=== PATIENT | male | born 1935 | race Caucasian/White ===

== ENCOUNTER 2016-03-14 20:05 | Emergency (ER) | payer OTHER ==
[~2016-03-14] VITALS: Ht 170.2 cm; Wt 56.6 kg
[~2016-03-14 20:05] MED LIST: ADVIN25050 INH; ALBU1AER9 INH; ASPEC325 PO; FINA5TAB PO; FLM4 PO; FRS/40 PO; LEVO75TA PO; LISI-790 PO; OXGN; PRED1SUS3 OPB; TIOTCAP INH; TRAZ50TA35 PO
[2016-03-14 20:24] VITALS: TEMP 37.1; O2SAT 93; Ht 170.2 cm; Wt 56.6 kg
--- NOTE | 2016-03-14 20:47 | EMERGENCY ROOM VISIT NOTE ---
History Report prepared by July: Chepe Bailon Under the Supervision of: Dr. Victor Hugo Womack M.D. First contact with patient: 20:18 Chief Complaint: URINARY SYMPTOMS Stated Complaint: UNABLE TO URINATE, WHEEZING History of Present Illness The patient is an 80 year old male who presents to the Emergency Room with acute urinary retention all day. The patient feels like his bladder is full but is unable to void. He denies shortness of breath and does not have any other complaints. The patient has never had problems with urinary retention before. He does not follow up with a Urologist. The patient does however follow up with Nephrology. The patient wears oxygen at home for COPD. Source of History: patient Onset: today Position: other (urinary system) Quality: other (retention) Timing: other (acute) Associated Symptoms: No SOB Review of Systems See HPI for pertinent positives & negatives. A total of 10 systems reviewed and were otherwise negative. Past Medical & Surgical Medical Problems: (1) COPD (chronic obstructive pulmonary disease) Family History Patient reports no known family medical history. Social History Smoking Status: Current Every Day Smoker Marital Status: Current/Historical Medications Scheduled Albuterol Sulfate (Proair Hfa), 2 PUFFS INH QID Aspirin (Aspirin *), 325 MG PO QAM Finasteride (Proscar), 5 MG PO QAM Fluticasone Prop/Salmeterol (Advair Diskus 250/50 Mcg *), 1 PUFF INH BID Furosemide (Lasix), 40 MG PO QAM Levothyroxine Sodium (Synthroid), 75 MCG PO QAM Lisinopril (Zestril), 1 TAB PO QAM Prednisolone Acetate 1% Oph (Pred Forte 1% Oph), 1 DROP OPR DIRECTED Sulfa/Trimethoprim (Bactrim Ds 800MG/160MG), 1 TAB PO BID Tamsulosin Hcl (Flomax *), 0.4 MG PO QAM Tiotropium [place] (Spiriva Handihaler), 1 CAP INH QAM Trazodone Hcl (Trazodone), 50 MG PO HS Scheduled PRN Oxygen (Oxygen), 2 LITERS NA DIRECTED PRN for Shortness of Breath Allergies Coded Allergies: Adhesives (Verified Allergy, Unknown, RASH, 04/22/15) Latex (Verified Allergy, Unknown, "RASH", 04/22/15) Physical Exam Vital Signs Date Time Temp Pulse Resp B/P Pulse Ox O2 Delivery O2 Flow Rate FiO2 03/14/16 22:16 20 18 131/79 97 Nasal Cannula 2.0 03/14/16 21:02 22 18 134/98 96 Nasal Cannula 2.0 03/14/16 20:24 96 Nasal Cannula 03/14/16 20:24 37.1 22 18 134/98 96 Nasal Cannula 2.0 03/14/16 20:24 93 Room Air 03/14/16 20:24 98 Physical Exam GENERAL: Patient is a healthy-appearing well-nourished HEAD: Normocephalic atraumatic EYES: Ocular movements intact pupils equal and react to light OROPHARYNX mucous membranes are moist no exudates present no erythema or edema present NECK: Supple no nuchal rigidity CHEST: Good equal expansion LUNGS: Clear and equal to auscultation CARDIAC: Normal S1 and S2 ABDOMEN: Soft, suprapubic tenderness, no guarding BACK: No CVA tenderness EXTREMITIES: No pain upon palpation normal muscle strength in all groups no clubbing cyanosis or edema NEURO: Patient is following commands is answering questions appropriately. Alert and oriented x3 Cranial Nerves 2-12 grossly intact Medical Decision & Procedures ER Provider Diagnostic Interpretation: X-ray results as stated below per interpretation by me and the radiologist: CHEST ONE VIEW PORTABLE CLINICAL HISTORY: Wheezing COMPARISON STUDY: 08/05/2015 FINDINGS: The patient is hyperinflated. The heart is normal in size. There is no failure. There is no focal pulmonary consolidation. Underlying pulmonary emphysema is suspected. There is mild peribronchial thickening.[ IMPRESSION: Suspected underlying pulmonary emphysema with mild peribronchial thickening. No evidence of focal pulmonary consolidation Electronically signed by: Alfonso Michel M.D. 03/14/2016 8:50 PM Dictated Date/Time: 03/14/2016 8:49 PM Laboratory Results 03/14/16 20:50 Red Blood Count 4.97, Mean Corpuscular Volume 95.2, Mean Corpuscular Hemoglobin 33.6, Mean Corpuscular Hemoglobin Concent 35.3, Mean Platelet Volume 9.8, Neutrophils (%) (Auto) 91.4, Lymphocytes (%) (Auto) 3.8, Monocytes (%) (Auto) 4.1, Eosinophils (%) (Auto) 0.2, Basophils (%) (Auto) 0.2, Neutrophils # (Auto) 9.60, Lymphocytes # (Auto) 0.40, Monocytes # (Auto) 0.43, Eosinophils # (Auto) 0.02, Basophils # (Auto) 0.02 03/14/16 20:50 Test 03/14/16 20:42 03/14/16 20:45 03/14/16 20:50 Urine Color YELLOW Urine Appearance CLEAR (CLEAR) Urine pH 6.0 (4.5-7.5) Urine Specific [place] 1.007 (1.000-1.030) Urine Protein 2+ (NEG) Urine Glucose (UA) NEG (NEG) Urine Ketones NEG (NEG) Urine Occult Blood 3+ (NEG) Urine Nitrite NEG (NEG) Urine Bilirubin NEG (NEG) Urine Urobilinogen NEG (NEG) Urine Leukocyte Esterase NEG (NEG) Urine WBC (Auto) 1-5 /hpf (0-5) Urine RBC (Auto) >30 /hpf (0-4) Urine Hyaline Casts (Auto) 0 /lpf (0-5) Urine Epithelial Cells (Auto) 0-5 /lpf (0-5) Urine Bacteria (Auto) NEG (NEG) Influenza Type A Antigen Neg for Influ A (NEG) Influenza Type B Antigen Neg for Influ B (NEG) White Blood Count 10.50 K/uL (4.8-10.8) Red Blood Count 4.97 M/uL (4.7-6.1) Hemoglobin 16.7 g/dL (14.0-18.0) Hematocrit 47.3 % (42-52) Mean Corpuscular Volume 95.2 fL (80-100) Mean Corpuscular Hemoglobin 33.6 pg (25-34) Mean Corpuscular Hemoglobin Concent 35.3 g/dl (32-36) Platelet Count 226 K/uL (130-400) Mean Platelet Volume 9.8 fL (7.4-10.4) Neutrophils (%) (Auto) 91.4 % Lymphocytes (%) (Auto) 3.8 % Monocytes (%) (Auto) 4.1 % Eosinophils (%) (Auto) 0.2 % Basophils (%) (Auto) 0.2 % Neutrophils # (Auto) 9.60 K/uL (1.4-6.5) Lymphocytes # (Auto) 0.40 K/uL (1.2-3.4) Monocytes # (Auto) 0.43 K/uL (0.11-0.59) Eosinophils # (Auto) 0.02 K/uL (0-0.5) Basophils # (Auto) 0.02 K/uL (0-0.2) RDW Standard Deviation 48.8 fL (36.4-46.3) RDW Coefficient of Variation 14.0 % (11.5-14.5) Immature Granulocyte % (Auto) 0.3 % Immature Granulocyte # (Auto) 0.03 K/uL (0.00-0.02) Anion Gap 11.0 mmol/L (3-11) Est Creatinine Clear Calc Drug Dose 29.5 ml/min Estimated GFR () 46.5 Estimated GFR (Non- 40.1 BUN/Creatinine Ratio 11.6 (10-20) Calcium Level 9.1 mg/dl (8.5-10.1) Total Bilirubin 0.9 mg/dl (0.2-1) Aspartate Amino Transf (AST/SGOT) 26 U/L (15-37) Alanine Aminotransferase (ALT/SGPT) 27 U/L (12-78) Alkaline Phosphatase 78 U/L (45-117) Total Protein 7.5 gm/dl (6.4-8.2) Albumin 3.6 gm/dl (3.4-5.0) Globulin 3.9 gm/dl (2.5-4.0) Albumin/Globulin Ratio 0.9 (0.9-2) Labs reviewed by ED physician. Medications Administered Medications (Trade) Dose Ordered Sig/Rosy Route Start Time Stop Time Status Last Admin Dose Admin Trimethoprim/ Sulfamethoxazole (Septra Ds 800/ 160MG Tab) 1 tab NOW STAT PO 03/14/16 21:15 03/14/16 21:17 DC 03/14/16 21:27 1 TAB ECG Indication: SOB/dyspnea Rate (beats per minute): 103 Rhythm: sinus rhythm Findings: PVC, no acute ischemic change ED Course 2039: Past medical records reviewed. The patient was evaluated in room C3. A complete history and physical examination was performed. 2044: Robledo catheter was placed. The patient is feeling a lot better. 2114: Septra Ds 800/160 mg tab PO. 2134: Reassessed the patient. Discussed the treatment plan with him. He verbalized understanding and agreement. The patient is ready for discharge. Medical Decision This is an 80-year-old male who presents emergency department complaining of acute abdominal pain. Upon arrival to emergency department is obvious of the patient's suprapubic area is distended. For this reason a Robledo catheter was immediately placed with immediate improvement the patient's symptoms. The patient was slightly wheezing therefore chest x-ray was performed along with laboratory work however the patient states he is at his baseline. He was given breathing treatments in the emergency department. I will place the patient on Bactrim for presumed prostatitis however I stressed the need for follow-up with urology. Both patient and family were in agreement with the treatment plan. Impression Primary Impression: Urinary retention Scribe Attestation The scribe's documentation has been prepared under my direction and personally reviewed by me in its entirety. I confirm that the note above accurately reflects all work, treatment, procedures, and medical decision making performed by me. Departure Information Dispostion Home / Self-Care Prescriptions Sulfa/Trimethoprim (Bactrim Ds 800MG/160MG) Tab 1 TAB PO BID for 10 Days, #20 TAB Prov: Victor Hugo Womack MD 03/14/16 Referrals Manny Miranda M.D. (PCP) Forms HOME CARE DOCUMENTATION FORM, IMPORTANT VISIT INFORMATION, School Instructions, Work Instructions Patient Instructions ED Catheter Care Robledo, ED Retention Urinary Male, My [facility] Additional Instructions Follow up with DR Ireland's office Culture results are usually available in approx 48 hours You have been examined and treated today on an emergency basis only. This is not a substitute for, or an effort to provide, complete comprehensive medical care. It is impossible to recognize and treat all injuries or illnesses in a single emergency department visit. It is therefore important that you follow up closely with Dr Chandra. Call as soon as possible for an appointment. Thank you for your time and consideration. I look forward to speaking with you again soon. Please don't hesitate to call us if you have any questions.
--- NOTE | 2016-03-14 20:51 | DIAGNOSTIC IMAGING REPORT ---
CHEST ONE VIEW PORTABLE CLINICAL HISTORY: Wheezing COMPARISON STUDY: 08/05/2015 FINDINGS: The patient is hyperinflated. The heart is normal in size. There is no failure. There is no focal pulmonary consolidation. Underlying pulmonary emphysema is suspected. There is mild peribronchial thickening.[ IMPRESSION: Suspected underlying pulmonary emphysema with mild peribronchial thickening. No evidence of focal pulmonary consolidation Electronically signed by: Alfonso Michel M.D. 03/14/2016 8:50 PM Dictated Date/Time: 03/14/2016 8:49 PM
[2016-03-14 21:10] LABS: URINE APPEARANCE CLEAR (CLEAR); URINE BILIRUBIN NEG (NEG); URINE COLOR YELLOW; URINE EPITHELIAL CELL AUTO 0-5 /lpf (0-5); URINE NITRITE NEG (NEG); URINE SPECIFIC GRAVITY 1.007 (1.000-1.030); UROBILINOGEN NEG (NEG); ZZURINE CULT IF INDIC CATH NO
[2016-03-14 21:11] LABS: MANUAL MICROSCOPIC REQUIRED? NO; REVIEW REQ? NO
[2016-03-14] MEDS ORDERED: SULFAMETHOXAZOLE/TRIMETHOPRIM DS 800/160MG TAB PO STA (21:15)
[2016-03-14 21:24] LABS: BASO % 0.2 %; BASO ABS # 0.02 K/uL (0-0.2); COMPLETE YES; EOS % 0.2 %; HEMATOCRIT 47.3 % (42-52); IG% 0.3 %; LYMPH % 3.8 %; MEAN CELL VOLUME 95.2 fL (80-100); MEAN CORPUSCULAR HEMOGLOBIN 33.6 pg (25-34); MEAN CORPUSCULAR HGB CONC 35.3 g/dl (32-36); MEAN PLATELET VOLUME 9.8 fL (7.4-10.4); MONO % 4.1 %; NEUT % 91.4 %; PLATELET COUNT 226 K/uL (130-400); RED BLOOD COUNT 4.97 M/uL (4.7-6.1)
[2016-03-14] MEDS ORDERED: SULF800T23 PO (21:32)
[2016-03-14 21:37] LABS: BUN/CREATININE RATIO 11.6 (10-20); CALCIUM 9.1 mg/dl (8.5-10.1); CREATININE 1.6 mg/dl (0.60-1.40); POTASSIUM 4.3 mmol/L (3.5-5.1)
[2016-03-14 21:40] LABS: ALB/GLOB RATIO 0.9 (0.9-2)
[2016-03-14 22:16] VITALS: BP 131/79; PULSE 20; O2SAT 97
== END 2016-03-14 22:15 | disposition home or self-care (01) ==
LOC: EDBD 20:05 → C.EDC 20:06
DX: R33.9 Retention of urine, unspecified (principal); I49.3 Ventricular premature depolarization; J44.9 Chronic obstructive pulmonary disease, unspecified; Z99.81 Dependence on supplemental oxygen; Z79.82 Long term (current) use of aspirin; Z79.899 Other long term (current) drug therapy; F17.200 Nicotine dependence, unspecified, uncomplicated; Z88.8 Allergy status to other drugs, medicaments and biological substances; Z91.040 Latex allergy status

== ENCOUNTER 2016-09-25 14:35 | Emergency (ER) | payer OTHER ==
[~2016-09-25] VITALS: Ht 167.6 cm; Wt 58.0 kg
[2016-09-25 14:57] VITALS: TEMP 36.5; Ht 167.6 cm; Wt 58.0 kg
[2016-09-25] MEDS ORDERED: LEVO100T7 PO (16:18)
[2016-09-25] MEDS ORDERED: IPRASOL4 INH (16:18)
[2016-09-25] MEDS ORDERED: FLM4 PO (16:18)
[2016-09-25] MEDS ORDERED: VNTHFA/IN INH (16:18)
[2016-09-25] MEDS ORDERED: ASPI325T39 PO (16:19)
[2016-09-25] MEDS ORDERED: PRED1SUS17 OP (16:21)
--- NOTE | 2016-09-25 16:25 | EMERGENCY ROOM VISIT NOTE ---
History Report prepared by July: Rukhsana Allen Under the Supervision of: Dr. Nahun Houston D.O. First contact with patient: 16:00 Chief Complaint: CATHETER REPLACEMENT Stated Complaint: CATHETER CAME OUT History of Present Illness The patient is a 81 year old male who presents to the Emergency Room for a catheter replacement after it came out last night. The patient states that his Robledo catheter came out yesterday and he is having a lot of pressure. He denies any pain and abdominal pressure. He reports that the catheter was replaced 1 week ago. The patient notes that he has had some leaking. Source of History: patient Onset: last night Position: other (penis) Quality: pressure Timing: constant Note: He denies any pain and abdominal pressure. Review of Systems See HPI for pertinent positives & negatives. A total of 10 systems reviewed and were otherwise negative. Past Medical & Surgical Medical Problems: (1) COPD (chronic obstructive pulmonary disease) Family History Patient reports no known family medical history. Social History Smoking Status: Current Every Day Smoker Marital Status: Current/Historical Medications Scheduled Albuterol Hfa (Ventolin Hfa), 2 PUFF INH QID Aspirin (Aspirin Ec), 325 MG PO DAILY Finasteride (Proscar), 5 MG PO QAM Furosemide (Lasix), 40 MG PO QAM Ipratropium-Albuterol (Duoneb), 1 TREATMENT INH 5XD Levothyroxine Sodium (Synthroid), 75 MCG PO QAM Levothyroxine Sodium (Levothyroxine Sodium), 100 MCG PO DAILY Tamsulosin HCl (Tamsulosin HCl), 0.4 MG PO DAILY Scheduled PRN Home O2 Therapy (Oxygen), 2 LITERS NA DIRECTED PRN for Shortness of Breath Prednisolone Acetate (Ophth) (Prednisolone Acetate), 1 DROP OP UD PRN for EYE IRRITATION Allergies Coded Allergies: Adhesives (Verified Allergy, Unknown, RASH, 09/25/16) Latex (Verified Allergy, Unknown, "RASH", 09/25/16) Physical Exam Vital Signs Date Time Temp Pulse Resp B/P (MAP) Pulse Ox O2 Delivery O2 Flow Rate FiO2 09/25/16 17:24 76 20 130/80 100 09/25/16 14:57 36.5 20 93 176/94 92 Nasal Cannula 2.0 Physical Exam GENERAL: Patient is awake, alert, very anxious appearing and uncomfortable EYES: The conjunctivae are clear. The pupils are round and reactive. EARS, NOSE, MOUTH AND THROAT: The nose is without any evidence of any deformity. Mucous membranes are moist tongue is midline NECK: The neck is nontender and supple. RESPIRATORY: Lung sounds diminished in all lung do, rales noted throughout. CARDIOVASCULAR: Regular rate and rhythm noted there no murmurs rubs or gallops normal S1 normal S2 GASTROINTESTINAL: The abdomen is moderately distended. Suprapubic tenderness to palpation, no guarding or rigidity. MUSCULOSKELETAL/EXTREMITIES: There is no evidence of gross deformity full range of motion is noted in the hips and shoulders SKIN: There is no obvious evidence of any rash. There are no petechiae, pallor or cyanosis noted. Pedal edema bilaterally NEUROLOGIC: Patient is awake alert and oriented x3 Medical Decision & Procedures ED Course 1600: The patient was evaluated in room B10. A complete history and physical examination were performed. 1701: I reevaluated the patient and updated him and his . 1726: Upon reevaluation, the patient is doing well. I discussed the results and treatment plan with the patient. She verbalized agreement of the treatment plan. The patient was discharged home. Medical Decision Nursing notes reviewed. Additional history is obtained from the patient's significant other. The patient is an 81-year-old male who presented to the emergency department because of abdominal pain. The patient was found have a Robledo catheter that was not draining. I replaced the Robledo catheter in the emergency department and he was found have significant urinary retention. He was feeling much better on subsequent reevaluation. He has had a Robledo catheter for quite some time and is very familiar with the management of the Robledo catheter. He was encouraged to follow-up with his primary urologist as well as primary care physician as soon as possible. He was also encouraged return to the emergency department immediately if symptoms change worsen or the need arises. Medication Reconcilliation Current Medication List: was personally reviewed by me Blood Pressure Screening Patient's blood pressure: Elevated blood pressure Blood pressure disposition: Elevated BP felt to be situational Impression Primary Impression: Urinary retention Additional Impressions: Encounter for Robledo catheter replacement Malfunction of Robledo catheter Scribe Attestation The scribe's documentation has been prepared under my direction and personally reviewed by me in its entirety. I confirm that the note above accurately reflects all work, treatment, procedures, and medical decision making performed by me. Departure Information Dispostion Home / Self-Care Referrals Manny Miranda M.D. (PCP) Forms HOME CARE DOCUMENTATION FORM, IMPORTANT VISIT INFORMATION Patient Instructions My [facility] Health Problem Qualifiers
[2016-09-25 17:24] VITALS: BP 130/80; PULSE 76; O2SAT 100
== END 2016-09-25 17:26 | disposition home or self-care (01) ==
LOC: C.EDB 14:36
DX: R33.9 Retention of urine, unspecified (principal); Z46.6 Encounter for fitting and adjustment of urinary device; J44.9 Chronic obstructive pulmonary disease, unspecified; F17.200 Nicotine dependence, unspecified, uncomplicated; Z79.82 Long term (current) use of aspirin

== ENCOUNTER 2017-02-02 14:48 | Inpatient (IN) | payer OTHER ==
[~2017-02-02] VITALS: Ht 165.1 cm; Wt 60.4 kg
[~2017-02-02 14:48] MED LIST changes: -ADVIN25050 INH; -ALBU1AER9 INH; -ASPEC325 PO; +ASPI325T39 PO; +IPRASOL4 INH; +LEVO100T7 PO; -LISI-790 PO; +PRED1SUS17 OP; -PRED1SUS3 OPB; -TIOTCAP INH; -TRAZ50TA35 PO; +VNTHFA/IN INH
[2017-02-02] MEDS ORDERED: PRED10TA PO (15:13)
[2017-02-02] MEDS ORDERED: CHOL1000 PO (15:17)
[2017-02-02] MEDS ORDERED: SODIUM CHLORIDE 0.9% 500ML 500 ML IV STA (15:24)
--- NOTE | 2017-02-02 15:41 | DIAGNOSTIC IMAGING REPORT ---
CHEST ONE VIEW PORTABLE CLINICAL HISTORY: EVALUATE RESPIRATORY DISTRESS.DYSPNEA dyspnea COMPARISON STUDY: 03/14/2016 FINDINGS: Moderate chronic fibrotic change throughout both hemithoraces. No evidence for cardiac enlargement. Emphysematous change stable from the prior study. IMPRESSION: Chronic change as noted. Mild emphysematous change. No acute process. The above report was generated using voice recognition software. It may contain grammatical, syntax or spelling errors. Electronically signed by: Melo Kyle M.D. 02/02/2017 3:40 PM Dictated Date/Time: 02/02/2017 3:39 PM
[2017-02-02 15:57] LABS: BASO % 0.5 %; BASO ABS # 0.04 K/uL (0-0.2); EOS % 0.9 %; EOS ABS # 0.08 K/uL (0-0.5); HEMATOCRIT 44.6 % (42-52); HEMOGLOBIN 15.3 g/dL (14.0-18.0); IG# 0.02 K/uL (0.00-0.02); LYMPH % 12.5 %; LYMPH ABS # 1.07 K/uL (1.2-3.4); MEAN CELL VOLUME 97.8 fL (80-100); MEAN CORPUSCULAR HEMOGLOBIN 33.6 pg (25-34); MEAN CORPUSCULAR HGB CONC 34.3 g/dl (32-36); MEAN PLATELET VOLUME 9.8 fL (7.4-10.4); MONO % 7.3 %; MONO ABS # 0.62 K/uL (0.11-0.59); NEUT % 78.6 %; NEUT ABS # 6.71 K/uL (1.4-6.5); PLATELET COUNT 232 K/uL (130-400); RED CELL DISTRIBUTION WIDTH CV 14.4 % (11.5-14.5); RED CELL DISTRIBUTION WIDTH SD 51.6 fL (36.4-46.3); WHITE BLOOD COUNT 8.54 K/uL (4.8-10.8)
[2017-02-02 16:18] LABS: ALBUMIN 3.6 gm/dl (3.4-5.0); CREATININE 1.72 mg/dl (0.60-1.40); POTASSIUM 3.8 mmol/L (3.5-5.1)
[2017-02-02 16:23] LABS: TOTAL PROTEIN 7.8 gm/dl (6.4-8.2)
[2017-02-02] MEDS ORDERED: FUROSEMIDE 40 MG/4 ML VIAL IV STA (17:27)
[2017-02-02] MEDS ORDERED: ONDANSETRON INJ 2 MG/ML 2 ML VIAL IV PRN (18:15)
[2017-02-02] MEDS ORDERED: ACETAMINOPHEN 325 MG TAB PO PRN (18:15)
[2017-02-02] MEDS ORDERED: CEFU500T16 PO (18:27)
[2017-02-02] MEDS ORDERED: TAMS0.4C38 PO (18:27)
[2017-02-02] MEDS ORDERED: ADVIN25/60 INH (18:27)
[2017-02-02 18:51] VITALS: BP 161/78; PULSE 100; TEMP 37.2; O2SAT 93
[2017-02-02 19:00] VITALS: Ht 165.1 cm; Wt 60.4 kg
--- NOTE | 2017-02-02 19:03 | History and Physical ---
History & Physical Date & Time of Service: Feb 02, 2017 ~ 17:45 Chief Complaint: Swollen Legs Primary Care Physician: Manny Miranda M.D. History of Present Illness 81 year old male who presents to the ED with BLLE edema. Patient reports a long standing history of BLLE edema however it has been worsening over the past couple of weeks. Patient follows with nephrology who has been managing his diuretics. Patient was to be taking Lasix 40mg twice a day however has only been taking it once daily and thought he was only to take the second dose if needed. He just started taking it twice daily today. Patient reports chronic exertional shortness of breath which is unchanged from baseline. He chronically sleeps in a recliner. He denies chest pain and palpitations. No lightheadedness , dizziness, diaphoresis, or syncopal events. He denies abdominal pain, nausea, vomiting, or diarrhea. He has a chronic evans which has been working well. In the ED, patient is hemodynamically stable and CXR does not show any signs of congestion. He was given Lasix 40mg IV. Past Medical/Surgical History Medical Problems: (1) BPH (benign prostatic hyperplasia) Status: Chronic (2) CKD (chronic kidney disease), stage III Status: Chronic (3) COPD, severe Status: Chronic (4) HTN (hypertension) Status: Chronic (5) Hypothyroidism Status: Chronic (6) Osteoarthritis Status: Chronic (7) Urinary retention Status: Chronic Surgical Problems: (1) History of tonsillectomy and adenoidectomy Status: Chronic (2) S/P ear surgery Status: Chronic Family History non contributory due to patient's advanced age Social History Smoking Status: Current Every Day Smoker Alcohol Use: 1 beer/night Immunizations History of Influenza Vaccine: Yes Influenza Vaccine Date: Nov 02, 2016 History of Tetanus Vaccine?: Yes Tetanus Immunization Date: Apr 30, 2008 History of Pneumococcal: Yes Pneumococcal Date: Apr 16, 2014 Multi-Drug Resistant Organisms History of MDRO: No Allergies Coded Allergies: Adhesives (Verified Allergy, Unknown, RASH, 02/02/17) Latex (Verified Allergy, Unknown, "RASH", 02/02/17) Home Medications Scheduled Aspirin (Aspirin Ec), 325 MG PO DAILY Cholecalciferol (Vitamin D3), 1,000 UNITS PO DAILY Finasteride (Proscar), 5 MG PO QAM Fluticasone Prop/Salmeterol (Advair Diskus 250/50 60 Dose), 1 PUFF INH BID Furosemide (Lasix), 40 MG PO BID Levothyroxine Sodium (Levothyroxine Sodium), 100 MCG PO DAILY Prednisone Tab (Prednisone), 10 MG PO DAILY Tamsulosin Hcl (Flomax), 0.4 MG PO DAILY Scheduled PRN Albuterol Hfa (Ventolin Hfa), 2 PUFF INH QID PRN for SOB/Wheezing Cefuroxime Axetil (Ceftin), 500 MG PO BID PRN for copd rescue kit Home O2 Therapy (Oxygen), 2 LITERS NA DIRECTED PRN for Shortness of Breath Ipratropium-Albuterol (Duoneb), 1 TREATMENT INH QID PRN for SOB/Wheezing Review of Systems ROS per HPI, all other systems reviewed and negative Physical Exam Vital Signs Date Time Temp Pulse Resp B/P (MAP) Pulse Ox O2 Delivery O2 Flow Rate FiO2 02/02/17 18:32 87 18 142/81 94 02/02/17 17:42 89 20 124/72 93 Room Air 02/02/17 16:02 96 02/02/17 15:43 93 16 161/82 94 Room Air 02/02/17 15:43 94 Room Air 02/02/17 14:57 36.4 97 18 137/72 92 Room Air General Appearance: WD/WN, no apparent distress Head: normocephalic, atraumatic Eyes: normal inspection, EOMI, sclerae normal ENT: hearing grossly normal, + pertinent finding (mucous membranes moist) Neck: supple, no JVD, trachea midline Respiratory/Chest: no respiratory distress, + decreased breath sounds Cardiovascular: regular rate, rhythm, normal peripheral pulses, + pertinent finding (+4 pitting edema BLLE) Abdomen/GI: normal bowel sounds, non tender, soft, no organomegaly Extremities/Musculoskelatal: normal inspection, no calf tenderness, normal capillary refill Neurologic/Psych: no motor/sensory deficits, alert, normal mood/affect, oriented x 3 Skin: warm/dry, + pertinent finding (BLLE with dry and cracked skin, erythema noted however no open areas or drainage ) Diagnostics Laboratory Results Results Past 24 Hours Test 02/02/17 15:45 02/02/17 16:35 Range/Units White Blood Count 8.54 4.8-10.8 K/uL Red Blood Count 4.56 4.7-6.1 M/uL Hemoglobin 15.3 14.0-18.0 g/dL Hematocrit 44.6 42-52 % Mean Corpuscular Volume 97.8 80-100 fL Mean Corpuscular Hemoglobin 33.6 25-34 pg Mean Corpuscular Hemoglobin Concent 34.3 32-36 g/dl Platelet Count 232 130-400 K/uL Mean Platelet Volume 9.8 7.4-10.4 fL Neutrophils (%) (Auto) 78.6 % Lymphocytes (%) (Auto) 12.5 % Monocytes (%) (Auto) 7.3 % Eosinophils (%) (Auto) 0.9 % Basophils (%) (Auto) 0.5 % Neutrophils # (Auto) 6.71 1.4-6.5 K/uL Lymphocytes # (Auto) 1.07 1.2-3.4 K/uL Monocytes # (Auto) 0.62 0.11-0.59 K/uL Eosinophils # (Auto) 0.08 0-0.5 K/uL Basophils # (Auto) 0.04 0-0.2 K/uL RDW Standard Deviation 51.6 36.4-46.3 fL RDW Coefficient of Variation 14.4 11.5-14.5 % Immature Granulocyte % (Auto) 0.2 % Immature Granulocyte # (Auto) 0.02 0.00-0.02 K/uL Sodium Level 138 136-145 mmol/L Potassium Level 3.8 3.5-5.1 mmol/L Chloride Level 100 98-107 mmol/L Carbon Dioxide Level 32 21-32 mmol/L Anion Gap 6.0 3-11 mmol/L Blood Urea Nitrogen 33 7-18 mg/dl Creatinine 1.72 0.60-1.40 mg/dl Est Creatinine Clear Calc Drug Dose 28.2 ml/min Estimated GFR () 42.3 Estimated GFR (Non- 36.5 BUN/Creatinine Ratio 19.3 10-20 Random Glucose 97 70-99 mg/dl Calcium Level 9.0 8.5-10.1 mg/dl Total Bilirubin 0.6 0.2-1 mg/dl Aspartate Amino Transf (AST/SGOT) 24 15-37 U/L Alanine Aminotransferase (ALT/SGPT) 29 12-78 U/L Alkaline Phosphatase 77 45-117 U/L Troponin I 0.020 0-0.045 ng/ml Pro-B-Type Natriuretic Peptide 486 0-1800 pg/ml Total Protein 7.8 6.4-8.2 gm/dl Albumin 3.6 3.4-5.0 gm/dl Globulin 4.2 2.5-4.0 gm/dl Albumin/Globulin Ratio 0.9 0.9-2 Urine Color YELLOW Urine Appearance CLOUDY CLEAR Urine pH 7.5 4.5-7.5 Urine Specific [place] 1.011 1.000-1.030 Urine Protein NEG NEG Urine Glucose (UA) NEG NEG Urine Ketones NEG NEG Urine Occult Blood 1+ NEG Urine Nitrite NEG NEG Urine Bilirubin NEG NEG Urine Urobilinogen NEG NEG Urine Leukocyte Esterase SMALL NEG Urine WBC (Auto) 10-30 0-5 /hpf Urine RBC (Auto) 5-10 0-4 /hpf Urine Hyaline Casts (Auto) 1-5 0-5 /lpf Urine Epithelial Cells (Auto) >30 0-5 /lpf Urine Bacteria (Auto) 3+ NEG Urine Crystals AMORPHOUS SEDIMENT NONE PRSENT Urine Yeast (Auto) NONE PRSENT Microbiology Results 02/02/17 Urine Culture, Received Pending Diagnostic Radiology CXR IMPRESSION: Chronic change as noted. Mild emphysematous change. No acute process. Impression Assessment and Plan VOLUME OVERLOAD IN THE SETTING OF CKD STAGE III - admit to tele - patient presenting with increasing BLLE edema x 2 weeks; was to be taking Lasix 40mg BID however has only been taking daily - echo 2014 - EF 60-65%, grade I diastolic dysfunction - follows with nephrology who has been managing his diuretics; will consult - no congestion on CXR, denies chest pain - will update echo and if with significant changes, will consult cardiology - s/p Lasix 40mg IV in the ED, will continue with 40mg IV BID - has a chronic evans in place - daily weights, I/Os, low Na+ diet - baseline creat runs in the mid 1's noted to be 1.7 today - BLLE reddened with dry, cracked skin; no drainage - likely from significant edema, do not suspect cellulitis COPD - no signs of acute exacerbation - continue home inhalers and chronic prednisone HX CVA - continue ASA HYPOTHYROIDISM - continue levothyroxine BPH, CHRONIC EVANS - continue finasteride and tamsulosin DVT PROPHYLAXIS - SQ heparin CODE STATUS - Patient is a full code as per my discussion with him. DISPO - In my clinical judgment this beneficiary meets acute admission criteria, established by [facility], that includes being hospitalized through two midnights. - PT/OT, case management consults Attending Addendum: The patient was seen and examined in ER in presence of the son Complains of legs swelling for a while Noncompliant with the Lasix Difficult to ambulate but denies any symptoms O/E No apparent distress Hemodynamically stable Chest-decreased breath sound bilaterally No crackles Heart-regular Abdomen-benign Extremities-Bilateral Legs swelling with 2+ Edema Minimal redness -right leg-doubt any infection [employer]-[id number] Generally weak Labs and imaging studies were reviewed Has Volume Overload. May have component of Lymphedema Agree wit the assessment and plan. Dr Justen Dickey VTE Prophylaxis VTE Risk Assessment Done? Y/N: Yes Risk Level: Moderate
[2017-02-02 19:23] LABS: PTT PATIENT 27.5 SECONDS (21.0-31.0)
[2017-02-02] MEDS: HEPARIN SOD 5000 UNIT/0.5 ML CARP SQ SCH (21:15)
[2017-02-02] MEDS: FLUTICASONE/SALMETEROL 250/50 (ADVAIR) 14 PUFF/1 INHALER INH SCH (21:40)
--- NOTE | 2017-02-02 22:22 | EMERGENCY ROOM VISIT NOTE ---
History Report prepared by July: Betty Moon Under the Supervision of: Eliel LangfordO. First contact with patient: 15:16 Chief Complaint: SWELLING TO EXTREMITY Stated Complaint: FLUID RETENTION,FAST PULSE,FEET SWOLLEN History of Present Illness The patient is a 81 year old male who presents to the Emergency Room with complaints of worsening swelling of his extremities that began a few days ago. The patient states that he saw his PCP yesterday, who informed him he had a heart rate of 107 with some fluid retention. He notes that he takes 40mg of Lasix's daily. The patient admits to gaining 15 lbs in past week. Pt denies headache, change in vision, fevers, chest pain, shortness of breath, nausea, vomiting, diarrhea, pain with urination, and melena. Source of History: patient Onset: few days ago Position: other (extremities) Quality: other (swelling) Timing: other (persistent) Review of Systems See HPI for pertinent positives & negatives. A total of 10 systems reviewed and were otherwise negative. Past Medical & Surgical Medical Problems: (1) BPH (benign prostatic hyperplasia) (2) CKD (chronic kidney disease), stage III (3) COPD, severe (4) HTN (hypertension) (5) Hypothyroidism (6) Osteoarthritis (7) Urinary retention Surgical Problems: (1) History of tonsillectomy and adenoidectomy (2) S/P ear surgery Family History Patient reports no known family medical history. Social History Smoking Status: Current Every Day Smoker Marital Status: Current/Historical Medications Scheduled Aspirin (Aspirin Ec), 325 MG PO DAILY Cholecalciferol (Vitamin D3), 1,000 UNITS PO DAILY Finasteride (Proscar), 5 MG PO QAM Fluticasone Prop/Salmeterol (Advair Diskus 250/50 60 Dose), 1 PUFF INH BID Furosemide (Lasix), 40 MG PO BID Levothyroxine Sodium (Levothyroxine Sodium), 100 MCG PO DAILY Prednisone Tab (Prednisone), 10 MG PO DAILY Tamsulosin Hcl (Flomax), 0.4 MG PO DAILY Scheduled PRN Albuterol Hfa (Ventolin Hfa), 2 PUFF INH QID PRN for SOB/Wheezing Cefuroxime Axetil (Ceftin), 500 MG PO BID PRN for copd rescue kit Home O2 Therapy (Oxygen), 2 LITERS NA DIRECTED PRN for Shortness of Breath Ipratropium-Albuterol (Duoneb), 1 TREATMENT INH QID PRN for SOB/Wheezing Allergies Coded Allergies: Adhesives (Verified Allergy, Unknown, RASH, 02/02/17) Latex (Verified Allergy, Unknown, "RASH", 02/02/17) Physical Exam Vital Signs Date Time Temp Pulse Resp B/P (MAP) Pulse Ox O2 Delivery O2 Flow Rate FiO2 02/02/17 17:42 89 20 124/72 93 Room Air 02/02/17 16:02 96 02/02/17 15:43 93 16 161/82 94 Room Air 02/02/17 15:43 94 Room Air 02/02/17 14:57 36.4 97 18 137/72 92 Room Air Physical Exam GENERAL: Sitting up in bed, talking in full sentences, alert, well appearing, well nourished, no distress, non-toxic EYE EXAM: normal conjunctiva. PERRL and EOM's grossly intact. OROPHARYNX: no exudate, no erythema, lips, buccal mucosa, and tongue normal and mucous membranes are moist NECK: No approached JVD. LUNGS: Diminished at bases. Clear to auscultation. Normal chest wall mechanics HEART: no murmurs, S1 normal and S2 normal ABDOMEN: abdomen soft, non-tender, normo-active bowel sounds, no masses, no rebound or guarding. BACK: Back is symmetrical on inspection and there is no deformity, no midline tenderness, no CVA tenderness. SKIN: no rashes and no bruising UPPER EXTREMITIES: upper extremities are grossly normal. LOWER EXTREMITIES: Pitting edema lateral to bilateral thighs with erythema to right rodriguez. NEURO EXAM: Normal sensorium, cranial nerves II-XII grossly intact, normal speech, no gross weakness of arms, no gross weakness of legs. Medical Decision & Procedures ER Provider Diagnostic Interpretation: Radiology results as stated below per my review and the radiologist's interpretation: CHEST ONE VIEW PORTABLE CLINICAL HISTORY: EVALUATE RESPIRATORY DISTRESS.DYSPNEA dyspnea COMPARISON STUDY: 03/14/2016 FINDINGS: Moderate chronic fibrotic change throughout both hemithoraces. No evidence for cardiac enlargement. Emphysematous change stable from the prior study. IMPRESSION: Chronic change as noted. Mild emphysematous change. No acute process. The above report was generated using voice recognition software. It may contain grammatical, syntax or spelling errors. Electronically signed by: Melo Kyle M.D. 02/02/2017 3:40 PM Dictated Date/Time: 02/02/2017 3:39 PM Laboratory Results 02/02/17 15:45 Red Blood Count 4.56, Mean Corpuscular Volume 97.8, Mean Corpuscular Hemoglobin 33.6, Mean Corpuscular Hemoglobin Concent 34.3, Mean Platelet Volume 9.8, Neutrophils (%) (Auto) 78.6, Lymphocytes (%) (Auto) 12.5, Monocytes (%) (Auto) 7.3, Eosinophils (%) (Auto) 0.9, Basophils (%) (Auto) 0.5, Neutrophils # (Auto) 6.71, Lymphocytes # (Auto) 1.07, Monocytes # (Auto) 0.62, Eosinophils # (Auto) 0.08, Basophils # (Auto) 0.04 02/02/17 15:45 Test 02/02/17 15:45 02/02/17 16:35 White Blood Count 8.54 K/uL (4.8-10.8) Red Blood Count 4.56 M/uL (4.7-6.1) Hemoglobin 15.3 g/dL (14.0-18.0) Hematocrit 44.6 % (42-52) Mean Corpuscular Volume 97.8 fL (80-100) Mean Corpuscular Hemoglobin 33.6 pg (25-34) Mean Corpuscular Hemoglobin Concent 34.3 g/dl (32-36) Platelet Count 232 K/uL (130-400) Mean Platelet Volume 9.8 fL (7.4-10.4) Neutrophils (%) (Auto) 78.6 % Lymphocytes (%) (Auto) 12.5 % Monocytes (%) (Auto) 7.3 % Eosinophils (%) (Auto) 0.9 % Basophils (%) (Auto) 0.5 % Neutrophils # (Auto) 6.71 K/uL (1.4-6.5) Lymphocytes # (Auto) 1.07 K/uL (1.2-3.4) Monocytes # (Auto) 0.62 K/uL (0.11-0.59) Eosinophils # (Auto) 0.08 K/uL (0-0.5) Basophils # (Auto) 0.04 K/uL (0-0.2) RDW Standard Deviation 51.6 fL (36.4-46.3) RDW Coefficient of Variation 14.4 % (11.5-14.5) Immature Granulocyte % (Auto) 0.2 % Immature Granulocyte # (Auto) 0.02 K/uL (0.00-0.02) Anion Gap 6.0 mmol/L (3-11) Est Creatinine Clear Calc Drug Dose 28.2 ml/min Estimated GFR () 42.3 Estimated GFR (Non- 36.5 BUN/Creatinine Ratio 19.3 (10-20) Calcium Level 9.0 mg/dl (8.5-10.1) Total Bilirubin 0.6 mg/dl (0.2-1) Aspartate Amino Transf (AST/SGOT) 24 U/L (15-37) Alanine Aminotransferase (ALT/SGPT) 29 U/L (12-78) Alkaline Phosphatase 77 U/L (45-117) Troponin I 0.020 ng/ml (0-0.045) Pro-B-Type Natriuretic Peptide 486 pg/ml (0-1800) Total Protein 7.8 gm/dl (6.4-8.2) Albumin 3.6 gm/dl (3.4-5.0) Globulin 4.2 gm/dl (2.5-4.0) Albumin/Globulin Ratio 0.9 (0.9-2) Urine Color YELLOW Urine Appearance CLOUDY (CLEAR) Urine pH 7.5 (4.5-7.5) Urine Specific [place] 1.011 (1.000-1.030) Urine Protein NEG (NEG) Urine Glucose (UA) NEG (NEG) Urine Ketones NEG (NEG) Urine Occult Blood 1+ (NEG) Urine Nitrite NEG (NEG) Urine Bilirubin NEG (NEG) Urine Urobilinogen NEG (NEG) Urine Leukocyte Esterase SMALL (NEG) Urine WBC (Auto) 10-30 /hpf (0-5) Urine RBC (Auto) 5-10 /hpf (0-4) Urine Hyaline Casts (Auto) 1-5 /lpf (0-5) Urine Epithelial Cells (Auto) >30 /lpf (0-5) Urine Bacteria (Auto) 3+ (NEG) Urine Crystals AMORPHOUS SEDIMENT (NONE Urine Yeast (Auto) (NONE PRSENT) Laboratory results per my review. Medications Administered Medications (Trade) Dose Ordered Sig/Rosy Route Start Time Stop Time Status Last Admin Dose Admin Sodium Chloride 500 ml @ 999 mls/hr Q31M STAT IV 02/02/17 15:24 02/02/17 15:54 DC 02/02/17 15:24 999 MLS/HR Furosemide (Lasix Inj) 40 mg NOW STAT IV 02/02/17 17:27 02/02/17 17:28 DC 02/02/17 17:48 40 MG ECG Indication: other (swelling of extremities) Rate (beats per minute): 93 Rhythm: sinus rhythm Findings: Q waves (Septal), other (poor baseline, normal axis) ED Course ED COURSE: Vital signs were reviewed and showed normal vital signs. The patients medical record was reviewed The above diagnostic studies were performed and reviewed. ED treatments and interventions as stated above. 1519: The patient was evaluated in room C8. A complete history and physical examination was performed. 1524: Ordered Sodium Chloride 500ml @ 999mls/hr IV. 1723: I reevaluated the patient, who states he has no new complaints. 1727: Ordered Lasix Inj 40mg IV. 1733: I reviewed the patient's case with MILKA Fallon. She will evaluate the patient for further management. Medical Decision Differential diagnosis: Etiologies such as infections, reactive airway disease, pneumonia, pneumothorax , COPD, CHF, cardiac ischemia, pulmonary embolism, musculoskeletal, gastrointestinal, as well as others were entertained. The patient is a 81 year old male who presents to the ED with complaints of swelling of extremities. Prior records/ancillary studies reviewed. Labs were obtained and show no significant anemia or leukocytosis. BMP shows creatinine 1.7. LFTs all bilirubin, troponin and BNP is unremarkable. UA was contaminated with multiple to go cells. Chest x-ray was unremarkable. Patient had diffuse pitting edema tracking up to the thighs. Patient has been partially managed as an outpatient but unsuccessfully. Discussed with internal medicine following 40 IV Lasix. Patient was needed for further workup of his CHF without significant EKG changes. Medication Reconcilliation Current Medication List: was personally reviewed by me Consults Time Called: 1732 Consulting Physician: MILKA Fallon Returned Call: 1732 I reviewed the patient's case with Dr. Denice Frausto. She will evaluate the patient for further management. Impression Primary Impression: CHF (congestive heart failure) Scribe Attestation The scribe's documentation has been prepared under my direction and personally reviewed by me in its entirety. I confirm that the note above accurately reflects all work, treatment, procedures, and medical decision making performed by me. Departure Information Dispostion Being Evaluated By Hospitalist Referrals Manny Miranda M.D. (PCP) Forms HOME CARE DOCUMENTATION FORM, IMPORTANT VISIT INFORMATION, WORK / SCHOOL INSTRUCTIONS Patient Instructions My [facility] Problem Qualifiers Primary Impression: CHF (congestive heart failure) Congestive heart failure type: unspecified congestive heart failure type Congestive heart failure chronicity: unspecified congestive heart failure chronicity Qualified Codes: I50.9 - Heart failure, unspecified
[2017-02-02 23:57] VITALS: BP 143/66; PULSE 91; TEMP 37; O2SAT 96
[2017-02-03] VITALS (12 sets, daily range): BP systolic 109–142; BP diastolic 54–76; PULSE 79–103; TEMP 36.6–36.8; O2SAT 90–98
[2017-02-03] MEDS: ALBUT/IPRATROP 3MG/0.5MG NEB 3 ML VIAL INH PRN ×4 (01:57→22:00)
[2017-02-03] MEDS: LEVOTHYROXINE 100 MCG TAB PO SCH (05:25)
[2017-02-03] MEDS: FUROSEMIDE INJ 40 MG in SYRINGE 0 ML IV SCH ×2 (05:25→16:43)
[2017-02-03] MEDS: HEPARIN SOD 5000 UNIT/0.5 ML CARP SQ SCH ×3 (05:28→21:47)
[2017-02-03 07:50] LABS: HEMATOCRIT 40.7 % (42-52); HEMOGLOBIN 13.8 g/dL (14.0-18.0); MEAN CELL VOLUME 97.6 fL (80-100); MEAN CORPUSCULAR HEMOGLOBIN 33.1 pg (25-34); MEAN CORPUSCULAR HGB CONC 33.9 g/dl (32-36); MEAN PLATELET VOLUME 10.1 fL (7.4-10.4); PLATELET COUNT 213 K/uL (130-400); RED CELL DISTRIBUTION WIDTH CV 14.5 % (11.5-14.5); RED CELL DISTRIBUTION WIDTH SD 51.8 fL (36.4-46.3); WHITE BLOOD COUNT 8.77 K/uL (4.8-10.8)
--- NOTE | 2017-02-03 08:11 | NEPHROLOGY CONSULTATION ---
DATE OF CONSULTATION: 02/03/2017 ATTENDING OF RECORD: Dr. Delgado. REASON FOR CONSULTATION: Volume overload. HISTORY OF PRESENT ILLNESS: This is an 81-year-old male followed by my partner, Dr. Analia Coats for CKD stage III, who has underlying severe COPD with active tobacco use, history of BPH, chronic [place]o as of early 2016, full dose aspirin after a TIA, chronic leg edema. The patient has noticed over the past couple weeks, worsening leg swelling. My partner recommended taking a second dose of Lasix which he started doing this week. The patient came in for a nurse visit. Blood pressure was stable, but the patient was noted to be tachycardic. The patient states that it is more work to walk with the heavier legs, contributing to the tachycardia. Recommended to come to the ER for further evaluation and was subsequently admitted for lower extremity edema and volume overload. PAST MEDICAL HISTORY: CKD stage III, COPD with emphysema, hypertension, hypothyroidism, history of a TIA, skin cancer, and chronic Rob[place]o secondary to BPH with obstruction. PAST SURGICAL HISTORY: Tonsillectomy and ear surgery. SOCIAL HISTORY: Active smoker, social alcohol, no drugs. FAMILY HISTORY: No one in family on dialysis. CURRENT MEDICATIONS: Aspirin 325 mg daily, vitamin D 1000 units daily, Proscar 5 mg daily, prednisone 10 mg daily, Flomax 0.4 mg daily, Synthroid 100 mcg daily, Lasix 40 mg IV q. 12, heparin 5000 units subQ q. 8, and Advair inhaler twice a day. REVIEW OF SYSTEMS: Positive generalized weakness. Positive lower extremity swelling. Positive shortness of breath with exertion. No chest pain. No nausea, vomiting. No decreased appetite. No fevers or chills. All other review of systems otherwise negative. PHYSICAL EXAMINATION: VITAL SIGNS: Temperature 36.7, pulse 79, respiratory rate 16, blood pressure 123/62. Satting 94% on 2 liters. GENERAL: Awake, alert, oriented x3. EYES: No scleral icterus. ENT: Moist mucous membranes. NECK: Supple. PULMONARY: Decreased breath sounds at the bases. CARDIAC: Regular rate, rhythm and was tachycardic as an outpatient. ABDOMEN: Bowel sounds positive, soft, nontender. EXTREMITIES: +2 to 3 bilateral lower extremity edema with erythema on the right leg and chronic derm changes on the left foot. DERMATOLOGICAL: No rash or ulcers noted. LABORATORIES: Pending for today. Yesterday sodium 138, potassium 3.8, chloride is 100, bicarbonate is 32, BUN is 33, creatinine 1.72, glucose 97, calcium is 9. Albumin is 3.6. White count is 8, H&H 15 and 44, platelet count is 232. INR is 1. UA - just shows small leukocyte esterase, 10-30 wbc's, 5-10 rbc's. Urine culture is pending. IMAGING DATA: Chest x-ray shows chronic changes, mild emphysematous changes. No acute process. ASSESSMENT AND PLAN: Chronic kidney disease stage 3 with creatinine relatively close to baseline in a patient with progressively worsening lower extremity edema. I agree with the IV Lasix and okay with the creatinine trending up as we try to diurese the patient successfully. Once leg swelling has improved, okay from the renal perspective to go home. Appreciate consultation. OLIVIA
[2017-02-03 08:23] LABS: CALCIUM 8.4 mg/dl (8.5-10.1); CREATININE 1.58 mg/dl (0.60-1.40); POTASSIUM 3.3 mmol/L (3.5-5.1)
--- NOTE | 2017-02-03 09:10 | ECHOCARDIOGRAM REPORT ---
*NOTICE TO RECEIVING [employer] This information is strictly Confidential and protected under [place] law. [place] law prohibits you from making any further disclosure of this information unless further disclosure is expressly permitted by the written consent of the person to whom it pertains or is authorized by law. A general authorization for the release of medical or other information is not sufficient for this purpose. Hospital accepts no responsibility if the information is made available to any other person, INCLUDING THE PATIENT. Interpretation Summary * Name: MIREYA BUNDY Study Date: 02/03/2017 07:17 AM BP: 123/62 mmHg * Patient Location: S241 HR: 90 * : 1935 (M/d/yyyy) Gender: Male Height: 64 in * Age: 81 yrs Ethnicity: [place] Weight: 141 lb * Ordering Physician: Denice Frausto * Referring Physician: Self, Referred * Performed By: Mariana Skinner RCS * * Reason For Study: VOLUME OVERLOAD * BSA: 1.7 m2 * -- Conclusions -- * The left ventricle is normal in size. * The right ventricular systolic function is normal. * The left atrial size is normal. * Right atrial size is normal. * Grade I diastolic dysfunction, (abnormal relaxation pattern). * No significant valvular pathology. Procedure Details * A complete two-dimensional transthoracic echocardiogram was performed (2D, M-mode, Doppler and color flow Doppler). Left Ventricle * The left ventricle is normal in size. * There is mild concentric left ventricular hypertrophy. * Left ventricular systolic function is normal. * Ejection Fraction = 60-65%. Right Ventricle * The right ventricle is normal size. * The right ventricular systolic function is normal. Atria * The left atrial size is normal. * Right atrial size is normal. * There is no evidence of atrial septal defect, but resolution does not allow assessment for a patent foramen ovale. Mitral Valve * The mitral valve leaflets appear thickened, but open well. * Significant mitral regurgitation is absent. Tricuspid Valve * The tricuspid valve is not well visualized, but is grossly normal. * Significant tricuspid regurgitation is absent. Aortic Valve * The aortic valve is tricuspid. The leaflet thickness if normal. There is no aortic stenosis, and no significant insufficiency. * No hemodynamically significant valvular aortic stenosis. * There is no significant aortic regurgitation. Pulmonic Valve * The pulmonic valve is not well visualized. * There is no significant pulmonary regurgitation. Great Vessels * The aortic root and proximal ascending aorta are normal sized. Pericardium/Pleural * There is no pericardial effusion. Left Ventricular Diastolic Function * Grade I diastolic dysfunction, (abnormal relaxation pattern). MMode 2D Measurements and Calculations IVSd 1.0 cm IVSs 1.5 cm LVIDd 3.7 cm LVIDs 2.5 cm LVPWd 1.1 cm LVPWs 1.2 cm IVS/LVPW 0.91 FS 32.8 % EDV(Teich) 59.5 ml ESV(Teich) 22.6 ml EF(Teich) 62.1 % EDV(cubed) 52.1 ml ESV(cubed) 15.8 ml EF(cubed) 69.6 % % IVS thick 49.6 % % LVPW thick 10.5 % LV mass(C)d 126.9 grams LV mass(C)dI 75.3 grams/m\S\2 LV mass(C)s 110.5 grams LV mass(C)sI 65.5 grams/m\S\2 SV(Teich) 36.9 ml SI(Teich) 21.9 ml/m\S\2 SV(cubed) 36.3 ml SI(cubed) 21.5 ml/m\S\2 Ao root diam 3.1 cm Ao root area 7.3 cm\S\2 LA dimension 2.7 cm LA/Ao 0.90 LVOT diam 2.1 cm LVOT area 3.6 cm\S\2 LVAd ap4 26.4 cm\S\2 LVLd ap4 7.2 cm EDV(MOD-sp4) 76.9 ml EDV(sp4-el) 81.3 ml LVAs ap4 15.7 cm\S\2 LVLs ap4 5.9 cm ESV(MOD-sp4) 34.6 ml ESV(sp4-el) 35.2 ml EF(MOD-sp4) 54.9 % EF(sp4-el) 56.7 % LVAd ap2 26.5 cm\S\2 LVLd ap2 7.9 cm EDV(MOD-sp2) 74.7 ml EDV(sp2-el) 75.6 ml LVAs ap2 15.9 cm\S\2 LVLs ap2 6.5 cm ESV(MOD-sp2) 32.7 ml ESV(sp2-el) 33.2 ml EF(MOD-sp2) 56.2 % EF(sp2-el) 56.1 % LVLd %diff 8.1 % EDV(MOD-bp) 77.1 ml LVLs %diff 8.7 % ESV(MOD-bp) 35.1 ml EF(MOD-bp) 54.5 % SV(MOD-sp4) 42.2 ml SI(MOD-sp4) 25.0 ml/m\S\2 SV(MOD-sp2) 42.0 ml SI(MOD-sp2) 24.9 ml/m\S\2 SV(MOD-bp) 42.0 ml SI(MOD-bp) 24.9 ml/m\S\2 SV(sp4-el) 46.1 ml SI(sp4-el) 27.4 ml/m\S\2 SV(sp2-el) 42.4 ml SI(sp2-el) 25.2 ml/m\S\2 Doppler Measurements and Calculations MV E max fefie 110.9 cm/sec MV A max effie 136.0 cm/sec MV E/A 0.81 MV P1/2t max effie 85.4 cm/sec MV P1/2t 130.0 msec MVA(P1/2t) 1.7 cm\S\2 MV dec slope 192.4 cm/sec\S\2 MV dec time 0.28 sec Ao V2 max 70.7 cm/sec Ao max PG 2.0 mmHg Ao max PG (full) 0.41 mmHg MAN(V,A) 3.2 cm\S\2 MAN(V,D) 3.2 cm\S\2 LV V1 max PG 1.6 mmHg LV V1 max 63.1 cm/sec PA V2 max 103.5 cm/sec PA max PG 4.3 mmHg TR max effie 261.9 cm/sec
[2017-02-03] MEDS: CHOLECALCIFEROL 1000 INTER.UNIT TAB PO SCH (09:34)
[2017-02-03] MEDS: FLUTICASONE/SALMETEROL 250/50 (ADVAIR) 14 PUFF/1 INHALER INH SCH ×2 (09:34→21:46)
[2017-02-03] MEDS: TAMSULOSIN HCL 0.4 MG CAP PO SCH (09:34)
[2017-02-03] MEDS: FINASTERIDE 5 MG TAB PO SCH (09:34)
[2017-02-03] MEDS: ASPIRIN 325 MG ECTAB PO SCH (09:34)
[2017-02-03] MEDS ORDERED: NURSING DECISION MEDICATION ORDER SCH (13:00)
--- NOTE | 2017-02-03 18:51 | Progress Note ---
Internal Med Progress Note Date of Service: Feb 03, 2017. Provider Documentation: SUBJECTIVE: feels well ,no complain of SOB happy that his leg swelling has improved wondering if he could be discharged home tomorrow OBJECTIVE: Vital Signs-as noted below Exam: General-no apparent distress Eyes-sclera non icteric ,PERRLA/EOMI ENT-moist oral mucosa ,normal oropharynx Neck-supple, no JVD, trachea midline Lungs- no rales or wheeze , + decreased breath sounds Heart- regular rate, rhythm,+4 pitting edema BLLE Abdomen- normal bowel sounds, non tender, soft, no organomegaly Extremities-Bilat LE with dry and cracked skin, erythema noted however no open areas or drainage Neuro-AAO x3 ,no focal neurological deficit Lab data as noted below. ASSESSMENT & PLAN: VOLUME OVERLOAD IN THE SETTING OF CKD STAGE III - patient presented with increasing BLLE edema x 2 weeks; supposed to take Lasix 40mg BID however pt has been taking daily only - no congestion on CXR, - continue with 40mg IV BID -Nephrology consulted -appreciate input -recommend to continue with above dose of Lasix repeat BMP ordered in am LOW K: due to diuresis replaced , repeat BMP in AM added daily supplement PO 20 meq BILATERAL LOWER EXT CHRONIC VENOUS STASIS - BLLE dry skin; no open wound no drainage - likely from significant edema, no evidence of cellulitis appreciate input form wound care ordered for Eucerin cream, if not response , will need script for LAC-HYDRIN Cream ACUTE ON CHRONIC CHF WITH DIASTOLIC DYSFUNCTION: ECHO : 02/03/17 * The left ventricle is normal in size. * The right ventricular systolic function is normal. * The left atrial size is normal. * Right atrial size is normal. * Grade I diastolic dysfunction, (abnormal relaxation pattern). * No significant valvular pathology. presents with vol overload continue with IV Diuresis -monitor daily weights, I/Os, low Na+ diet CKD STAGE 3 : follows with Nephrology Dr Coats Cr approx baseline follow daily BMP while receiving diuresis avoid NSAID , contrast study when able COPD - no signs of acute exacerbation - continue home inhalers and chronic prednisone HX CVA - on ASA 325 mg daily HYPOTHYROIDISM - continue levothyroxine BPH, CHRONIC SULLIVAN - continue finasteride and tamsulosin UA + ve urine culture > 3 organism no Abx indicated DVT PROPHYLAXIS moderate to high risk bilateral lower ext edema/chronic venous stasis - SQ heparin CODE STATUS DISPOSITION PT/OT eval prior to discharge social service consulted for discharge planning possible discharge home in next 1-2 days Vital Signs: Date Time Temp Pulse Resp B/P (MAP) Pulse Ox O2 Delivery O2 Flow Rate FiO2 02/03/17 22:00 87 16 97 Nasal Cannula 2.0 02/03/17 20:05 Nasal Cannula 2.0 02/03/17 19:52 36.7 103 18 109/61 (77) 98 Nasal Cannula 2.0 02/03/17 16:00 Nasal Cannula 2.0 02/03/17 15:28 36.6 100 20 123/67 (85) 95 Nasal Cannula 2.5 02/03/17 15:18 102 16 94 Nasal Cannula 2.0 02/03/17 14:50 36.8 92 18 95 2.0 02/03/17 12:00 Room Air 02/03/17 11:06 36.8 92 18 118/70 (86) 95 2.0 02/03/17 08:00 Room Air 02/03/17 07:44 36.7 95 19 142/54 (83) 90 2.0 02/03/17 06:19 79 16 94 Nasal Cannula 2.0 02/03/17 04:26 36.7 90 20 123/62 (82) 94 Nasal Cannula 2.0 02/03/17 04:00 Nasal Cannula 2.0 02/03/17 01:58 89 16 95 Nasal Cannula 2.0 02/02/17 23:59 Nasal Cannula 2.0 02/02/17 23:57 37.0 91 18 143/66 (91) 96 Lab Results: Results Past 24 Hours Test 02/03/17 07:09 Range/Units White Blood Count 8.77 4.8-10.8 K/uL Red Blood Count 4.17 4.7-6.1 M/uL Hemoglobin 13.8 14.0-18.0 g/dL Hematocrit 40.7 42-52 % Mean Corpuscular Volume 97.6 80-100 fL Mean Corpuscular Hemoglobin 33.1 25-34 pg Mean Corpuscular Hemoglobin Concent 33.9 32-36 g/dl RDW Standard Deviation 51.8 36.4-46.3 fL RDW Coefficient of Variation 14.5 11.5-14.5 % Platelet Count 213 130-400 K/uL Mean Platelet Volume 10.1 7.4-10.4 fL Sodium Level 138 136-145 mmol/L Potassium Level 3.3 3.5-5.1 mmol/L Chloride Level 99 98-107 mmol/L Carbon Dioxide Level 32 21-32 mmol/L Anion Gap 7.0 3-11 mmol/L Blood Urea Nitrogen 31 7-18 mg/dl Creatinine 1.58 0.60-1.40 mg/dl Est Creatinine Clear Calc Drug Dose 31.9 ml/min Estimated GFR () 46.8 Estimated GFR (Non- 40.4 BUN/Creatinine Ratio 19.4 10-20 Random Glucose 99 70-99 mg/dl Calcium Level 8.4 8.5-10.1 mg/dl Magnesium Level 2.2 1.8-2.4 mg/dl
[2017-02-03] MEDS ORDERED: POTASSIUM CHLORIDE 10 MEQ TABCR PO STA (20:27)
[2017-02-03] MEDS: EUCERIN CR 120 GM JAR EXT SCH (21:46)
[2017-02-03] MEDS: POTASSIUM CHLORIDE 20 MEQ TABCR PO SCH (21:50)
[2017-02-04] VITALS (9 sets, daily range): BP systolic 121–137; BP diastolic 54–76; PULSE 67–93; TEMP 36.1–36.6; O2SAT 93–98
[2017-02-04] MEDS: FUROSEMIDE INJ 40 MG in SYRINGE 0 ML IV SCH ×2 (04:53→16:13)
[2017-02-04] MEDS: HEPARIN SOD 5000 UNIT/0.5 ML CARP SQ SCH ×3 (06:13→21:55)
[2017-02-04] MEDS: LEVOTHYROXINE 100 MCG TAB PO SCH (06:13)
[2017-02-04 06:37] LABS: CALCIUM 8.1 mg/dl (8.5-10.1); CREATININE 1.68 mg/dl (0.60-1.40); POTASSIUM 3.2 mmol/L (3.5-5.1)
[2017-02-04] MEDS: ALBUT/IPRATROP 3MG/0.5MG NEB 3 ML VIAL INH PRN ×3 (06:49→21:01)
[2017-02-04] MEDS: TAMSULOSIN HCL 0.4 MG CAP PO SCH (08:02)
[2017-02-04] MEDS: FINASTERIDE 5 MG TAB PO SCH (08:02)
[2017-02-04] MEDS: ASPIRIN 325 MG ECTAB PO SCH (08:02)
[2017-02-04] MEDS: CHOLECALCIFEROL 1000 INTER.UNIT TAB PO SCH (08:02)
[2017-02-04] MEDS: FLUTICASONE/SALMETEROL 250/50 (ADVAIR) 14 PUFF/1 INHALER INH SCH ×2 (08:03→21:52)
[2017-02-04] MEDS: POTASSIUM CHLORIDE 20 MEQ TABCR PO SCH (08:03)
[2017-02-04] MEDS: EUCERIN CR 120 GM JAR EXT SCH ×2 (08:03→21:52)
[2017-02-04] MEDS ORDERED: POTASSIUM CHLORIDE 20 MEQ TABCR PO STA (09:42)
--- NOTE | 2017-02-04 12:48 | Nephrology Progress Note ---
Nephrology Progress Note Date of Service: Feb 04, 2017. Subjective 81 yo male with ckd stage 3 and volume overload. has diuresed nicely. leg swelling much improved. tachycardia also has improved. pt wants to go home today. has a chronic evans. Objective Date Time Temp Pulse Resp B/P (MAP) Pulse Ox O2 Delivery O2 Flow Rate FiO2 02/04/17 12:05 Nasal Cannula 2.0 02/04/17 11:31 36.6 86 18 137/72 (93) 94 3.0 02/04/17 08:00 Nasal Cannula 2.0 02/04/17 07:01 36.3 67 16 133/68 (89) 93 Nasal Cannula 2.0 02/04/17 06:50 86 16 94 Nasal Cannula 2.0 02/04/17 04:20 36.4 84 20 121/54 (76) 98 Nasal Cannula 3.0 02/04/17 04:01 Nasal Cannula 2.0 02/04/17 00:05 Nasal Cannula 2.0 02/03/17 23:02 36.6 97 18 125/60 (81) 96 Nasal Cannula 2.0 02/03/17 22:00 87 16 97 Nasal Cannula 2.0 02/03/17 20:05 Nasal Cannula 2.0 02/03/17 19:52 36.7 103 18 109/61 (77) 98 Nasal Cannula 2.0 02/03/17 16:00 Nasal Cannula 2.0 02/03/17 15:28 36.6 100 20 123/67 (85) 95 Nasal Cannula 2.5 02/03/17 15:18 102 16 94 Nasal Cannula 2.0 02/03/17 14:50 36.8 92 18 95 2.0 Physical Exam: General-aaox3 Eyes-no scleral icterus ENT-mmm Neck-supple Lungs-cta Heart-rrr Abdomen-bs+ s/nt/nd Extremities-+1 edema with wrinkles in skin, much improved Neuro-nonfocal Current Inpatient Medications Medications (Trade) Dose Ordered Sig/Rosy Route Start Time Stop Time Status Last Admin Dose Admin Heparin Sodium (Porcine) (Heparin Sq 5000 Unit/0.5ml) 5,000 unit Q8 SQ 02/02/17 22:00 03/04/17 21:59 02/04/17 06:13 5,000 UNIT Acetaminophen (Tylenol Tab) 650 mg Q4H PRN PO 12/28/17 18:15 03/04/17 18:14 02/04/17 04:53 650 MG Ondansetron HCl (Zofran Inj) 4 mg Q6H PRN IV 02/02/17 18:15 03/04/17 18:14 Furosemide 40 mg/ Syringe 4 ml @ 4 mls/min Q12H IV 02/03/17 05:00 03/05/17 04:59 02/04/17 04:53 4 MLS/MIN Aspirin (Ecotrin Tab) 325 mg DAILY PO 02/03/17 09:00 03/05/17 08:59 02/04/17 08:02 325 MG Cholecalciferol (Vitamin D Tab) 1,000 inter.unit DAILY PO 02/03/17 09:00 03/05/17 08:59 02/04/17 08:02 1,000 INTER.UNIT Finasteride (Proscar Tab) 5 mg QAM PO 02/03/17 09:00 03/05/17 08:59 02/04/17 08:02 5 MG Salmeterol Xinafoate/ Fluticasone (Advair Diskus 250/50 Inh) 1 puff BID INH 02/02/17 21:00 03/04/17 20:59 02/04/17 08:03 1 PUFF Albuterol/ Ipratropium (Duoneb) 3 ml QIDR PRN INH 02/02/17 18:30 03/04/17 18:29 02/04/17 06:49 3 ML Levothyroxine Sodium (Synthroid Tab) 100 mcg DAILYBB PO 02/03/17 06:00 03/05/17 06:59 02/04/17 06:13 100 MCG Prednisone (PredniSONE TAB) 10 mg DAILY PO 02/03/17 09:00 03/05/17 08:59 02/04/17 08:02 10 MG Tamsulosin HCl (Flomax Cap) 0.4 mg DAILY PO 02/03/17 09:00 03/05/17 08:59 02/04/17 08:02 0.4 MG Multi-Ingredient Ointment (Eucerin Unscented Cr) 1 appln BID EXT 02/03/17 21:00 03/05/17 20:59 02/04/17 08:03 1 APPLN Potassium Chloride (Klor-Con Tab) 20 meq QAM PO 02/04/17 09:00 03/06/17 08:59 02/04/17 08:03 20 MEQ Last 24 Hours Test 02/04/17 05:33 Sodium Level 135 mmol/L Potassium Level 3.2 mmol/L Chloride Level 98 mmol/L Carbon Dioxide Level 34 mmol/L Anion Gap 3.0 mmol/L Blood Urea Nitrogen 33 mg/dl Creatinine 1.68 mg/dl Est Creatinine Clear Calc Drug Dose 29.5 ml/min Estimated GFR () 43.5 Estimated GFR (Non- 37.5 BUN/Creatinine Ratio 19.6 Random Glucose 90 mg/dl Calcium Level 8.1 mg/dl Magnesium Level 2.1 mg/dl Assessment & Plan volume overload-diuresing nicely on the iv diuretics. ok from renal perspective to go back to home dose of lasix twice a day. recheck bmp in a week as an outpt. CKD stage 3-creatinine 1.5 to 1.7-stable. diuresing nicely. ok from renal perspective to go home. hypokalemia-k 3.2 this morning. given potassium supplement this morning. on k supplement daily as well.
[2017-02-04] MEDS ORDERED: MCRK20 PO (16:36)
[2017-02-04] MEDS ORDERED: FRS/40 PO (16:36)
[2017-02-04] MEDS ORDERED: LACT12CR TOP (16:36)
--- NOTE | 2017-02-04 16:39 | Discharge Instructions ---
Discharge Instructions Date of Service Feb 04, 2017. Admission Reason for Admission: Volume Overload Discharge Discharge Diagnosis / Problem: VOLUME OVERLOAD IN SETTING OF CKD STAGE 3 Discharge Goals Goal(s): Decrease discomfort, Improve function Activity Recommendations Activity Limitations: resume your previous activity . Instructions / Follow-Up Instructions / Follow-Up FOLLOWUP WITH FAMILY DOCTOR Keith Del Angel 5TH AT 9:45AM FOLLOWUP WITH NEPHROLOGY IN 2-3 WEEKS. LAB: BMP IN ONE WEEK AND FOLLOW RESULTS WITH FAMILY DOCTOR. [facility]( to change every month) Current Hospital Diet Patient's current hospital diet: AHA Diet (Heart Healthy), Low Sodium Diet (2gm Na), Renal Diet Discharge Diet Recommended Diet: AHA Diet (Heart Healthy) Pending Studies Studies pending at discharge: no Medical Emergencies . Who to Call and When: Medical Emergencies: If at any time you feel your situation is an emergency, please call 911 immediately. . Non-Emergent Contact Non-Emergency issues call your: Primary Care Provider . . "Provider Documentation" section prepared by Chetan Ferrer. . VTE Core Measure Inpt VTE Proph given/why not?: Unfractionated heparin SQ (DECLINED)
--- NOTE | 2017-02-04 18:25 | Progress Note ---
Internal Med Progress Note Date of Service: Feb 04, 2017. Provider Documentation: SUBJECTIVE: resting comfortably swelling in legs much improved no chest pain or sob wants to go home OBJECTIVE: Vital Signs-as noted below Exam: General-alert and oriented. Not in distress ENT-Normal hearing Neck-no neck masses supple Lungs-cta b/l no wheezing no crackles Heart-S1 and S2 heard regular rate and rthym, no murmurs Abdomen-Soft bowel sounds present non tender no distension Extremities-chronic b/l lower extremity edema with skin changes no erythema Neuro-alert and awake moves extremities Lab data as noted below. ASSESSMENT & PLAN: ASSESSMENT & PLAN: VOLUME OVERLOAD IN THE SETTING OF CKD STAGE III patient presented with increasing BLLE edema x 2 weeks; Taking lasix 40mg once daily insteda of twice started on iv lasix bid nephrology following Improved d/c on lasix 40mg po bid potassium supplement f/u labs in one week d/c home with home health LOW K: replaced f/u labs with pcp BILATERAL LOWER EXT CHRONIC VENOUS STASIS BLLE dry skin; no open wound no drainage - likely from significant edema, no evidence of cellulitis appreciate input form wound care Discharged on LAC-HYDRIN Cream f/u with pcp ACUTE ON CHRONIC CHF WITH DIASTOLIC DYSFUNCTION: ECHO : 02/03/17 * The left ventricle is normal in size. * The right ventricular systolic function is normal. * The left atrial size is normal. * Right atrial size is normal. * Grade I diastolic dysfunction, (abnormal relaxation pattern). * No significant valvular pathology. presents with vol overload management as above CKD STAGE 3 : follows with Nephrology Dr Coats Cr approx baseline f/u labs COPD Stable on home inhalers and chronic prednisone HX CVA - on ASA 325 mg daily HYPOTHYROIDISM on levothyroxine BPH, CHRONIC SULLIVAN On finasteride and tamsulosin f/u needed discharged home with home health Vital Signs: Date Time Temp Pulse Resp B/P (MAP) Pulse Ox O2 Delivery O2 Flow Rate FiO2 02/04/17 16:53 36.1 93 18 95 Nasal Cannula 02/04/17 16:28 Nasal Cannula 2.0 02/04/17 15:00 36.1 93 18 128/76 (93) 95 Nasal Cannula 3.0 02/04/17 13:48 81 16 97 Nasal Cannula 2.0 02/04/17 12:05 Nasal Cannula 2.0 02/04/17 11:31 36.6 86 18 137/72 (93) 94 3.0 02/04/17 08:00 Nasal Cannula 2.0 02/04/17 07:01 36.3 67 16 133/68 (89) 93 Nasal Cannula 2.0 02/04/17 06:50 86 16 94 Nasal Cannula 2.0 02/04/17 04:20 36.4 84 20 121/54 (76) 98 Nasal Cannula 3.0 02/04/17 04:01 Nasal Cannula 2.0 02/04/17 00:05 Nasal Cannula 2.0 02/03/17 23:02 36.6 97 18 125/60 (81) 96 Nasal Cannula 2.0 02/03/17 22:00 87 16 97 Nasal Cannula 2.0 02/03/17 20:05 Nasal Cannula 2.0 02/03/17 19:52 36.7 103 18 109/61 (77) 98 Nasal Cannula 2.0 Lab Results: Results Past 24 Hours Test 02/04/17 05:33 02/04/17 13:34 Range/Units Sodium Level 135 136-145 mmol/L Potassium Level 3.2 3.9 3.5-5.1 mmol/L Chloride Level 98 98-107 mmol/L Carbon Dioxide Level 34 21-32 mmol/L Anion Gap 3.0 3-11 mmol/L Blood Urea Nitrogen 33 7-18 mg/dl Creatinine 1.68 0.60-1.40 mg/dl Est Creatinine Clear Calc Drug Dose 29.5 ml/min Estimated GFR () 43.5 Estimated GFR (Non- 37.5 BUN/Creatinine Ratio 19.6 10-20 Random Glucose 90 70-99 mg/dl Calcium Level 8.1 8.5-10.1 mg/dl Magnesium Level 2.1 1.8-2.4 mg/dl
[2017-02-05 02:20] VITALS: PULSE 91; O2SAT 94
[2017-02-05] MEDS: ALBUT/IPRATROP 3MG/0.5MG NEB 3 ML VIAL INH PRN ×2 (02:20→07:03)
[2017-02-05] MEDS: FUROSEMIDE INJ 40 MG in SYRINGE 0 ML IV SCH (05:00)
[2017-02-05] MEDS: LEVOTHYROXINE 100 MCG TAB PO SCH (05:49)
[2017-02-05] MEDS: HEPARIN SOD 5000 UNIT/0.5 ML CARP SQ SCH (05:51)
[2017-02-05 07:03] VITALS: PULSE 86; O2SAT 92
[2017-02-05] MEDS: FLUTICASONE/SALMETEROL 250/50 (ADVAIR) 14 PUFF/1 INHALER INH SCH (08:09)
[2017-02-05] MEDS: TAMSULOSIN HCL 0.4 MG CAP PO SCH (08:09)
[2017-02-05] MEDS: POTASSIUM CHLORIDE 20 MEQ TABCR PO SCH (08:09)
[2017-02-05] MEDS: EUCERIN CR 120 GM JAR EXT SCH (08:09)
[2017-02-05] MEDS: FINASTERIDE 5 MG TAB PO SCH (08:09)
[2017-02-05] MEDS: CHOLECALCIFEROL 1000 INTER.UNIT TAB PO SCH (08:09)
[2017-02-05] MEDS: ASPIRIN 325 MG ECTAB PO SCH (08:09)
[2017-02-05 08:10] LABS: CALCIUM 8.4 mg/dl (8.5-10.1); CREATININE 1.67 mg/dl (0.60-1.40); POTASSIUM 3.5 mmol/L (3.5-5.1)
[2017-02-05] MEDS ORDERED: POTASSIUM CHLORIDE 20 MEQ TABCR PO STA (09:13)
[2017-02-05] MEDS ORDERED: FUROSEMIDE 40 MG TAB PO SCH (09:15)
--- NOTE | 2017-02-21 11:20 | Discharge Summary ---
Discharge Summary Date of Service Feb 21, 2017. Discharge Summary Admission Date: Feb 02, 2017 at 18:07 Discharge Date: Feb 05, 2017 Discharge Disposition: Home with services Principal Diagnosis: VOLUME OVERLOAD IN THE SETTING OF CKD STAGE III acute on chronic systolic chf hypokalemia Secondary Diagnoses/Problems: (1) BPH (benign prostatic hyperplasia) Status: Chronic (2) CKD (chronic kidney disease), stage III Status: Chronic (3) COPD, severe Status: Chronic (4) HTN (hypertension) Status: Chronic (5) Hypothyroidism Status: Chronic (6) Osteoarthritis Status: Chronic (7) Urinary retention Status: Chronic Procedures: cxr: : Chronic change as noted. Mild emphysematous change. No acute process. echo: he left ventricle is normal in size. * The right ventricular systolic function is normal. * The left atrial size is normal. * Right atrial size is normal. * Grade I diastolic dysfunction, (abnormal relaxation pattern). * No significant valvular pathology. Consultations: NEPHROLOGY Medication Reconciliation New Medications: Lactic Acid (Ammonium Lactate) (Lac-Hydrin) 12 % Cre 1 APPLN TOP BID for 30 Days, #385 GM 1 Refill TO BOTH LEGS Potassium Chloride (Klor-Con M20) 20 Meq Tabcr 20 MEQ PO QAM, #30 2 Refills Continued Medications: Albuterol Hfa (Ventolin Hfa) 200 Puffs/57285 Mcg Aers 2 PUFF INH QID PRN for SOB/Wheezing, #18 Aspirin (Aspirin Ec) 325 Mg Tab 325 MG PO DAILY Cefuroxime Axetil (Ceftin) 500 Mg Tab 500 MG PO BID PRN for copd rescue kit, TAB Cholecalciferol (Vitamin D3) 1,000 Unit Tab 1000 UNITS PO DAILY for 90 Days, TAB 3 Refills Finasteride (Proscar) 5 Mg Tab 5 MG PO QAM, 0 Refills Fluticasone Prop/Salmeterol (Advair Diskus 250/50 60 Dose) 1 Ea Aerp 1 PUFF INH BID, INHALER Furosemide (Lasix) 40 Mg Tab 40 MG PO BID, #60 TAB 2 Refills (This prescription has been renewed) Home O2 Therapy (Oxygen) Gas 2 LITERS NA DIRECTED PRN for Shortness of Breath Ipratropium-Albuterol (Duoneb) 3 Ml Nebu 1 TREATMENT INH QID PRN for SOB/Wheezing, INHA Levothyroxine Sodium (Levothyroxine Sodium) 100 Mcg Tab 100 MCG PO DAILY, #90 Prednisone Tab (Prednisone) 10 Mg Tab 10 MG PO DAILY, TAB Tamsulosin Hcl (Flomax) 0.4 Mg Cap 0.4 MG PO DAILY, CAP Admission Information HPI (per Admitting provider): 81 year old male who presents to the ED with BLLE edema. Patient reports a long standing history of BLLE edema however it has been worsening over the past couple of weeks. Patient follows with nephrology who has been managing his diuretics. Patient was to be taking Lasix 40mg twice a day however has only been taking it once daily and thought he was only to take the second dose if needed. He just started taking it twice daily today. Patient reports chronic exertional shortness of breath which is unchanged from baseline. He chronically sleeps in a recliner. He denies chest pain and palpitations. No lightheadedness , dizziness, diaphoresis, or syncopal events. He denies abdominal pain, nausea, vomiting, or diarrhea. He has a chronic sullivan which has been working well. In the ED, patient is hemodynamically stable and CXR does not show any signs of congestion. He was given Lasix 40mg IV. Physical Exam (per Admitting): General Appearance: WD/WN, no apparent distress Head: normocephalic, atraumatic Eyes: normal inspection, EOMI, sclerae normal ENT: hearing grossly normal, + pertinent finding (mucous membranes moist) Neck: supple, no JVD, trachea midline Respiratory/Chest: no respiratory distress, + decreased breath sounds Cardiovascular: regular rate, rhythm, normal peripheral pulses, + pertinent finding (+4 pitting edema BLLE) Abdomen/GI: normal bowel sounds, non tender, soft, no organomegaly Extremities/Musculoskelatal: normal inspection, no calf tenderness, normal capillary refill Neurologic/Psych: no motor/sensory deficits, alert, normal mood/affect, oriented x 3 Skin: warm/dry, + pertinent finding (BLLE with dry and cracked skin, erythema noted however no open areas or drainage ) Hospital Course ASSESSMENT & PLAN: VOLUME OVERLOAD IN THE SETTING OF CKD STAGE III patient presented with increasing BLLE edema x 2 weeks; Taking lasix 40mg once daily insteda of twice started on iv lasix bid nephrology following Improved d/c on lasix 40mg po bid potassium supplement f/u labs in one week d/c home with home health LOW K: replaced f/u labs with pcp BILATERAL LOWER EXT CHRONIC VENOUS STASIS BLLE dry skin; no open wound no drainage - likely from significant edema, no evidence of cellulitis appreciate input form wound care Discharged on LAC-HYDRIN Cream f/u with pcp ACUTE ON CHRONIC CHF WITH DIASTOLIC DYSFUNCTION: ECHO : 02/03/17 * The left ventricle is normal in size. * The right ventricular systolic function is normal. * The left atrial size is normal. * Right atrial size is normal. * Grade I diastolic dysfunction, (abnormal relaxation pattern). * No significant valvular pathology. presents with vol overload management as above CKD STAGE 3 : follows with Nephrology Dr Coats Cr approx baseline f/u labs COPD Stable on home inhalers and chronic prednisone HX CVA - on ASA 325 mg daily HYPOTHYROIDISM on levothyroxine BPH, CHRONIC SULLIVAN On finasteride and tamsulosin f/u needed discharged home with home health Total time spent on discharge = 35MINUTES This includes examination of the patient, discharge planning, medication reconciliation, and communication with other providers. Discharge Instructions Discharge Instructions Date of Service Feb 04, 2017. Admission Reason for Admission: Volume Overload Discharge Discharge Diagnosis / Problem: VOLUME OVERLOAD IN SETTING OF CKD STAGE 3 Discharge Goals Goal(s): Decrease discomfort, Improve function Activity Recommendations Activity Limitations: resume your previous activity . Instructions / Follow-Up Instructions / Follow-Up FOLLOWUP WITH FAMILY DOCTOR Keith Del Angel 5TH AT 9:45AM FOLLOWUP WITH NEPHROLOGY IN 2-3 WEEKS. LAB: BMP IN ONE WEEK AND FOLLOW RESULTS WITH FAMILY DOCTOR. [facility]( to change every month) Current Hospital Diet Patient's current hospital diet: AHA Diet (Heart Healthy), Low Sodium Diet (2gm Na), Renal Diet Discharge Diet Recommended Diet: AHA Diet (Heart Healthy) Pending Studies Studies pending at discharge: no Medical Emergencies . Who to Call and When: Medical Emergencies: If at any time you feel your situation is an emergency, please call 911 immediately. . Non-Emergent Contact Non-Emergency issues call your: Primary Care Provider . . "Provider Documentation" section prepared by Chetan Ferrer. . VTE Core Measure Inpt VTE Proph given/why not?: Unfractionated heparin SQ (DECLINED)
== END 2017-02-05 10:18 | disposition home health service (06) | DRG 640 ==
LOC: C.EDB 14:49 → C.2T 18:07 → ENRESERV 18:21 → EDBEDREQSVC 02-03 13:55 → ENRESERV 02-03 14:21 → C.MED 02-03 15:11
PROVIDERS: ADMIT Internal Medicine; ATTEND Internal Medicine
DX: E87.70 Fluid overload, unspecified (principal); I50.33 Acute on chronic diastolic (congestive) heart failure; F17.200 Nicotine dependence, unspecified, uncomplicated; N18.3 Chronic kidney disease, stage 3 (moderate); J44.9 Chronic obstructive pulmonary disease, unspecified; Z86.73 Personal history of transient ischemic attack (TIA), and cerebral infarction without residual deficits; E03.9 Hypothyroidism, unspecified; I12.9 Hypertensive chronic kidney disease with stage 1 through stage 4 chronic kidney disease, or unspecified chronic kidney disease; N40.0 Benign prostatic hyperplasia without lower urinary tract symptoms; Z72.89 Other problems related to lifestyle; Z85.828 Personal history of other malignant neoplasm of skin; Z79.82 Long term (current) use of aspirin

== ENCOUNTER 2018-12-28 14:25 | Inpatient (IN) ==
[2018-12-28] MEDS ORDERED: SODIUM CHLORIDE 0.9% 500 ML IV SCH (14:45)
--- NOTE | 2018-12-28 15:12 | XRay Report ---
XR chest 1V portable CLINICAL HISTORY: 83 years-old Male presenting with weakness. TECHNIQUE: PA and lateral views of the chest were obtained. COMPARISON: Chest CT from 08/06/2018 and chest x-ray from 02/14/2018. FINDINGS: Atherosclerosis of the aortic arch. Cardiac silhouette mildly enlarged. Interval development of exten sive opacity in the left mid to lower lung with a moderate left pleural effusion. Right lung and pleu ral space clear. Heterogeneous appearance of the lung parenchyma. Mild hyperinflation of the right idalia ng. Osteopenia. Advanced degenerative changes of the right glenohumeral joint. Upper abdomen normal. IMPRESSION: 1. Extensive left mid to basilar consolidation or atelectasis in the setting of a moderate left pleu ral effusion. Underlying infection is not excluded. 2. Emphysema. 3. Mild cardiomegaly. No convincing evidence of volume overload or advanced congestive change. Electronically signed by: Tay Horowitz M.D. 12/28/2018 3:11 PM
[2018-12-28 15:23] LABS: Hematocrit (blood only) 37.9 % (42-52); Hemoglobin 12.9 g/dL (14.0-18.0); Mean Corpuscular Hemoglobin 31.9 pg (25-34); Mean Corpuscular Volume 93.6 fL (80-100); Mean Platelet Volume 9.9 fL (7.4-10.4); Platelet Count 271 K/uL (130-400); RDW Coefficient of Variation 14.5 % (11.5-14.5); RDW Standard Deviation 49.7 fL (36.4-46.3); Red Blood Count 4.05 M/uL (4.7-6.1); White Blood Count 19.55 K/uL (4.8-10.8)
[2018-12-28] MEDS ORDERED: cefTRIAXone SODIUM 1,000 MG/50 ML BAG IV STA (15:30)
[2018-12-28 15:40] LABS: Alanine Aminotransferase 15 U/L (12-78); Aspartate Aminotransferase 13 U/L (15-37); BUN Creatinine Ratio 39.1 (10-20); Blood Urea Nitrogen 82 mg/dl (7-18); Calcium 9.3 mg/dl (8.5-10.1); Carbon Dioxide 28 mmol/L (21-32); Chloride 100 mmol/L (98-107); Creatinine Clr Calc Pharmacy 19.8 ml/min; Est GFR (African American) 32.6; Est GFR (Non-African American) 28.1; Glucose 154 mg/dl (70-99); Magnesium 2.3 mg/dl (1.8-2.4); Potassium 4.6 mmol/L (3.5-5.1); Sodium 134 mmol/L (136-145)
[2018-12-28 15:44] LABS: Basophils # (auto) 0.01 K/uL (0-0.2); Basophils % (auto) 0.1 %; Eosinophils # (auto) 0.02 K/uL (0-0.5); Eosinophils % (auto) 0.1 %; Immature Granulocytes # (auto) 0.12 K/uL (0.00-0.02); Immature Granulocytes % (auto) 0.6 %; Lymphocytes # (auto) 0.39 K/uL (1.2-3.4); Monocytes # (auto) 0.59 K/uL (0.11-0.59); Neutrophils # (auto) 18.42 K/uL (1.4-6.5); Neutrophils % (auto) 94.2 %; Toxic Granulation 1+
[2018-12-28 15:45] LABS: Albumin Globulin Ratio 0.4 (0.9-2); Alkaline Phosphatase 96 U/L (45-117); Bilirubin,Total 0.4 mg/dl (0.2-1); Globulin 4.7 gm/dl (2.5-4.0); Total Protein 6.7 gm/dl (6.4-8.2); Troponin I < 0.015 ng/ml (0-0.045)
--- NOTE | 2018-12-28 15:59 | Emergency Department Note ---
Entered by Leonides Chau acting as a scribe for History of Present Illness General Chief complaint: Illness Time Seen by Provider: 12/28/18 14:35 Source: patient, family (family member) and EMS History of Present Illness Onset (ago): day(s) 5 Location: left and right Pain Consistency: + constant Maximum Pain Intensity: 2 Quality: + other (weakness) Associated symptoms: + other (+high potassium; +left sided abdominal pain ); no fever/chills and no nausea/vomiting The patient is a 83 year old male, with past medical history of COPD and CKD, who presents to the Emergency Room with complaints of constant weakness over the past 5 days, according to the patients family member. The family member of the patient notes the patient had a doctors appointment 4 days ago where the patient had blood work done, but the family member reports the patients blood work was abnormal. She states the patients potassium was high, and the family member states it was slightly above 5. The family member states the patient had medication changes following this finding, including stopping a potassium pill, stopping Ramipril, and decreasing a diuretic. The family member also notes the patient has not eaten or drank much recently. She states the patient has also been complaining of left-sided abdominal pain over the last 3-4 days. She states they were referred to the ED by Dr. Leyva-Nephrology after discussing symptoms with Dr. Leyva. The patient denies a fever or vomiting. The patient states the urine in his bag has been clear recently. The family member notes the patient has had a Sullivan catheter in place for years, and she states the patient gets it changed once a month. She notes the next time hell get his Sullivan catheter changed is January 09. The patient notes he wears 2 L of oxygen at all times due to COPD. The family member notes the patient has never had dialysis, and she states the patient is not on antibiotics currently. EMS was concerned the patient might be experiencing dehydration. Home Medications Home Medications Medication Instructions Recorded Confirmed Type cholecalciferol (vitamin D3) 1,000 unit PO QAM 11/04/17 12/28/18 History [Vitamin D3] docusate sodium 100 mg PO BID PRN 11/04/17 12/28/18 History finasteride 5 mg PO QAM 11/04/17 12/28/18 History fluticasone propion-salmeterol 1 inh INHALATION BID PRN 11/04/17 12/28/18 History [Advair Diskus] levothyroxine 100 mcg PO QAM 11/04/17 12/28/18 History tamsulosin [Flomax] 0.4 mg PO QAM 11/04/17 12/28/18 History torsemide 20 mg PO QAM 11/04/17 12/28/18 History aspirin 325 mg PO QAM 12/05/17 12/28/18 History ipratropium-albuterol 3 ml INHALATION .Q4-5 TIMES DAY 12/28/18 12/28/18 History prednisone 10 mg PO QAM 12/28/18 12/28/18 History Allergies Allergy/AdvReac Type Severity Reaction Status Date / Time adhesive Allergy Mild RASH Verified 12/28/18 15:26 latex Allergy Mild "RASH" Verified 12/28/18 15:26 Past Med/Surg History Medical History Bronchitis H/O FREQUENT BRONCHITIS Cerebrovascular disease (Chronic) "s/p stroke" -- ~1999. 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 Most recent hospital admission for exacerbation was 07/17-07/19 @ [facility]. Cor pulmonale Hearing deficit HTN (hypertension) (Chronic) Hypothyroidism (Chronic) Indwelling Sullivan catheter present Lymphedema (Chronic) On home oxygen therapy Osteoarthritis (Chronic) Urinary retention (Chronic) SULLIVAN CATHETER Surgical History History of cataract surgery BILATERAL History of tonsillectomy and adenoidectomy (Chronic) S/P ear surgery (Chronic) Family History Other Hypertension Social History (Updated 12/28/18 @ 17:31 by Maria Isabel Messina PA-C) Preferred Language: Yemeni Communication Ability: Effective Visual Impairment: No Limitations Stockroom Inventory Clerk Required: No Beliefs That Will Affect Care: None marital status: Current Living Situation: Spouse Other Information That Helps Us Care for You: No Feels Safe at Home: Yes Safety Concerns: Feels Safe At This Time Smoking Status: Current some day smoker Tobacco Type: cigarettes ; Years Smoked: 70 ; Cigarettes Per Day: 6 ; Second Hand Exposure: Yes ; Hx Alcohol Use: Yes Alcohol type: beer Alcohol Intake Frequency: Rarely Hx Substance Use: No Review of Systems See HPI for pertinent positives & negatives. and A total of 10 systems reviewed and were otherwise negative Physical Exam Vital Signs Vital Signs - 24 hr 12/28/18 14:32 12/28/18 16:16 12/28/18 16:44 Temperature 36.8 C Temperature Source Oral Pulse Rate 91 H Pulse Rate [Left Finger] 82 96 H Respiratory Rate 18 18 18 Respiratory Effort / Characteristics Non-Labored Spontaneous Blood Pressure 114/65 Blood Pressure [Right Arm] 129/59 L Blood Pressure Mean 81 Blood Pressure Mean [Right Arm] 82 Blood Pressure Position [Right Arm] Pulse Oximetry 93 98 94 Oxygen Delivery Method Room Air Room Air Nasal Cannula Oxygen Flow Rate Sepsis Recent Fever Within 48 Hours No Sepsis New/Unexplained Change in Mental Status No Sepsis Action Taken by Nursing No Action Required 12/28/18 16:51 12/28/18 17:50 12/28/18 17:54 Temperature Temperature Source Pulse Rate 85 Pulse Rate [Left Finger] 83 Respiratory Rate 22 Respiratory Effort / Characteristics Blood Pressure Blood Pressure [Right Arm] 141/83 H Blood Pressure Mean Blood Pressure Mean [Right Arm] 102 Blood Pressure Position [Right Arm] Lying Pulse Oximetry 96 95 Oxygen Delivery Method Nasal Cannula Nasal Cannula Nasal Cannula Oxygen Flow Rate 2 2 2 Sepsis Recent Fever Within 48 Hours Sepsis New/Unexplained Change in Mental Status Sepsis Action Taken by Nursing GENERAL: Patient is in no acute distress. HEENT: No acute trauma, normocephalic atraumatic, mucous membranes dry, no nasal congestion, no scleral icterus. NECK: No stridor, no adenopathy, no meningismus, trachea is midline. LUNGS: Diminished breath sounds bilaterally. No wheezing or rhonchi. No respiratory distress. HEART: Without murmurs gallops or rubs, regular rate and rhythm. ABDOMEN: Soft, nontender, bowel sounds positive, no hernias, no peritonitis. Sullivan catheter noted. EXTREMITIES: Bilateral pedal edema with bilateral wraps on legs. No gross deformities to the lower extremities. NEUROLOGIC: Oriented x 3, no acute motor or sensory deficits, no focal weakness. SKIN: No rash, no jaundice, no diaphoresis. Course Course 1436: Past medical records reviewed. The patient was evaluated in room C12B. A complete history and physical exam was performed. 1623: I updated the patient on his case. 1628: I reviewed the patient's case with Maria Isabel Lainez. Dr. Janae Lainez will evaluate the patient for further management. Consultations Consultation #1: I reviewed the patient's case with Maria Isabel Lainez. Dr. Janae Lainez will evaluate the patient for further management. Time: 16:28 Administered Medications Discontinued Medications Albuterol (Duoneb) 3 ml NEB NOW STA Stop: 12/28/18 16:26 Last Admin: 12/28/18 16:41 Dose: 3 ml Documented by: [id number] Sodium Chloride (Nss) 500 mls @ 999 mls/hr IV .Q31M GRAYSON Stop: 12/28/18 15:15 Last Infusion: 12/28/18 16:14 Dose: 0 mls/hr Documented by: [id number] Admin: 12/28/18 15:15 Dose: 999 mls/hr Documented by: [id number] Ceftriaxone Sodium (Rocephin) 1,000 mg in 50 mls @ 100 mls/hr IV NOW STA Stop: 12/28/18 15:59 Last Infusion: 12/28/18 16:31 Dose: 0 mls/hr Documented by: [id number] Admin: 12/28/18 16:14 Dose: 100 mls/hr Documented by: [id number] Sodium Chloride (Nss 1000ml) 500 mls @ 999 mls/hr IV .Q31M ONE Stop: 12/28/18 16:55 Last Infusion: 12/28/18 17:42 Dose: 0 mls/hr Documented by: [id number] Admin: 12/28/18 16:50 Dose: 999 mls/hr Documented by: [id number] Medical Decision Making Differential Diagnosis Differential diagnoses include dehydration, renal failure, electrolyte imbalance, anemia, pneumonia, UTI, liver failure, medication reaction, amongst others that were considered. Medical Records Attestation: I reviewed the patient's medical records. Home Medications Current Medication List: was personally reviewed by me Laboratory Data Attestation: I reviewed the patient's lab results. Result diagrams: 12/28/18 15:08 12/28/18 15:08 Lab Results 12/28/18 12/28/18 12/28/18 Range/Units 15:08 15:08 15:08 WBC 19.55 H (4.8-10.8) K/uL RBC 4.05 L (4.7-6.1) M/uL Hgb 12.9 L (14.0-18.0) g/dL Hct 37.9 L (42-52) % MCV 93.6 (80-100) fL MCH 31.9 (25-34) pg MCHC 34.0 (32-36) g/dL RDW Std Deviation 49.7 H (36.4-46.3) fL RDW Coeff of Connie 14.5 (11.5-14.5) % Plt Count 271 (130-400) K/uL MPV 9.9 (7.4-10.4) fL Immature Gran % (Auto) 0.6 % Neut % (Auto) 94.2 % Lymph % (Auto) 2.0 % [place] % (Auto) 3.0 % Eos % (Auto) 0.1 % Baso % (Auto) 0.1 % Immature Gran # (Auto) 0.12 H (0.00-0.02) K/uL Neut # (Auto) 18.42 H (1.4-6.5) K/uL Lymph # (Auto) 0.39 L (1.2-3.4) K/uL [place] # (Auto) 0.59 (0.11-0.59) K/uL Eos # (Auto) 0.02 (0-0.5) K/uL Baso # (Auto) 0.01 (0-0.2) K/uL Toxic Granulation 1+ Sodium 134 L (136-145) mmol/L Potassium 4.6 (3.5-5.1) mmol/L Chloride 100 (98-107) mmol/L Carbon Dioxide 28 (21-32) mmol/L Anion Gap 7.0 (3-11) BUN 82 H (7-18) mg/dl Creatinine 2.11 H (0.6-1.4) mg/dl Est Cr Clr Drug Dosing 19.8 ml/min Est GFR ( Amer) 32.6 Est GFR (Non-Af Amer) 28.1 BUN/Creatinine Ratio 39.1 H (10-20) Glucose 154 H (70-99) mg/dl Lactate (0.4-2.0) mmol/L Calcium 9.3 (8.5-10.1) mg/dl Magnesium 2.3 (1.8-2.4) mg/dl Total Bilirubin 0.4 (0.2-1) mg/dl AST 13 L (15-37) U/L ALT 15 (12-78) U/L Alkaline Phosphatase 96 (45-117) U/L Ammonia 14.5 (11-32) umol/L Troponin I < 0.015 (0-0.045) ng/ml Total Protein 6.7 (6.4-8.2) gm/dl Albumin 2.0 L (3.4-5.0) gm/dl Globulin 4.7 H (2.5-4.0) gm/dl Albumin/Globulin Ratio 0.4 L (0.9-2) TSH 1.190 (0.300-4.500) uIu/ml Urine Color Urine Appearance (Clear) Urine pH (4.5-7.5) Ur Specific [place] (1.000-1.030) Urine Protein (Negative) Urine Glucose (UA) (Negative) Urine Ketones (Negative) Urine Blood (Negative) Urine Nitrite (Negative) Urine Bilirubin (Negative) Urine Urobilinogen (Negative) Ur Leukocyte Esterase (Negative) Urine WBC (Auto) (0-5) /hpf Urine RBC (Auto) (0-4) /hpf U Hyaline Cast (Auto) (0-5) /lpf U Epithel Cells (Auto) (0-5) /lpf Urine Bacteria (Auto) (Negative) 12/28/18 12/28/18 Range/Units 15:08 16:52 WBC (4.8-10.8) K/uL RBC (4.7-6.1) M/uL Hgb (14.0-18.0) g/dL Hct (42-52) % MCV (80-100) fL MCH (25-34) pg MCHC (32-36) g/dL RDW Std Deviation (36.4-46.3) fL RDW Coeff of Connie (11.5-14.5) % Plt Count (130-400) K/uL MPV (7.4-10.4) fL Immature Gran % (Auto) % Neut % (Auto) % Lymph % (Auto) % [place] % (Auto) % Eos % (Auto) % Baso % (Auto) % Immature Gran # (Auto) (0.00-0.02) K/uL Neut # (Auto) (1.4-6.5) K/uL Lymph # (Auto) (1.2-3.4) K/uL [place] # (Auto) (0.11-0.59) K/uL Eos # (Auto) (0-0.5) K/uL Baso # (Auto) (0-0.2) K/uL Toxic Granulation Sodium (136-145) mmol/L Potassium (3.5-5.1) mmol/L Chloride (98-107) mmol/L Carbon Dioxide (21-32) mmol/L Anion Gap (3-11) BUN (7-18) mg/dl Creatinine (0.6-1.4) mg/dl Est Cr Clr Drug Dosing ml/min Est GFR ( Amer) Est GFR (Non-Af Amer) BUN/Creatinine Ratio (10-20) Glucose (70-99) mg/dl Lactate 1.2 (0.4-2.0) mmol/L Calcium (8.5-10.1) mg/dl Magnesium (1.8-2.4) mg/dl Total Bilirubin (0.2-1) mg/dl AST (15-37) U/L ALT (12-78) U/L Alkaline Phosphatase (45-117) U/L Ammonia (11-32) umol/L Troponin I (0-0.045) ng/ml Total Protein (6.4-8.2) gm/dl Albumin (3.4-5.0) gm/dl Globulin (2.5-4.0) gm/dl Albumin/Globulin Ratio (0.9-2) TSH (0.300-4.500) uIu/ml Urine Color Yellow Urine Appearance Cloudy A (Clear) Urine pH 5.5 (4.5-7.5) Ur Specific [place] 1.012 (1.000-1.030) Urine Protein Negative (Negative) Urine Glucose (UA) Negative (Negative) Urine Ketones Negative (Negative) Urine Blood Negative (Negative) Urine Nitrite Negative (Negative) Urine Bilirubin Negative (Negative) Urine Urobilinogen Negative (Negative) Ur Leukocyte Esterase 1+ H (Negative) Urine WBC (Auto) >30 H (0-5) /hpf Urine RBC (Auto) 0-4 (0-4) /hpf U Hyaline Cast (Auto) 1-5 (0-5) /lpf U Epithel Cells (Auto) 5-10 H (0-5) /lpf Urine Bacteria (Auto) 4+ H (Negative) Imaging Data Radiologist's Impression: Radiology results as stated below per my review and the radiologist's interpretation: XR chest 1V portable CLINICAL HISTORY: 83 years-old Male presenting with weakness. TECHNIQUE: PA and lateral views of the chest were obtained. COMPARISON: Chest CT from 08/06/2018 and chest x-ray from 02/14/2018. FINDINGS: Atherosclerosis of the aortic arch. Cardiac silhouette mildly enlarged. Interval development of extensive opacity in the left mid to lower lung with a moderate left pleural effusion. Right lung and pleural space clear. Heterogeneous appearance of the lung parenchyma. Mild hyperinflation of the right lung. Ost eopenia. Advanced degenerative changes of the right glenohumeral joint. Upper abdomen normal. IMPRESSION: 1. Extensive left mid to basilar consolidation or atelectasis in the setting of a moderate left pleural effusion. Underlying infection is not excluded. 2. Emphysema. 3. Mild cardiomegaly. No convincing evidence of volume overload or advanced congestive change. Electronically signed by: Tay Horowitz M.D. 12/28/2018 3:11 PM ABDOMEN AND PELVIS CT WITHOUT CONTRAST CT DOSE: 312.86 mGy.cm HISTORY: Acute left lower quadrant abdominal pain poss hydro or divertic TECHNIQUE: Multiaxial CT images of the abdomen and pelvis were performed without contrast. A dose lowering technique was utilized adhering to the principles of ALARA. COMPARISON STUDY: Chest CT 08/06/2018 FINDINGS: Partially imaged and moderate left pleural effusion with left lung base conso lidation. Increased lucency of the right lung base suggests emphysema. Motion degraded exam. No pneumatosis or pneumoperitoneum. Imaged inferior cardiac chambers are unremarkable. Trace pericardial effusion. Mildly distended gallbladder. No cholelithiasis or biliary ductal dilation. The unenhanced s pleen, liver, pancreas and right adrenal gland are unremarkable. 2.0 cm left adrenal gland adenoma. Unremarkable right kidney. There are 2 nonobstructing calculi of the inferior pole left kidney measuring up to 3 mm. No ureteral calculi or obstructive uropathy identified. Wall thickening of the urinary bladder with Sullivan catheter in place. Mild prostamegaly. Extensive calcified plaque of the abdominal aorta and branch vessels without aneurysm. Unremarkable IVC. No adenopathy by CT size criteria. Mild gaseous distention of the distal esophagus. No small bowel obstruction. Moderate fecal retention with stool ball within the rectum. Colonic diverticulosis without acute diverticulitis. The appendix is not definitively seen. No secondary signs of acute appendicitis. Mild generalized body wall and mesenteric edema. Soft tissues are within normal limits. Demineralized appearance the bones. Multiple healed remote bilateral rib fractures. Degenerative changes of the spine, pelvis and hips. Right-sided iliopsoas bursitis contains multiple ossified bodies. 60% anterior endplate compression deformity of the T12 vertebral body demonstrates 4 mm retropulsion with associated mild central canal stenosis. There is mild superior endplate compression deformity of approximately 20% involving the L1 vertebral body without retropulsion. Both of these findings appear unchanged from comparison study. No acute fracture identified. IMPRESSION: 1. Nonobstructing left nephrolithiasis. No ureteral calculi or obstructive uropathy. 2. No bowel obstruction or bowel wall thickening. 3. Colonic diverticulosis without acute diverticulitis. 4. Moderate fecal retention. 5. Prostamegaly with urinary bladder wall thickening. Correlate with urinalysis to exclude cystitis. 6. Partially imaged moderate left pleural effusion. 7. Additional findings as above. Electronically signed by: Abdon Baron M.D. 12/28/2018 4:10 PM ECG Data Attestation: I personally reviewed and interpreted this ECG as follows: Indication: + weakness Rate (beats per minute): 87 Rhythm: + normal sinus ECG ST segments: no ST elevation ECG Findings: + Other (old anterior infract; QTC 423); no PVCs Blood Pressure Blood Pressure Findings: Elevated blood pressure Blood Pressure Disposition: further management by hospitalist [facility] Narrative There is a significant leukocytosis at 19,000, this certainly could be cons istent with infection. A mild anemia was present with a hemoglobin of 12.9. Renal panel testing does show some acute kidney injury with a creatinine of 2.11. BUN was also elevated. No liver enzyme elevation. EKG shows a sinus rhythm, no acute ischemia. Cardiac enzyme testing x1 is not consistent with acute cardiac injury. Ammonia level is normal. Chest film shows a left lung infiltrate and effusion. Abdominal and pelvis CT does not show any evidence for diverticulitis or hydronephrosis. Urinalysis result is currently pending. The patient was given a DuoNeb, IV ceftriaxone, IV saline. He received 2/500 cc saline boluses. Patient presents with ongoing weakness. He is dehydrated with some acute kidney injury. He has a left lung pneumonia with effusion. He does have underlying COPD. Given all his findings, given his history, I do think a hospital stay is warranted. I spoke to the patient, I talked with case management. The on-call hospitalist was consulted. Impression & Plan Weakness, Pneumonia, Acute kidney injury, Acute dehydration Discharge Plan Visit Data Chief Complaint: Illness ED Provider: Sohan Marino Discharge Problem: Weakness, Pneumonia, Acute kidney injury, Acute dehydration Patient Disposition: Being Evaluated by Hospitalist Discharge Instructions Interventions: ED Discharge Assessment Last Done: 12/28/18 17:54 Forms Stand Alone Forms: My [facility] Prescriptions Prescriptions: No Action ipratropium-albuterol 0.5 mg-3 mg(2.5 mg base)/3 mL solution for nebulization 3 ml INHALATION .Q4-5 TIMES DAY RF: 0 prednisone 5 mg Tablet 10 mg PO QAM RF: 0 torsemide 10 mg Tablet 20 mg PO QAM RF: 0 levothyroxine 100 mcg Tablet 100 mcg PO QAM RF: 0 tamsulosin [Flomax] 0.4 mg Capsule 0.4 mg PO QAM RF: 0 fluticasone propion-salmeterol [Advair Diskus] 500-50 mcg/dose Blister With Device 1 inh INHALATION BID PRN (Reason: Shortness Of Breath Or Wheezing) RF: 0 docusate sodium 100 mg Capsule 100 mg PO BID PRN (Reason: Constipation) RF: 0 finasteride 5 mg Tablet 5 mg PO QAM RF: 0 cholecalciferol (vitamin D3) [Vitamin D3] 1,000 unit Tablet 1,000 unit PO QAM RF: 0 aspirin 325 mg Tablet 325 mg PO QAM RF: 0 Referrals Referrals: Pilgram,Manny A., MD [Primary Care Provider] - Discharge Problem: Pneumonia Qualifiers: Pneumonia type: due to unspecified organism Laterality: unspecified laterality Lung location: unspecified part of lung Qualified Code(s): J18.9 - Pneumonia, unspecified organism The scribe's documentation has been prepared under my direction and personally reviewed by me in its entirety. I confirm that the note above accurately reflects all work, treatment, procedures, and medical decision making performed by me.
--- NOTE | 2018-12-28 16:11 | CT Scan Report ---
ABDOMEN AND PELVIS CT WITHOUT CONTRAST CT DOSE: 312.86 mGy.cm HISTORY: Acute left lower quadrant abdominal pain poss hydro or divertic TECHNIQUE: Multiaxial CT images of the abdomen and pelvis were performed without contrast. A dose lo wering technique was utilized adhering to the principles of ALARA. COMPARISON STUDY: Chest CT 08/06/2018 FINDINGS: Partially imaged and moderate left pleural effusion with left lung base consolidation. Increased luce ncy of the right lung base suggests emphysema. Motion degraded exam. No pneumatosis or pneumoperitone um. Imaged inferior cardiac chambers are unremarkable. Trace pericardial effusion. Mildly distended g allbladder. No cholelithiasis or biliary ductal dilation. The unenhanced spleen, liver, pancreas and right adrenal gland are unremarkable. 2.0 cm left adrenal gland adenoma. Unremarkable right kidney. T here are 2 nonobstructing calculi of the inferior pole left kidney measuring up to 3 mm. No ureteral calculi or obstructive uropathy identified. Wall thickening of the urinary bladder with Robledo cathete r in place. Mild prostamegaly. Extensive calcified plaque of the abdominal aorta and branch vessels w ithout aneurysm. Unremarkable IVC. No adenopathy by CT size criteria. Mild gaseous distention of the distal esophagus. No small bowel obstruction. Moderate fecal retention with stool ball within the rectum. Colonic diverticulosis without acute diverticulitis. The appendix is not definitively seen. No secondary signs of acute appendicitis. Mild generalized body wall and m esenteric edema. Soft tissues are within normal limits. Demineralized appearance the bones. Multiple healed remote bilateral rib fractures. Degenerative changes of the spine, pelvis and hips. Right-side d iliopsoas bursitis contains multiple ossified bodies. 60% anterior endplate compression deformity o f the T12 vertebral body demonstrates 4 mm retropulsion with associated mild central canal stenosis. There is mild superior endplate compression deformity of approximately 20% involving the L1 vertebral body without retropulsion. Both of these findings appear unchanged from comparison study. No acute f racture identified. IMPRESSION: 1. Nonobstructing left nephrolithiasis. No ureteral calculi or obstructive uropathy. 2. No bowel obstruction or bowel wall thickening. 3. Colonic diverticulosis without acute diverticulitis. 4. Moderate fecal retention. 5. Prostamegaly with urinary bladder wall thickening. Correlate with urinalysis to exclude cystitis. 6. Partially imaged moderate left pleural effusion. 7. Additional findings as above. Electronically signed by: Abdon Baron M.D. 12/28/2018 4:10 PM
[2018-12-28] MEDS ORDERED: SODIUM CHLORIDE 0.9% 1000ML 500 ML IV ONE (16:25)
[2018-12-28] MEDS ORDERED: ALBUT/IPRATROP 3MG/0.5MG NEB 3 ML VIAL NEB STA (16:25)
--- NOTE | 2018-12-28 17:26 | History & Physical Report ---
Date of Service December 28, 2018 Assessment & Plan (1) Weakness: (2) Pneumonia: Mr. Jesus is a 83-year-old male who has significant past medical history of chronic respiratory failure oxygen dependent, severe COPD, chronic diastolic CHF, cor pulmonale, HTN, chronic urinary retention secondary to obstructive uropathy with chronic Sullivan, tobacco abuse, lymphedema, history of CVA with residual left-sided weakness, CKD stage III who presents to [facility] ED secondary to weakness x5 days. In ED patient remained hemodynamically stable and saturating okay on his chronic 2 L O2 via NC. He was afebrile. Lab work revealed leukocytosis 19 point 5K, H&H 12.9 and 37.9, platelet 271, elevated BUN 82, creatinine 2.11, ratio 39.1, glucose 154. Patient's lactate, magnesium, LFTs, troponin WNL. Blood cultures and urinalysis pending. Chest x-ray revealed extensive left mid to basilar consolidation or atelectasis in setting of moderate left pleural effusion. Also noted mild cardiomegaly with no convincing evidence of volume overload and CHF. CT scan of abdomen pelvis ordered secondary to complaints of lower abdominal pain which revealed questionable cystitis, moderate stool burden specifically with stool ball in rectum. In ED patient received 1 L of IVF, 1 g IV Rocephin along with nebulizer treatment. Currently patient feels improved from arrival. Pt with Generalized weakness and deconditioning likely in setting of NESTOR, Dehydration, infectious etiology including PNA +/- UTI (UA pending), vs bacteremia admit to PCU IV antibiotics with IV rocephin and Doxycycline for CAP and UTI coverage IVF NS 60cc/hr hold diuretic for now repeat CXR in a.m. urine culture, blood culture pending MRSA swab ordered check influenza pulmonary toilet with duoneb QID, incentive spirometry (3) Chronic respiratory failure with hypoxia, on home O2 therapy: continue O2 via NC not requiring more then baseline currently (4) COPD, severe: no acute exacerbation currently continue tx as above continue daily prednisone (5) Acute worsening of stage 3 chronic kidney disease: bun/cr 82/2.11 today with ratio of 39 likely worsening in setting of pre renal/dehydration baseline Cr last done on 12/24 per EPIC 68 and 2.6 ( however 06/27/18 cr 1.7) hold torsemide for now gentle IV hydration with NS 60cc/hr follow labs low threshold for nephro consult (6) Leucocytosis: WBC 19k likely in setting of PNA and possible UTI pt also on chronic prednisone therapy (7) Chronic indwelling Sullivan catheter: 2/2 obstructive uropathy and bladder outlet obstruction sullivan last changed 11/14/18 per EPIC change sullivan cath (8) Chronic diastolic CHF (congestive heart failure): last echo 07/2017 LV EF 60-65%, RV mildly enlarged and mild reduced systolic function, mod TR +Cor pulmonale Chest x-ray and CT scan revealed moderate left pleural effusion, likely infectious etiology Patient does not appear overtly volume overloaded despite chronic bilateral lymphedema Daily weights Strict I's and O's Low-sodium diet Hold torsemide for now in setting of NESTOR gentle IV hydration (9) HTN (hypertension): Blood pressure stable in ED Hold torsemide secondary to NESTOR (10) Constipation: CT scan revealed moderate fecal retention, stool ball in rectum fleet enema x 1 now add colace daily (11) Cerebrovascular disease: History of CVA with mild left-sided weakness, specifically upper extremity Continue full-strength ASA (12) Hypothyroidism: continue levothyroxine TSH 1.1 (13) Lymphedema: continue b/l compression dressing/triston hose Hold torsemide for now secondary to NESTOR monitor daily weight (14) DVT prophylaxis: SQ Heparin, SCD/TEDS Disposition: admit to TELE, case management consulted, PT/OT consulted Follow up: PCP Dr. Chandra upon discharge Pt was seen and examined in collaboration with Dr. Dickey, please see addendum History of Present Illness Chief Complaint: Weakness and decreased PO intake x 5 days. Primary Care Provider: Manny Miranda MD Mr. Jesus is a 83-year-old male who has significant past medical history of chronic respiratory failure oxygen dependent, severe COPD, chronic diastolic CHF, cor pulmonale, HTN, chronic urinary retention secondary to obstructive uropathy with chronic Sullivan, tobacco abuse, lymphedema, history of CVA with residual left-sided weakness, CKD stage III who presents to [facility] ED secondary to weakness x5 days. is at bedside. For the past 5 days she has noted him to become more weak and over the past 2 days has not even got out of his chair. He has been having increased shortness of breath at rest and poor po intake. noted a cough starting today, wet but not productive. Complains of increased fatigue and LLQ abdominal pain. He denies any f/c/s, dizziness, lightheaded, syncope, chest pain, palpitations, n/v/d. Has chronic sullivan cath. Has been using nebulizer tx 4-5x daily with improvement of sx. Does not use advair regularly. He does not weigh himself daily. Has chronic bilateral lower ext lymphedema, L > R. Was doing lymphedema treatment, but recently stopped due to cost. Currently using elie bandages. feels edema actually improved from prior. PMH and records reviewed in [facility]. Discussed case with ED provider Dr. Marino. In ED patient remained hemodynamically stable and saturating okay on his chronic 2 L O2 via NC. He was afebrile. Lab work revealed leukocytosis 19 point 5K, H&H 12.9 and 37.9, platelet 271, elevated BUN 82, creatinine 2.11, ratio 39.1, glucose 154. Patient's lactate, magnesium, LFTs, troponin WNL. Blood cultures and urinalysis pending. Chest x-ray revealed extensive left mid to basilar consolidation or atelectasis in setting of moderate left pleural effusion. Also noted mild cardiomegaly with no convincing evidence of volume overload and CHF. CT scan of abdomen pelvis ordered secondary to complaints of lower abdominal pain which revealed questionable cystitis, moderate stool burden specifically with stool ball in rectum. In ED patient received 1 L of IVF, 1 g IV Rocephin along with nebulizer treatment. Currently patient feels improved from arrival. Allergies Allergy/AdvReac Type Severity Reaction Status Date / Time adhesive Allergy Mild RASH Verified 12/28/18 15:26 latex Allergy Mild "RASH" Verified 12/28/18 15:26 Home Medications Home Medications Medication Instructions Recorded Confirmed Type cholecalciferol (vitamin D3) 1,000 unit PO QAM 11/04/17 12/28/18 History [Vitamin D3] docusate sodium 100 mg PO BID PRN 11/04/17 12/28/18 History finasteride 5 mg PO QAM 11/04/17 12/28/18 History fluticasone propion-salmeterol 1 inh INHALATION BID PRN 11/04/17 12/28/18 History [Advair Diskus] levothyroxine 100 mcg PO QAM 11/04/17 12/28/18 History tamsulosin [Flomax] 0.4 mg PO QAM 11/04/17 12/28/18 History torsemide 20 mg PO QAM 11/04/17 12/28/18 History aspirin 325 mg PO QAM 12/05/17 12/28/18 History ipratropium-albuterol 3 ml INHALATION .Q4-5 TIMES DAY 12/28/18 12/28/18 History prednisone 10 mg PO QAM 12/28/18 12/28/18 History Past Med/Surg History Medical History Bronchitis H/O FREQUENT BRONCHITIS Cerebrovascular disease (Chronic) "s/p stroke" -- ~1999. 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 Most recent hospital admission for exacerbation was 07/17-07/19 @ [facility]. Cor pulmonale Hearing deficit HTN (hypertension) (Chronic) Hypothyroidism (Chronic) Indwelling Sullivan catheter present Lymphedema (Chronic) On home oxygen therapy Osteoarthritis (Chronic) Urinary retention (Chronic) SULLIVAN CATHETER Surgical History History of cataract surgery BILATERAL History of tonsillectomy and adenoidectomy (Chronic) S/P ear surgery (Chronic) Family History Other Hypertension Social History (Updated 12/28/18 @ 17:31 by Maria Isabel Messina PA-C) Preferred Language: Telugu Communication Ability: Effective Visual Impairment: No Limitations Injection Molding Process Technician Required: No Beliefs That Will Affect Care: None marital status: Current Living Situation: Spouse Other Information That Helps Us Care for You: No Feels Safe at Home: Yes Safety Concerns: Feels Safe At This Time Smoking Status: Current some day smoker Tobacco Type: cigarettes ; Years Smoked: 70 ; Cigarettes Per Day: 6 ; Second Hand Exposure: Yes ; Hx Alcohol Use: Yes Alcohol type: beer Alcohol Intake Frequency: Rarely Hx Substance Use: No Review of Systems Review of Systems: All systems reviewed & are unremarkable except as noted in HPI & below Physical Exam Physical Exam: Constitutional: Thin, cachectic, elderly male, vitals as above, NAD, sitting up in bed, pleasant, conversing easily Head: Normocephalic, Atraumatic Eyes: PERRL, conjunctivae normal, anicteric sclerae ENMT: external ear and nose normal, oropharynx with dry mucous membranes Neck: trachea midline, no thyromegaly normal visual inspection Respiratory: normal respiratory effort, lungs clear to auscultation with diminished breath sounds at left mid and lower lobe, no wheeze, rales, rhonchi. Normal insp/exp effort, no accessory muscle use. On O2 via NC 2 L Cardiovascular: RRR with occasional ectopy (PVC on TELE), no murmur, bilateral lower extremity lymphedema with Elie bandages. Vessels: no JVD or carotid bruit Chest: normal inspection of chest Abdomen: normal bowel sounds, soft, + suprapubic tenderness, no guarding, rebound, rigidity, no hepatosplenomegaly Musculoskeletal: no cyanosis or clubbing, extremities motor strength 5/5, except LUE 4/5, and capacity planner strength R > L. L foot inverted. Skin: no rashes, warm and dry normal turgor Neurologic: PERRL, EOMI, accommodation nl, no face palsy, no dysarthria CN's II-XI intact bilaterally and moves all extremities Psychiatric: A+Ox3, euthymic affect Lymphatic: no cervical or axillary lymphadenopathy : +sullivan cath in place with yellow urine noted Results & Data Vital Signs (Past 12 Hours) Vital Signs Temp Pulse Pulse Resp BP BP Pulse Ox 12/28/18 16:51 85 96 12/28/18 16:44 96 H 18 94 12/28/18 16:16 82 18 129/59 L 98 12/28/18 14:32 36.8 C 91 H 18 114/65 93 Laboratory Results Short CBC 12/28/18 12/28/18 Range/Units 15:08 15:08 WBC 19.55 H (4.8-10.8) K/uL Hgb 12.9 L (14.0-18.0) g/dL Hct 37.9 L (42-52) % Plt Count 271 (130-400) K/uL BUN 82 H (7-18) mg/dl Creatinine 2.11 H (0.6-1.4) mg/dl BMP 12/28/18 15:08 Sodium 134 L Potassium 4.6 Chloride 100 Carbon Dioxide 28 BUN 82 H Creatinine 2.11 H Glucose 154 H Calcium 9.3 Cardiac Enzymes 12/28/18 Range/Units 15:08 Troponin I < 0.015 (0-0.045) ng/ml Liver Function 12/28/18 Range/Units 15:08 Total Bilirubin 0.4 (0.2-1) mg/dl AST 13 L (15-37) U/L ALT 15 (12-78) U/L Alkaline Phosphatase 96 (45-117) U/L Albumin 2.0 L (3.4-5.0) gm/dl Diagnostic Findings CXR: IMPRESSION: 1. Extensive left mid to basilar consolidation or atelectasis in the setting of a moderate left pleural effusion. Underlying infection is not excluded. 2. Emphysema. 3. Mild cardiomegaly. No convincing evidence of volume overload or advanced congestive change. CT Abd/Pelvis: IMPRESSION: 1. Nonobstructing left nephrolithiasis. No ureteral calculi or obstructive uropathy. 2. No bowel obstruction or bowel wall thickening. 3. Colonic diverticulosis without acute diverticulitis. 4. Moderate fecal retention. 5. Prostamegaly with urinary bladder wall thickening. Correlate with urinalysis to exclude cystitis. 6. Partially imaged moderate left pleural effusion. 7. Additional findings as above. Medications Administered Discontinued Medications Albuterol (Duoneb) 3 ml NEB NOW STA Stop: 12/28/18 16:26 Last Admin: 12/28/18 16:41 Dose: 3 ml Documented by: [id number] Sodium Chloride (Nss) 500 mls @ 999 mls/hr IV .Q31M GRAYSON Stop: 12/28/18 15:15 Last Infusion: 12/28/18 16:14 Dose: 0 mls/hr Documented by: [id number] Admin: 12/28/18 15:15 Dose: 999 mls/hr Documented by: [id number] Ceftriaxone Sodium (Rocephin) 1,000 mg in 50 mls @ 100 mls/hr IV NOW STA Stop: 12/28/18 15:59 Last Infusion: 12/28/18 16:31 Dose: 0 mls/hr Documented by: [id number] Admin: 12/28/18 16:14 Dose: 100 mls/hr Documented by: [id number] Sodium Chloride (Nss 1000ml) 500 mls @ 999 mls/hr IV .Q31M ONE Stop: 12/28/18 16:55 Last Admin: 12/28/18 16:50 Dose: 999 mls/hr Documented by: [id number] ECG Rate (beats per minute): 87 Rhythm: normal sinus Code Status & VTE Plan Code Status DNR Discussed with pt and at bedside VTE Prophylaxis Plan VTE Prophylaxis will be ordered: Yes Supervising Physician Co-Signing Physician Notes Attending addendum The patient was seen and examined in emergency room on 12/28 He has been complaining of extreme weakness and tiredness with occasional pain in the left lower quadrant and cough Denies any fever and/or chills, no nausea and/or vomiting He has bilateral leg swelling that has been a little increased On examination No apparent distress at rest Hemodynamically stable Chest-decreased breath sounds both sides especially at the bases more on the left than the right Heart-S1-S2, with 2/6 systolic murmur over precordium [id number] in the lower quadrants, no hernia noted. Bowel sounds present [id number]+ edema bilaterally, no wheezing and/or skin break, the legs are in crpe bandage BUSINESS ETHICS PROFESSOR-alert, awake and oriented x3 Examination labs, imaging studies and EKG reviewed Has pneumonia and to rule out UTI Abdominal pain seems to be very nonspecific and the CAT scan remained unremarkable Agree with assessment and plan as outlined above by ANKIT Hassan Dr (1) Pneumonia Laterality: unspecified laterality Lung location: unspecified part of lung Pneumonia type: due to unspecified organism Qualified Code(s): J18.9 - Pneumonia, unspecified organism
[2018-12-28 17:50] LABS: Appearance Urine Cloudy (Clear); Bacteria Urine Automated 4+ (Negative); Bilirubin Urine Negative (Negative); Blood Urine Negative (Negative); Color Urine Yellow; Glucose Urine UA Negative (Negative); Ketones Urine Negative (Negative); Leukocyte Esterase Urine 1+ (Negative); Nitrite Urine Negative (Negative); Protein Urine Negative (Negative); RBC Urine Automated 0-4 /hpf (0-4); Specific Gravity Urine 1.012 (1.000-1.030); Urobilinogen Urine Negative (Negative); WBC Urine Automated >30 /hpf (0-5); pH Urine 5.5 (4.5-7.5)
[2018-12-28] MEDS ORDERED: POLYETHYLENE (MIRALAX) 17 GM PACK PO PRN (18:40)
[2018-12-28] MEDS ORDERED: CONSULT PHARMACY STA (18:40)
[2018-12-28] MEDS ORDERED: SOD PHOSPHATE/SOD BIPHOSPHATE ENEMA 132 ML BTL PR STA (18:40)
[2018-12-28 19:33] LABS: Influenza A virus by PCR Neg for Influ A (Neg); Influenza B virus by PCR Neg for Influ B (Neg)
[2018-12-28] MEDS: SODIUM CHLORIDE 0.9% 1000ML 1,000 ML IV SCH (19:52)
[2018-12-28] MEDS ORDERED: POLYETHYLENE (MIRALAX) 17 GM PACK PO STA (20:01)
[2018-12-28] MEDS: ALBUT/IPRATROP 3MG/0.5MG NEB 3 ML VIAL NEB SCH (20:02)
[2018-12-28] MEDS ORDERED: DOCUSATE SODIUM/SENNA 50/8.6MG TAB PO SCH (20:15)
[2018-12-28] MEDS: FLUTICASONE/SALMETEROL (ADVAIR) 500/50 INH 14 PUFF INH SCH (21:18)
[2018-12-28] MEDS: HEPARIN SOD 5,000 UNIT/0.5 ML VIAL SQ SCH (21:19)
[2018-12-28] MEDS: DOXYCYCLINE HYCLATE 100 MG in DEXTROSE 5% 100 ML IV SCH (21:46)
[2018-12-29] MEDS ORDERED: XOPENEX/ATROVENT 1.25mg/0.5MG NEB COMBO NEB PRN (00:02)
[2018-12-29] MEDS ORDERED: IPRATROPIUM BROMIDE NEB SOLN 0.02% 2.5 ML VIAL INH PRN (00:15)
[2018-12-29] MEDS ORDERED: LEVALBUTEROL 1.25MG/0.5ML NEB INH PRN (00:15)
[2018-12-29] MEDS: ONDANSETRON INJ 2 MG/ML 2 ML VIAL IV PRN (05:47)
[2018-12-29] MEDS: LEVOTHYROXINE SODIUM 100 MCG TABLET PO SCH (05:48)
--- NOTE | 2018-12-29 06:33 | Hospitalist Progress Note ---
Date of Service December 29, 2018 Subjective Made aware by RN around 6:30 AM of recurrent emesis episodes. Blood tinged vomitus as per RN. Abdominal discomfort better after vomiting as per patient. Fecal retention on admission CT. Still no BM after laxative Rx from last night. AP UGIB secondary to emesis episodes Fecal retention on CT N.p.o. sips for now CBC now IV PPI BID Hold aspirin, heparin subcu RE U GIB May need GI consult Facilitate bowel regimen Will relay to AM provider. Results & Data Vital Signs (Past 12 Hours) Vital Signs Temp Pulse Pulse Resp BP BP Pulse Ox 12/29/18 06:30 36.6 C 92 H 20 157/71 H 94 12/29/18 03:55 36.8 C 94 H 20 144/78 H 95 12/29/18 00:48 88 19 95 12/29/18 00:08 36.6 C 98 H 19 131/73 94 12/29/18 00:00 83 12/28/18 20:02 88 17 96 12/28/18 19:16 36.7 C 89 18 134/69 96 12/28/18 18:51 36.9 C 91 H 22 126/82 99
[2018-12-29] MEDS ORDERED: CONSULT PHARMACY STA (06:34)
[2018-12-29] MEDS ORDERED: bisacodyL 10 MG SUPP PR STA (06:37)
[2018-12-29] MEDS ORDERED: PROMETHAZINE HCL 12.5 MG in SODIUM CHLORIDE 0.9% 50 ML IV PRN (06:38)
[2018-12-29] MEDS ORDERED: LACTULOSE SYRUP 30 GM/45 ML UDP PO STA (06:42)
[2018-12-29 06:48] LABS: Hematocrit (blood only) 37.6 % (42-52); Hemoglobin 12.8 g/dL (14.0-18.0); Mean Corpuscular Hemoglobin 31.7 pg (25-34); Mean Corpuscular Volume 93.1 fL (80-100); Mean Platelet Volume 9.7 fL (7.4-10.4); Platelet Count 300 K/uL (130-400); RDW Coefficient of Variation 14.7 % (11.5-14.5); RDW Standard Deviation 49.8 fL (36.4-46.3); Red Blood Count 4.04 M/uL (4.7-6.1); White Blood Count 22.37 K/uL (4.8-10.8)
[2018-12-29] MEDS: ALBUT/IPRATROP 3MG/0.5MG NEB 3 ML VIAL NEB SCH ×4 (07:12→20:37)
[2018-12-29 07:23] LABS: BUN Creatinine Ratio 36.1 (10-20); Calcium 8.8 mg/dl (8.5-10.1); Creatinine Clr Calc Pharmacy 22.4 ml/min; Est GFR (African American) 39.2; Est GFR (Non-African American) 33.8; Potassium 4.6 mmol/L (3.5-5.1)
[2018-12-29 07:28] LABS: Basophils # (auto) 0.01 K/uL (0-0.2); Eosinophils # (auto) 0.02 K/uL (0-0.5); Eosinophils % (auto) 0.1 %; Immature Granulocytes % (auto) 0.4 %; Lymphocytes # (auto) 0.77 K/uL (1.2-3.4); Lymphocytes % (auto) 3.4 %; Monocytes % (auto) 4.9 %; Neutrophils # (auto) 20.37 K/uL (1.4-6.5); Neutrophils % (auto) 91.2 %
[2018-12-29] MEDS ORDERED: DOCUSATE SODIUM 100 MG CAP PO SCH (08:00)
[2018-12-29] MEDS: PANTOprazole 40 MG in SYRINGE 0 ML IV SCH ×2 (08:04→20:06)
[2018-12-29] MEDS: FLUTICASONE/SALMETEROL (ADVAIR) 500/50 INH 14 PUFF INH SCH ×2 (08:05→20:06)
[2018-12-29] MEDS: DOCUSATE SODIUM/SENNA 50/8.6MG TAB PO SCH ×2 (08:08→20:06)
[2018-12-29] MEDS: DOXYCYCLINE HYCLATE 100 MG in DEXTROSE 5% 100 ML IV SCH ×2 (08:08→20:01)
[2018-12-29] MEDS: CHOLECALCIFEROL 1,000 UNITS TAB PO SCH (08:09)
[2018-12-29] MEDS: FINASTERIDE 5 MG TAB PO SCH (08:09)
[2018-12-29] MEDS: TAMSULOSIN HCL 0.4 MG CAP PO SCH (08:09)
[2018-12-29] MEDS: predniSONE 10 MG TABLET PO SCH (08:09)
[2018-12-29] MEDS ORDERED: ASPIRIN 325 MG ECTAB PO SCH (09:00)
[2018-12-29 10:12] LABS: Estimated Average Glucose 146 mg/dl; Hemoglobin A1C 6.7 % (4.5-5.6)
--- NOTE | 2018-12-29 11:31 | XRay Report ---
SINGLE VIEW CHEST CLINICAL HISTORY: Dyspnea. FINDINGS: An AP, portable, upright chest radiograph is compared to study dated 12/28/2018 and correla triston with chest CT dated 08/06/2018. The examination is degraded by portable technique, apical lordotic positioning, and patient rotation. The heart is enlarged noting atherosclerotic calcification of the thoracic aorta. The pulmonary vasculature is noncongested. Emphysema and chronic interstitial thicken ing are similar to previous. There is a layering left pleural effusion with associated consolidation. No pneumothorax is seen. The skeletal structures are osteopenic. The bony thorax is grossly intact. Arthritic change is noted in the shoulders. IMPRESSION: 1. Cardiomegaly and emphysema with no radiographic evidence of congestive failure. 2. A layering left pleural effusion with associated left basilar consolidation is similar in appearan ce to yesterday. Electronically signed by: Sohan Morgan M.D. 12/29/2018 11:30 AM
--- NOTE | 2018-12-29 11:31 | XRay Report ---
SINGLE VIEW CHEST CLINICAL HISTORY: Dyspnea. FINDINGS: An AP, portable, upright chest radiograph is compared to study performed earlier the same d ay 12/29/2018 and correlated with chest CT dated 08/06/2018. The examination is degraded by portable te chnique, apical lordotic positioning, and patient rotation. The heart is enlarged noting atherosclero tic calcification of the thoracic aorta. The pulmonary vasculature is noncongested. Emphysema and chr onic interstitial thickening are similar to previous. There is a layering left pleural effusion with associated consolidation. No pneumothorax is seen. The skeletal structures are osteopenic. The bony t horax is grossly intact. Arthritic change is noted in the shoulders. IMPRESSION: 1. Cardiomegaly and emphysema with no radiographic evidence of congestive failure. 2. A layering left pleural effusion with associated left basilar consolidation is unchanged in appear ance from today's earlier examination. Electronically signed by: Sohan Morgan M.D. 12/29/2018 11:30 AM
[2018-12-29] MEDS: SODIUM CHLORIDE 0.9% 1000ML 1,000 ML IV SCH (12:38)
[2018-12-29 13:15] LABS: Hematocrit (blood only) 36.4 % (42-52); Hemoglobin 12.3 g/dL (14.0-18.0)
[2018-12-29] MEDS ORDERED: cefTRIAXone SODIUM 1,000 MG in DEXTROSE 5% 50 ML IV SCH (16:00)
[2018-12-29 19:51] LABS: Hemoglobin 11.7 g/dL (14.0-18.0)
--- NOTE | 2018-12-29 20:10 | Hospitalist Progress Note ---
Date of Service December 29, 2018 Assessment & Plan (1) Pneumonia: Chest x-ray showed left lower lobe infiltrate and left pleural effusion. Blood cultures obtained. Nasal MRSA swab negative, so MRSA pneumonia unlikely. Nasal swab for influenza A/B negative. Receiving empiric therapy with intravenous doxycycline and ceftriaxone. (2) Pleural effusion: Left pleural effusion. Consider parapneumonic effusion or other etiologies. Consult Pulmonary Medicine. (3) Chronic respiratory failure with hypoxia, on home O2 therapy: Continue supplemental oxygen. (4) COPD, severe: Continue bronchodilators. (5) Chronic diastolic CHF (congestive heart failure): Appears to be compensated. Diuretic on hold because of GI symptoms. Follow. (6) Cerebrovascular disease: History of ischemic stroke, residual left hemiparesis. Neuro status stable. Aspirin on hold because of possible upper GI bleed. (7) Nausea & vomiting: Nausea and vomiting with possible hematemesis. H&H stable. Relatively high risk for consideration of endoscopic evaluation. Continue PPI. Follow. (8) Constipation: Bowel regimen as ordered. (9) CKD (chronic kidney disease), stage III: CKD 3 with baseline creatinine around 1.5-1.8. Creatinine at time of admission 2.11. Creatinine today = 1.81. Follow. (10) Do not resuscitate status: As noted. (11) DVT prophylaxis: Initially received subcutaneous heparin. Heparin discontinued because of possible upper GI bleed. SCDs ordered. (12) Discharge planning issues: Anticipated discharge to home. Family Medicine follow-up with Dr. Chandra. Subjective Recheck for multiple problems. Patient seen in their room around 1540. visiting. Episode of emesis this morning with possible small amount of blood. No further N/V. No bowel movement yet. No fever. Occasional cough. No SOB. No chest pain. Review of Systems: Constitutional- no fever. Cardiac- no anginal symptoms. Pulmonary- as noted above. GI- as noted above. - chronic Robledo cath for urinary retention. Otherwise, as noted above. Physical Exam Constitutional: no acute distress Eyes: + eyelid abnormality Respiratory: no respiratory distress Auscultation: + diminished lung sounds (decreased breath sounds left base) Cardiovascular: Rate/Rhythm: regular rate and regular rhythm Heart Sounds: no gallop, no murmur and no cardiac rub Vessels: no JVD Extremities: no calf tenderness and no edema Gastrointestinal (Abdomen): normal bowel sounds, soft, nontender, no hepatosplenomegaly Skin: no rashes, warm and dry Neurologic: L hemiparesis Psychiatric: Orientation: alert Genitourinary: + bladder abnormal to inspection (Robledo cath) Results & Data Vital Signs (Past 12 Hours) Vital Signs Temp Pulse Pulse Resp BP BP Pulse Ox 12/29/18 19:04 36.7 C 85 18 139/51 L 97 12/29/18 15:18 36.8 C 90 18 127/61 95 12/29/18 15:03 86 18 95 12/29/18 11:18 80 16 96 12/29/18 11:00 36.6 C 73 20 121/71 97 12/29/18 10:43 94 H Laboratory Results Laboratory Results - last 24 hr 12/28/18 12/28/18 12/29/18 18:40 18:58 06:29 WBC 22.37 H RBC 4.04 L Hgb 12.8 L Hct 37.6 L MCV 93.1 MCH 31.7 MCHC 34.0 RDW Std Deviation 49.8 H RDW Coeff of Connie 14.7 H Plt Count 300 MPV 9.7 Immature Gran % (Auto) 0.4 Neut % (Auto) 91.2 Lymph % (Auto) 3.4 [place] % (Auto) 4.9 Eos % (Auto) 0.1 Baso % (Auto) 0.0 Immature Gran # (Auto) 0.10 H Neut # (Auto) 20.37 H Lymph # (Auto) 0.77 L [place] # (Auto) 1.10 H Eos # (Auto) 0.02 Baso # (Auto) 0.01 Sodium Potassium Chloride Carbon Dioxide Anion Gap BUN Creatinine Est Cr Clr Drug Dosing Est GFR ( Amer) Est GFR (Non-Af Amer) BUN/Creatinine Ratio Glucose Estimat Average Glucose Hemoglobin A1c Calcium Procalcitonin 0.49 Nasal Screen MRSA (PCR) Negative Blood Type Antibody Screen 12/29/18 12/29/18 12/29/18 06:29 06:29 06:44 WBC RBC Hgb Hct MCV MCH MCHC RDW Std Deviation RDW Coeff of Connie Plt Count MPV Immature Gran % (Auto) Neut % (Auto) Lymph % (Auto) [place] % (Auto) Eos % (Auto) Baso % (Auto) Immature Gran # (Auto) Neut # (Auto) Lymph # (Auto) [place] # (Auto) Eos # (Auto) Baso # (Auto) Sodium 138 Potassium 4.6 Chloride 105 Carbon Dioxide 26 Anion Gap 7.0 BUN 65 H Creatinine 1.81 H D Est Cr Clr Drug Dosing 22.4 Est GFR ( Amer) 39.2 Est GFR (Non-Af Amer) 33.8 BUN/Creatinine Ratio 36.1 H Glucose 113 H Estimat Average Glucose 146 Hemoglobin A1c 6.7 H Calcium 8.8 Procalcitonin Nasal Screen MRSA (PCR) Blood Type O Positive Antibody Screen NEGATIVE 12/29/18 12/29/18 12:59 19:18 WBC RBC Hgb 12.3 L 11.7 L Hct 36.4 L 35.0 L MCV MCH MCHC RDW Std Deviation RDW Coeff of Connie Plt Count MPV Immature Gran % (Auto) Neut % (Auto) Lymph % (Auto) [place] % (Auto) Eos % (Auto) Baso % (Auto) Immature Gran # (Auto) Neut # (Auto) Lymph # (Auto) [place] # (Auto) Eos # (Auto) Baso # (Auto) Sodium Potassium Chloride Carbon Dioxide Anion Gap BUN Creatinine Est Cr Clr Drug Dosing Est GFR ( Amer) Est GFR (Non-Af Amer) BUN/Creatinine Ratio Glucose Estimat Average Glucose Hemoglobin A1c Calcium Procalcitonin Nasal Screen MRSA (PCR) Blood Type Antibody Screen Microbiology 12/28/18 15:23 Blood Aerobic Blood Culture - Preliminary No growth in Aerobic bottle after 24 hours. 12/28/18 15:23 Blood Anaerobic Blood Culture - Preliminary No growth in Anaerobic bottle after 24 hours. 12/28/18 15:08 Blood Aerobic Blood Culture - Preliminary No growth in Aerobic bottle after 24 hours. 12/28/18 15:08 Blood Anaerobic Blood Culture - Preliminary No growth in Anaerobic bottle after 24 hours. 12/28/18 16:52 Urine,Straight Cath Urine Culture - Final Three types of organisms present, all high counts. Repeat collection recommended. No further identifications or sensitivities to follow. (1) Pneumonia Laterality: unspecified laterality Lung location: unspecified part of lung Pneumonia type: due to unspecified organism Qualified Code(s): J18.9 - Pneumonia, unspecified organism
[2018-12-29] MEDS ORDERED: METOPROLOL TARTRATE 1 MG/ML VIAL IV STA (23:32)
--- NOTE | 2018-12-29 23:33 | Hospitalist Progress Note ---
Date of Service December 29, 2018 Subjective Made aware by RN 11:30 PM of rapid atrial flutter on the monitor, SBP 120s. Patient comfortable as per RN. AP New onset atrial flutter Initiate beta-carey Rx for rate control given history CHF TTE, Cardiology consult RE new onset AFl Change Albuterol nebs to Xopenex Will relay to AM provider. Results & Data Vital Signs (Past 12 Hours) Vital Signs Temp Pulse Resp BP BP Pulse Ox 12/29/18 23:21 37.1 C 135 H 19 128/72 95 12/29/18 20:37 90 16 97 12/29/18 19:04 36.7 C 85 18 139/51 L 97 12/29/18 15:18 36.8 C 90 18 127/61 95 12/29/18 15:03 86 18 95
[2018-12-30 00:29] LABS: Basophils # (auto) 0.01 K/uL (0-0.2); Eosinophils # (auto) 0.01 K/uL (0-0.5); Hematocrit (blood only) 36.2 % (42-52); Hemoglobin 12.2 g/dL (14.0-18.0); Immature Granulocytes # (auto) 0.11 K/uL (0.00-0.02); Immature Granulocytes % (auto) 0.5 %; Lymphocytes # (auto) 0.58 K/uL (1.2-3.4); Lymphocytes % (auto) 2.9 %; Mean Corpuscular Hemoglobin 31.8 pg (25-34); Mean Corpuscular Hgb Conc 33.7 g/dL (32-36); Mean Corpuscular Volume 94.3 fL (80-100); Mean Platelet Volume 9.8 fL (7.4-10.4); Monocytes % (auto) 3.9 %; Neutrophils # (auto) 18.82 K/uL (1.4-6.5); Neutrophils % (auto) 92.7 %; Platelet Count 269 K/uL (130-400); RDW Coefficient of Variation 14.7 % (11.5-14.5); RDW Standard Deviation 50.6 fL (36.4-46.3); Red Blood Count 3.84 M/uL (4.7-6.1); White Blood Count 20.33 K/uL (4.8-10.8)
[2018-12-30 00:40] LABS: Partial Thromboplastin Ratio 1.1; Partial Thromboplastin Time 30.5 Seconds (21.0-31.0)
[2018-12-30] MEDS ORDERED: METOPROLOL TARTRATE 25 MG TAB PO STA (00:43)
[2018-12-30 00:55] LABS: BUN Creatinine Ratio 31.3 (10-20); Calcium 8.5 mg/dl (8.5-10.1); Creatinine Clr Calc Pharmacy 24.4 ml/min; Est GFR (African American) 43.5; Est GFR (Non-African American) 37.5; Magnesium 2.2 mg/dl (1.8-2.4); Potassium 4.8 mmol/L (3.5-5.1)
[2018-12-30] MEDS ORDERED: dilTIAZem HCl 5 MG/ML 5 ML VIAL IV STA (01:40)
[2018-12-30] MEDS ORDERED: METOPROLOL TARTRATE 25 MG TAB PO ONE (04:15)
[2018-12-30] MEDS: LEVOTHYROXINE SODIUM 100 MCG TABLET PO SCH (04:16)
[2018-12-30] MEDS ORDERED: METOPROLOL TARTRATE 1 MG/ML VIAL IV STA (05:17)
[2018-12-30] MEDS ORDERED: DIGOXIN 250 MCG in SYRINGE 9 ML IV ONE (05:30)
[2018-12-30] MEDS: SODIUM CHLORIDE 0.9% 1000ML 1,000 ML IV SCH (05:31)
[2018-12-30] MEDS ORDERED: XOPENEX/ATROVENT 1.25mg/0.5MG NEB COMBO NEB SCH (06:00)
--- NOTE | 2018-12-30 07:11 | XRay Report ---
XR chest 1V portable CLINICAL HISTORY: pneumonia COMPARISON STUDY: 12/29/2018 FINDINGS: Progressive left basilar infiltrate. Increased prominence of the pulmonary vasculature sugg esting superimposed congestive failure. The upper right lung is clear. IMPRESSION: Mildly progressive left basilar infiltrate. Probable developing congestive heart failure . The above report was generated using voice recognition software. It may contain grammatical, syntax or spelling errors. Electronically signed by: Melo Kyle M.D. 12/30/2018 7:09 AM
--- NOTE | 2018-12-30 07:11 | XRay Report ---
XR KUB/Abdomen 1 view CLINICAL HISTORY: constipation pain COMPARISON STUDY: No previous studies for comparison. FINDINGS: Mild air filled gastric distention. Moderate increase in colonic fecal load consistent with fecal stasis. No evidence for a true rectal fecal impaction. IMPRESSION: 1. Moderate increase in colonic fecal load consistent with fecal stasis.. 2. Mild air filled gastric distention The above report was generated using voice recognition software. It may contain grammatical, syntax or spelling errors. Electronically signed by: Melo Kyle M.D. 12/30/2018 7:10 AM
[2018-12-30] MEDS: IPRATROPIUM BROMIDE NEB SOLN 0.02% 2.5 ML VIAL INH SCH ×3 (07:22→20:49)
[2018-12-30] MEDS: LEVALBUTEROL 1.25MG/0.5ML NEB INH SCH ×2 (07:23→13:15)
[2018-12-30] MEDS: DOXYCYCLINE HYCLATE 100 MG in DEXTROSE 5% 100 ML IV SCH ×2 (07:34→19:51)
[2018-12-30] MEDS: PANTOprazole 40 MG in SYRINGE 0 ML IV SCH ×2 (07:36→20:09)
[2018-12-30] MEDS: FLUTICASONE/SALMETEROL (ADVAIR) 500/50 INH 14 PUFF INH SCH ×2 (07:36→20:09)
[2018-12-30] MEDS: TAMSULOSIN HCL 0.4 MG CAP PO SCH (07:37)
[2018-12-30] MEDS: CHOLECALCIFEROL 1,000 UNITS TAB PO SCH (07:37)
[2018-12-30] MEDS: predniSONE 10 MG TABLET PO SCH (07:37)
[2018-12-30] MEDS: DOCUSATE SODIUM/SENNA 50/8.6MG TAB PO SCH ×2 (07:37→20:10)
[2018-12-30] MEDS: FINASTERIDE 5 MG TAB PO SCH (07:37)
--- NOTE | 2018-12-30 09:37 | Hospitalist Progress Note ---
Date of Service December 30, 2018 Assessment & Plan (1) Pneumonia: Chest x-ray showed left lower lobe infiltrate and left pleural effusion. Blood cultures obtained- negative so far. Nasal MRSA swab negative, so MRSA pneumonia unlikely. Nasal swab for influenza A/B negative. Receiving empiric therapy with intravenous doxycycline and ceftriaxone. Continue doxycycline for atypical coverage. Change from ceftriaxone to piperacillin / tazobactam for broader coverage. Consider aspiration pneumonia. Consult [facility] for swallowing eval. (2) Pleural effusion: Left pleural effusion. Consider parapneumonic effusion or other etiologies. Consult Pulmonary Medicine. (3) Chronic respiratory failure with hypoxia, on home O2 therapy: Continue supplemental oxygen. (4) COPD, severe: Continue bronchodilators. Changed from albuterol to levalbuterol because of atrial flutter. (5) Chronic diastolic CHF (congestive heart failure): Today's chest x-ray showed mild pulmonary vascular congestion. Acute on chronic left ventricular diastolic heart failure. IV furosemide today x 1. Follow. (6) Atrial flutter: Developed atrial flutter 2:1 @ 140 / min. Received metoprolol, diltiazem, digoxin without improvement. Nebs changed from albuterol to levalbuterol. K & Mg normal. Consult Cardiology. Not anticoagulated because of possible UGI bleed- reconsider if no ongoing concerns. (7) Cerebrovascular disease: History of ischemic stroke, residual left hemiparesis. Neuro status stable. Aspirin on hold because of possible upper GI bleed. (8) Nausea & vomiting: Nausea and vomiting with possible hematemesis. H&H stable. Relatively high risk for consideration of endoscopic evaluation. Continue PPI. KUB shows dilated stomach. Will keep NPO today and reevaluate tomorrow. (9) Constipation: Bowel regimen as ordered. (10) CKD (chronic kidney disease), stage III: CKD 3 with baseline creatinine around 1.5-1.8. Creatinine at time of admission 2.11. Creatinine today = 1.66. Follow. (11) Do not resuscitate status: As noted. (12) DVT prophylaxis: Initially received subcutaneous heparin. Heparin discontinued because of possible upper GI bleed. SCDs ordered. (13) Discharge planning issues: Anticipated discharge to home. Family Medicine follow-up with Dr. Chandra. Subjective Recheck for multiple problems. Patient seen in their room around 0820. Developed atrial flutter last night, 2:1 with ventricular rate of 140. Received IV and PO metoprolol, IV diltiazem, IV digoxin with only transient slowing of rate. No chest pain or palpitations. Pulmonary symptoms stable. Occasional cough productive of yellow sputum. No further nausea / vomiting. Review of Systems: Constitutional- no fever. Cardiac- no anginal symptoms. Pulmonary- as noted above. GI- as noted above. - chronic Robledo cath for urinary retention. Otherwise, as noted above. Physical Exam Constitutional: no acute distress Eyes: + anicteric sclerae Respiratory: no respiratory distress Auscultation: + diminished lung sounds (decreased breath sounds left base) Cardiovascular: Rate/Rhythm: regular rate, regular rhythm and + tachycardic Heart Sounds: no gallop, no murmur and no cardiac rub Vessels: no JVD Extremities: no calf tenderness and no edema Gastrointestinal (Abdomen): normal bowel sounds, soft, nontender, no hepatosplenomegaly Skin: no rashes, warm and dry Neurologic: + focal motor deficit (left hemiparesis) Psychiatric: Orientation: alert Genitourinary: + bladder abnormal to inspection (Robledo cath) Results & Data Vital Signs (Past 12 Hours) Vital Signs Temp Pulse Pulse Resp BP BP Pulse Ox 12/30/18 07:18 36.8 C 139 H 20 99/61 L 91 12/30/18 06:26 134 H 20 113/74 94 12/30/18 05:40 135 H 12/30/18 04:02 36.6 C 141 H 20 110/62 93 12/30/18 02:00 138 H 20 118/64 94 12/30/18 00:30 136 H 20 126/70 95 12/29/18 23:37 135 H 130/78 12/29/18 23:21 37.1 C 135 H 19 128/72 95 12/29/18 22:52 36.9 C 83 20 146/69 H 96 12/29/18 22:20 87 Laboratory Results 12/30/18 00:10 12/30/18 00:10 Diagnostic Findings PORTABLE CHEST X-RAY (reviewed by the undersigned and formally interpreted by Radiology) FINDINGS: Progressive left basilar infiltrate. Increased prominence of the pulmonary vasc ulature suggesting superimposed congestive failure. The upper right lung is clear. IMPRESSION: Mildly progressive left basilar infiltrate. Probable developing congestive heart failure. The above report was generated using voice recognition software. It may contain grammatical, syntax or spelling errors. Electronically signed by: Melo Kyle M.D. 12/30/2018 7:09 AM KUB (reviewed by the undersigned and formally interpreted by Radiology) FINDINGS: Mild air filled gastric distention. Moderate increase in colonic fecal load consistent with fecal stasis. No evidence for a true rectal fecal impaction. IMPRESSION: 1. Moderate increase in colonic fecal load consistent with fecal stasis.. 2. Mild air filled gastric distention The above report was generated using voice recognition software. It may contain grammatical, syntax or spelling errors. Electronically signed by: Melo Kyle M.D. 12/30/2018 7:10 AM ECG Additional Comments: EKG performed last evening at 23:23 reviewed and showed atrial flutter 2:1 @ 140/min. (1) Pneumonia Laterality: unspecified laterality Lung location: unspecified part of lung Pneumonia type: due to unspecified organism Qualified Code(s): J18.9 - Pneumonia, unspecified organism
[2018-12-30] MEDS ORDERED: PIPERACILL/TAZOBAC CONSULT ACTIVE PRN (09:39)
[2018-12-30] MEDS ORDERED: FUROSEMIDE 20 MG in SYRINGE 0 ML IV ONE (10:15)
[2018-12-30] MEDS: D5W AND LACTATED RINGERS 1,000 ML IV SCH ×2 (10:28→22:21)
[2018-12-30] MEDS ORDERED: PIPERACILLIN/TAZOBACTAM 3.375 GM in DEXTROSE 5% 100 ML IV ONE (10:30)
[2018-12-30] MEDS: METOPROLOL TARTRATE 25 MG TAB PO SCH ×2 (10:32→20:10)
[2018-12-30 10:50] LABS: Creatinine Clr Calc Pharmacy 27.4 ml/min; Est GFR (African American) 49.6; Est GFR (Non-African American) 42.8
--- NOTE | 2018-12-30 13:05 | Pulmonary Consultation ---
Date of Consultation December 30, 2018 Assessment & Plan (1) Atrial flutter: (2) Pleural effusion: (3) Chronic respiratory failure with hypoxia, on home O2 therapy: (4) Acute worsening of stage 3 chronic kidney disease: (5) Pneumonia: I agree with Dr. Villagomez's/cardiology evaluation that atrial tachyarrhythmia often very difficult to control in patients with severe COPD and an acute infectious process. I believe patient would benefit from a therapeutic and diagnostic thoracentesis. There also appears to be an element of CHF brought on by the very fast ventricular response with his atrial flutter. Patient is prone to mucoid impaction from previous CT scans. We will perform ultrasound by bedside the purpose of marking and quantitating the effusion. CT scanning even without contrast could be helpful as well. Agree with current choice of antibiotics and treatment course. 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 In ED patient remained hemodynamically stable and saturating okay on his chronic 2 L O2 via [place]. He was afebrile. Lab work revealed leukocytosis 19 point 5K, H&H 12.9 and 37.9, platelet 271, elevated BUN 82, creatinine 2.11, ratio 39.1, glucose 154. Patient's lactate, magnesium, LFTs, troponin WNL. Blood cultures and urinalysis pending. Chest x-ray revealed extensive left mid to basilar consolidation or atelectasis in setting of moderate left pleural effusion. Also noted mild cardiomegaly with no convincing evidence of volume overload and CHF. CT scan of abdomen pelvis ordered secondary to complaints of lower abdominal pain which revealed questionable cystitis, moderate stool burden specifically with stool ball in rectum. In ED patient received 1 L of IVF, 1 g IV Rocephin along with nebulizer treatment. Currently patient feels improved from arrival. Pt with Generalized weakness and deconditioning likely in setting of NESTOR, Dehydration, infectious etiology. Patient developed atrial flutter with a 2-1 AV block and a ventricular rate of 140 last evening. He received IV and p.o. metoprolol, IV diltiazem, IV digoxin with only transient slowing of the heart rate. He is producing purulent phlegm without hemoptysis or pleuritic pain. He has an intractable cough. Is extremely weak but does feel better than he did last night . Chest x-ray shows a progressive left basilar infiltrate with increased prominence of the pulmonary vasculature suggesting an element of CHF. Patient's last admission was in February 2018 with chronic respiratory failure. He has been on oxygen at 2 L at home. His helps care for him. CT scan of the chest in February 2018 showed severe emphysema with a 2.6 x 1.7 cm right middle lobe nodule opacity associated with multifocal mucous plugging and atelectasis. Trace bilateral pleural effu sions were noted at that time. Follow-up CT scan in August was basically unchanged . Patient was switched from IV ceftriaxone to IV Zosyn along with doxycycline. Allergies Allergy/AdvReac Type Severity Reaction Status Date / Time adhesive Allergy Mild RASH Verified 12/28/18 15:26 latex Allergy Mild "RASH" Verified 12/28/18 15:26 Home Medications Home Medications Medication Instructions Recorded Confirmed Type cholecalciferol (vitamin D3) 1,000 unit PO QAM 11/04/17 12/28/18 History [Vitamin D3] docusate sodium 100 mg PO BID PRN 11/04/17 12/28/18 History finasteride 5 mg PO QAM 11/04/17 12/28/18 History fluticasone propion-salmeterol 1 inh INHALATION BID PRN 11/04/17 12/28/18 History [Advair Diskus] levothyroxine 100 mcg PO QAM 11/04/17 12/28/18 History tamsulosin [Flomax] 0.4 mg PO QAM 11/04/17 12/28/18 History torsemide 20 mg PO QAM 11/04/17 12/28/18 History aspirin 325 mg PO QAM 12/05/17 12/28/18 History ipratropium-albuterol 3 ml INHALATION .Q4-5 TIMES DAY 12/28/18 12/28/18 History prednisone 10 mg PO QAM 12/28/18 12/28/18 History Patient History Medical History Bronchitis H/O FREQUENT BRONCHITIS Cerebrovascular disease (Chronic) Chronic diastolic CHF (congestive heart failure) (Chronic) Chronic respiratory failure Following with pulm [facility], most recent documented COPD exacerbation 10/25/17, treated OP with steroids/ABX CKD (chronic kidney disease), stage III (Chronic) FOLLOWS WITH PCP 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 Most recent hospital admission for exacerbation was 07/17-07/19 @ [facility]. Cor pulmonale Do not resuscitate status Hearing deficit HTN (hypertension) (Chronic) Hypothyroidism (Chronic) Indwelling Sullivan catheter present Lymphedema (Chronic) On home oxygen therapy Osteoarthritis (Chronic) Urinary retention (Chronic) [facility] Surgical History History of cataract surgery BILATERAL History of tonsillectomy and adenoidectomy (Chronic) S/P ear surgery (Chronic) Family History Other Hypertension Social History Preferred Language: [place]ian Communication Ability: Effective Visual Impairment: No Limitations Cotton Wringer Required: No Beliefs That Will Affect Care: None marital status: Current Living Situation: Spouse Other Information That Helps Us Care for You: No Feels Safe at Home: Yes Safety Concerns: Feels Safe At This Time Smoking Status: Current some day smoker Tobacco Type: cigarettes ; Years Smoked: 70 ; Cigarettes Per Day: 6 ; Second Hand Exposure: Yes ; Hx Alcohol Use: Yes Alcohol type: beer Alcohol Intake Frequency: Rarely Hx Substance Use: No Review of Systems Constitutional: no problem reported Eyes: no problem reported Ear, Nose, Mouth, Throat: no problem reported Respiratory: no problem reported Cardiovascular: no problem reported Gastrointestinal: no problem reported Genitourinary: no problem reported Musculoskeletal: no problem reported Integumentary: no problem reported Neurologic: no problem reported Psychiatric: no problem reported Endocrine: no problem reported Hematologic / Lymphatic: no problem reported Allergy / Immunological: no problem reported Physical Exam Constitutional: well developed and well nourished; no acute distress Eyes: PERRL, conjunctivae normal, anicteric sclerae ENMT: external ear and nose normal, oropharynx normal Neck: trachea midline, no thyromegaly Respiratory: normal respiratory effort Auscultation: + diminished lung sounds (Diminished breath sounds left base with dullness) and + rales (Rales audible left greater than right) Cardiovascular: RRR, no murmur, no edema Rate/Rhythm: + irregularly irregular (Irregular regular rhythm with a rate in the 120s to 130s no discernible gallop) Palpation: normal PMI; no thrill Gastrointestinal (Abdomen): normal bowel sounds, soft, nontender, no hepatos plenomegaly Musculoskeletal: no cyanosis or clubbing, extremities motor strength 5/5 Gait: normal gait Skin: no rashes, warm and dry Neurologic: PERRL, EOMI, accommodation nl, no face palsy, no dysarthria Psychiatric: A+Ox3, euthymic affect Lymphatic: no cervical or axillary lymphadenopathy Results & Data Vital Signs (Past 12 Hours) Vital Signs Temp Pulse Pulse Resp BP BP Pulse Ox 12/30/18 11:44 112/71 12/30/18 11:37 36.4 C L 139 H 20 96 12/30/18 10:32 147 H 124/73 12/30/18 07:18 36.8 C 139 H 20 99/61 L 91 12/30/18 06:26 134 H 20 113/74 94 12/30/18 05:40 135 H 12/30/18 04:02 36.6 C 141 H 20 110/62 93 12/30/18 02:00 138 H 20 118/64 94 PG Care Time/CCT Total # of Minutes Spent Total Time Spent with Patient: Total time spent is greater than 50% in c oordination of care (as documented) at patient's floor/unit and/or counseling patient:
--- NOTE | 2018-12-30 13:08 | Cardiology Consultation ---
Date of Consultation December 30, 2018 Assessment & Plan (1) Atrial flutter: (2) Chronic respiratory failure with hypoxia, on home O2 therapy: (3) COPD exacerbation: (4) Pneumonia: (5) CKD (chronic kidney disease): The treatment of this patient's atrial arrhythmias will depend on treatme nt of his COPD exacerbation and pneumonia. These types of arrhythmias are difficult to treat during an acute exacerbation of COPD. I would not push metoprolol greatly due to the negative effects on his underlying lung disease. I would continue it at the present dose. I will start him on verapamil 80 mg 3 times daily. The verapamil has a greater AV node blocking ability then diltiazem. Would give no additional digoxin. Please do not bolus him with IV diltiazem. If his heart rates remain high you can give him an as needed dose of 5 mg verapamil IV. I will not order an echocardiogram on this patient presently as I think the acoustic windows are going to be poor, however we may order one at a later date. History of Present Illness Attending Physician: Farhan Matt MD History of Present Illness This is an 83-year-old male patient with a history of asbestosis, exposure occurring when he was in the [place], with a history of severe COPD. He has been admitted with an acute exasperation and pneumonia. Late last evening he went into a rapid heart rate due to atrial flutter. He has been given IV metoprolol, IV diltiazem and IV digoxin and his rate still remain high at 140 bpm. He has no significant cardiac history by review of epic. He is short of breath but denies chest pain or lightheadedness. Allergies Allergy/AdvReac Type Severity Reaction Status Date / Time adhesive Allergy Mild RASH Verified 12/28/18 15:26 latex Allergy Mild "RASH" Verified 12/28/18 15:26 Home Medications Home Medications Medication Instructions Recorded Confirmed Type cholecalciferol (vitamin D3) 1,000 unit PO QAM 11/04/17 12/28/18 History [Vitamin D3] docusate sodium 100 mg PO BID PRN 11/04/17 12/28/18 History finasteride 5 mg PO QAM 11/04/17 12/28/18 History fluticasone propion-salmeterol 1 inh INHALATION BID PRN 11/04/17 12/28/18 History [Advair Diskus] levothyroxine 100 mcg PO QAM 11/04/17 12/28/18 History tamsulosin [Flomax] 0.4 mg PO QAM 11/04/17 12/28/18 History torsemide 20 mg PO QAM 11/04/17 12/28/18 History aspirin 325 mg PO QAM 12/05/17 12/28/18 History ipratropium-albuterol 3 ml INHALATION .Q4-5 TIMES DAY 12/28/18 12/28/18 History prednisone 10 mg PO QAM 12/28/18 12/28/18 History Patient History Medical History Bronchitis H/O FREQUENT BRONCHITIS Cerebrovascular disease (Chronic) Chronic diastolic CHF (congestive heart failure) (Chronic) Chronic respiratory failure Following with pulm [facility], most recent documented COPD exacerbation 10/25/17, treated OP with steroids/ABX CKD (chronic kidney disease), stage III (Chronic) FOLLOWS WITH PCP 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 Most recent hospital admission for exacerbation was 07/17-07/19 @ [facility]. Cor pulmonale Do not resuscitate status Hearing deficit HTN (hypertension) (Chronic) Hypothyroidism (Chronic) Indwelling Sullivan catheter present Lymphedema (Chronic) On home oxygen therapy Osteoarthritis (Chronic) Urinary retention (Chronic) [employer] Surgical History History of cataract surgery BILATERAL History of tonsillectomy and adenoidectomy (Chronic) S/P ear surgery (Chronic) Family History Other Hypertension Social History Preferred Language: Nepali Communication Ability: Effective Visual Impairment: No Limitations Applied Researcher Required: No Beliefs That Will Affect Care: None marital status: Current Living Situation: Spouse Other Information That Helps Us Care for You: No Feels Safe at Home: Yes Safety Concerns: Feels Safe At This Time Smoking Status: Current some day smoker Tobacco Type: cigarettes ; Years Smoked: 70 ; Cigarettes Per Day: 6 ; Second Hand Exposure: Yes ; Hx Alcohol Use: Yes Alcohol type: beer Alcohol Intake Frequency: Rarely Hx Substance Use: No Review of Systems Review of Systems: All systems reviewed & are unremarkable except as noted in HPI & below Nothing additional. Physical Exam Physical Exam: General: no acute distress and stated age Head: normocephalic, no masses, lesions, tenderness or abnormalities Eyes: conjunctiva are pink and non-injected, sclera clear Neck: supple, no adenopathy, no bruits, normal jugular venous pulse, no hepatojugular reflux Chest: normal shape and normal respiratory effort Lungs: Wheezing and rhonchi Cardiac Exam: - irregular rate & rhythm, no murmurs gallops or rubs - normal S1, normal S2 Pulses: 2(+) throughout Abdomen: abdomen soft, non-tender, no abnormal masses and no hepatosplenomegaly Musculoskeletal: no gait disturbance, no joint inflammation, no deforming arthritis Extremities: no edema and no cyanosis Neuro: grossly normal exam Results & Data Vital Signs (Past 12 Hours) Vital Signs Temp Pulse Pulse Resp BP BP Pulse Ox 12/30/18 11:44 112/71 12/30/18 11:37 36.4 C L 139 H 20 96 12/30/18 10:32 147 H 124/73 12/30/18 07:18 36.8 C 139 H 20 99/61 L 91 12/30/18 06:26 134 H 20 113/74 94 12/30/18 05:40 135 H 12/30/18 04:02 36.6 C 141 H 20 110/62 93 12/30/18 02:00 138 H 20 118/64 94 Laboratory Results Laboratory Results - last 24 hr 12/29/18 12/29/18 12/30/18 12:59 19:18 00:10 WBC 20.33 H RBC 3.84 L Hgb 12.3 L 11.7 L 12.2 L Hct 36.4 L 35.0 L 36.2 L MCV 94.3 MCH 31.8 MCHC 33.7 RDW Std Deviation 50.6 H RDW Coeff of Connie 14.7 H Plt Count 269 MPV 9.8 Immature Gran % (Auto) 0.5 Neut % (Auto) 92.7 Lymph % (Auto) 2.9 [place] % (Auto) 3.9 Eos % (Auto) 0.0 Baso % (Auto) 0.0 Immature Gran # (Auto) 0.11 H Neut # (Auto) 18.82 H Lymph # (Auto) 0.58 L [place] # (Auto) 0.80 H Eos # (Auto) 0.01 Baso # (Auto) 0.01 APTT PTT Ratio Sodium Potassium Chloride Carbon Dioxide Anion Gap BUN Creatinine Est Cr Clr Drug Dosing Est GFR ( Amer) Est GFR (Non-Af Amer) BUN/Creatinine Ratio Glucose Calcium Magnesium 12/30/18 12/30/18 12/30/18 00:10 00:10 10:19 WBC RBC Hgb Hct MCV MCH MCHC RDW Std Deviation RDW Coeff of Connie Plt Count MPV Immature Gran % (Auto) Neut % (Auto) Lymph % (Auto) [place] % (Auto) Eos % (Auto) Baso % (Auto) Immature Gran # (Auto) Neut # (Auto) Lymph # (Auto) [place] # (Auto) Eos # (Auto) Baso # (Auto) APTT 30.5 PTT Ratio 1.1 Sodium 139 Potassium 4.8 Chloride 107 Carbon Dioxide 28 Anion Gap 4.0 BUN 52 H Creatinine 1.66 H 1.49 H Est Cr Clr Drug Dosing 24.4 27.4 Est GFR ( Amer) 43.5 49.6 Est GFR (Non-Af Amer) 37.5 42.8 BUN/Creatinine Ratio 31.3 H Glucose 104 H Calcium 8.5 Magnesium 2.2 Medications Administered Current Inpatient Medications Acetaminophen (Tylenol) 650 mg PO Q4H PRN PRN Reason: Pain or Fever Stop: 01/27/19 18:39 Finasteride (Proscar) 5 mg PO QAM [facility] Stop: 01/28/19 08:59 Last Admin: 12/30/18 07:37 Dose: 5 mg Documented by: Heparin Sodium (Porcine) (Heparin Sodium (Porcine)) 5,000 units SQ Q12 [facility] Stop: 01/27/19 20:59 Last Admin: 12/28/18 21:19 Dose: 5,000 units Documented by: Doxycycline Hyclate 100 mg/ (Dextrose) 110 mls @ 50 mls/hr IV Q12H [facility]; Protocol Stop: 01/04/19 19:59 Last Infusion: 12/30/18 09:45 Dose: Infused Documented by: Promethazine HCl 12.5 mg/ (Sodium Chloride) 50.5 mls @ 202 mls/hr IV Q6H PRN PRN Reason: Nausea And Vomiting Stop: 01/28/19 06:37 Pantoprazole Sodium 40 mg/ (Syringe) 10 mls @ 5 mls/min IV BID@0900,2100 [facility] Stop: 01/28/19 06:44 Last Admin: 12/30/18 07:36 Dose: 5 mls/min Documented by: Methylprednisolone 20 mg/ (Syringe) 0.32 mls @ 1.5 mls/min IV Q8 [facility] Stop: 01/29/19 13:59 Piperacillin Sod/Tazobactam (Sod 3.375 gm/ Dextrose) 115 mls @ 28.75 mls/hr IV Q8H [facility]; Protocol Stop: 01/06/19 15:59 Dextrose/Lactated Ringer's (D5w And Lactated Ringers) 1,000 mls @ 80 mls/hr IV .[id number] [facility] Stop: 01/29/19 09:44 Last Admin: 12/30/18 10:28 Dose: 80 mls/hr Documented by: Ipratropium [place] (Atrovent 0.02% 0.5mg/2.5ml) 0.5 mg INH Q4H PRN PRN Reason: SOB/WHEEZING Stop: 01/28/19 00:14 Last Admin: 12/29/18 00:48 Dose: 0.5 mg Documented by: Ipratropium [place] (Atrovent 0.02% 0.5mg/2.5ml) 0.5 mg INH Q6R [facility] Stop: 01/29/19 06:59 Last Admin: 12/30/18 07:22 Dose: Not Given Documented by: Levalbuterol HCl (Xopenex 1.25mg/0.5ml Neb) 1.25 mg INH Q4H PRN PRN Reason: SOB/WHEEZING Stop: 01/28/19 00:14 Last Admin: 12/29/18 00:48 Dose: 1.25 mg Documented by: Levalbuterol HCl (Xopenex 1.25mg/0.5ml Neb) 1.25 mg INH Q6R [facility] Stop: 01/29/19 06:59 Last Admin: 12/30/18 07:23 Dose: Not Given Documented by: Levothyroxine Sodium (Synthroid) 100 mcg PO DAILYBB [facility] Stop: 01/28/19 06:29 Last Admin: 12/30/18 04:16 Dose: 100 mcg Documented by: Metoprolol Tartrate (Lopressor) 25 mg PO BID [facility] Stop: 01/29/19 08:59 Last Admin: 12/30/18 10:32 Dose: 25 mg Documented by: Miscellaneous Information (Consult) 1 ea N/A UD PRN PRN Reason: Consult Stop: 01/29/19 09:38 Ondansetron HCl (Zofran) 4 mg IV Q6H PRN PRN Reason: Nausea Stop: 01/27/19 18:39 Last Admin: 12/29/18 05:47 Dose: 4 mg Documented by: Polyethylene Glycol (Miralax Powder Packet) 17 gm PO DAILY PRN PRN Reason: Constipation Stop: 01/27/19 18:39 Fluticasone/Salmeterol (Advair Diskus 500/50) 1 puffs INH BID [facility] Stop: 01/27/19 20:59 Last Admin: 12/30/18 07:36 Dose: 1 puffs Documented by: Senna/Docusate Sodium (Senokot S) 1 tab PO BID [facility] Stop: 01/28/19 06:44 Last Admin: 12/30/18 07:37 Dose: 1 tab Documented by: Tamsulosin HCl (Flomax) 0.4 mg PO QAM [facility] Stop: 01/28/19 08:59 Last Admin: 12/30/18 07:37 Dose: 0.4 mg Documented by: Verapamil HCl (Calan) 80 mg PO TID [facility] Stop: 01/29/19 13:59 Vitamin D (Vitamin D3) 1,000 units PO QAM [facility] Stop: 01/28/19 08:59 Last Admin: 12/30/18 07:37 Dose: 1,000 units Documented by: (1) Pneumonia Laterality: right Lung location: lower lobe of lung Pneumonia type: due to unspecified organism Qualified Code(s): J18.1 - Lobar pneumonia, unspecified organism (2) CKD (chronic kidney disease) Chronic kidney disease stage: unspecified stage Qualified Code(s): N18.9 - Chronic kidney disease, unspecified
[2018-12-30] MEDS: methylPREDNISolone 20 MG in SYRINGE 0 ML IV SCH ×2 (13:43→20:09)
[2018-12-30] MEDS: VERAPAMIL HCL 40 MG TAB PO SCH ×2 (13:43→20:10)
--- NOTE | 2018-12-30 16:07 | Ultrasound Report ---
Study: Chest ultrasound HISTORY: Pneumonia. Effusion. FINDINGS: Some loculated effusion left lung base with multiple internal septations. Components of con solidative change of the left lung base are also noted. Estimated volume is 380 cc. IMPRESSION: 1. Loculated left basilar pleural effusions with multiple internal septations. 2. Maximum volume is estimated 320 cc. 3. A super or interposed component of consolidative change left lung base is present. Electronically signed by: Melo Kyle M.D. 12/30/2018 4:06 PM
[2018-12-30] MEDS: PIPERACILLIN/TAZOBACTAM 3.375 GM in DEXTROSE 5% 100 ML IV SCH ×2 (17:59→23:46)
[2018-12-30] MEDS: LEVALBUTEROL HCL 0.63 MG/3 ML NEB NEB SCH (19:49)
[2018-12-31] MEDS: IPRATROPIUM BROMIDE NEB SOLN 0.02% 2.5 ML VIAL INH SCH ×2 (00:54→07:18)
[2018-12-31] MEDS: LEVALBUTEROL HCL 0.63 MG/3 ML NEB NEB PRN (03:59)
[2018-12-31] MEDS: methylPREDNISolone 20 MG in SYRINGE 0 ML IV SCH ×3 (05:27→21:53)
[2018-12-31] MEDS: LEVOTHYROXINE SODIUM 100 MCG TABLET PO SCH (05:27)
[2018-12-31 07:01] LABS: Hematocrit (blood only) 36.8 % (42-52); Hemoglobin 12.2 g/dL (14.0-18.0); Mean Corpuscular Hemoglobin 31.3 pg (25-34); Mean Corpuscular Hgb Conc 33.2 g/dL (32-36); Mean Corpuscular Volume 94.4 fL (80-100); Mean Platelet Volume 9.7 fL (7.4-10.4); Platelet Count 288 K/uL (130-400); RDW Coefficient of Variation 14.9 % (11.5-14.5); RDW Standard Deviation 51.1 fL (36.4-46.3)
[2018-12-31] MEDS: LEVALBUTEROL HCL 0.63 MG/3 ML NEB NEB SCH ×4 (07:18→18:53)
[2018-12-31 07:30] LABS: BUN Creatinine Ratio 25.7 (10-20); Calcium 8.6 mg/dl (8.5-10.1); Creatinine Clr Calc Pharmacy 22.1 ml/min; Est GFR (African American) 37.7; Est GFR (Non-African American) 32.5; Magnesium 2.2 mg/dl (1.8-2.4); Potassium 4.7 mmol/L (3.5-5.1)
--- NOTE | 2018-12-31 07:45 | XRay Report ---
XR KUB/Abdomen 1 view CLINICAL HISTORY: gastric distention, constipation COMPARISON STUDY: 12/30/2018 FINDINGS: There are suspected bilateral pleural effusions with left lower lobe atelectasis/consolidat ion. There is decreased gastric distention. There is scattered stool within the colon. There is no co nventional radiographic evidence of bowel obstruction. IMPRESSION: Nonobstructive bowel gas pattern. Decreasing gastric distention Electronically signed by: Alfonso Michel M.D. 12/31/2018 7:43 AM
--- NOTE | 2018-12-31 07:50 | XRay Report ---
XR chest 1V portable CLINICAL HISTORY: 83 years-old Male presenting with CHF, pneumonia. TECHNIQUE: Portable upright AP view of the chest was obtained. COMPARISON: None .. FINDINGS: Atherosclerosis of the aortic arch. Cardiac silhouette top normal in size. Pulmonary vascular promine nce. Coarsened lung markings. Mid to basilar extensive opacity on the left with a lesser right basila r opacity present. Small right and moderate left pleural effusions similar to prior. No pneumothorax. Osteopenia. Compression deformity of one of the mid to lower thoracic vertebral body levels is again noted. Advanced degenerative changes of the glenohumeral joints. Gaseous distention of the loop of b owel beneath the diaphragm. IMPRESSION: 1. Left greater than right pleural effusions and extensive left greater than right basilar atelectas is. 2. Volume overload. Some element of pulmonary edema is difficult to exclude. Electronically signed by: Tay Horowitz M.D. 12/31/2018 7:49 AM
[2018-12-31] MEDS: DOXYCYCLINE HYCLATE 100 MG in DEXTROSE 5% 100 ML IV SCH ×2 (08:01→20:02)
[2018-12-31] MEDS: FINASTERIDE 5 MG TAB PO SCH (08:02)
[2018-12-31] MEDS: PIPERACILLIN/TAZOBACTAM 3.375 GM in DEXTROSE 5% 100 ML IV SCH ×2 (08:02→16:56)
[2018-12-31] MEDS: VERAPAMIL HCL 40 MG TAB PO SCH ×3 (08:02→21:08)
[2018-12-31] MEDS: TAMSULOSIN HCL 0.4 MG CAP PO SCH (08:02)
[2018-12-31] MEDS: PANTOprazole 40 MG in SYRINGE 0 ML IV SCH ×2 (08:02→22:07)
[2018-12-31] MEDS: DOCUSATE SODIUM/SENNA 50/8.6MG TAB PO SCH ×2 (08:02→21:08)
[2018-12-31] MEDS: CHOLECALCIFEROL 1,000 UNITS TAB PO SCH (08:02)
[2018-12-31] MEDS: FLUTICASONE/SALMETEROL (ADVAIR) 500/50 INH 14 PUFF INH SCH ×2 (08:02→21:06)
[2018-12-31] MEDS: METOPROLOL TARTRATE 25 MG TAB PO SCH ×2 (08:03→21:07)
--- NOTE | 2018-12-31 08:59 | Pulmonology Progress Note ---
Date of Service December 31, 2018 Subjective US L chest suggest multi-septated effusion w consolidative changes Today's CXR suggest an elent of CHF Would obtain CT scan of Chest Results & Data Vital Signs (Past 12 Hours) Vital Signs Temp Pulse Pulse Resp BP BP Pulse Ox 12/31/18 07:20 67 18 97 12/31/18 06:46 36.5 C 71 20 101/58 L 97 12/31/18 04:09 36.4 C L 74 20 104/65 97 12/31/18 04:01 77 14 92 12/31/18 00:01 143 H 12/30/18 23:49 36.2 C L 145 H 19 96/68 L 98 PG Care Time/CCT Total # of Minutes Spent Total Time Spent with Patient: Total time spent is greater than 50% in coordination of care (as documented) at patient's floor/unit and/or counseling patient:
--- NOTE | 2018-12-31 09:50 | Pulmonology Progress Note ---
Date of Service December 31, 2018 Assessment & Plan (1) Pleural effusion: Patient with bilateral pleural effusions with left being worse than right Bedside ultrasound this morning shows large loculated effusion on the left * Would benefit from thoracentesis versus pigtail catheter to evaluate fluid * Will discuss with Dr. Penaloza * Patient is not on any anticoagulation or antiplatelet agents * Discussed possible thoracentesis with patient versus chest tube and he is amenable to appropriate treatment Concern for loculation and elevated white count that this could be an empyema Patient receiving doxycycline and Zosyn Patient received ceftriaxone in the emergency department but this was disco ntinued (2) Pneumonia: Patient receiving doxycycline and Zosyn Patient received ceftriaxone in emergency department and antibiotics were escalated Patient appeared to have aspiration but speech-language pathology indicated no aspiration We will continue to follow left lower lobe infiltrate Rule out empyema with thoracentesis versus pigtail catheter Continue support with supplemental O2 Laterality: unspecified laterality Lung location: unspecified part of lung Pneumonia type: due to unspecified organism Qualified Code(s): J18.9 - Pneumonia, unspecified organism (3) COPD exacerbation: Patient on chronic supplemental O2 at home at 2 L/min via nasal cannula Continue O2 to maintain SaO2 between 88 and 92% Treat underlying pneumonia with Zosyn and doxycycline Rule out empyema with pleural effusion that has developed and loculated Patient with no bronchospasm on exam Appears to be at baseline per the patient's report Continue to follow Please refer to Dr. Penaloza's addendum for further recommendations. Supervising Physician Co-Signing Physician Notes Seen and examined. Ultrasound and imaging studies consistent with loculated parapneumonic effusion. Pigtail catheter placed with purulent material obtained. We will pursue mist protocol and follow imaging output and culture data. Continue broad-spectrum antibiotics. If the patient fails to resolve his complicated pleural space, surgical decortication/washout may be appropriate. Subjective Attending: Dr. Penaloza Patient seen and examined at bedside. He continues to complain about left-sided flank pain. His breathing is at baseline with 2 L/min via nasal cannula. He has intermittent cough with minimal sputum production. Sputum that is produced is clear. He denies any fever, chills, sweats, rigors. He has no other chest pain is reported. He has diuresed quite a bit and edema in lower extremities is significantly improved. He has no other acute complaints at this time Review of Systems Review of Systems: All systems reviewed & are unremarkable except as noted in HPI & below Physical Exam Physical Exam: GENERAL : No acute distress. Pleasant and talkative EYES: No icterus, gaze conjugate NOSE: No evidence of epistaxis. Nasal cannula in place MOUTH: No lesions or candidiasis. Mucosa moist NECK: Supple. No stridor appreciated LUNGS: Decreased breath sounds at bilateral bases. Bedside ultrasound performed and shows loculated effusion on the left HEART: Regular, rate controlled. ABDOMEN: Soft, NT, ND, BS Present. EXTREMITIES: Bilateral LE edema, pedal pulses intact and equal bilaterally. Chronic venous stasis. NEURO: A&OX3. Results & Data Vital Signs (Past 12 Hours) Vital Signs Temp Pulse Pulse Resp BP BP Pulse Ox 12/31/18 07:20 67 18 97 12/31/18 06:46 36.5 C 71 20 101/58 L 97 12/31/18 04:09 36.4 C L 74 20 104/65 97 12/31/18 04:01 77 14 92 12/31/18 00:01 143 H 12/30/18 23:49 36.2 C L 145 H 19 96/68 L 98 Laboratory Results 12/31/18 06:36 12/31/18 06:36 Laboratory Tests 02/15/18 12/30/18 06:07 00:10 INR 1.1 APTT 30.5 Diagnostic Findings Bedside ultrasound completed 12/31/2018 AM and reveals loculated pleural effusion on the left with appropriate window for thoracentesis/pigtail catheter XR chest 1V portable CLINICAL HISTORY: 83 years-old Male presenting with CHF, pneumonia. TECHNIQUE: Portable upright AP view of the chest was obtained. COMPARISON: None on.. FINDINGS: Atherosclerosis of the aortic arch. Cardiac silhouette top normal in size. Pulmonary vascular prominence. Coarsened lung markings. Mid to basilar extensive opacity on the left with a lesser right basilar opacity present. Small right and moderate left pleural effusions similar to prior. No pneumothorax. Osteopenia. Compression deformity of one of the mid to lower thoracic vertebral body levels is again noted. Advanced degenerative changes of the glenohumeral joints. Gaseous distention of the loop of bowel beneath the diaphragm. IMPRESSION: 1. Left greater than right pleural effusions and extensive left greater than right basilar atelectasis. 2. Volume overload. Some element of pulmonary edema is difficult to exclude. Electronically signed by: Tay Horowitz M.D. 12/31/2018 7:49 AM PG Care Time/CCT Total # of Minutes Spent Total Time Spent with Patient: Total time spent is greater than 50% in coordination of care (as documented) at patient's floor/unit and/or counseling patient: 40 minutes
[2018-12-31] MEDS ORDERED: FUROSEMIDE 40 MG/4 ML VIAL IV ONE (10:28)
[2018-12-31] MEDS ORDERED: FUROSEMIDE 40 MG in SYRINGE 0 ML IV ONE (10:45)
[2018-12-31] MEDS: D5W AND LACTATED RINGERS 1,000 ML IV SCH (11:06)
--- NOTE | 2018-12-31 11:35 | Cardiology Progress Note ---
Date of Service December 31, 2018 Assessment & Plan (1) Atrial flutter: (2) Chronic respiratory failure with hypoxia, on home O2 therapy: (3) COPD exacerbation: (4) Pneumonia: (5) CKD (chronic kidney disease): The patient converted to normal sinus rhythm. For now I would continue the verapamil and metoprolol at the current dosage. I would continue with subcu heparin at present. We will have to consider long-term anticoagulation prior to discharge. Subjective The patient converted to normal sinus rhythm early this morning. He is resting comfortably. Review of Systems Review of Systems: All systems reviewed & are unremarkable except as noted in HPI & below Nothing additional to add. Physical Exam Physical Exam: General: no acute distress and stated age Head: normocephalic, no masses, lesions, tenderness or abnormalities Eyes: conjunctiva are pink and non-injected, sclera clear Neck: supple, no adenopathy, no bruits, normal jugular venous pulse, no hepatojugular reflux Chest: normal shape and normal respiratory effort Lungs: clear to auscultation and percussion Cardiac Exam: - regular rate & rhythm, no murmurs gallops or rubs - normal S1, normal S2 Pulses: 2(+) throughout Abdomen: abdomen soft, non-tender, no abnormal masses and no hepatosplenomegaly Musculoskeletal: no gait disturbance, no joint inflammation, no deforming arthritis Extremities: no edema and no cyanosis Neuro: grossly normal exam Results & Data Vital Signs (Past 12 Hours) Vital Signs Temp Pulse Pulse Resp BP BP Pulse Ox 12/31/18 07:20 67 18 97 12/31/18 06:46 36.5 C 71 20 101/58 L 97 12/31/18 04:09 36.4 C L 74 20 104/65 97 12/31/18 04:01 77 14 92 12/31/18 00:01 143 H 12/30/18 23:49 36.2 C L 145 H 19 96/68 L 98 Laboratory Results Laboratory Results - last 24 hr 12/31/18 12/31/18 06:36 06:36 WBC 24.00 H RBC 3.90 L Hgb 12.2 L Hct 36.8 L MCV 94.4 MCH 31.3 MCHC 33.2 RDW Std Deviation 51.1 H RDW Coeff of Connie 14.9 H Plt Count 288 MPV 9.7 Sodium 138 Potassium 4.7 Chloride 107 Carbon Dioxide 25 Anion Gap 6.0 BUN 48 H Creatinine 1.87 H D Est Cr Clr Drug Dosing 22.1 Est GFR ( Amer) 37.7 Est GFR (Non-Af Amer) 32.5 BUN/Creatinine Ratio 25.7 H Glucose 193 H Calcium 8.6 Magnesium 2.2 Medications Administered Current Inpatient Medications Acetaminophen (Tylenol) 650 mg PO Q4H PRN PRN Reason: Pain or Fever Stop: 01/27/19 18:39 Finasteride (Proscar) 5 mg PO QAM [facility] Stop: 01/28/19 08:59 Last Admin: 12/31/18 08:02 Dose: 5 mg Documented by: Heparin Sodium (Porcine) (Heparin Sodium (Porcine)) 5,000 units SQ Q12 [facility] Stop: 01/27/19 20:59 Last Admin: 12/28/18 21:19 Dose: 5,000 units Documented by: Doxycycline Hyclate 100 mg/ (Dextrose) 110 mls @ 50 mls/hr IV Q12H [facility]; Protocol Stop: 01/04/19 19:59 Last Infusion: 12/31/18 10:31 Dose: Infused Documented by: Promethazine HCl 12.5 mg/ (Sodium Chloride) 50.5 mls @ 202 mls/hr IV Q6H PRN PRN Reason: Nausea And Vomiting Stop: 01/28/19 06:37 Pantoprazole Sodium 40 mg/ (Syringe) 10 mls @ 5 mls/min IV BID@0900,2100 [facility] Stop: 01/28/19 06:44 Last Admin: 12/31/18 08:02 Dose: 5 mls/min Documented by: Methylprednisolone 20 mg/ (Syringe) 0.32 mls @ 1.5 mls/min IV Q8 [facility] Stop: 01/29/19 13:59 Last Admin: 12/31/18 05:27 Dose: 1.5 mls/min Documented by: Piperacillin Sod/Tazobactam (Sod 3.375 gm/ Dextrose) 115 mls @ 28.75 mls/hr IV Q8H [facility]; Protocol Stop: 01/06/19 15:59 Last Admin: 12/31/18 08:02 Dose: 28.8 mls/hr Documented by: Levalbuterol HCl (Xopenex 0.63 Mg/3 Ml Neb) 0.63 mg NEB Q3H PRN PRN Reason: Wheezing Stop: 01/29/19 18:29 Last Admin: 12/31/18 03:59 Dose: 0.63 mg Documented by: Levalbuterol HCl (Xopenex 0.63 Mg/3 Ml Neb) 0.63 mg NEB QIDR [facility] Stop: 01/29/19 18:59 Last Admin: 12/31/18 07:18 Dose: 0.63 mg Documented by: Levothyroxine Sodium (Synthroid) 100 mcg PO DAILYBB [facility] Stop: 01/28/19 06:29 Last Admin: 12/31/18 05:27 Dose: 100 mcg Documented by: Metoprolol Tartrate (Lopressor) 25 mg PO BID [facility] Stop: 01/29/19 08:59 Last Admin: 12/31/18 08:03 Dose: 25 mg Documented by: Miscellaneous Information (Consult) 1 ea N/A UD PRN PRN Reason: Consult Stop: 01/29/19 09:38 Ondansetron HCl (Zofran) 4 mg IV Q6H PRN PRN Reason: Nausea Stop: 01/27/19 18:39 Last Admin: 12/29/18 05:47 Dose: 4 mg Documented by: Polyethylene Glycol (Miralax Powder Packet) 17 gm PO DAILY PRN PRN Reason: Constipation Stop: 01/27/19 18:39 Fluticasone/Salmeterol (Advair Diskus 500/50) 1 puffs INH BID [facility] Stop: 01/27/19 20:59 Last Admin: 12/31/18 08:02 Dose: 1 puffs Documented by: Senna/Docusate Sodium (Senokot S) 1 tab PO BID [facility] Stop: 01/28/19 06:44 Last Admin: 12/31/18 08:02 Dose: 1 tab Documented by: Tamsulosin HCl (Flomax) 0.4 mg PO QAM [facility] Stop: 01/28/19 08:59 Last Admin: 12/31/18 08:02 Dose: 0.4 mg Documented by: Verapamil HCl (Calan) 80 mg PO TID [facility] Stop: 01/29/19 13:59 Last Admin: 12/31/18 08:02 Dose: 80 mg Documented by: Vitamin D (Vitamin D3) 1,000 units PO QAM [facility] Stop: 01/28/19 08:59 Last Admin: 12/31/18 08:02 Dose: 1,000 units Documented by: (1) CKD (chronic kidney disease) Chronic kidney disease stage: unspecified stage Qualified Code(s): N18.9 - Chronic kidney disease, unspecified (2) Pneumonia Laterality: right Lung location: lower lobe of lung Pneumonia type: due to unspecified organism Qualified Code(s): J18.1 - Lobar pneumonia, unspecified organism
--- NOTE | 2018-12-31 12:40 | XRay Report ---
XR chest 1V portable CLINICAL HISTORY: Postthoracentesis examination COMPARISON STUDY: 12/31/2018 FINDINGS: There is radiographic evidence of emphysema. The cardiac and mediastinal contours remain st able. There are bilateral pleural effusions. There has been interval insertion of a left-sided pleura l pigtail catheter. No pneumothorax is visualized. There are basilar airspace opacities left greater than right. Mild pulmonary vascular congestion is suspected. Arthritic changes are present within the shoulders with radiographic evidence of chronic left rotator cuff tear/degeneration[ IMPRESSION: 1. Radiographic evidence of mild pulmonary vascular congestion 2. Bilateral pleural effusions with associated basilar airspace opacities 3. Interval placement of a left sided pleural pigtail catheter. No pneumothorax Electronically signed by: Alfonso Michel M.D. 12/31/2018 12:39 PM
--- NOTE | 2018-12-31 13:55 | Procedure Note ---
Procedure Note Date of Service December 31, 2018 Procedure: Placement of 14 Frisian pigtail catheter in the left pleural space. Indication: Complex pleural effusion/empyema Loom Changer: Dr. Penaloza Anesthesia: 10 mL's lidocaine 1% locally Consent: Risks and benefits were discussed with the patient. Questions were answered. Consent was verified and timeout was performed before commencement of the procedure. Procedure: Consent was verified. Appropriate imaging studies were reviewed prior to the procedure. The patient was placed in a seated position the bedside and limited thoracic ultrasound was performed. This revealed a complex left- sided effusion with multiple septations. Trivial right pleural fluid was noted. The site appropriate for catheter placement was identified marked. Skin was prepped and draped in normal sterile fashion. The skin and subcutaneous tissues were anesthetized with lidocaine. Fluid was able to be aspirated with a finder needle. The 18-gauge needle was then inserted over the rib into the pleural space with aspiration of fluid. Syringe was disconnected and a wire was threaded through the needle into the pleural space. The needle was removed with the wire being left in place. A small skin checo was made with the scalpel at the insertion site of the wire. The dilator was then used to pass over the wire into the pleural space without difficulty. A 14 Frisian pigtail catheter was loaded on the stiffening catheter and passed over the wire into the pleural space. The wire and stiffening catheter were removed leaving the pigtail in place. Turbid greenish purulent appearing fluid was aspirated and sent for microbiologic analysis. 0 silk sutures were used to secure the tube in place and a dressing was applied. The tube was attached to the Annita system with suction. The mist protocol will be initiated. Follow-up chest x-ray is pending. Impression: 1. Complicated parapneumonic effusion/empyema status post pigtail drainage. Await cultures and follow-up imaging Coding CPT Codes Pulmonary/Thoracic - Pulmonary and Thoracic: 74469 Tube thoracostomy ([id number]) Pulmonary/Thoracic - Pulmonary and Thoracic: 64726 Lyse chest fibrin initial day ([id number])
[2018-12-31] MEDS: ACETAMINOPHEN 325 MG TAB PO PRN ×2 (14:25→19:25)
[2018-12-31 15:48] LABS: Total Protein Pleural Fluid 4.1 g/dl
[2018-12-31 16:19] LABS: Appearance Pleural Fluid HAZY; Basophils, Fluid 0 %; Color Pleural Fluid YELLOW; Eosinophils, Fluid 0 %; Lymphocytes, Fluid 9 %; Mono,Macrophage,Mesothelial 4 %; Neutrophils, Fluid 87 %; RBC Pleural Fluid (A) < 3000 /uL; Source Pleural Fluid LEFT LUNG; WBC Pleural Fluid (A) 2369 /uL
[2018-12-31] MEDS: ALTEPLASE, RECOMBINANT 10 MG in SYRINGE 50 ML IPL SCH (20:04)
[2018-12-31] MEDS: DORNASE ALFA 5 ML in SYRINGE 25 ML IPL SCH (21:51)
--- NOTE | 2018-12-31 22:42 | Hospitalist Progress Note ---
Date of Service December 31, 2018 Assessment & Plan (1) Pneumonia: Chest x-ray showed left lower lobe infiltrate and left pleural effusion. Blood cultures obtained- negative so far. Nasal MRSA swab negative, so MRSA pneumonia unlikely. Nasal swab for influenza A/B negative. Receiving empiric therapy with intravenous doxycycline and ceftriaxone. Continue doxycycline for atypical coverage. Change from ceftriaxone to piperacillin / tazobactam for broader coverage. Considered aspiration pneumonia. LUMBER DRIVER consulted for swallowing eval- no apparent aspiration per bedside swallowing evaluation. (2) Pleural effusion: Left pleural effusion. Consider parapneumonic effusion or other etiologies. Pulmonary Medicine consulted. (3) Chronic respiratory failure with hypoxia, on home O2 therapy: Continue supplemental oxygen. (4) COPD, severe: Continue bronchodilators. Changed from albuterol to levalbuterol because of atrial flutter. (5) Chronic diastolic CHF (congestive heart failure): Chest x-rays showed pulmonary vascular congestion. Acute on chronic left ventricular diastolic heart failure. IV furosemide as needed. Follow. (6) Atrial flutter: Developed atrial flutter 2:1 @ 140 / min. Received metoprolol, diltiazem, digoxin without improvement. Nebs changed from albuterol to levalbuterol. K & Mg normal. Cardiology consulted. Metoprolol, verapamil, and management of underlying pulmonary issues recommended. Converted to NSR. Not anticoagulated because of possible UGI bleed- reconsider if no ongoing concerns. (7) Cerebrovascular disease: History of ischemic stroke, residual left hemiparesis. Neuro status stable. Aspirin on hold because of possible upper GI bleed. (8) Nausea & vomiting: Nausea and vomiting with possible hematemesis. H&H stable. Relatively high risk for consideration of endoscopic evaluation. Continue PPI. KUB today shows less gastric distention. Try clear liquids. (9) Constipation: Bowel regimen as tolerated. (10) CKD (chronic kidney disease), stage III: CKD 3 with baseline creatinine around 1.5-1.8. Creatinine at time of admission 2.11. Creatinine today = 1.87. Follow. (11) Protein calorie malnutrition: Evaluated by Granulating Machine Operator. 8 kg / 13% weight loss over last year. Severe clavicular and temporal muscle wasting. Severe buccal fat wasting. Findings consistent with severe protein calorie malnutrition. Diet / supplements as tolerated. (12) Do not resuscitate status: As noted. (13) DVT prophylaxis: Initially received subcutaneous heparin. Heparin discontinued because of possible upper GI bleed. SCDs ordered. (14) Discharge planning issues: Anticipated discharge to home. Family Medicine follow-up with Dr. Chandra. Subjective Recheck for multiple problems. Patient seen in their room around 0930. Converted to NSR during the night. No chest pain. Persistent productive cough; denies SOB. No further nausea or vomiting. No bowel movement yet today. Review of Systems: Constitutional- no fever. Cardiac- no anginal symptoms. Pulmonary- as noted above. GI- as noted above. - chronic Robledo cath for urinary retention. Otherwise, as noted above. Physical Exam Constitutional: no acute distress Eyes: + anicteric sclerae Respiratory: no respiratory distress Auscultation: + diminished lung sounds (decreased breath sounds left base), + rhonchi and + wheezes Cardiovascular: Rate/Rhythm: regular rate and regular rhythm Heart Sounds: no gallop, no murmur and no cardiac rub Vessels: no JVD Extremities: + edema (1+ pretibial / 2+ ankle bilat); no calf tenderness Gastrointestinal (Abdomen): normal bowel sounds, soft, nontender, no hepatosplenomegaly Skin: no rashes, warm and dry Neurologic: + focal motor deficit (left hemiparesis) Psychiatric: Orientation: alert Genitourinary: + bladder abnormal to inspection (Robledo cath) Results & Data Vital Signs (Past 12 Hours) Vital Signs Temp Pulse Resp BP Pulse Ox Pulse Ox 12/31/18 19:37 36.7 C 60 23 108/60 95 12/31/18 18:53 68 18 96 12/31/18 15:07 56 L 20 97 12/31/18 15:01 36.4 C L 57 L 19 100/56 L 97 12/31/18 13:50 93 12/31/18 11:53 57 L 18 97 12/31/18 11:42 36.4 C L 59 L 17 92/53 L 97 Laboratory Results 12/31/18 06:36 12/31/18 06:36 Diagnostic Findings PORTABLE CHEST X-RAY (reviewed by the undersigned and formally interpreted by Radiology) FINDINGS: Atherosclerosis of the aortic arch. Cardiac silhouette top normal in size. Pulm onary vascular prominence. Coarsened lung markings. Mid to basilar extensive opacity on the left with a lesser right basilar opacity present. Small right and moderate left pleural effusions similar to prior. No pneumothorax. Osteopenia. Compression deformity of one of the mid to lower thoracic vertebral body levels is again noted. Advanced degenerative changes of the glenohumeral joints. Gaseous distention of the loop of bowel beneath the diaphragm. IMPRESSION: 1. Left greater than right pleural effusions and extensive left greater than right basilar atelectasis. 2. Volume overload. Some element of pulmonary edema is difficult to exclude. Electronically signed by: Tay Horowitz M.D. 12/31/2018 7:49 AM PORTABLE KUB (reviewed by the undersigned and formally interpreted by Radiology) FINDINGS: There are suspected bilateral pleural effusions with left lower lobe atelectasis/consolidation. There is decreased gastric distention. There is scattered stool within the colon. There is no conventional radiographic evidence of bowel obstruction. IMPRESSION: Nonobstructive bowel gas pattern. Decreasing gastric distention Electronically signed by: Alfonso Michel M.D. 12/31/2018 7:43 AM (1) Pneumonia Laterality: unspecified laterality Lung location: unspecified part of lung Pneumonia type: due to unspecified organism Qualified Code(s): J18.9 - Pneumonia, unspecified organism
[2019-01-01] MEDS: PIPERACILLIN/TAZOBACTAM 3.375 GM in DEXTROSE 5% 100 ML IV SCH ×2 (00:04→12:27)
[2019-01-01] MEDS: TRAMADOL HCL 50 MG TABLET PO PRN (03:50)
[2019-01-01] MEDS: methylPREDNISolone 20 MG in SYRINGE 0 ML IV SCH ×3 (06:02→22:01)
[2019-01-01] MEDS: LEVOTHYROXINE SODIUM 100 MCG TABLET PO SCH (06:02)
[2019-01-01] MEDS: LEVALBUTEROL HCL 0.63 MG/3 ML NEB NEB SCH ×4 (07:18→19:16)
[2019-01-01 07:39] LABS: Hemoglobin 11.2 g/dL (14.0-18.0); Mean Corpuscular Hemoglobin 30.9 pg (25-34); Mean Corpuscular Volume 96.4 fL (80-100); Mean Platelet Volume 9.8 fL (7.4-10.4); Platelet Count 314 K/uL (130-400); RDW Coefficient of Variation 14.6 % (11.5-14.5); RDW Standard Deviation 52.3 fL (36.4-46.3); Red Blood Count 3.63 M/uL (4.7-6.1); White Blood Count 11.97 K/uL (4.8-10.8)
[2019-01-01 08:04] LABS: BUN Creatinine Ratio 25.6 (10-20); Calcium 8.3 mg/dl (8.5-10.1); Est GFR (African American) 28.3; Est GFR (Non-African American) 24.4; Magnesium 2.1 mg/dl (1.8-2.4); Potassium 4.4 mmol/L (3.5-5.1)
[2019-01-01] MEDS: ALTEPLASE, RECOMBINANT 10 MG in SYRINGE 50 ML IPL SCH ×2 (08:14→20:57)
--- NOTE | 2019-01-01 08:17 | XRay Report ---
XR chest 1V not portable CLINICAL HISTORY: Left pigtail catheter - MIST 2 protocol PLEURAL EFFUSIONS COMPARISON STUDY: 12/31/2018 FINDINGS: There is radiographic evidence of emphysema. There has been no change in position of a left -sided pleural pigtail catheter. There is no pneumothorax.[There is mild pulmonary vascular congestio n. There are bilateral pleural effusions with associated basilar airspace opacities. There is interva l decrease in the size of the left pleural effusion. IMPRESSION: 1. Persistent mild pulmonary vascular congestion with small bilateral pleural effusions and basilar o pacities 2. Stable positioning of the left pleural pigtail catheter. Decreasing left pleural effusion. No pneu mothorax. Electronically signed by: Alfonso Michel M.D. 01/01/2019 8:15 AM
--- NOTE | 2019-01-01 08:26 | Pulmonology Progress Note ---
Date of Service January 01, 2019 Assessment & Plan (1) Pleural effusion: Patient with bilateral pleural effusions with left being worse than right * Left pigtail catheter placed 12/31/2018 * MIST 2 protocol initiated last evening. * TPA initiated 8:10 this morning. So far patient has evacuated 900 mL via the chest tube Empyema with pH of 6.6 and a glucose of 2 Continue IV antibiotics * Patient receiving doxycycline and Zosyn Chest x-ray this morning with improvement Will do bedside ultrasound later this morning with Dr. Penaloza to evaluate loculations and fluid Continue current treatment regimen (2) Pneumonia: Day #5 doxycycline and Day #3 Zosyn Patient received ceftriaxone in emergency department and antibiotics were escalated Patient appeared to have aspiration but speech-language pathology indicated no aspiration Left lower lobe infiltrate Continue support with supplemental O2 Laterality: unspecified laterality Lung location: unspecified part of lung Pneumonia type: due to unspecified organism Qualified Code(s): J18.9 - Pneumonia, unspecified organism (3) COPD exacerbation: Patient on chronic supplemental O2 at home at 2 L/min via nasal cannula Continue O2 to maintain SaO2 between 88 and 92% Treat underlying pneumonia with Zosyn and doxycycline Patient with very slight expiratory wheezes in the posterior upper do Appears to be at baseline per the patient's report Continue to follow Thank you for including us in the care of this patient. We will follow along with you Supervising Physician Co-Signing Physician Notes Seen and examined. Discussed with patient spouse at bedside. Chest x-ray markedly better. The patient feels better. Cultures remain negative. Would continue Zosyn pending cultures. Continue chest tube management until drainage decreases and x-ray improves. To follow. Management of other medical issues per primary service Subjective Attending: Dr. Penaloza Patient seen and examined at bedside. Left pigtail catheter placed yesterday with MIST 2 protocol implemented last night. Chest x-ray with improved pleural effusion. Patient states that he feels slightly better than yesterday. He denies respiratory distress. No fever or chills overnight. No pain at insertion site of pigtail catheter. No new acute complaints. Review of Systems Review of Systems: All systems reviewed & are unremarkable except as noted in HPI & below Physical Exam Physical Exam: GENERAL : No acute distress EYES: No icterus, gaze conjugate pupils equal round reactive to light NOSE: No evidence of epistaxis. Nasal cannula in place MOUTH: No lesions or candidiasis. Mucosa moist NECK: Supple. No stridor LUNGS: Faint expiratory wheezes in posterior upper do. Breath sounds improved at left base. HEART: Regular, rate controlled ABDOMEN: Soft, NT, ND, BS Present EXTREMITIES: LE edema present but significantly improved since admission, pedal pulses intact and equal bilaterally NEURO: A&OX3. Limited range of motion of left shoulder secondary to rotator cuff tear. Otherwise no focal deficits Results & Data Vital Signs (Past 12 Hours) Vital Signs Temp Pulse Pulse Resp BP BP Pulse Ox 01/01/19 07:20 62 18 97 01/01/19 03:41 36.7 C 67 18 108/43 L 95 01/01/19 00:00 65 12/31/18 23:00 36.7 C 65 19 99/55 L 95 Laboratory Results 01/01/19 07:08 01/01/19 07:08 Laboratory Tests 12/31/18 12/31/18 12/31/18 Unknown Unknown Unknown Fluid Neutrophils % 87 Fluid Lymphocytes % 9 Fluid Eosinophils % 0 Fluid Basophils % 0 Fluid [place] % 4 Pleural Fluid Source LEFT LUNG Pleural Color YELLOW Pleural Appearance HAZY Pleural pH 6.60 L Pleural WBC 2369 Pleural RBC < 3000 Pleural Total Protein 4.1 Pleural LDH 5685 Pleural Glucose 2 Pleural Amylase 27 Diagnostic Findings XR chest 1V not portable 01/01/2019 CLINICAL HISTORY: Left pigtail catheter - MIST 2 protocol PLEURAL EFFUSIONS COMPARISON STUDY: 12/31/2018 FINDINGS: There is radiographic evidence of emphysema. There has been no change in position of a left-sided pleural pigtail catheter. There is no pneumothorax. There is mild pulmonary vascular congestion. There are bilateral pleural effusions with associated basilar airspace opacities. There is interval decrease in the size of the left pleural effusion. IMPRESSION: 1. Persistent mild pulmonary vascular congestion with small bilateral pleural effusions and basilar opacities 2. Stable positioning of the left pleural pigtail catheter. Decreasing left pleural effusion. No pneumothorax. Electronically signed by: Alfonso Michel M.D. 01/01/2019 8:15 AM PG Care Time/CCT Total # of Minutes Spent Total Time Spent with Patient: Total time spent is greater than 50% in coordination of care (as documented) at patient's floor/unit and/or counseling patient: 25
[2019-01-01] MEDS: DOXYCYCLINE HYCLATE 100 MG in DEXTROSE 5% 100 ML IV SCH ×2 (09:09→19:47)
[2019-01-01] MEDS: METOPROLOL TARTRATE 25 MG TAB PO SCH ×2 (09:16→20:46)
[2019-01-01] MEDS: FLUTICASONE/SALMETEROL (ADVAIR) 500/50 INH 14 PUFF INH SCH ×2 (09:18→20:44)
[2019-01-01] MEDS: VERAPAMIL HCL 40 MG TAB PO SCH ×3 (09:18→20:46)
[2019-01-01] MEDS: PANTOprazole 40 MG in SYRINGE 0 ML IV SCH ×2 (09:20→20:45)
[2019-01-01] MEDS: TAMSULOSIN HCL 0.4 MG CAP PO SCH (09:20)
[2019-01-01] MEDS: FINASTERIDE 5 MG TAB PO SCH (09:20)
[2019-01-01] MEDS: DORNASE ALFA 5 ML in SYRINGE 25 ML IPL SCH ×2 (09:20→22:01)
[2019-01-01] MEDS: CHOLECALCIFEROL 1,000 UNITS TAB PO SCH (09:20)
[2019-01-01] MEDS: DOCUSATE SODIUM/SENNA 50/8.6MG TAB PO SCH ×2 (09:27→20:46)
[2019-01-01] MEDS ORDERED: SOD PHOSPHATE/SOD BIPHOSPHATE ENEMA 132 ML BTL PR PRN (13:51)
[2019-01-01] MEDS ORDERED: GLYCERIN ADULT 12 SUPP/BOX SUPP PR PRN (13:51)
[2019-01-01] MEDS ORDERED: GLYCERIN ADULT 12 SUPP/BOX SUPP PR ONE (13:51)
--- NOTE | 2019-01-01 15:30 | Cardiology Progress Note ---
Date of Service January 01, 2019 Assessment & Plan (1) Atrial flutter: (2) Chronic respiratory failure with hypoxia, on home O2 therapy: (3) COPD exacerbation: (4) Pneumonia: (5) CKD (chronic kidney disease): The patient is maintaining sinus rhythm. I would continue the verapamil and metoprolol. From a cardiac standpoint he is stable. Subjective The patient feels improved. He is maintaining sinus rhythm. Review of Systems Review of Systems: All systems reviewed & are unremarkable except as noted in HPI & below Nothing additional to add. Physical Exam Physical Exam: General: no acute distress and stated age Head: normocephalic, no masses, lesions, tenderness or abnormalities Eyes: conjunctiva are pink and non-injected, sclera clear Neck: supple, no adenopathy, no bruits, normal jugular venous pulse, no hepatojugular reflux Chest: normal shape and normal respiratory effort Lungs: clear to auscultation and percussion Cardiac Exam: - regular rate & rhythm, no murmurs gallops or rubs - normal S1, normal S2 Pulses: 2(+) throughout Abdomen: abdomen soft, non-tender, no abnormal masses and no hepatosplenomegaly Musculoskeletal: no gait disturbance, no joint inflammation, no deforming arthritis Extremities: no edema and no cyanosis Neuro: grossly normal exam Results & Data Vital Signs (Past 12 Hours) Vital Signs Temp Pulse Pulse Resp BP BP Pulse Ox 01/01/19 11:41 36.9 C 64 19 108/44 L 97 01/01/19 11:22 66 20 98 01/01/19 08:50 36.4 C L 66 21 94/52 L 95 01/01/19 08:00 65 01/01/19 07:20 62 18 97 01/01/19 03:41 36.7 C 67 18 108/43 L 95 Laboratory Results Laboratory Results - last 24 hr 12/31/18 12/31/18 01/01/19 Unknown Unknown 07:08 WBC 11.97 H RBC 3.63 L Hgb 11.2 L Hct 35.0 L MCV 96.4 MCH 30.9 MCHC 32.0 RDW Std Deviation 52.3 H RDW Coeff of Connie 14.6 H Plt Count 314 MPV 9.8 Sodium Potassium Chloride Carbon Dioxide Anion Gap BUN Creatinine Est Cr Clr Drug Dosing Est GFR ( Amer) Est GFR (Non-Af Amer) BUN/Creatinine Ratio Glucose Calcium Magnesium Fluid Neutrophils % 87 Fluid Lymphocytes % 9 Fluid Eosinophils % 0 Fluid Basophils % 0 Fluid [place] % 4 Pleural Fluid Source LEFT LUNG Pleural Color YELLOW Pleural Appearance HAZY Pleural WBC 2369 Pleural RBC < 3000 Pleural Total Protein 4.1 Pleural LDH 5685 Pleural Glucose 2 Pleural Amylase 27 01/01/19 07:08 WBC RBC Hgb Hct MCV MCH MCHC RDW Std Deviation RDW Coeff of Connie Plt Count MPV Sodium 135 L Potassium 4.4 Chloride 103 Carbon Dioxide 25 Anion Gap 7.0 BUN 61 H Creatinine 2.37 H D Est Cr Clr Drug Dosing 18.0 Est GFR ( Amer) 28.3 Est GFR (Non-Af Amer) 24.4 BUN/Creatinine Ratio 25.6 H Glucose 131 H Calcium 8.3 L Magnesium 2.1 Fluid Neutrophils % Fluid Lymphocytes % Fluid Eosinophils % Fluid Basophils % Fluid [place] % Pleural Fluid Source Pleural Color Pleural Appearance Pleural WBC Pleural RBC Pleural Total Protein Pleural LDH Pleural Glucose Pleural Amylase Medications Administered Current Inpatient Medications Acetaminophen (Tylenol) 650 mg PO Q4H PRN PRN Reason: Pain or Fever Stop: 01/27/19 18:39 Last Admin: 12/31/18 19:25 Dose: 650 mg Documented by: Finasteride (Proscar) 5 mg PO QAM GRAYSON Stop: 01/28/19 08:59 Last Admin: 01/01/19 09:20 Dose: 5 mg Documented by: Glycerin (Glycerin Adult) 1 supp TX DAILY PRN PRN Reason: Constipation Stop: 01/31/19 13:50 Heparin Sodium (Porcine) (Heparin Sodium (Porcine)) 5,000 units SQ Q12 GRAYSON Stop: 01/27/19 20:59 Last Admin: 12/28/18 21:19 Dose: 5,000 units Documented by: Doxycycline Hyclate 100 mg/ (Dextrose) 110 mls @ 50 mls/hr IV Q12H GRAYSON; Protocol Stop: 01/04/19 19:59 Last Infusion: 01/01/19 11:29 Dose: Infused Documented by: Promethazine HCl 12.5 mg/ (Sodium Chloride) 50.5 mls @ 202 mls/hr IV Q6H PRN PRN Reason: Nausea And Vomiting Stop: 01/28/19 06:37 Pantoprazole Sodium 40 mg/ (Syringe) 10 mls @ 5 mls/min IV BID@0900,2100 GRAYSON Stop: 01/28/19 06:44 Last Admin: 01/01/19 09:20 Dose: 5 mls/min Documented by: Methylprednisolone 20 mg/ (Syringe) 0.32 mls @ 1.5 mls/min IV Q8 GRAYSON Stop: 01/29/19 13:59 Last Admin: 01/01/19 14:26 Dose: 1.5 mls/min Documented by: Alteplase, Recombinant 10 mg/ (Syringe) 60 mls @ 0.0006 mls/min IPL Q12H GRAYSON; Protocol Stop: 01/03/19 19:59 Last Admin: 01/01/19 08:14 Dose: 0.0006 mls/min Documented by: Dornase Tanmay 5 ml/ Syringe 30 mls @ 0.0006 mls/min IPL Q12H GRAYSON; Protocol Stop: 01/03/19 20:59 Last Admin: 01/01/19 09:20 Dose: 0.0006 mls/min Documented by: Piperacillin Sod/Tazobactam (Sod 3.375 gm/ Dextrose) 115 mls @ 28.75 mls/hr IV Q12H GRAYSON; Protocol Stop: 01/06/19 15:59 Last Admin: 01/01/19 12:27 Dose: 28.8 mls/hr Documented by: Levalbuterol HCl (Xopenex 0.63 Mg/3 Ml Neb) 0.63 mg NEB Q3H PRN PRN Reason: Wheezing Stop: 01/29/19 18:29 Last Admin: 12/31/18 03:59 Dose: 0.63 mg Documented by: Levalbuterol HCl (Xopenex 0.63 Mg/3 Ml Neb) 0.63 mg NEB QIDR GRAYSON Stop: 01/29/19 18:59 Last Admin: 01/01/19 11:20 Dose: 0.63 mg Documented by: Levothyroxine Sodium (Synthroid) 100 mcg PO DAILYBB [facility] Stop: 01/28/19 06:29 Last Admin: 01/01/19 06:02 Dose: 100 mcg Documented by: Metoprolol Tartrate (Lopressor) 25 mg PO BID [facility] Stop: 01/29/19 08:59 Last Admin: 01/01/19 09:16 Dose: Not Given Documented by: Miscellaneous Information (Consult) 1 ea N/A UD PRN PRN Reason: Consult Stop: 01/29/19 09:38 Ondansetron HCl (Zofran) 4 mg IV Q6H PRN PRN Reason: Nausea Stop: 01/27/19 18:39 Last Admin: 12/29/18 05:47 Dose: 4 mg Documented by: Polyethylene Glycol (Miralax Powder Packet) 17 gm PO DAILY PRN PRN Reason: Constipation Stop: 01/27/19 18:39 Last Admin: 01/01/19 09:28 Dose: 17 gm Documented by: Fluticasone/Salmeterol (Advair Diskus 500/50) 1 puffs INH BID [facility] Stop: 01/27/19 20:59 Last Admin: 01/01/19 09:18 Dose: 1 puffs Documented by: Senna/Docusate Sodium (Senokot S) 1 tab PO BID [facility] Stop: 01/28/19 06:44 Last Admin: 01/01/19 09:27 Dose: 1 tab Documented by: Sodium Biphosphate/Sodium Phosphate (Fleet Enema) 132 ml TX DAILY PRN PRN Reason: Constipation Stop: 01/31/19 13:50 Tamsulosin HCl (Flomax) 0.4 mg PO QAM [facility] Stop: 01/28/19 08:59 Last Admin: 01/01/19 09:20 Dose: 0.4 mg Documented by: Tramadol HCl (Ultram) 25 - 50 mg PO Q4H PRN PRN Reason: Pain Stop: 01/30/19 23:58 Last Admin: 01/01/19 03:50 Dose: 50 mg Documented by: Verapamil HCl (Calan) 80 mg PO TID [facility] Stop: 01/29/19 13:59 Last Admin: 01/01/19 14:31 Dose: 80 mg Documented by: Vitamin D (Vitamin D3) 1,000 units PO QAM [facility] Stop: 01/28/19 08:59 Last Admin: 01/01/19 09:20 Dose: 1,000 units Documented by: (1) CKD (chronic kidney disease) Chronic kidney disease stage: unspecified stage Qualified Code(s): N18.9 - Chronic kidney disease, unspecified (2) Pneumonia Laterality: right Lung location: lower lobe of lung Pneumonia type: due to unspecified organism Qualified Code(s): J18.1 - Lobar pneumonia, unspecified organism
--- NOTE | 2019-01-01 21:33 | Hospitalist Progress Note ---
Date of Service January 01, 2019 Assessment & Plan (1) Pneumonia: Chest x-ray showed left lower lobe infiltrate and left pleural effusion. Blood cultures obtained- negative so far. Nasal MRSA swab negative, so MRSA pneumonia unlikely. Nasal swab for influenza A/B negative. Sputum culture growing gram neg bacilli- ID pending. Received empiric therapy with intravenous doxycycline and ceftriaxone. Continued doxycycline for atypical coverage. Changed from ceftriaxone to piperacillin / tazobactam for broader coverage. Considered aspiration pneumonia. [employer]INE[employer] consulted for swallowing eval- no apparent aspiration per bedside swallowing evaluation. (2) Pleural effusion: Left pleural effusion. Pulmonary Medicine consulted. Chest tube placed. Gram stain pleural fluid- many WBC's, gram + cocci. 2369 WBC's (87% polys). < 3000 RBC's. Total protein 4.1. LDH 5685. Glucose 2. pH 6.60. = empyema Interesting that sputum growing gram neg rods and pleural fluid gram stain shows gram + cocci. Clinically improved. WBC down. Continue antibiotics as noted above; may need more aggressive coverage for gram + cocci if condition worsens or per sensitivities when available. (3) Chronic respiratory failure with hypoxia, on home O2 therapy: Continue supplemental oxygen. (4) COPD, severe: Continue bronchodilators. Changed from albuterol to levalbuterol because of atrial flutter. (5) Chronic diastolic CHF (congestive heart failure): Chest x-rays showed pulmonary vascular congestion. Acute on chronic left ventricular diastolic heart failure. IV furosemide as needed. Follow. (6) Atrial flutter: Developed atrial flutter 2:1 @ 140 / min. Received metoprolol, diltiazem, digoxin without improvement. Nebs changed from albuterol to levalbuterol. K & Mg normal. Cardiology consulted. Metoprolol, verapamil, and management of underlying pulmonary issues recommended. Converted to NSR. Not anticoagulated because of possible UGI bleed- reconsider if no ongoing concerns. (7) Cerebrovascular disease: History of ischemic stroke, residual left hemiparesis. Neuro status stable. Aspirin on hold because of possible upper GI bleed. (8) Nausea & vomiting: Nausea and vomiting with possible hematemesis. H&H stable. Relatively high risk for consideration of endoscopic evaluation. Continue PPI. Clear liquids. Advance diet as tolerated. (9) Constipation: Bowel regimen as tolerated. (10) CKD (chronic kidney disease), stage III: CKD 3 with baseline creatinine around 1.5-1.8. Creatinine at time of admission 2.11. Creatinine today = 2.37. Hold diuretics. Follow. (11) Protein calorie malnutrition: Evaluated by Manager Support. 8 kg / 13% weight loss over last year. Severe clavicular and temporal muscle wasting. Severe buccal fat wasting. Findings consistent with severe protein calorie malnutrition. Diet / supplements as tolerated. (12) Do not resuscitate status: As noted. (13) DVT prophylaxis: Initially received subcutaneous heparin. Heparin held because of possible upper GI bleed. No further evidence of GI bleeding. Resume SQ heparin. SCDs. (14) Discharge planning issues: May need skilled care. PT / OT as tolerated. Family Medicine follow-up with Dr. Chandra. Subjective Recheck for multiple problems. Patient seen in their room around 1330. visiting. Patient states that he feels great, although he is not a complainer. Left chest tube placed yesterday by Pulmonary Medicine. Cough improved. Denies SOB. Passing flatus, but no stool. Review of Systems: Constitutional- no fever. Cardiac- no anginal symptoms. Pulmonary- as noted above. GI- as noted above. - chronic Robledo cath for urinary retention. Otherwise, as noted above. Physical Exam Constitutional: no acute distress Eyes: + anicteric sclerae Respiratory: no respiratory distress Auscultation: + diminished lung sounds (decreased breath sounds left base), + rhonchi and + wheezes Cardiovascular: Rate/Rhythm: regular rate and regular rhythm Heart Sounds: no gallop, no murmur and no cardiac rub Vessels: no JVD Extremities: + edema (1+ pretibial / 2+ ankle bilat); no calf tenderness Chest (Breasts): Chest: + abnormal inspection of chest (left chest tube) Gastrointestinal (Abdomen): normal bowel sounds, soft, nontender, no hepatosplenomegaly Skin: no rashes, warm and dry Psychiatric: Orientation: alert Genitourinary: + bladder abnormal to inspection (Robledo cath) Results & Data Vital Signs (Past 12 Hours) Vital Signs Temp Pulse Pulse Resp BP BP Pulse Ox 01/01/19 19:56 36.8 C 23 103/45 L 97 01/01/19 19:16 68 18 93 01/01/19 16:00 65 01/01/19 15:36 36.7 C 66 18 101/53 L 94 01/01/19 15:32 66 18 94 01/01/19 11:41 36.9 C 64 19 108/44 L 97 01/01/19 11:22 66 20 98 Laboratory Results 01/01/19 07:08 01/01/19 07:08 Microbiology 12/31/18 Unknown Pleural Fluid Gram Stain - Final 12/31/18 Unknown Pleural Fluid Aerobic and Anaerobic Culture - Preliminary No growth to date. 12/30/18 09:35 Sputum, Expectorated Gram Stain - Final 12/30/18 09:35 Sputum, Expectorated Sputum Culture - Preliminary Gram negative bacilli 12/28/18 15:23 Blood Aerobic Blood Culture - Preliminary No growth in Aerobic bottle after 48 hours. 12/28/18 15:23 Blood Anaerobic Blood Culture - Preliminary No growth in Anaerobic bottle after 48 hours. 12/28/18 15:08 Blood Aerobic Blood Culture - Preliminary No growth in Aerobic bottle after 48 hours. 12/28/18 15:08 Blood Anaerobic Blood Culture - Preliminary No growth in Anaerobic bottle after 48 hours. 12/28/18 16:52 Urine,Straight Cath Urine Culture - Final Three types of organisms present, all high counts. Repeat collection recommended. No further identifications or sensitivities to follow. Diagnostic Findings CHEST X-RAY (reviewed by undersigned and formally interpreted by Radiology) FINDINGS: There is radiographic evidence of emphysema. There has been no change in position of a left-sided pleural pigtail catheter. There is no pneumothorax.[There is mild pulmonary vascular congestion. There are bilateral pleural effusions with associated basilar airspace opacities. There is interval decrease in the size of the left pleural effusion. IMPRESSION: 1. Persistent mild pulmonary vascular congestion with small bilateral pleural effusions and basilar opacities 2. Stable positioning of the left pleural pigtail catheter. Decreasing left pleural effusion. No pneumothorax. Electronically signed by: Alfonso Michel M.D. 01/01/2019 8:15 AM (1) Pneumonia Laterality: unspecified laterality Lung location: unspecified part of lung Pneumonia type: due to unspecified organism Qualified Code(s): J18.9 - Pneumonia, unspecified organism
[2019-01-02] MEDS: TRAMADOL HCL 50 MG TABLET PO PRN ×3 (00:05→14:26)
[2019-01-02] MEDS: PIPERACILLIN/TAZOBACTAM 3.375 GM in DEXTROSE 5% 100 ML IV SCH ×3 (00:07→13:02)
[2019-01-02] MEDS: LEVALBUTEROL HCL 0.63 MG/3 ML NEB NEB PRN (03:06)
[2019-01-02] MEDS: LEVOTHYROXINE SODIUM 100 MCG TABLET PO SCH (06:04)
[2019-01-02] MEDS: methylPREDNISolone 20 MG in SYRINGE 0 ML IV SCH ×3 (06:04→20:38)
[2019-01-02 07:05] LABS: Hematocrit (blood only) 35.2 % (42-52); Hemoglobin 11.7 g/dL (14.0-18.0); Mean Corpuscular Hemoglobin 31.2 pg (25-34); Mean Corpuscular Hgb Conc 33.2 g/dL (32-36); Mean Corpuscular Volume 93.9 fL (80-100); Mean Platelet Volume 9.9 fL (7.4-10.4); Platelet Count 303 K/uL (130-400); RDW Coefficient of Variation 14.4 % (11.5-14.5); RDW Standard Deviation 49.6 fL (36.4-46.3); Red Blood Count 3.75 M/uL (4.7-6.1); White Blood Count 8.28 K/uL (4.8-10.8)
--- NOTE | 2019-01-02 07:08 | XRay Report ---
XR chest 1V portable CLINICAL HISTORY: 83 years-old Male presenting with Left pigtail catheter - MIST 2 protocol. TECHNIQUE: Portable upright AP view of the chest was obtained. COMPARISON: 01/01/2019. FINDINGS: A left pigtail pleural catheter terminates at the paramediastinal left lung base unchanged from prior . Atherosclerosis of the aortic arch. Cardiac silhouette mildly enlarged. Slight decrease in pulmonar y vascular prominence. Several external leads overlie the thorax to grating evaluation. Stable to inc reased right mid to basilar opacity with underlying pleural effusion suspected. Similar findings to a lesser degree on the left. Heterogeneous radiolucency of the aerated upper lung. No pneumothorax. Os teopenia. Advanced degenerative changes of the glenohumeral joints. Gaseous distention of bowel benea th the diaphragm. IMPRESSION: 1. Slight decrease in volume overload. 2. Unchanged position of the left pleural drain. 3. Bibasilar infiltrates and effusions, stable to slightly increased on the right. Electronically signed by: Tay Horowitz M.D. 01/02/2019 7:07 AM
[2019-01-02] MEDS: LEVALBUTEROL HCL 0.63 MG/3 ML NEB NEB SCH ×4 (07:28→19:16)
[2019-01-02 07:40] LABS: Calcium 8.3 mg/dl (8.5-10.1); Creatinine Clr Calc Pharmacy 16.6 ml/min; Est GFR (African American) 25.5; Potassium 4.2 mmol/L (3.5-5.1)
[2019-01-02] MEDS: FLUTICASONE/SALMETEROL (ADVAIR) 500/50 INH 14 PUFF INH SCH ×2 (08:33→20:35)
[2019-01-02] MEDS: PANTOprazole 40 MG in SYRINGE 0 ML IV SCH (08:33)
[2019-01-02] MEDS: ALTEPLASE, RECOMBINANT 10 MG in SYRINGE 50 ML IPL SCH ×2 (08:33→20:27)
[2019-01-02] MEDS: TAMSULOSIN HCL 0.4 MG CAP PO SCH (08:34)
[2019-01-02] MEDS: CHOLECALCIFEROL 1,000 UNITS TAB PO SCH (08:34)
[2019-01-02] MEDS: VERAPAMIL HCL 40 MG TAB PO SCH ×3 (08:34→20:36)
[2019-01-02] MEDS: FINASTERIDE 5 MG TAB PO SCH (08:34)
[2019-01-02] MEDS: DOXYCYCLINE HYCLATE 100 MG in DEXTROSE 5% 100 ML IV SCH (08:34)
[2019-01-02] MEDS: METOPROLOL TARTRATE 25 MG TAB PO SCH ×2 (08:34→20:38)
[2019-01-02] MEDS: DOCUSATE SODIUM/SENNA 50/8.6MG TAB PO SCH ×2 (08:35→20:37)
[2019-01-02] MEDS: DORNASE ALFA 5 ML in SYRINGE 25 ML IPL SCH ×2 (09:54→21:42)
[2019-01-02] MEDS: ONDANSETRON INJ 2 MG/ML 2 ML VIAL IV PRN (11:49)
--- NOTE | 2019-01-02 12:29 | Pulmonology Progress Note ---
Date of Service January 02, 2019 Assessment & Plan (1) Pneumonia: Impression: 83-year-old with empyema and pneumonia. Sputum cultures growing stenotrophomonas. Pleural cultures negative. Chest x-ray significantly improved. Recommendation: 1. Empyema: Will complete drainage today and repeat chest x-ray in the morning. If it looks better and the output from the tube continues to decrease, will likely be discontinued tomorrow. Would continue anaerobic coverage for the pleural space infection. Do not think the gram-negative caridad/stenotrophomonas identified from his sputum is causing his pleural space infection. Can likely discharge on Augmentin for an additional 14 days. 2. Pneumonia: Stenotrophomonas growing from sputum sample. Will place on oral Bactrim. Should have a follow-up chest x-ray in 2 to 4 weeks. 3. Chronic kidney disease: Management per primary service. 4. COPD: Patient is not overtly bronchospastic. Continue as needed bronchodilators. We will continue to follow Laterality: right Lung location: lower lobe of lung Pneumonia type: due to unspecified organism Qualified Code(s): J18.1 - Lobar pneumonia, unspecified organism (2) Chronic respiratory failure with hypoxia, on home O2 therapy: (3) Pleural effusion: Subjective Patient continues to improve. His pain is well controlled. He is not having any respiratory issues currently. He is completing the mist protocol for pleural effusion with significant improvement in the x-ray. Output through the chest tube is significantly decreasing. Review of Systems Review of Systems: Unchanged from prior Physical Exam Physical Exam: GENERAL : No acute distress EYES: No icterus, gaze conjugate pupils equal round reactive to light NOSE: No evidence of epistaxis. Nasal cannula in place MOUTH: No lesions or candidiasis. Mucosa moist NECK: Supple. No stridor LUNGS: Faint expiratory wheezes in posterior upper do. Breath sounds improved at left base. HEART: Regular, rate controlled ABDOMEN: Soft, NT, ND, BS Present EXTREMITIES: LE edema present but significantly improved since admission, pedal pulses intact and equal bilaterally NEURO: A&OX3. Limited range of motion of left shoulder secondary to rotator cuff tear. Otherwise no focal deficits Results & Data Vital Signs (Past 12 Hours) Vital Signs Temp Pulse Pulse Resp BP Pulse Ox 01/02/19 11:19 36.7 C 74 20 121/63 97 01/02/19 11:07 54 L 18 96 01/02/19 10:19 75 11/27/19 07:46 36.8 C 64 18 115/69 96 01/02/19 07:29 73 20 94 01/02/19 04:00 36.4 C L 60 22 106/54 L 97 01/02/19 03:08 66 18 98 PG Care Time/CCT Total # of Minutes Spent Total Time Spent with Patient: Total time spent is greater than 50% in coordination of care (as documented) at patient's floor/unit and/or counseling patient:
--- NOTE | 2019-01-02 14:03 | Cardiology Progress Note ---
Date of Service January 02, 2019 Assessment & Plan (1) Atrial flutter: (2) Chronic respiratory failure with hypoxia, on home O2 therapy: (3) COPD exacerbation: (4) Pneumonia: (5) CKD (chronic kidney disease): The patient is maintaining sinus rhythm. He has a little bit more atrial and ventricular ectopy but no return of atrial flutter or fibrillation. I would continue on the metoprolol and verapamil. The verapamil can be switched over to long-acting. Subjective The patient is resting comfortably. His chest tube is still draining and the pulmonary service note is appreciated. Review of Systems Review of Systems: All systems reviewed & are unremarkable except as noted in HPI & below Nothing additional to add Physical Exam Physical Exam: General: no acute distress and stated age Head: normocephalic, no masses, lesions, tenderness or abnormalities Eyes: conjunctiva are pink and non-injected, sclera clear Neck: supple, no adenopathy, no bruits, normal jugular venous pulse, no hepatojugular reflux Chest: normal shape and normal respiratory effort Lungs: clear to auscultation and percussion Cardiac Exam: - regular rate & rhythm, no murmurs gallops or rubs - normal S1, normal S2 Pulses: 2(+) throughout Abdomen: abdomen soft, non-tender, no abnormal masses and no hepatosplenomegaly Musculoskeletal: no gait disturbance, no joint inflammation, no deforming arthritis Extremities: no edema and no cyanosis Neuro: grossly normal exam Results & Data Vital Signs (Past 12 Hours) Vital Signs Temp Pulse Pulse Resp BP Pulse Ox 01/02/19 11:19 36.7 C 74 20 121/63 97 01/02/19 11:07 54 L 18 96 01/02/19 10:19 75 01/02/19 07:46 36.8 C 64 18 115/69 96 01/02/19 07:29 73 20 94 01/02/19 04:00 36.4 C L 60 22 106/54 L 97 01/02/19 03:08 66 18 98 Laboratory Results Laboratory Results - last 24 hr 01/02/19 01/02/19 06:46 06:46 WBC 8.28 RBC 3.75 L Hgb 11.7 L Hct 35.2 L MCV 93.9 MCH 31.2 MCHC 33.2 RDW Std Deviation 49.6 H RDW Coeff of Connie 14.4 Plt Count 303 MPV 9.9 Sodium 134 L Potassium 4.2 Chloride 102 Carbon Dioxide 23 Anion Gap 9.0 BUN 65 H Creatinine 2.58 H Est Cr Clr Drug Dosing 16.6 Est GFR ( Amer) 25.5 Est GFR (Non-Af Amer) 22.0 BUN/Creatinine Ratio 25.0 H Glucose 152 H Calcium 8.3 L Medications Administered Current Inpatient Medications Acetaminophen (Tylenol) 650 mg PO Q4H PRN PRN Reason: Pain or Fever Stop: 01/27/19 18:39 Last Admin: 12/31/18 19:25 Dose: 650 mg Documented by: Finasteride (Proscar) 5 mg PO QAM [facility] Stop: 01/28/19 08:59 Last Admin: 01/02/19 08:34 Dose: 5 mg Documented by: Glycerin (Glycerin Adult) 1 supp [place] DAILY PRN PRN Reason: Constipation Stop: 01/31/19 13:50 Heparin Sodium (Porcine) (Heparin Sodium (Porcine)) 5,000 units SQ Q12 [facility] Stop: 01/27/19 20:59 Last Admin: 12/28/18 21:19 Dose: 5,000 units Documented by: Doxycycline Hyclate 100 mg/ (Dextrose) 110 mls @ 50 mls/hr IV Q12H [facility]; Protocol Stop: 01/04/19 19:59 Last Infusion: 01/02/19 10:55 Dose: Infused Documented by: Promethazine HCl 12.5 mg/ (Sodium Chloride) 50.5 mls @ 202 mls/hr IV Q6H PRN PRN Reason: Nausea And Vomiting Stop: 01/28/19 06:37 Pantoprazole Sodium 40 mg/ (Syringe) 10 mls @ 5 mls/min IV BID@0900,2100 [facility] Stop: 01/28/19 06:44 Last Admin: 01/02/19 08:33 Dose: 5 mls/min Documented by: Methylprednisolone 20 mg/ (Syringe) 0.32 mls @ 1.5 mls/min IV Q8 [facility] Stop: 01/29/19 13:59 Last Admin: 01/02/19 06:04 Dose: 1.5 mls/min Documented by: Alteplase, Recombinant 10 mg/ (Syringe) 60 mls @ 0.0006 mls/min IPL Q12H [facility]; Protocol Stop: 01/03/19 19:59 Last Admin: 01/02/19 08:33 Dose: 0.0006 mls/min Documented by: Dornase Tanmay 5 ml/ Syringe 30 mls @ 0.0006 mls/min IPL Q12H [facility]; Protocol Stop: 01/03/19 20:59 Last Admin: 01/02/19 09:54 Dose: 0.0006 mls/min Documented by: Piperacillin Sod/Tazobactam (Sod 3.375 gm/ Dextrose) 115 mls @ 28.75 mls/hr IV Q12H [facility]; Protocol Stop: 01/06/19 15:59 Last Admin: 01/02/19 13:02 Dose: 28.8 mls/hr Documented by: Levalbuterol HCl (Xopenex 0.63 Mg/3 Ml Neb) 0.63 mg NEB Q3H PRN PRN Reason: Wheezing Stop: 01/29/19 18:29 Last Admin: 01/02/19 03:06 Dose: 0.63 mg Documented by: Levalbuterol HCl (Xopenex 0.63 Mg/3 Ml Neb) 0.63 mg NEB QIDR [facility] Stop: 01/29/19 18:59 Last Admin: 01/02/19 11:07 Dose: 0.63 mg Documented by: Levothyroxine Sodium (Synthroid) 100 mcg PO DAILYBB [facility] Stop: 01/28/19 06:29 Last Admin: 01/02/19 06:04 Dose: 100 mcg Documented by: Metoprolol Tartrate (Lopressor) 25 mg PO BID [facility] Stop: 01/29/19 08:59 Last Admin: 01/02/19 08:34 Dose: 25 mg Documented by: Miscellaneous Information (Consult) 1 ea N/A UD PRN PRN Reason: Consult Stop: 01/29/19 09:38 Ondansetron HCl (Zofran) 4 mg IV Q6H PRN PRN Reason: Nausea Stop: 01/27/19 18:39 Last Admin: 01/02/19 11:49 Dose: 4 mg Documented by: Polyethylene Glycol (Miralax Powder Packet) 17 gm PO DAILY PRN PRN Reason: Constipation Stop: 01/27/19 18:39 Last Admin: 01/01/19 09:28 Dose: 17 gm Documented by: Fluticasone/Salmeterol (Advair Diskus 500/50) 1 puffs INH BID [facility] Stop: 01/27/19 20:59 Last Admin: 01/02/19 08:33 Dose: 1 puffs Documented by: Senna/Docusate Sodium (Senokot S) 1 tab PO BID [facility] Stop: 01/28/19 06:44 Last Admin: 01/02/19 08:35 Dose: 1 tab Documented by: Sodium Biphosphate/Sodium Phosphate (Fleet Enema) 132 ml [place] DAILY PRN PRN Reason: Constipation Stop: 01/31/19 13:50 Tamsulosin HCl (Flomax) 0.4 mg PO QAM [facility] Stop: 01/28/19 08:59 Last Admin: 01/02/19 08:34 Dose: 0.4 mg Documented by: Tramadol HCl (Ultram) 25 - 50 mg PO Q4H PRN PRN Reason: Pain Stop: 01/30/19 23:58 Last Admin: 01/02/19 06:23 Dose: 50 mg Documented by: Trimethoprim/Sulfamethoxazole (Septra 400/80mg Tab) 1 tab PO Q12H [facility]; Protocol Stop: 01/09/19 12:29 Verapamil HCl (Calan) 80 mg PO TID [facility] Stop: 01/29/19 13:59 Last Admin: 01/02/19 08:34 Dose: 80 mg Documented by: Vitamin D (Vitamin D3) 1,000 units PO QAM [facility] Stop: 01/28/19 08:59 Last Admin: 01/02/19 08:34 Dose: 1,000 units Documented by: (1) Pneumonia Laterality: right Lung location: lower lobe of lung Pneumonia type: due to unspecified organism Qualified Code(s): J18.1 - Lobar pneumonia, unspecified organism (2) CKD (chronic kidney disease) Chronic kidney disease stage: unspecified stage Qualified Code(s): N18.9 - Chronic kidney disease, unspecified
[2019-01-02] MEDS: SULFA/TRIMETH 400/80MG TAB PO SCH (14:22)
--- NOTE | 2019-01-02 16:11 | Hospitalist Progress Note ---
Date of Service January 02, 2019 Assessment & Plan (1) Pneumonia: admitted with complicated pneumonia /Empyema on left Chest x-ray showed left lower lobe infiltrate and left pleural effusion. Blood cultures obtained- negative so far. Nasal MRSA swab negative, so MRSA pneumonia unlikely. Nasal swab for influenza A/B negative. 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 diet advanced to moist and minced aspiration precaution (2) Pleural effusion: Left pleural effusion/empyema Pulmonary Medicine consulted. s/p Chest tube placement Gram stain pleural fluid- many WBC's, gram + cocci. 2369 WBC's (87% polys). < 3000 RBC's. Total protein 4.1. LDH 5685. Glucose 2. pH 6.60. = empyema pleural fluid gram stain shows gram + cocci. Clinically improved. WBC down. on Zosyn and Doxycyline will consult ID for choice of abx and duration of tx (3) Chronic respiratory failure with hypoxia, on home O2 therapy: on 2 L o2 chronic no hypoxia /at baseline Continue supplemental oxygen. (4) COPD, severe: Continue bronchodilators. Changed from albuterol to levalbuterol because of atrial flutter. will start to wean down iV solumedrol as no audible wheeze noted (5) Chronic diastolic CHF (congestive heart failure): Chest x-rays showed pulmonary vascular congestion. Acute on chronic left ventricular diastolic heart failure. IV furosemide on hold for [facility] Follow. (6) Atrial flutter: at present converted to sinus with rate control ( episodes of bradycardia noted HR in low 50's ) Developed atrial flutter 2:1 @ 140 / min. Received metoprolol, diltiazem, digoxin without improvement. Cardiology consulted. Metoprolol, verapamil, and management of underlying pulmonary issues recommended. Converted to NSR. Not anticoagulated because of possible UGI bleed- reconsider if no ongoing concerns. (7) Cerebrovascular disease: History of ischemic stroke, residual left hemiparesis. Neuro status stable. Aspirin on hold because of possible upper GI bleed. (8) Nausea & vomiting: no further episode H&H stable. Relatively high risk for consideration of endoscopic evaluation. Continue PPI. diet advanced (9) Constipation: still now BM in creased Bowel regimen (10) CKD (chronic kidney disease), stage III: CKD 3 with baseline creatinine around 1.5-1.8. Creatinine at time of admission 2.11. Creatinine today = 2.37. Hold diuretics. Follow. (11) Protein calorie malnutrition: Evaluated by [facility]. 8 kg / 13% weight loss over last year. Severe clavicular and temporal muscle wasting. Severe buccal fat wasting. Findings consistent with severe protein calorie malnutrition. Diet / supplements as tolerated. (12) Do not resuscitate status: As noted. (13) DVT prophylaxis: Initially received subcutaneous heparin. Heparin held because of possible upper GI bleed. No further evidence of GI bleeding. Resume SQ heparin. SCDs. (14) Discharge planning issues: May need skilled care. PT / OT as tolerated. Family Medicine follow-up with Dr. Chandra. updated at bedside Subjective pt feels tired wakes up easily complains of soreness on left chest wall due to chest tube minimum cough no fever or chills present at bedside Physical Exam Constitutional: WD/WN, vitals as above + ill appearing; no acute distress Eyes: + anicteric sclerae ENMT: external ear and nose normal, oropharynx normal Neck: trachea midline, no thyromegaly Respiratory: Auscultation: + diminished lung sounds and + rales (at base ); no wheezes Cardiovascular: Rate/Rhythm: regular rate and regular rhythm Extremities: + edema (+ 3 bilateral edema; L > r ) Gastrointestinal (Abdomen): Inspection/Auscultation: abdomen normal to inspection and normal bowel sounds; abdomen not distended Percussion/Palpation: abdomen soft; abdomen nontender Neurologic: PERRL, EOMI, accommodation nl, no face palsy, no dysarthria Psychiatric: Orientation: alert Affect: + flat affect Results & Data Vital Signs (Past 12 Hours) Vital Signs Temp Pulse Pulse Resp BP BP Pulse Ox 01/02/19 15:47 56 L 16 97 01/02/19 15:09 36.3 C L 65 16 91/51 L 96 01/02/19 11:19 36.7 C 74 20 121/63 97 01/02/19 11:07 54 L 18 96 01/02/19 10:19 75 01/02/19 07:46 36.8 C 64 18 115/69 96 01/02/19 07:29 73 20 94 (1) Pneumonia Laterality: unspecified laterality Lung location: unspecified part of lung Pneumonia type: due to unspecified organism Qualified Code(s): J18.9 - Pneumonia, unspecified organism
[2019-01-02] MEDS ORDERED: bisacodyL 10 MG SUPP PR STA (16:27)
[2019-01-02] MEDS: POLYETHYLENE (MIRALAX) 17 GM PACK PO SCH (16:58)
[2019-01-02] MEDS: PANTOprazole 40 MG TAB PO SCH (20:36)
[2019-01-02] MEDS: DOXYCYCLINE HYCLATE 100 MG CAP PO SCH (20:37)
[2019-01-03] MEDS: PIPERACILLIN/TAZOBACTAM 3.375 GM in DEXTROSE 5% 100 ML IV SCH ×2 (00:35→12:31)
[2019-01-03] MEDS: SULFA/TRIMETH 400/80MG TAB PO SCH ×2 (02:15→14:26)
[2019-01-03] MEDS: LEVOTHYROXINE SODIUM 100 MCG TABLET PO SCH (06:24)
[2019-01-03] MEDS: LEVALBUTEROL HCL 0.63 MG/3 ML NEB NEB SCH ×4 (07:25→19:10)
[2019-01-03 07:35] LABS: Hematocrit (blood only) 36.1 % (42-52); Hemoglobin 11.9 g/dL (14.0-18.0); Mean Corpuscular Hemoglobin 30.8 pg (25-34); Mean Corpuscular Volume 93.5 fL (80-100); Mean Platelet Volume 10.1 fL (7.4-10.4); Platelet Count 325 K/uL (130-400); RDW Coefficient of Variation 14.4 % (11.5-14.5); Red Blood Count 3.86 M/uL (4.7-6.1); White Blood Count 11.86 K/uL (4.8-10.8)
--- NOTE | 2019-01-03 08:00 | XRay Report ---
XR chest 1V not portable CLINICAL HISTORY: 83 years-old Male presenting with Left pigtail catheter - MIST 2 protocol. TECHNIQUE: Portable upright AP view of the chest was obtained. COMPARISON: 01/02/2019. FINDINGS: Atherosclerosis of the aortic arch. Cardiac silhouette enlarged. Minimal pulmonary vascular prominenc e. The pigtail pleural drain remains in place at the paramediastinal left lung base. Minimal left bas ilar opacity similar to prior. Trace left pleural effusion. Extensive right basilar opacity likely re lates to the presence of a layering right pleural effusion and underlying parenchymal opacity. No pne umothorax. Osteopenia. Advanced degenerative changes of the glenohumeral joints. Upper abdomen normal . IMPRESSION: 1. Similar appearance of the layering right pleural effusion and extensive underlying consolidation/ atelectasis. 2. Left pleural drain with trace left basilar infiltrate and effusion. 3. No significant change from prior. Electronically signed by: Tay Horowitz M.D. 01/03/2019 7:58 AM
[2019-01-03] MEDS: POLYETHYLENE (MIRALAX) 17 GM PACK PO SCH (08:16)
[2019-01-03] MEDS: DOCUSATE SODIUM/SENNA 50/8.6MG TAB PO SCH ×2 (08:16→21:17)
[2019-01-03] MEDS: FLUTICASONE/SALMETEROL (ADVAIR) 500/50 INH 14 PUFF INH SCH ×2 (08:16→21:17)
[2019-01-03] MEDS: ALTEPLASE, RECOMBINANT 10 MG in SYRINGE 50 ML IPL SCH (08:17)
[2019-01-03] MEDS: PANTOprazole 40 MG TAB PO SCH ×2 (08:20→21:18)
[2019-01-03] MEDS: VERAPAMIL HCL 40 MG TAB PO SCH ×2 (08:21→21:18)
[2019-01-03] MEDS: FINASTERIDE 5 MG TAB PO SCH (08:21)
[2019-01-03] MEDS: DOXYCYCLINE HYCLATE 100 MG CAP PO SCH ×2 (08:22→21:18)
[2019-01-03] MEDS: methylPREDNISolone 20 MG in SYRINGE 0 ML IV SCH ×2 (08:22→21:17)
[2019-01-03] MEDS: METOPROLOL TARTRATE 25 MG TAB PO SCH ×2 (08:22→21:19)
[2019-01-03] MEDS: CHOLECALCIFEROL 1,000 UNITS TAB PO SCH (08:22)
--- NOTE | 2019-01-03 09:11 | Cardiology Progress Note ---
Date of Service January 03, 2019 Assessment & Plan (1) Atrial flutter: (2) Chronic respiratory failure with hypoxia, on home O2 therapy: (3) COPD exacerbation: (4) Pneumonia: (5) CKD (chronic kidney disease): The patient is maintaining sinus rhythm however, his blood pressure is a bit on the low side. The verapamil was decreased yesterday to 80 mg twice daily. I am going to attempt to wean this medication and have lowered the dose again to 40 mg twice daily. I would continue the metoprolol at its current dosage. Hopefully since he is through the acute episode of his pneumonia, plus he will have his chest tube DC'd today, he will maintain sinus rhythm. Subjective No additional complaints today. The patient is maintaining sinus rhythm with occasional PACs and PVCs. Review of Systems Review of Systems: All systems reviewed & are unremarkable except as noted in HPI & below Nothing additional to add. Physical Exam Physical Exam: General: no acute distress and stated age Head: normocephalic, no masses, lesions, tenderness or abnormalities Eyes: conjunctiva are pink and non-injected, sclera clear Neck: supple, no adenopathy, no bruits, normal jugular venous pulse, no hepatojugular reflux Chest: normal shape and normal respiratory effort Lungs: clear to auscultation and percussion Cardiac Exam: - regular rate & rhythm, no murmurs gallops or rubs - normal S1, normal S2 Pulses: 2(+) throughout Abdomen: abdomen soft, non-tender, no abnormal masses and no hepatosplenomegaly Musculoskeletal: no gait disturbance, no joint inflammation, no deforming arthritis Extremities: no edema and no cyanosis Neuro: grossly normal exam Results & Data Vital Signs (Past 12 Hours) Vital Signs Temp Pulse Pulse Resp BP Pulse Ox 01/03/19 08:00 51 L 01/03/19 07:28 65 18 97 01/03/19 07:05 36.4 C L 63 19 99/61 L 96 01/03/19 04:36 36.4 C L 58 L 20 81/54 L 96 01/03/19 00:00 51 L 01/02/19 23:23 36.5 C 51 L 20 89/54 L 96 Laboratory Results Laboratory Results - last 24 hr 01/03/19 07:17 WBC 11.86 H RBC 3.86 L Hgb 11.9 L Hct 36.1 L MCV 93.5 MCH 30.8 MCHC 33.0 RDW Std Deviation 49.0 H RDW Coeff of Connie 14.4 Plt Count 325 MPV 10.1 Medications Administered Current Inpatient Medications Acetaminophen (Tylenol) 650 mg PO Q4H PRN PRN Reason: Pain or Fever Stop: 01/27/19 18:39 Last Admin: 12/31/18 19:25 Dose: 650 mg Documented by: Doxycycline Hyclate (Vibramycin) 100 mg PO BID [facility] Stop: 01/04/19 19:59 Last Admin: 01/03/19 08:22 Dose: 100 mg Documented by: Finasteride (Proscar) 5 mg PO QAM [facility] Stop: 01/28/19 08:59 Last Admin: 01/03/19 08:21 Dose: 5 mg Documented by: Glycerin (Glycerin Adult) 1 supp [place] DAILY PRN PRN Reason: Constipation Stop: 01/31/19 13:50 Heparin Sodium (Porcine) (Heparin Sodium (Porcine)) 5,000 units SQ Q12 [facility] Stop: 01/27/19 20:59 Last Admin: 12/28/18 21:19 Dose: 5,000 units Documented by: Promethazine HCl 12.5 mg/ (Sodium Chloride) 50.5 mls @ 202 mls/hr IV Q6H PRN PRN Reason: Nausea And Vomiting Stop: 01/28/19 06:37 Alteplase, Recombinant 10 mg/ (Syringe) 60 mls @ 0.0006 mls/min IPL Q12H [facility]; Protocol Stop: 01/03/19 19:59 Last Admin: 01/03/19 08:17 Dose: 0.0006 mls/min Documented by: Dornase Tanmay 5 ml/ Syringe 30 mls @ 0.0006 mls/min IPL Q12H [facility]; Protocol Stop: 01/03/19 20:59 Last Admin: 01/02/19 21:42 Dose: 0.0006 mls/min Documented by: Piperacillin Sod/Tazobactam (Sod 3.375 gm/ Dextrose) 115 mls @ 28.75 mls/hr IV Q12H [facility]; Protocol Stop: 01/06/19 15:59 Last Infusion: 01/03/19 04:35 Dose: Infused Documented by: Methylprednisolone 20 mg/ (Syringe) 0.32 mls @ 1.5 mls/min IV Q12 [facility] Stop: 02/01/19 20:59 Last Admin: 01/03/19 08:22 Dose: 1.5 mls/min Documented by: Levalbuterol HCl (Xopenex 0.63 Mg/3 Ml Neb) 0.63 mg NEB Q3H PRN PRN Reason: Wheezing Stop: 01/29/19 18:29 Last Admin: 01/02/19 03:06 Dose: 0.63 mg Documented by: Levalbuterol HCl (Xopenex 0.63 Mg/3 Ml Neb) 0.63 mg NEB QIDR [facility] Stop: 01/29/19 18:59 Last Admin: 01/03/19 07:25 Dose: 0.63 mg Documented by: Levothyroxine Sodium (Synthroid) 100 mcg PO DAILYBB [facility] Stop: 01/28/19 06:29 Last Admin: 01/03/19 06:24 Dose: 100 mcg Documented by: Metoprolol Tartrate (Lopressor) 25 mg PO BID [facility] Stop: 01/29/19 08:59 Last Admin: 01/03/19 08:22 Dose: 25 mg Documented by: Miscellaneous Information (Consult) 1 ea N/A UD PRN PRN Reason: Consult Stop: 01/29/19 09:38 Ondansetron HCl (Zofran) 4 mg IV Q6H PRN PRN Reason: Nausea Stop: 01/27/19 18:39 Last Admin: 01/02/19 11:49 Dose: 4 mg Documented by: Pantoprazole Sodium (Protonix) 40 mg PO BID [facility] Stop: 02/01/19 20:59 Last Admin: 01/03/19 08:20 Dose: 40 mg Documented by: Polyethylene Glycol (Miralax Powder Packet) 17 gm PO DAILY [facility] Stop: 02/01/19 16:29 Last Admin: 01/03/19 08:16 Dose: Not Given Documented by: Fluticasone/Salmeterol (Advair Diskus 500/50) 1 puffs INH BID [facility] Stop: 01/27/19 20:59 Last Admin: 01/03/19 08:16 Dose: 1 puffs Documented by: Senna/Docusate Sodium (Senokot S) 1 tab PO BID [facility] Stop: 01/28/19 06:44 Last Admin: 01/03/19 08:16 Dose: Not Given Documented by: Sodium Biphosphate/Sodium Phosphate (Fleet Enema) 132 ml [place] DAILY PRN PRN Reason: Constipation Stop: 01/31/19 13:50 Tamsulosin HCl (Flomax) 0.4 mg PO QAM [facility] Stop: 01/28/19 08:59 Last Admin: 01/02/19 08:34 Dose: 0.4 mg Documented by: Tramadol HCl (Ultram) 25 - 50 mg PO Q4H PRN PRN Reason: Pain Stop: 01/30/19 23:58 Last Admin: 01/02/19 14:26 Dose: 50 mg Documented by: Trimethoprim/Sulfamethoxazole (Septra 400/80mg Tab) 1 tab PO Q12H [facility]; Protocol Stop: 01/09/19 12:29 Last Admin: 01/03/19 02:15 Dose: 1 tab Documented by: Verapamil HCl (Calan) 40 mg PO BID [facility] Stop: 02/02/19 20:59 Vitamin D (Vitamin D3) 1,[facility] [place]: 01/28/19 08:59 Last Admin: 01/03/19 08:22 Dose: 1,000 units Documented by: (1) CKD (chronic kidney disease) Chronic kidney disease stage: unspecified stage Qualified Code(s): N18.9 - Chronic kidney disease, unspecified (2) Pneumonia Laterality: right Lung location: lower lobe of lung Pneumonia type: due to unspecified organism Qualified Code(s): J18.1 - Lobar pneumonia, unspecified organism
[2019-01-03] MEDS: DORNASE ALFA 5 ML in SYRINGE 25 ML IPL SCH (09:21)
--- NOTE | 2019-01-03 11:29 | Pulmonology Progress Note ---
Date of Service January 03, 2019 Assessment & Plan (1) Empyema of left pleural space: Patient will complete treatment with MIST 2 protocol this morning Chest x-ray shows near resolution of pleural effusion on the left Pigtail catheter is draining only what is instilled as part of the protocol Will plan on removing the pigtail catheter this morning Continue Augmentin on discharge (2) Pleural effusion: Empyema on the left being treated with pigtail catheter and MIST 2 protocol Persistent right-sided pleural effusion that appears to be layered. At this time no plans on intervention for the pleural effusion Continue to monitor radiologically (3) Pneumonia: Sputum culture grew out stenotrophomonas Continue oral Bactrim as prescribed Follow-up chest x-ray in 3 weeks Laterality: unspecified laterality Lung location: unspecified part of lung Pneumonia type: due to unspecified organism Qualified Code(s): J18.9 - Pneumonia, unspecified organism (4) COPD, severe: Continue bronchodilators. Maintain SaO2 between 88 and 92% Currently receiving antibiotics for above Continue de-escalate prednisone as tolerated We will follow-up in the outpatient clinic Thank you for including us in the care of this patient. We will continue to follow along with you. Subjective Attending: Dr. Penaloza Patient seen and examined at bedside. Patient seems to be improved. He has a persistent dry cough but no significant sputum production. He denies any hemoptysis. The patient states that he has not had any fever or chills. He has no sweats. He does have some irritation at the pigtail catheter insertion site. He is finishing his last dose of alteplase/Pulmozyme this morning. He is in agreement to have the pigtail catheter removed after that treatment. The patient denies any other acute complaints. Review of Systems Review of Systems: All systems reviewed & are unremarkable except as noted in HPI & below Physical Exam Physical Exam: GENERAL : No acute distress. Pleasant EYES: No icterus, gaze conjugate NOSE: No evidence of epistaxis. Nasal cannula is in place and secure MOUTH: No lesions or candidiasis. Mucosa is moist NECK: Supple LUNGS: Decreased breath sounds at the right base. Patient does have some scattered rales. No overt rhonchi or bronchospasm. HEART: Regular, rate controlled ABDOMEN: Soft, NT, ND, BS Present EXTREMITIES: Bilateral LE edema which is stable, pedal pulses intact and equal bilaterally NEURO: A&OX3. Results & Data Vital Signs (Past 12 Hours) Vital Signs Temp Pulse Pulse Resp BP Pulse Ox 01/03/19 10:46 36.3 C L 50 L 19 95/59 L 95 01/03/19 08:00 51 L 01/03/19 07:28 65 18 97 01/03/19 07:05 36.4 C L 63 19 99/61 L 96 01/03/19 04:36 36.4 C L 58 L 20 81/54 L 96 01/03/19 00:00 51 L 01/02/19 23:23 36.5 C 51 L 20 89/54 L 96 Laboratory Results 01/03/19 07:17 01/02/19 06:46 Diagnostic Findings XR chest 1V not portable CLINICAL HISTORY: 83 years-old Male presenting with Left pigtail catheter - MIST 2 protocol. TECHNIQUE: Portable upright AP view of the chest was obtained. COMPARISON: 01/02/2019. FINDINGS: Atherosclerosis of the aortic arch. Cardiac silhouette enlarged. Minimal pulmonary vascular prominence. The pigtail pleural drain remains in place at the paramediastinal left lung base. Minimal left basilar opacity similar to prior. Trace left pleural effusion. Extensive right basilar opacity likely relates to the presence of a layering right pleural effusion and underlying parenchymal opacity. No pneumothorax. Osteopenia. Advanced degenerative changes of the glenohumeral joints. Upper abdomen normal. IMPRESSION: 1. Similar appearance of the layering right pleural effusion and extensive underlying consolidation/atelectasis. 2. Left pleural drain with trace left basilar infiltrate and effusion. 3. No significant change from prior. Electronically signed by: Tay Horowitz M.D. 01/03/2019 7:58 AM Medications Administered MIST 2 protocol completing today PG Care Time/CCT Total # of Minutes Spent Total Time Spent with Patient: Total time spent is greater than 50% in coordination of care (as documented) at patient's floor/unit and/or counseling patient:
--- NOTE | 2019-01-03 11:55 | Hospitalist Progress Note ---
Date of Service January 03, 2019 Assessment & Plan (1) Pneumonia: admitted with complicated pneumonia /Empyema on left Chest x-ray showed left lower lobe infiltrate and left pleural effusion. Blood cultures obtained- negative so far. Nasal MRSA swab negative, so MRSA pneumonia unlikely. Nasal swab for influenza A/B negative. 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 diet advanced to moist and minced Tolerating well aspiration precaution (2) Pleural effusion: Left pleural effusion/empyema Pulmonary Medicine consulted. s/p Chest tube placement Gram stain pleural fluid- many WBC's, gram + cocci. 2369 WBC's (87% polys). < 3000 RBC's. Total protein 4.1. LDH 5685. Glucose 2. pH 6.60. = empyema pleural fluid gram stain shows gram + cocci/streptococci Clinically improved. WBC down. cont on Zoysn Appreciate input from pulmonology, chest tube removed today (3) Chronic respiratory failure with hypoxia, on home O2 therapy: on 2 L o2 chronic no hypoxia /at baseline Continue supplemental oxygen. (4) COPD, severe: Continue bronchodilators. Changed from albuterol to levalbuterol because of atrial flutter. will start to wean down iV solumedrol as no audible wheeze noted (5) Chronic diastolic CHF (congestive heart failure): Chest x-rays showed pulmonary vascular congestion. Acute on chronic left ventricular diastolic heart failure. furosemide on hold for NESTOR Follow. (6) Atrial flutter: at present converted to sinus with rate control ( episodes of bradycardia noted HR in low 50's ) Developed atrial flutter 2:1 @ 140 / min. Received metoprolol, diltiazem, digoxin without improvement. Cardiology consulted. Metoprolol, verapamil, and management of underlying pulmonary issues recommended. Converted to NSR. Not anticoagulated because of possible UGI bleed- reconsider if no ongoing concerns. (7) Cerebrovascular disease: History of ischemic stroke, residual left hemiparesis. Neuro status stable. Aspirin on hold because of possible upper GI bleed. (8) Nausea & vomiting: no further episode H&H stable. Relatively high risk for consideration of endoscopic evaluation. Continue PPI. diet advanced (9) Constipation: Continue bowel regimen (10) CKD (chronic kidney disease), stage III: CKD 3 with baseline creatinine around 1.5-1.8. Creatinine at time of admission 2.11. Follow BMP avoid NSAIDs contrast (11) Protein calorie malnutrition: Evaluated by [employer] Director. 8 kg / 13% weight loss over last year. Severe clavicular and temporal muscle wasting. Severe buccal fat wasting. Findings consistent with severe protein calorie malnutrition. Diet / supplements as tolerated. (12) Do not resuscitate status: As noted. (13) DVT prophylaxis: Initially received subcutaneous heparin. Heparin held because of possible upper GI bleed. No further evidence of GI bleeding. Resume SQ heparin. SCDs. (14) Discharge planning issues: May need skilled care. PT / OT as tolerated. Family Medicine follow-up with Dr. Chandra. updated at bedside Subjective Chest tube/pigtail catheter removed today, patient reports of feeling much better, continues to have productive cough Physical Exam Constitutional: WD/WN, vitals as above + ill appearing; no acute distress Eyes: + anicteric sclerae ENMT: external ear and nose normal, oropharynx normal Neck: trachea midline, no thyromegaly Respiratory: Auscultation: + diminished lung sounds and + rales (at base ); no wheezes Cardiovascular: Rate/Rhythm: regular rate and regular rhythm Extremities: + edema (+ 3 bilateral edema; L > r ) Gastrointestinal (Abdomen): Inspection/Auscultation: abdomen normal to inspection and normal bowel sounds; abdomen not distended Percussion/Palpation: abdomen soft; abdomen nontender Neurologic: PERRL, EOMI, accommodation nl, no face palsy, no dysarthria Psychiatric: Orientation: alert Affect: + flat affect Results & Data Vital Signs (Past 12 Hours) Vital Signs Temp Pulse Pulse Resp BP Pulse Ox 01/03/19 11:18 74 18 91 01/03/19 10:46 36.3 C L 50 L 19 95/59 L 95 01/03/19 08:00 51 L 01/03/19 07:28 65 18 97 01/03/19 07:05 36.4 C L 63 19 99/61 L 96 01/03/19 04:36 36.4 C L 58 L 20 81/54 L 96 01/03/19 00:00 51 L (1) Pneumonia Laterality: unspecified laterality Lung location: unspecified part of lung Pneumonia type: due to unspecified organism Qualified Code(s): J18.9 - Pneumonia, unspecified organism
--- NOTE | 2019-01-03 12:15 | Procedure Note ---
Procedure Note Date of Service January 03, 2019 Note Procedure: Pigtail catheter removal Time: 12 noon Narrative: Patient with an empyema and physical placement on Monday. Patient completed MIST 2 to call this morning. Minimal drainage into the Annita Pleur-evac. Patient with increased tenderness at the site. Serial x-rays with near resolution of left-sided pleural effusion Using clean technique, the dressing was removed from the pigtail catheter and the surrounding skin was cleaned. A single suture was identified retaining the pigtail catheter. This was removed with sterile scissors and using sterile gloves. 4 x 4's were placed over the catheter insertion site and while patient was having, pigtail catheter was removed without any resistance. A dressing was applied over the catheter site and secured with Medipore tape. Patient had no discomfort during the procedure and no changes to vital signs. Patient tolerated the procedure well. Dr. Penaloza was notified that the chest tube was removed. We will continue to follow the patient on the pulmonary service. Coding
[2019-01-03 13:02] LABS: Est GFR (African American) 23.5; Est GFR (Non-African American) 20.3
[2019-01-03] MEDS: TRAMADOL HCL 50 MG TABLET PO PRN (21:16)
[2019-01-03] MEDS: LEVALBUTEROL HCL 0.63 MG/3 ML NEB NEB PRN (21:53)
[2019-01-04] MEDS: PIPERACILLIN/TAZOBACTAM 3.375 GM in DEXTROSE 5% 100 ML IV SCH (00:54)
[2019-01-04] MEDS: SULFA/TRIMETH 400/80MG TAB PO SCH ×2 (00:55→16:52)
[2019-01-04] MEDS: LEVOTHYROXINE SODIUM 100 MCG TABLET PO SCH (05:40)
[2019-01-04] MEDS: LEVALBUTEROL HCL 0.63 MG/3 ML NEB NEB SCH ×4 (06:03→19:27)
[2019-01-04 07:13] LABS: Creatinine Clr Calc Pharmacy 15.1 ml/min
--- NOTE | 2019-01-04 07:57 | Infectious Disease Consult ---
Date of Consultation January 04, 2019 Assessment & Plan (1) Empyema of left pleural space: will need prolonged course of abx, 3 weeks total s/p drainage. can continue zosyn for now, then can change to Augmentin (renal dosing) upon d/c to complete course. Unsure significance of stenotrophomonas in sputum culture, clinically improved on current abx. continue supportive care. (2) Pleural effusion: (3) Leucocytosis: History of Present Illness Attending Physician: Rody Delgado MD pt admitted on 12/28 with increased sob, weakness x 5 days guard captain. cxr showed effuions and consolidation. WBC 22 upon admission, now improved to 11. creat increased to 2.7. He has been on zosyn and tolerating well. does have underlying lung disease requiring O2 at home, remains on this. pulm following, s/p chest tube - fluid 12/31 2369 wbc, culture grew S. intermedius (no sensitivities), blood cultures negative, urine culture negative. 12/30 sputum culture grew Stenotrophomonas, resistant only to ceftazidime. Chest tube removed yesterday, tolerated well. remains on IV steroids. On my exam, he denies any sob, cough, sob, states overall feeling better. No abd pain, no n/v/d. no gu symptoms. eating well. ID consulted for antibiotic suggestions. Allergies Allergy/AdvReac Type Severity Reaction Status Date / Time adhesive Allergy Mild RASH Verified 12/28/18 15:26 latex Allergy Mild "RASH" Verified 12/28/18 15:26 Home Medications Home Medications Medication Instructions Recorded Confirmed Type cholecalciferol (vitamin D3) 1,000 unit PO QAM 11/04/17 12/28/18 History [Vitamin D3] docusate sodium 100 mg PO BID PRN 11/04/17 12/28/18 History finasteride 5 mg PO QAM 11/04/17 12/28/18 History fluticasone propion-salmeterol 1 inh INHALATION BID PRN 11/04/17 12/28/18 History [Advair Diskus] levothyroxine 100 mcg PO QAM 11/04/17 12/28/18 History tamsulosin [Flomax] 0.4 mg PO QAM 11/04/17 12/28/18 History torsemide 20 mg PO QAM 11/04/17 12/28/18 History aspirin 325 mg PO QAM 12/05/17 12/28/18 History ipratropium-albuterol 3 ml INHALATION .Q4-5 TIMES DAY 12/28/18 12/28/18 History prednisone 10 mg PO QAM 12/28/18 12/28/18 History Patient History Medical History Bronchitis H/O FREQUENT BRONCHITIS Cerebrovascular disease (Chronic) Chronic diastolic CHF (congestive heart failure) (Chronic) Chronic respiratory failure Following with pulm [facility], most recent documented COPD exacerbation 10/25/17, treated OP with steroids/ABX CKD (chronic kidney disease), stage III (Chronic) FOLLOWS WITH PCP 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 Most recent hospital admission for exacerbation was 07/17-07/19 @ [facility]. Cor pulmonale Do not resuscitate status Hearing deficit HTN (hypertension) (Chronic) Hypothyroidism (Chronic) Indwelling Sullivan catheter present Lymphedema (Chronic) On home oxygen therapy Osteoarthritis (Chronic) Urinary retention (Chronic) [employer] Surgical History History of cataract surgery BILATERAL History of tonsillectomy and adenoidectomy (Chronic) S/P ear surgery (Chronic) Family History Other Hypertension Social History Preferred Language: Mongolian Communication Ability: Effective Visual Impairment: No Limitations Registered Physical Therapist Required: No Beliefs That Will Affect Care: None marital status: Current Living Situation: Spouse Other Information That Helps Us Care for You: No Feels Safe at Home: Yes Safety Concerns: Feels Safe At This Time Smoking Status: Current some day smoker Tobacco Type: cigarettes ; Years Smoked: 70 ; Cigarettes Per Day: 6 ; Second Hand Exposure: Yes ; Hx Alcohol Use: Yes Alcohol type: beer Alcohol Intake Frequency: Rarely Hx Substance Use: No Review of Systems Review of Systems: All systems reviewed & are unremarkable except as noted in HPI & below Physical Exam Constitutional: WD/WN, vitals as above Eyes: PERRL, conjunctivae normal, anicteric sclerae ENMT: external ear and nose normal, oropharynx normal Neck: normal visual inspection Respiratory: normal respiratory effort, lungs clear to auscultation Auscultation: + diminished lung sounds Cardiovascular: RRR, no murmur, no edema Gastrointestinal (Abdomen): normal bowel sounds, soft, nontender, no hepatosplenomegaly Musculoskeletal: no cyanosis or clubbing, extremities motor strength 5/5 Skin: no rashes, warm and dry Psychiatric: A+Ox3, euthymic affect Results & Data Vital Signs (Past 12 Hours) Vital Signs Temp Pulse Pulse Resp BP BP Pulse Ox 01/04/19 07:17 36.3 C L 73 18 116/60 96 01/04/19 06:05 55 L 18 97 01/04/19 03:55 36.3 C L 69 19 107/61 96 01/03/19 23:54 71 01/03/19 23:06 37.2 C 68 92/61 L 97 01/03/19 21:53 74 16 97 Laboratory Results Microbiology 12/31/18 Unknown Pleural Fluid Gram Stain - Final 12/31/18 Unknown Pleural Fluid Aerobic and Anaerobic Culture - Preliminary Streptococcus intermedius 12/28/18 15:23 Blood Aerobic Blood Culture - Final No growth in Aerobic bottle after 5 days. 12/28/18 15:23 Blood Anaerobic Blood Culture - Final No growth in Anaerobic bottle after 5 days. 12/28/18 15:08 Blood Aerobic Blood Culture - Final No growth in Aerobic bottle after 5 days. 12/28/18 15:08 Blood Anaerobic Blood Culture - Final No growth in Anaerobic bottle after 5 days. 12/31/18 Unknown Pleural Fluid Acid Fast Bacilli Smear - Final 12/30/18 09:35 Sputum, Expectorated Gram Stain - Final 12/30/18 09:35 Sputum, Expectorated Sputum Culture - Final Stenotrophomonas maltophilia 12/28/18 16:52 Urine,Straight Cath Urine Culture - Final Three types of organisms present, all high counts. Repeat collection recommended. No further identifications or sensitivities to follow. PG Care Time/CCT Total # of Minutes Spent Total Time Spent with Patient: Total time spent is greater than 50% in coordination of care (as documented) at patient's floor/unit and/or counseling patient:
[2019-01-04] MEDS: METOPROLOL TARTRATE 25 MG TAB PO SCH ×2 (09:08→20:09)
[2019-01-04] MEDS: FLUTICASONE/SALMETEROL (ADVAIR) 500/50 INH 14 PUFF INH SCH (09:08)
[2019-01-04] MEDS: FINASTERIDE 5 MG TAB PO SCH (09:08)
[2019-01-04] MEDS: PANTOprazole 40 MG TAB PO SCH ×2 (09:08→20:09)
[2019-01-04] MEDS: CHOLECALCIFEROL 1,000 UNITS TAB PO SCH (09:08)
[2019-01-04] MEDS: DOXYCYCLINE HYCLATE 100 MG CAP PO SCH (09:08)
[2019-01-04] MEDS: POLYETHYLENE (MIRALAX) 17 GM PACK PO SCH (09:09)
[2019-01-04] MEDS: DOCUSATE SODIUM/SENNA 50/8.6MG TAB PO SCH (09:09)
[2019-01-04] MEDS: VERAPAMIL HCL 40 MG TAB PO SCH (09:09)
--- NOTE | 2019-01-04 09:33 | Pulmonology Progress Note ---
Date of Service January 04, 2019 Assessment & Plan (1) Empyema of left pleural space: Impression: 83-year-old male with strep intermedius empyema and stenotrophomonas from a sputum sample. He is status post pleural drainage. Recommendations: 1. Empyema: Pigtail catheter removed yesterday. We will repeat chest x-ray today as he is slightly more short of breath. Strep intermedius identified from pleural cultures. Would recommend 2 to 3 weeks of oral Augmentin. Can discontinue Zosyn. 2. Stenotrophomonas in sputum: Unclear if pathogen or colonizer. Started on Bactrim yesterday but creatinine is increased. Could be related to Bactrim. 3. Chronic kidney disease: Significant lower extremity edema but somewhat improved. Would hold additional diuresis given elevation in serum creatinine. Likely has some underlying degree of pulmonary hypertension contributing as well. 4. COPD: Increasing shortness of breath today. Will transition to oral prednisone and add budesonide and Pulmicort as well as Spiriva to his regiment. Discontinue Advair as he may not be able to get adequate deposition (2) Pleural effusion: (3) Pneumonia: Laterality: unspecified laterality Lung location: unspecified part of lung Pneumonia type: due to unspecified organism Qualified Code(s): J18.9 - Pneumonia, unspecified organism (4) COPD exacerbation: Subjective Patient feels slightly more short of breath this morning. He is not wheezing. No chest pain or palpitations. He was seen by infectious disease. Review of Systems Review of Systems: Unchanged from prior Physical Exam Physical Exam: GENERAL : No acute distress. Pleasant EYES: No icterus, gaze conjugate NOSE: No evidence of epistaxis. Nasal cannula is in place and secure MOUTH: No lesions or candidiasis. Mucosa is moist NECK: Supple LUNGS: Decreased breath sounds at the right base. Patient does have some scattered rales. No overt rhonchi or bronchospasm. HEART: Regular, rate controlled ABDOMEN: Soft, NT, ND, BS Present EXTREMITIES: Bilateral LE edema which is stable, pedal pulses intact and equal bilaterally NEURO: A&OX3. Results & Data Vital Signs (Past 12 Hours) Vital Signs Temp Pulse Pulse Resp BP BP Pulse Ox 01/04/19 07:17 36.3 C L 73 18 116/60 96 01/04/19 06:05 55 L 18 97 01/04/19 03:55 36.3 C L 69 19 107/61 96 01/03/19 23:54 71 01/03/19 23:06 37.2 C 68 92/61 L 97 01/03/19 21:53 74 16 97 Laboratory Results 01/03/19 07:17 01/04/19 06:05 Diagnostic Findings No new films PG Care Time/CCT Total # of Minutes Spent Total Time Spent with Patient: Total time spent is greater than 50% in coordination of care (as documented) at patient's floor/unit and/or counseling patient:
[2019-01-04] MEDS: methylPREDNISolone 20 MG in SYRINGE 0 ML IV SCH (09:39)
[2019-01-04] MEDS: FORMOTEROL 20 MCG/2 ML VIAL NEB SCH ×2 (09:51→19:29)
--- NOTE | 2019-01-04 10:46 | XRay Report ---
XR chest 1V portable CLINICAL HISTORY: sob dyspnea COMPARISON STUDY: 01/03/2019 FINDINGS: Right pleural effusion demonstrating a slight increase in volume as compared to the prior s tudy. Interval removal of a left basilar drain. Mild left basilar atelectatic change considered unalt ered. No evidence for pneumothorax. IMPRESSION: 1. Interval removal left pleural drain. 2. Mild residual left basilar atelectasis. 3. Right pleural effusion slightly increased in volume compared to the prior study. The above report was generated using voice recognition software. It may contain grammatical, syntax or spelling errors. Electronically signed by: Melo Kyle M.D. 01/04/2019 10:45 AM
[2019-01-04] MEDS: TIOTROPIUM BROMIDE 5 PUFF/90 MCG INH INH SCH (11:14)
--- NOTE | 2019-01-04 11:35 | Cardiology Progress Note ---
Date of Service January 04, 2019 Assessment & Plan (1) Atrial flutter: (2) Chronic respiratory failure with hypoxia, on home O2 therapy: (3) COPD exacerbation: (4) Pneumonia: (5) CKD (chronic kidney disease): Clinically the patient continues to do well. He is maintaining sinus rhythm and hopefully with improvement in his empyema and inflammation in his chest cavity he will maintain sinus rhythm. I am going to discontinue the verapamil. The metoprolol should be continued and he should remain on a rehabilitation services aide for now. Subjective The patient's chest tube was removed yesterday for his empyema. He has no new cardiac complaints and is resting comfortably. Telemetry indicates sinus rhythm with PVCs. Review of Systems Review of Systems: All systems reviewed & are unremarkable except as noted in HPI & below Nothing additional to add. Physical Exam Physical Exam: General: no acute distress and stated age Head: normocephalic, no masses, lesions, tenderness or abnormalities Eyes: conjunctiva are pink and non-injected, sclera clear Neck: supple, no adenopathy, no bruits, normal jugular venous pulse, no hepatojugular reflux Chest: normal shape and normal respiratory effort Lungs: clear to auscultation and percussion Cardiac Exam: - regular rate & rhythm, no murmurs gallops or rubs - normal S1, normal S2 Pulses: 2(+) throughout Abdomen: abdomen soft, non-tender, no abnormal masses and no hepatosplenomegaly Musculoskeletal: no gait disturbance, no joint inflammation, no deforming arthritis Extremities: no edema and no cyanosis Neuro: grossly normal exam Results & Data Vital Signs (Past 12 Hours) Vital Signs Temp Pulse Pulse Resp BP Pulse Ox 01/04/19 11:06 79 18 97 01/04/19 09:53 69 18 97 01/04/19 07:17 36.3 C L 73 18 116/60 96 01/04/19 06:05 55 L 18 97 01/04/19 03:55 36.3 C L 69 19 107/61 96 01/03/19 23:54 71 Laboratory Results Laboratory Results - last 24 hr 01/03/19 01/04/19 07:17 06:05 Creatinine 2.76 H 2.92 H Est Cr Clr Drug Dosing 16.0 15.1 Est GFR ( Amer) 23.5 22.0 Est GFR (Non-Af Amer) 20.3 19.0 Medications Administered Current Inpatient Medications Acetaminophen (Tylenol) 650 mg PO Q4H PRN PRN Reason: Pain or Fever Stop: 01/27/19 18:39 Last Admin: 12/31/18 19:25 Dose: 650 mg Documented by: Amoxicillin/Clavulanate Potassium (Augmentin 500mg) 1 tab PO BIDM [facility]; Protocol Stop: 01/11/19 16:59 Budesonide (Pulmicort Respules) 0.5 mg NEB BIDR [facility] Stop: 02/03/19 18:59 Finasteride (Proscar) 5 mg PO QAM [facility] Stop: 01/28/19 08:59 Last Admin: 01/04/19 09:08 Dose: 5 mg Documented by: Formoterol Fumarate (Perforomist) 20 mcg NEB BIDR [facility] Stop: 02/03/19 09:44 Last Admin: 01/04/19 09:51 Dose: 20 mcg Documented by: Glycerin (Glycerin Adult) 1 supp HI DAILY PRN PRN Reason: Constipation Stop: 01/31/19 13:50 Heparin Sodium (Porcine) (Heparin Sodium (Porcine)) 5,000 units SQ Q12 [facility] Stop: 01/27/19 20:59 Last Admin: 12/28/18 21:19 Dose: 5,000 units Documented by: Promethazine HCl 12.5 mg/ (Sodium Chloride) 50.5 mls @ 202 mls/hr IV Q6H PRN PRN Reason: Nausea And Vomiting Stop: 01/28/19 06:37 Levalbuterol HCl (Xopenex 0.63 Mg/3 Ml Neb) 0.63 mg NEB Q3H PRN PRN Reason: Wheezing Stop: 01/29/19 18:29 Last Admin: 01/03/19 21:53 Dose: 0.63 mg Documented by: Levalbuterol HCl (Xopenex 0.63 Mg/3 Ml Neb) 0.63 mg NEB QIDR [facility] Stop: 01/29/19 18:59 Last Admin: 01/04/19 11:04 Dose: 0.63 mg Documented by: Levothyroxine Sodium (Synthroid) 100 mcg PO DAILYBB [facility] Stop: 01/28/19 06:29 Last Admin: 01/04/19 05:40 Dose: 100 mcg Documented by: Metoprolol Tartrate (Lopressor) 25 mg PO BID [facility] Stop: 01/29/19 08:59 Last Admin: 01/04/19 09:08 Dose: 25 mg Documented by: Ondansetron HCl (Zofran) 4 mg IV Q6H PRN PRN Reason: Nausea Stop: 01/27/19 18:39 Last Admin: 01/02/19 11:49 Dose: 4 mg Documented by: Pantoprazole Sodium (Protonix) 40 mg PO BID [facility] Stop: 02/01/19 20:59 Last Admin: 01/04/19 09:08 Dose: 40 mg Documented by: Polyethylene Glycol (Miralax Powder Packet) 17 gm PO DAILY [facility] Stop: 02/01/19 16:29 Last Admin: 01/04/19 09:09 Dose: 17 gm Documented by: Senna/Docusate Sodium (Senokot S) 1 tab PO BID [facility] Stop: 01/28/19 06:44 Last Admin: 01/04/19 09:09 Dose: 1 tab Documented by: Sodium Biphosphate/Sodium Phosphate (Fleet Enema) 132 ml HI DAILY PRN PRN Reason: Constipation Stop: 01/31/19 13:50 Tamsulosin HCl (Flomax) 0.4 mg PO QAM [facility] Stop: 01/28/19 08:59 Last Admin: 01/02/19 08:34 Dose: 0.4 mg Documented by: Tiotropium [place] (Spiriva) 1 puffs INH QAM [facility] Stop: 02/03/19 09:44 Last Admin: 01/04/19 11:14 Dose: 1 puffs Documented by: Tramadol HCl (Ultram) 25 - 50 mg PO Q4H PRN PRN Reason: Pain Stop: 01/30/19 23:58 Last Admin: 01/03/19 21:16 Dose: 50 mg Documented by: Trimethoprim/Sulfamethoxazole (Septra 400/80mg Tab) 1 tab PO Q12H [facility]; Protocol Stop: 01/09/19 12:29 Last Admin: 01/04/19 00:55 Dose: 1 tab Documented by: Vitamin D (Vitamin D3) 1,000 units PO QAM [facility] Stop: 01/28/19 08:59 Last Admin: 01/04/19 09:08 Dose: 1,000 units Documented by: (1) Pneumonia Laterality: right Lung location: lower lobe of lung Pneumonia type: due to unspecified organism Qualified Code(s): J18.1 - Lobar pneumonia, unspecified organism (2) CKD (chronic kidney disease) Chronic kidney disease stage: unspecified stage Qualified Code(s): N18.9 - Chronic kidney disease, unspecified
[2019-01-04] MEDS ORDERED: LOPERAMIDE HCL 2 MG CAP PO PRN (15:41)
[2019-01-04] MEDS: AMOXICILLIN/CLAVULANATE 500 MG TAB PO SCH (15:54)
--- NOTE | 2019-01-04 16:02 | Hospitalist Progress Note ---
Date of Service January 04, 2019 Assessment & Plan (1) Pneumonia: admitted with complicated pneumonia /Empyema on left Chest x-ray showed left lower lobe infiltrate and left pleural effusion. Blood cultures obtained- negative so far. Nasal MRSA swab negative, so MRSA pneumonia unlikely. Nasal swab for influenza A/B negative. 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 Augmentin, will need 3-4 weeks of treatment Appreciate input from infectious disease CONC[employer] FOR [employer] consulted for swallowing eval- no apparent aspiration per bedside swallowing evaluation. diet advanced to moist and minced Tolerating well cont aspiration precaution (2) Pleural effusion: Left pleural effusion/empyema Pulmonary Medicine consulted. Required chest tube drainage, which is removed on 01/03/2019 by pulmonology team Gram stain pleural fluid- many WBC's, gram + cocci. 2369 WBC's (87% polys). < 3000 RBC's. Total protein 4.1. LDH 5685. Glucose 2. pH 6.60. = empyema pleural fluid : Streptococcus intermedius On p.o. Augmentin will need prolonged antibiotic treatment (3) Chronic respiratory failure with hypoxia, on home O2 therapy: on 2 L o2 chronic no hypoxia /at baseline Continue supplemental oxygen. (4) COPD, severe: Continue bronchodilators. Changed from albuterol to levalbuterol because of atrial flutter. (5) Chronic diastolic CHF (congestive heart failure): Chest x-rays showed pulmonary vascular congestion. Acute on chronic left ventricular diastolic heart failure. furosemide on hold for NESTOR Follow. LOOSE BOWEL MOVEMENTS/DIARRHEA -Stool C. difficile toxin assay negative -Possible secondary to antibiotic: Augmentin noted to have significant GI side effect/ordered Probiotics -Ordered for PRN Imodium (6) Atrial flutter: at present converted to sinus with rate control ( episodes of bradycardia noted HR in low 50's ) Cardiology consulted. Appreciate input,Verapamil D/pamela Continue metoprolol Metoprolol 25 mg BID Not anticoagulated because of possible UGI bleed- reconsider if no ongoing concerns. (7) Cerebrovascular disease: History of ischemic stroke, residual left hemiparesis. Neuro status stable. Aspirin on hold because of possible upper GI bleed. (8) CKD (chronic kidney disease), stage III: Acute renal failure and CKD stage III secondary to infection volume depletion dehydration CKD 3 with baseline creatinine around 1.5-1.8. Creatinine worsening noted, Bactrim discontinued, follow BMP avoid NSAIDs and contrast study (9) Protein calorie malnutrition: Evaluated by [employer] Professor. 8 kg / 13% weight loss over last year. Severe clavicular and temporal muscle wasting. Severe buccal fat wasting. Findings consistent with severe protein calorie malnutrition. Diet / supplements as tolerated. (10) Do not resuscitate status: As noted. (11) DVT prophylaxis: Initially received subcutaneous heparin. Heparin held because of possible upper GI bleed. No further evidence of GI bleeding. Resume SQ heparin. SCDs. (12) Discharge planning issues: May need skilled care. PT / OT as tolerated. Family Medicine follow-up with Dr. Chandra. Subjective cough has improved no fever or chills no complain of chest pain or SOB had loose BM this Am no further episode after getting PRN loperamide Physical Exam Constitutional: WD/WN, vitals as above + ill appearing; no acute distress Eyes: + anicteric sclerae ENMT: external ear and nose normal, oropharynx normal Neck: trachea midline, no thyromegaly Respiratory: Auscultation: + diminished lung sounds and + rales (at base ); no wheezes Cardiovascular: Rate/Rhythm: regular rate and regular rhythm Extremities: + edema (+ 3 bilateral edema; L > r ) Gastrointestinal (Abdomen): Inspection/Auscultation: abdomen normal to insp ection and normal bowel sounds; abdomen not distended Percussion/Palpation: abdomen soft; abdomen nontender Neurologic: PERRL, EOMI, accommodation nl, no face palsy, no dysarthria Psychiatric: Orientation: alert Affect: + flat affect Results & Data Vital Signs (Past 12 Hours) Vital Signs Temp Pulse Resp BP BP Pulse Ox 01/04/19 15:25 73 18 93 01/04/19 15:15 36.9 C 68 20 139/72 98 01/04/19 11:32 36.3 C L 67 18 129/50 L 97 01/04/19 11:06 79 18 97 01/04/19 09:53 69 18 97 01/04/19 07:17 36.3 C L 73 18 116/60 96 01/04/19 06:05 55 L 18 97 (1) Pneumonia Laterality: unspecified laterality Lung location: unspecified part of lung Pneumonia type: due to unspecified organism Qualified Code(s): J18.9 - Pneumonia, unspecified organism
[2019-01-04] MEDS ORDERED: predniSONE 20 MG TAB PO ONE (16:45)
[2019-01-04] MEDS: LACTOBACILLUS ACIDOPHILUS (FLORANEX) TAB PO SCH ×2 (18:45→20:09)
[2019-01-04] MEDS: BUDESONIDE 0.5 MG/2 ML VIAL (PULMICORT) NEB SCH (19:29)
[2019-01-04] MEDS: HEPARIN SOD 5,000 UNIT/0.5 ML VIAL SQ SCH (20:34)
[2019-01-05] MEDS: LEVALBUTEROL HCL 0.63 MG/3 ML NEB NEB PRN (00:07)
[2019-01-05] MEDS: LEVOTHYROXINE SODIUM 100 MCG TABLET PO SCH (06:20)
[2019-01-05] MEDS: FORMOTEROL 20 MCG/2 ML VIAL NEB SCH ×2 (07:14→19:56)
[2019-01-05] MEDS: BUDESONIDE 0.5 MG/2 ML VIAL (PULMICORT) NEB SCH ×2 (07:14→19:56)
[2019-01-05] MEDS: LEVALBUTEROL HCL 0.63 MG/3 ML NEB NEB SCH ×4 (07:43→19:56)
[2019-01-05 07:45] LABS: Creatinine Clr Calc Pharmacy 16.2 ml/min; Est GFR (African American) 24.1; Est GFR (Non-African American) 20.8
[2019-01-05] MEDS: TIOTROPIUM BROMIDE 5 PUFF/90 MCG INH INH SCH (08:07)
[2019-01-05] MEDS: CHOLECALCIFEROL 1,000 UNITS TAB PO SCH (08:08)
[2019-01-05] MEDS: predniSONE 20 MG TAB PO SCH (08:08)
[2019-01-05] MEDS: FINASTERIDE 5 MG TAB PO SCH (08:08)
[2019-01-05] MEDS: PANTOprazole 40 MG TAB PO SCH ×2 (08:09→21:05)
[2019-01-05] MEDS: LACTOBACILLUS ACIDOPHILUS (FLORANEX) TAB PO SCH ×4 (08:09→21:05)
[2019-01-05] MEDS: AMOXICILLIN/CLAVULANATE 500 MG TAB PO SCH ×2 (08:09→17:17)
[2019-01-05] MEDS: METOPROLOL TARTRATE 25 MG TAB PO SCH ×2 (08:09→21:07)
[2019-01-05] MEDS: HEPARIN SOD 5,000 UNIT/0.5 ML VIAL SQ SCH ×2 (08:09→21:07)
[2019-01-05] MEDS: TAMSULOSIN HCL 0.4 MG CAP PO SCH (08:38)
--- NOTE | 2019-01-05 09:41 | Pulmonology Progress Note ---
Date of Service January 05, 2019 Assessment & Plan (1) Empyema of left pleural space: Impression: 83-year-old male with strep intermedius empyema and stenotrophomonas from a sputum sample. He is status post pleural drainage. Recommendations: 1. Empyema: Pigtail catheter removed 01/03. Chest x-ray yesterday demonstrated no reaccumulation of the left-sided pleural fluid but did have some right effusion. We will repeat his chest x-ray in the morning. If it persists, consideration for therapeutic thoracentesis on the right may be appropriate. Strep intermedius identified from pleural cultures. Would recommend 2 to 3 weeks of oral Augmentin. 2. Stenotrophomonas in sputum: Unclear if pathogen or colonizer. Started on Bactrim yesterday but creatinine is increased. Could be related to Bactrim. 3. Chronic kidney disease: Significant lower extremity edema but somewhat impro lazaro. Diuresis per primary service 4. COPD: Increasing shortness of breath today. Continue oral prednisone, Pulmicort, Spiriva, and budesonide 4. Hypoxemia: Continue to wean oxygen to maintain saturations at or above 88%. (2) Pleural effusion: Empyema on the left being treated with pigtail catheter and MIST 2 protocol Persistent right-sided pleural effusion that appears to be layered. At this time no plans on intervention for the pleural effusion Continue to monitor radiologically (3) Pneumonia: Sputum culture grew out stenotrophomonas Continue oral Bactrim as prescribed Follow-up chest x-ray in 3 weeks Laterality: unspecified laterality Lung location: unspecified part of lung Pneumonia type: due to unspecified organism Qualified Code(s): J18.9 - Pneumonia, unspecified organism (4) COPD exacerbation: Subjective Patient seen and examined. Electronic medical record reviewed. Patient states his breathing is better. He feels that the changes in the inhalers have been beneficial. He is not coughing or expectorating phlegm. No chest pain or palpitations. His creatinine is stable. Review of Systems Review of Systems: Unchanged from prior Results & Data Vital Signs (Past 12 Hours) Vital Signs Temp Pulse Pulse Resp BP Pulse Ox 01/05/19 07:41 36.3 C L 71 20 101/51 L 95 01/05/19 07:15 69 18 98 01/05/19 04:40 36.2 C L 72 20 104/52 L 95 01/05/19 00:07 58 L 20 95 01/04/19 23:20 36.4 C L 67 16 100/61 94 Laboratory Results 01/03/19 07:17 01/05/19 06:54 Diagnostic Findings No new films PG Care Time/CCT Total # of Minutes Spent Total Time Spent with Patient: Total time spent is greater than 50% in coordination of care (as documented) at patient's floor/unit and/or counseling patient:
--- NOTE | 2019-01-05 10:49 | Cardiology Progress Note ---
Date of Service January 05, 2019 Assessment & Plan (1) Atrial flutter: Patient with long-standing history of underlying lung disease, asbestos exposure, presented with left empyema for which he underwent chest tube drainage, and had associated atrial flutter with rapid ventricular response. He is now in sinus rhythm, verapamil had been initiated when his rates are high, which has since been discontinued and he remains in sinus rhythm with occasional PVCs on oral metoprolol 25 mg twice daily. Anticoagulation had not been started for stroke prophylaxis as he had an indwelling chest tube, and further invasive procedures may be necessary. For now we will continue to monitor him, on subcutaneous heparin for DVT prophylaxis. (2) Empyema of left pleural space: Pulmonary and infectious disease input noted and appreciated. Continue to follow chest x-ray. (3) Pleural effusion: Accumulating right pleural effusion. Diuretic treatment limited by worsening renal function. (4) Acute kidney injury: Review of records, it appears his previous baseline creatinine had been in the range of 1.4-1.8. Creatinine was as high is 2.92 on 01/04/2019 and is improved to 2.71 today, 01/05/2019. Continue to hold diuretics. Subjective Chief complaint: Follow-up shortness of breath, atrial fibrillation/flutter Subjective: Patient sitting upright in bed. Cough is minimal. Telemetry reveals ongoing sinus rhythm having converted from A. fib a flutter several days ago. Review of Systems Review of Systems: All systems reviewed & are unremarkable except as noted in HPI & below Physical Exam Physical Exam: Temp Pulse Resp BP Pulse Ox 36.3 C L 71 20 101/51 L 95 01/05/19 07:41 01/05/19 07:41 01/05/19 07:41 01/05/19 07:41 01/05/19 07:41 Constitutional: + ill appearing and + cachectic Ill-appearing without acute distress Respiratory: Auscultation: + diminished lung sounds (Of the right base); no crackles, no rales and no rhonchi Cardiovascular: RRR, no murmur, no edema Vessels: no JVD Extremities: no edema Gastrointestinal (Abdomen): normal bowel sounds, soft, nontender, no hepatosplenomegaly Neurologic: PERRL, EOMI, accommodation nl, no face palsy, no dysarthria Results & Data Vital Signs (Past 12 Hours) Vital Signs Temp Pulse Pulse Resp BP Pulse Ox 01/05/19 07:41 36.3 C L 71 20 101/51 L 95 01/05/19 07:15 69 18 98 01/05/19 04:40 36.2 C L 72 20 104/52 L 95 01/05/19 00:07 58 L 20 95 01/04/19 23:20 36.4 C L 67 16 100/61 94
--- NOTE | 2019-01-05 12:05 | Hospitalist Progress Note ---
Date of Service January 05, 2019 Assessment & Plan (1) Pneumonia: admitted with complicated pneumonia /Empyema on left Chest x-ray showed left lower lobe infiltrate and left pleural effusion. Blood cultures obtained- negative so far. Nasal MRSA swab negative, so MRSA pneumonia unlikely. Nasal swab for influenza A/B negative. 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 Augmentin, will need 3-4 weeks of treatment Appreciate input from infectious disease [employer] FOR [employer] consulted for swallowing eval- no apparent aspiration per bedside swallowing evaluation. diet advanced to moist and minced Tolerating well cont aspiration precaution (2) Pleural effusion: Left pleural effusion/empyema Pulmonary Medicine consulted. Required chest tube drainage, which is removed on 01/03/2019 by pulmonology team Gram stain pleural fluid- many WBC's, gram + cocci. 2369 WBC's (87% polys). < 3000 RBC's. Total protein 4.1. LDH 5685. Glucose 2. pH 6.60. = empyema pleural fluid : Streptococcus intermedius On p.o. Augmentin will need prolonged antibiotic treatment (3) Chronic respiratory failure with hypoxia, on home O2 therapy: on 2 L o2 chronic no hypoxia /at baseline Continue supplemental oxygen. (4) COPD, severe: Continue bronchodilators. Changed from albuterol to levalbuterol because of atrial flutter. (5) Chronic diastolic CHF (congestive heart failure): Chest x-rays showed pulmonary vascular congestion. Acute on chronic left ventricular diastolic heart failure. furosemide on hold for NESTOR will be resumed as renal function improves LOOSE BOWEL MOVEMENTS/DIARRHEA symptom improved -Stool C. difficile toxin assay negative -Possible secondary to antibiotic: Augmentin noted to have significant GI side effect/ordered Probiotics -Ordered for PRN Imodium (6) Atrial flutter: at present converted to sinus with rate control ( episodes of bradycardia noted HR in low 50's ) Cardiology consulted. Appreciate input,Verapamil D/pamela Continue metoprolol Metoprolol 25 mg BID Not anticoagulated because of possible UGI bleed- reconsider if no ongoing concerns. (7) Cerebrovascular disease: History of ischemic stroke, residual left hemiparesis. Neuro status stable. Aspirin on hold because of possible upper GI bleed. will be resumed as H&H stable (8) CKD (chronic kidney disease), stage III: Acute renal failure and CKD stage III secondary to infection volume depletion dehydration CKD 3 with baseline creatinine around 1.5-1.8. Creatinine worsening noted, Bactrim discontinued, follow BMP avoid NSAIDs and contrast study (9) Protein calorie malnutrition: Evaluated by [employer]. 8 kg / 13% weight loss over last year. Severe clavicular and temporal muscle wasting. Severe buccal fat wasting. Findings consistent with severe protein calorie malnutrition. Diet / supplements as tolerated. (10) Do not resuscitate status: As noted. (11) DVT prophylaxis: Initially received subcutaneous heparin. Heparin held because of possible upper GI bleed. No further evidence of GI bleeding. Resume SQ heparin. SCDs. (12) Discharge planning issues: significant deconditioning noted will need skilled care. PT / OT ordered Family Medicine follow-up with Dr. Chandra. Subjective feels much better today cough has improved afebrile appetie remains poor generalized weakness Physical Exam Constitutional: WD/WN, vitals as above + ill appearing; no acute distress Eyes: + anicteric sclerae ENMT: external ear and nose normal, oropharynx normal Neck: trachea midline, no thyromegaly Respiratory: Auscultation: + diminished lung sounds and + rales (at base ); no wheezes Cardiovascular: Rate/Rhythm: regular rate and regular rhythm Extremities: + edema (+ 3 bilateral edema; L > r ) Gastrointestinal (Abdomen): Inspection/Auscultation: abdomen normal to inspection and normal bowel sounds; abdomen not distended Percussion/Palpation: abdomen soft; abdomen nontender Neurologic: PERRL, EOMI, accommodation nl, no face palsy, no dysarthria Psychiatric: Orientation: alert Affect: + flat affect Results & Data Vital Signs (Past 12 Hours) Vital Signs Temp Pulse Resp BP Pulse Ox 01/05/19 11:02 64 18 98 01/05/19 07:41 36.3 C L 71 20 101/51 L 95 01/05/19 07:15 69 18 98 01/05/19 04:40 36.2 C L 72 20 104/52 L 95 01/05/19 00:07 58 L 20 95 (1) Pneumonia Laterality: unspecified laterality Lung location: unspecified part of lung Pneumonia type: due to unspecified organism Qualified Code(s): J18.9 - Pn eumonia, unspecified organism
[2019-01-06] MEDS: TRAMADOL HCL 50 MG TABLET PO PRN (04:01)
[2019-01-06] MEDS: LEVOTHYROXINE SODIUM 100 MCG TABLET PO SCH (06:23)
[2019-01-06 07:03] LABS: Hematocrit (blood only) 33.8 % (42-52); Hemoglobin 11.8 g/dL (14.0-18.0); Mean Corpuscular Hemoglobin 31.2 pg (25-34); Mean Corpuscular Hgb Conc 34.9 g/dL (32-36); Mean Corpuscular Volume 89.4 fL (80-100); Mean Platelet Volume 9.8 fL (7.4-10.4); Platelet Count 289 K/uL (130-400); RDW Coefficient of Variation 14.1 % (11.5-14.5); RDW Standard Deviation 46.1 fL (36.4-46.3); Red Blood Count 3.78 M/uL (4.7-6.1); White Blood Count 10.79 K/uL (4.8-10.8)
[2019-01-06] MEDS: BUDESONIDE 0.5 MG/2 ML VIAL (PULMICORT) NEB SCH ×2 (07:17→18:56)
[2019-01-06] MEDS: LEVALBUTEROL HCL 0.63 MG/3 ML NEB NEB SCH ×4 (07:17→19:00)
[2019-01-06] MEDS: FORMOTEROL 20 MCG/2 ML VIAL NEB SCH ×2 (07:17→18:55)
--- NOTE | 2019-01-06 07:23 | XRay Report ---
XR chest 1V portable CLINICAL HISTORY: pleural effusion COMPARISON STUDY: 01/04/2019 FINDINGS: There is radiographic evidence of pulmonary emphysema. There are small bilateral pleural ef fusions. There is right lower lobe atelectasis/consolidation.[ IMPRESSION: 1. Pulmonary emphysema 2. Persistent bilateral pleural effusions with associated right basilar airspace opacities Electronically signed by: Alfonso Michel M.D. 01/06/2019 7:22 AM
[2019-01-06] MEDS: TIOTROPIUM BROMIDE 5 PUFF/90 MCG INH INH SCH (08:28)
[2019-01-06] MEDS: CHOLECALCIFEROL 1,000 UNITS TAB PO SCH (08:29)
[2019-01-06] MEDS: TAMSULOSIN HCL 0.4 MG CAP PO SCH (08:29)
[2019-01-06] MEDS: FINASTERIDE 5 MG TAB PO SCH (08:29)
[2019-01-06] MEDS: predniSONE 20 MG TAB PO SCH (08:29)
[2019-01-06] MEDS: PANTOprazole 40 MG TAB PO SCH ×2 (08:29→22:00)
[2019-01-06] MEDS: HEPARIN SOD 5,000 UNIT/0.5 ML VIAL SQ SCH ×2 (08:29→21:59)
[2019-01-06] MEDS: AMOXICILLIN/CLAVULANATE 500 MG TAB PO SCH ×2 (08:29→16:33)
[2019-01-06] MEDS: LACTOBACILLUS ACIDOPHILUS (FLORANEX) TAB PO SCH ×4 (08:30→22:00)
[2019-01-06] MEDS: METOPROLOL TARTRATE 25 MG TAB PO SCH ×2 (08:30→22:01)
--- NOTE | 2019-01-06 10:45 | Pulmonology Progress Note ---
Date of Service January 06, 2019 Assessment & Plan (1) Empyema of left pleural space: Impression: 83-year-old male with strep intermedius empyema and stenotrophomonas from a sputum sample. He is status post pleural drainage. Recommendations: 1. Empyema: Pigtail catheter removed 01/03. Chest x-ray yesterday demonstrated no reaccumulation of the left-sided pleural fluid but did have some right effusion. Chest x-ray from today demonstrates no reaccumulation of the pleural fluid on the left and stable right middle lobe atelectasis. No indication for bronchoscopy.. Strep intermedius identified from pleural cultures. Would recommend 2 to 3 weeks of oral Augmentin. 2. Stenotrophomonas in sputum: Unclear if pathogen or colonizer. Would complete 14 to 21 days of Bactrim but defer to ID 3. Chronic kidney disease: Significant lower extremity edema but somewhat improved. Diuresis per primary service. Creatinine stable today. 4. COPD: Continue oral prednisone, Pulmicort, Spiriva, and budesonide. Less dyspneic 4. Hypoxemia: Continue to wean oxygen to maintain saturations at or above 88%. I would be happy to see him back in pulmonary clinic if needed. We remain av ailable to see this patient if needed but will follow peripherally. Please call if specific pulmonary questions. (2) Pleural effusion: Empyema on the left being treated with pigtail catheter and MIST 2 protocol Persistent right-sided pleural effusion that appears to be layered. At this time no plans on intervention for the pleural effusion Continue to monitor radiologically (3) Pneumonia: Sputum culture grew out stenotrophomonas Continue oral Bactrim as prescribed Follow-up chest x-ray in 3 weeks Laterality: unspecified laterality Lung location: unspecified part of lung Pneumonia type: due to unspecified organism Qualified Code(s): J18.9 - Pneumonia, unspecified organism (4) COPD exacerbation: Review of Systems Review of Systems: Unchanged from prior Physical Exam Constitutional: WD/WN, vitals as above + ill appearing; no acute distress Eyes: + anicteric sclerae ENMT: external ear and nose normal, oropharynx normal Neck: trachea midline, no thyromegaly Respiratory: Auscultation: + diminished lung sounds and + rales (at base ); no wheezes Cardiovascular: Rate/Rhythm: regular rate and regular rhythm Extremities: + edema (+ 3 bilateral edema; L > r ) Gastrointestinal (Abdomen): Inspection/Auscultation: abdomen normal to inspection and normal bowel sounds; abdomen not distended Percussion/Palpation: abdomen soft; abdomen nontender Neurologic: PERRL, EOMI, accommodation nl, no face palsy, no dysarthria Psychiatric: Orientation: alert Affect: + flat affect Results & Data Vital Signs (Past 12 Hours) Vital Signs Temp Pulse Pulse Resp BP Pulse Ox 01/06/19 07:51 36.4 C L 61 19 129/69 93 01/06/19 07:18 56 L 16 98 01/06/19 03:30 36.3 C L 58 L 18 103/56 L 95 01/06/19 00:00 57 L 01/05/19 23:20 36.2 C L 62 18 98/57 L 95 Laboratory Results 01/06/19 06:41 01/05/19 06:54 Diagnostic Findings Chest x-ray from today was independently reviewed and compared to prior films. He continues to demonstrate right middle lobe atelectasis with a small pleural effusion but overall appears improved. No evidence of reaccumulation of the left pleural fluid. PG Care Time/CCT Total # of Minutes Spent Total Time Spent with Patient: Total time spent is greater than 50% in coordination of care (as documented) at patient's floor/unit and/or counseling patient:
--- NOTE | 2019-01-06 14:08 | Cardiology Progress Note ---
Date of Service January 06, 2019 Assessment & Plan (1) Atrial flutter: Continue metoprolol. Remains in sinus rhythm. Holding off on anticoagulation due to his overall frailty. Subjective Chief complaint: Follow-up shortness of breath Subjective: Patient denies complaint. Telemetry reveals stable sinus bradycardia in the range of 55 bpm. Review of Systems Review of Systems: All systems reviewed & are unremarkable except as noted in HPI & below Physical Exam Physical Exam: Temp Pulse Resp BP Pulse Ox 36.2 C L 54 L 16 124/53 L 99 01/06/19 11:08 01/06/19 11:08 01/06/19 11:24 01/06/19 11:08 01/06/19 11:08 Constitutional: WD/WN, vitals as above Respiratory: Mildly decreased breath sounds at the right base Cardiovascular: Rate/Rhythm: regular rate Gastrointestinal (Abdomen): normal bowel sounds, soft, nontender, no hepatosplenomegaly Neurologic: PERRL, EOMI, accommodation nl, no face palsy, no dysarthria Results & Data Vital Signs (Past 12 Hours) Vital Signs Temp Pulse Resp BP BP Pulse Ox 01/06/19 11:24 16 01/06/19 11:08 36.2 C L 54 L 19 124/53 L 99 01/06/19 07:51 36.4 C L 61 19 129/69 93 01/06/19 07:18 56 L 16 98 01/06/19 03:30 36.3 C L 58 L 18 103/56 L 95
--- NOTE | 2019-01-06 18:37 | Hospitalist Progress Note ---
Date of Service January 06, 2019 Assessment & Plan (1) Pneumonia: admitted with complicated pneumonia /Empyema on left Chest x-ray showed left lower lobe infiltrate and left pleural effusion. Blood cultures obtained- negative so far. Nasal MRSA swab negative, so MRSA pneumonia unlikely. Nasal swab for influenza A/B negative. 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 Augmentin, will need 3-4 weeks of treatment Appreciate input from infectious disease CONCERN FOR ASPIRATION SAT MATH TUTOR consulted for swallowing eval- no apparent aspiration per bedside swallowing evaluation. diet advanced to moist and minced Tolerating well cont aspiration precaution (2) Pleural effusion: Left pleural effusion/empyema Pulmonary Medicine consulted. Required chest tube drainage, which is removed on 01/03/2019 by pulmonology team Gram stain pleural fluid- many WBC's, gram + cocci. 2369 WBC's (87% polys). < 3000 RBC's. Total protein 4.1. LDH 5685. Glucose 2. pH 6.60. = empyema pleural fluid : Streptococcus intermedius On p.o. Augmentin will need prolonged antibiotic treatment (3) Chronic respiratory failure with hypoxia, on home O2 therapy: on 2 L o2 chronic no hypoxia /at baseline Continue supplemental oxygen. (4) COPD, severe: Continue bronchodilators. Changed from albuterol to levalbuterol because of atrial flutter. (5) Chronic diastolic CHF (congestive heart failure): Chest x-rays showed pulmonary vascular congestion. Acute on chronic left ventricular diastolic heart failure. furosemide on hold for NESTOR will be resumed as renal function improves LOOSE BOWEL MOVEMENTS/DIARRHEA symptom improved -Stool C. difficile toxin assay negative -Possible secondary to antibiotic: Augmentin noted to have significant GI side effect/ordered Probiotics -Ordered for PRN Imodium (6) Atrial flutter: at present converted to sinus with rate control ( episodes of bradycardia noted HR in low 50's ) Cardiology consulted. Appreciate input,Verapamil D/pamela Continue metoprolol Metoprolol 25 mg BID Not anticoagulated because of possible UGI bleed- reconsider if no ongoing concerns. (7) Cerebrovascular disease: History of ischemic stroke, residual left hemiparesis. Neuro status stable. Aspirin on hold because of possible upper GI bleed. will be resumed as H&H stable (8) CKD (chronic kidney disease), stage III: Acute renal failure and CKD stage III secondary to infection volume depletion dehydration CKD 3 with baseline creatinine around 1.5-1.8. Creatinine worsening noted, Bactrim discontinued, follow BMP avoid NSAIDs and contrast study (9) Protein calorie malnutrition: Evaluated by Classifications Officer Cc/Cm. 8 kg / 13% weight loss over last year. Severe clavicular and temporal muscle wasting. Severe buccal fat wasting. Findings consistent with severe protein calorie malnutrition. Diet / supplements as tolerated. (10) Do not resuscitate status: As noted. (11) DVT prophylaxis: Initially received subcutaneous heparin. Heparin held because of possible upper GI bleed. No further evidence of GI bleeding. Resume SQ heparin. SCDs. (12) Discharge planning issues: significant deconditioning noted will need skilled care. PT / OT ordered Family Medicine follow-up with Dr. Chandra. Subjective feels very tired and wiped out has persistent cough no fever or chill Physical Exam Constitutional: WD/WN, vitals as above + ill appearing; no acute distress Eyes: + anicteric sclerae ENMT: external ear and nose normal, oropharynx normal Neck: trachea midline, no thyromegaly Respiratory: Auscultation: + diminished lung sounds and + rales (at base ); no wheezes Cardiovascular: Rate/Rhythm: regular rate and regular rhythm Extremities: + edema (+ 3 bilateral edema; L > r ) Gastrointestinal (Abdomen): Inspection/Auscultation: abdomen normal to inspection and normal bowel sounds; abdomen not distended Percussion/Palpation: abdomen soft; abdomen nontender Musculoskeletal: Extremities: + elbow/forearm abnormality (Left arm swelling / erythema and increased warmth. Noted) Left Neurologic: PERRL, EOMI, accommodation nl, no face palsy, no dysarthria Psychiatric: Orientation: alert Affect: + flat affect Results & Data Vital Signs (Past 12 Hours) Vital Signs Temp Pulse Resp BP BP Pulse Ox 01/06/19 15:29 57 L 16 97 01/06/19 15:04 36.3 C L 56 L 16 136/53 L 97 01/06/19 11:24 16 01/06/19 11:08 36.2 C L 54 L 19 124/53 L 99 01/06/19 07:51 36.4 C L 61 19 129/69 93 01/06/19 07:18 56 L 16 98 (1) Pneumonia Laterality: unspecified laterality Lung location: unspecified part of lung Pneumonia type: due to unspecified organism Qualified Code(s): J18.9 - Pneumonia, unspecified organism
--- NOTE | 2019-01-06 21:06 | Ultrasound Report ---
US venous doppler UE LT CLINICAL HISTORY: swelling of left arm COMPARISON STUDY: No previous studies for comparison. FINDINGS: No intraluminal thrombus was visualized. The internal jugular, subclavian, axillary, cephal ic, brachial, radial, and ulnar veins were patent. There is a long segment acute appearing basilic ve in thrombus within the forearm extending from the distal forearm to the region of the antecubital fos sa. IMPRESSION: 1. No evidence of left upper extremity DVT 2. Long segment superficial thrombus within the basilic vein of the forearm Electronically signed by: Alfonso Michel M.D. 01/06/2019 9:05 PM
[2019-01-07] MEDS: LEVALBUTEROL HCL 0.63 MG/3 ML NEB NEB PRN (03:42)
[2019-01-07] MEDS: LEVOTHYROXINE SODIUM 100 MCG TABLET PO SCH (05:44)
[2019-01-07] MEDS: LEVALBUTEROL HCL 0.63 MG/3 ML NEB NEB SCH ×4 (07:29→19:43)
[2019-01-07] MEDS: FORMOTEROL 20 MCG/2 ML VIAL NEB SCH ×2 (07:29→19:43)
[2019-01-07] MEDS: BUDESONIDE 0.5 MG/2 ML VIAL (PULMICORT) NEB SCH ×2 (07:29→19:43)
[2019-01-07] MEDS: LACTOBACILLUS ACIDOPHILUS (FLORANEX) TAB PO SCH ×4 (09:34→21:20)
[2019-01-07] MEDS: predniSONE 20 MG TAB PO SCH (09:35)
[2019-01-07] MEDS: METOPROLOL TARTRATE 25 MG TAB PO SCH ×2 (09:35→21:21)
[2019-01-07] MEDS: FINASTERIDE 5 MG TAB PO SCH (09:35)
[2019-01-07] MEDS: CHOLECALCIFEROL 1,000 UNITS TAB PO SCH (09:36)
[2019-01-07] MEDS: AMOXICILLIN/CLAVULANATE 500 MG TAB PO SCH ×2 (09:36→16:38)
[2019-01-07] MEDS: PANTOprazole 40 MG TAB PO SCH ×2 (09:36→21:26)
[2019-01-07] MEDS: TIOTROPIUM BROMIDE 5 PUFF/90 MCG INH INH SCH (09:37)
[2019-01-07] MEDS: TAMSULOSIN HCL 0.4 MG CAP PO SCH (09:37)
[2019-01-07] MEDS: HEPARIN SOD 5,000 UNIT/0.5 ML VIAL SQ SCH ×2 (09:38→21:17)
--- NOTE | 2019-01-07 15:54 | Hospitalist Progress Note ---
Date of Service January 07, 2019 Assessment & Plan (1) Pneumonia: admitted with complicated pneumonia /Empyema on left Chest x-ray showed left lower lobe infiltrate and left pleural effusion. Blood cultures obtained- negative so far. Nasal MRSA swab negative, so MRSA pneumonia unlikely. Nasal swab for influenza A/B negative. 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 Augmentin, will need 3-4 weeks of treatment Appreciate input from infectious disease CONCERN FOR ASPIRATION CAKE PULLER consulted for swallowing eval- no apparent aspiration per bedside swallowing evaluation. diet advanced to moist and minced Tolerating well cont aspiration precaution (2) Pleural effusion: Left pleural effusion/empyema Pulmonary Medicine consulted. Required chest tube drainage, which is removed on 01/03/2019 by pulmonology team Gram stain pleural fluid- many WBC's, gram + cocci. 2369 WBC's (87% polys). < 3000 RBC's. Total protein 4.1. LDH 5685. Glucose 2. pH 6.60. = empyema pleural fluid : Streptococcus intermedius On p.o. Augmentin will need prolonged antibiotic treatment (3) Chronic respiratory failure with hypoxia, on home O2 therapy: on 2 L o2 chronic no hypoxia /at baseline Continue supplemental oxygen. (4) COPD, severe: Continue bronchodilators. Changed from albuterol to levalbuterol because of atrial flutter. (5) Chronic diastolic CHF (congestive heart failure): Chest x-rays showed pulmonary vascular congestion. Acute on chronic left ventricular diastolic heart failure. furosemide on hold for NESTOR will be resumed as renal function improves LOOSE BOWEL MOVEMENTS/DIARRHEA symptom improved -Stool C. difficile toxin assay negative -Possible secondary to antibiotic: Augmentin noted to have significant GI side effect/ordered Probiotics -Ordered for PRN Imodium (6) Atrial flutter: at present converted to sinus with rate control ( episodes of bradycardia noted HR in low 50's ) Cardiology consulted. Appreciate input,Verapamil D/pamela Continue metoprolol Metoprolol 25 mg BID Not anticoagulated because of possible UGI bleed- reconsider if no ongoing concerns. (7) Cerebrovascular disease: History of ischemic stroke, residual left hemiparesis. Neuro status stable. Aspirin on hold because of possible upper GI bleed. will be resumed as H&H stable (8) CKD (chronic kidney disease), stage III: Acute renal failure and CKD stage III secondary to infection volume depletion dehydration CKD 3 with baseline creatinine around 1.5-1.8. Creatinine worsening noted, Bactrim discontinued, follow BMP avoid NSAIDs and contrast study (9) Protein calorie malnutrition: Evaluated by Public Information Relations Manager. 8 kg / 13% weight loss over last year. Severe clavicular and temporal muscle wasting. Severe buccal fat wasting. Findings consistent with severe protein calorie malnutrition. Diet / supplements as tolerated. (10) Do not resuscitate status: As noted. (11) DVT prophylaxis: Initially received subcutaneous heparin. Heparin held because of possible upper GI bleed. No further evidence of GI bleeding. Resume SQ heparin. SCDs. (12) Discharge planning issues: significant deconditioning noted will need skilled care. PT / OT ordered Family Medicine follow-up with Dr. Chandra. Subjective left arm swelling a bit improved non tender improvement of coughing Physical Exam Constitutional: WD/WN, vitals as above + ill appearing; no acute distress Eyes: + anicteric sclerae ENMT: external ear and nose normal, oropharynx normal Neck: trachea midline, no thyromegaly Respiratory: Auscultation: + diminished lung sounds and + rales (at base ); no wheezes Cardiovascular: Rate/Rhythm: regular rate and regular rhythm Extremities: + edema (+ 3 bilateral edema; L > r ) Gastrointestinal (Abdomen): Inspection/Auscultation: abdomen normal to inspection and normal bowel sounds; abdomen not distended Percussion/Palpation: abdomen soft; abdomen nontender Musculoskeletal: Extremities: + elbow/forearm abnormality (Left arm swelling / erythema and increased warmth. Noted) Neurologic: PERRL, EOMI, accommodation nl, no face palsy, no dysarthria Psychiatric: Orientation: alert Affect: + flat affect Results & Data Vital Signs (Past 12 Hours) Vital Signs Temp Pulse Pulse Pulse Resp BP Pulse Ox 01/07/19 15:08 51 L 16 97 01/07/19 11:06 36.4 C L 57 L 20 115/63 98 01/07/19 11:04 60 20 98 01/07/19 07:41 54 L 01/07/19 07:30 72 20 96 01/07/19 07:23 36.1 C L 58 L 20 105/52 L 98 12/02/19 04:22 36.4 C L 56 L 20 113/62 98 (1) Pneumonia Laterality: unspecified laterality Lung location: unspecified part of lung Pneumonia type: due to unspecified organism Qualified Code(s): J18.9 - Pneumonia, unspecified organism
[2019-01-08] MEDS: LEVALBUTEROL HCL 0.63 MG/3 ML NEB NEB PRN (03:05)
[2019-01-08] MEDS: LEVOTHYROXINE SODIUM 100 MCG TABLET PO SCH (05:23)
[2019-01-08] MEDS: LEVALBUTEROL HCL 0.63 MG/3 ML NEB NEB SCH ×4 (07:08→19:12)
[2019-01-08] MEDS: BUDESONIDE 0.5 MG/2 ML VIAL (PULMICORT) NEB SCH ×2 (07:11→19:11)
[2019-01-08] MEDS: FORMOTEROL 20 MCG/2 ML VIAL NEB SCH ×2 (07:11→19:11)
[2019-01-08] MEDS: TAMSULOSIN HCL 0.4 MG CAP PO SCH (08:54)
[2019-01-08] MEDS: CHOLECALCIFEROL 1,000 UNITS TAB PO SCH (08:54)
[2019-01-08] MEDS: predniSONE 20 MG TAB PO SCH (08:54)
[2019-01-08] MEDS: PANTOprazole 40 MG TAB PO SCH ×2 (08:54→20:45)
[2019-01-08] MEDS: FINASTERIDE 5 MG TAB PO SCH (08:54)
[2019-01-08] MEDS: METOPROLOL TARTRATE 25 MG TAB PO SCH ×2 (08:55→20:44)
[2019-01-08] MEDS: TIOTROPIUM BROMIDE 5 PUFF/90 MCG INH INH SCH (08:56)
[2019-01-08] MEDS: LACTOBACILLUS ACIDOPHILUS (FLORANEX) TAB PO SCH ×4 (08:56→20:43)
[2019-01-08] MEDS: HEPARIN SOD 5,000 UNIT/0.5 ML VIAL SQ SCH ×2 (08:57→20:43)
[2019-01-08] MEDS: AMOXICILLIN/CLAVULANATE 500 MG TAB PO SCH ×2 (10:00→16:30)
--- NOTE | 2019-01-08 18:12 | Hospitalist Progress Note ---
Date of Service January 08, 2019 Assessment & Plan (1) Pneumonia: admitted with complicated pneumonia /Empyema on left Chest x-ray showed left lower lobe infiltrate and left pleural effusion. Blood cultures obtained- negative so far. Nasal MRSA swab negative, so MRSA pneumonia unlikely. Nasal swab for influenza A/B negative. 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 Augmentin, will need 3-4 weeks of treatment Appreciate input from infectious disease CONCERN FOR ASPIRATION FOOD AND BEVERAGE INTERN consulted for swallowing eval- no apparent aspiration per bedside swallowing evaluation. diet advanced to moist and minced Tolerating well cont aspiration precaution (2) Pleural effusion: Left pleural effusion/empyema Pulmonary Medicine consulted. Required chest tube drainage, which is removed on 01/03/2019 by pulmonology team Gram stain pleural fluid- many WBC's, gram + cocci. 2369 WBC's (87% polys). < 3000 RBC's. Total protein 4.1. LDH 5685. Glucose 2. pH 6.60. = empyema pleural fluid : Streptococcus intermedius On p.o. Augmentin will need prolonged antibiotic treatment (3) Chronic respiratory failure with hypoxia, on home O2 therapy: on 2 L o2 chronic no hypoxia /at baseline Continue supplemental oxygen. (4) COPD, severe: Continue bronchodilators. Changed from albuterol to levalbuterol because of atrial flutter. (5) Chronic diastolic CHF (congestive heart failure): Chest x-rays showed pulmonary vascular congestion. Acute on chronic left ventricular diastolic heart failure. furosemide on hold for NESTOR will be resumed as renal function improves LOOSE BOWEL MOVEMENTS/DIARRHEA symptom improved -Stool C. difficile toxin assay negative -Possible secondary to antibiotic: Augmentin noted to have significant GI side effect/ordered Probiotics -Ordered for PRN Imodium (6) Atrial flutter: at present converted to sinus with rate control ( episodes of bradycardia noted HR in low 50's ) Cardiology consulted. Appreciate input,Verapamil D/pamela Continue metoprolol Metoprolol 25 mg BID Not anticoagulated because of possible UGI bleed- reconsider if no ongoing concerns. (7) Cerebrovascular disease: History of ischemic stroke, residual left hemiparesis. Neuro status stable. Aspirin on hold because of possible upper GI bleed. will be resumed as H&H stable (8) CKD (chronic kidney disease), stage III: Acute renal failure and CKD stage III secondary to infection volume depletion dehydration CKD 3 with baseline creatinine around 1.5-1.8. Creatinine worsening noted, Bactrim discontinued, follow BMP avoid NSAIDs and contrast study (9) Protein calorie malnutrition: Evaluated by Supervising Film Or Videotape Editor. 8 kg / 13% weight loss over last year. Severe clavicular and temporal muscle wasting. Severe buccal fat wasting. Findings consistent with severe protein calorie malnutrition. Diet / supplements as tolerated. (10) Do not resuscitate status: As noted. (11) DVT prophylaxis: Initially received subcutaneous heparin. Heparin held because of possible upper GI bleed. No further evidence of GI bleeding. Resume SQ heparin. SCDs. (12) Discharge planning issues: significant deconditioning noted . PT / OT ordered -recommends rehab referral made to [facility] possible tx to SNF tomorrow Family Medicine follow-up with Dr. Chandra. Subjective cough has improved no fever or chills offers no new complain Physical Exam Constitutional: WD/WN, vitals as above + ill appearing; no acute distress Eyes: + anicteric sclerae ENMT: external ear and nose normal, oropharynx normal Neck: trachea midline, no thyromegaly Respiratory: Auscultation: + diminished lung sounds and + rales (at base ); no wheezes Cardiovascular: Rate/Rhythm: regular rate and regular rhythm Extremities: + edema (+ 3 bilateral edema; L > r ) Gastrointestinal (Abdomen): Inspection/Auscultation: abdomen normal to inspection and normal bowel sounds; abdomen not distended Percussion/Palpation: abdomen soft; abdomen nontender Musculoskeletal: Extremities: + elbow/forearm abnormality (Left arm swelling / erythema and increased warmth. Noted) Neurologic: PERRL, EOMI, accommodation nl, no face palsy, no dysarthria Psychiatric: Orientation: alert Affect: + flat affect Results & Data Vital Signs (Past 12 Hours) Vital Signs Temp Pulse Pulse Resp BP Pulse Ox 01/08/19 15:37 36.3 C L 61 18 120/68 98 01/08/19 15:25 61 18 98 01/08/19 11:28 65 18 97 01/08/19 11:27 68 20 150/70 H 96 01/08/19 08:00 59 L 01/08/19 07:27 36.4 C L 56 L 18 131/53 L 97 01/08/19 07:11 57 L 18 98 (1) Pneumonia Laterality: unspecified laterality Lung location: unspecified part of lung Pneumonia type: due to unspecified organism Qualified Code(s): J18.9 - Pneumonia, unspecified organism
[2019-01-09] MEDS: TRAMADOL HCL 50 MG TABLET PO PRN (05:33)
[2019-01-09] MEDS: LEVOTHYROXINE SODIUM 100 MCG TABLET PO SCH (05:33)
[2019-01-09] MEDS: FORMOTEROL 20 MCG/2 ML VIAL NEB SCH ×2 (07:12→19:04)
[2019-01-09] MEDS: BUDESONIDE 0.5 MG/2 ML VIAL (PULMICORT) NEB SCH ×2 (07:13→19:04)
[2019-01-09] MEDS: LEVALBUTEROL HCL 0.63 MG/3 ML NEB NEB SCH ×4 (07:13→19:08)
[2019-01-09] MEDS: LACTOBACILLUS ACIDOPHILUS (FLORANEX) TAB PO SCH ×4 (08:07→20:44)
[2019-01-09] MEDS: CHOLECALCIFEROL 1,000 UNITS TAB PO SCH (08:07)
[2019-01-09] MEDS: predniSONE 20 MG TAB PO SCH (08:07)
[2019-01-09] MEDS: FINASTERIDE 5 MG TAB PO SCH (08:07)
[2019-01-09] MEDS: TAMSULOSIN HCL 0.4 MG CAP PO SCH (08:07)
[2019-01-09] MEDS: AMOXICILLIN/CLAVULANATE 500 MG TAB PO SCH ×2 (08:08→16:43)
[2019-01-09] MEDS: HEPARIN SOD 5,000 UNIT/0.5 ML VIAL SQ SCH ×2 (08:08→20:43)
[2019-01-09] MEDS: PANTOprazole 40 MG TAB PO SCH ×2 (08:10→20:44)
[2019-01-09] MEDS: METOPROLOL TARTRATE 25 MG TAB PO SCH ×2 (08:10→20:45)
[2019-01-09] MEDS: TIOTROPIUM BROMIDE 5 PUFF/90 MCG INH INH SCH (10:10)
--- NOTE | 2019-01-09 16:46 | Hospitalist Progress Note ---
Date of Service January 09, 2019 Assessment & Plan (1) Pneumonia: admitted with complicated pneumonia /Empyema on left lung Chest x-ray showed left lower lobe infiltrate and left pleural effusion. Blood cultures obtained- negative so far. Nasal MRSA swab negative, so MRSA pneumonia unlikely. Nasal swab for influenza A/B negative. 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 Augmentin, will need 3-4 weeks of treatment Appreciate input from infectious disease cont Pro biotic during prolong Abx treatment CONCERN FOR ASPIRATION FONDANT PUFF MAKER consulted for swallowing eval- no apparent aspiration per bedside swallowing evaluation. diet advanced to moist and minced Tolerating well cont aspiration precaution (2) Pleural effusion: Left pleural effusion/empyema Pulmonary Medicine consulted. Required chest tube drainage, which is removed on 01/03/2019 by pulmonology team Gram stain pleural fluid- many WBC's, gram + cocci. 2369 WBC's (87% polys). < 3000 RBC's. Total protein 4.1. LDH 5685. Glucose 2. pH 6.60. = empyema pleural fluid : Streptococcus intermedius On p.o. Augmentin will need prolonged antibiotic treatment (3) Chronic respiratory failure with hypoxia, on home O2 therapy: on 2 L o2 chronic no hypoxia /at baseline Continue supplemental oxygen. (4) COPD, severe: Continue bronchodilators. Changed from albuterol to levalbuterol because of atrial flutter. (5) Chronic diastolic CHF (congestive heart failure): Chest x-rays showed pulmonary vascular congestion. Acute on chronic left ventricular diastolic heart failure. furosemide on hold for NESTOR will be resumed as renal function improves LOOSE BOWEL MOVEMENTS/DIARRHEA symptom improved -Stool C. difficile toxin assay negative -Possible secondary to antibiotic: Augmentin noted to have significant GI side effect/ordered Probiotics -Ordered for PRN Imodium (6) Atrial flutter: at present converted to sinus with rate control ( episodes of bradycardia noted HR in low 50's ) Cardiology consulted. Appreciate input,Verapamil D/pamela Continue metoprolol Metoprolol 25 mg BID Not anticoagulated because of possible UGI bleed- reconsider if no ongoing concerns. (7) Cerebrovascular disease: History of ischemic stroke, residual left hemiparesis. Neuro status stable. Aspirin on hold because of possible upper GI bleed. will be resumed as H&H stable (8) CKD (chronic kidney disease), stage III: Acute renal failure and CKD stage III secondary to infection volume depletion dehydration CKD 3 with baseline creatinine around 1.5-1.8. Creatinine worsening noted, Bactrim discontinued, follow BMP avoid NSAIDs and contrast study (9) Protein calorie malnutrition: Evaluated by Suit Maker. 8 kg / 13% weight loss over last year. Severe clavicular and temporal muscle wasting. Severe buccal fat wasting. Findings consistent with severe protein calorie malnutrition. Diet / supplements as tolerated. (10) Do not resuscitate status: As noted. (11) DVT prophylaxis: Initially received subcutaneous heparin. Heparin held because of possible upper GI bleed. No further evidence of GI bleeding. Resume SQ heparin. SCDs. (12) Discharge planning issues: significant deconditioning noted . PT / OT ordered -recommends rehab referral made to [facility] tx to SNF tomorrow if bed available Family Medicine follow-up with Dr. Chandra. Subjective offers no new complain feels his breathing is much better " best as it can be " cough has improved no fever chills appetite has improved still very weak and tired , gets significantly SOB with minimum movement /activity Physical Exam Constitutional: WD/WN, vitals as above + ill appearing; no acute distress Eyes: + anicteric sclerae ENMT: external ear and nose normal, oropharynx normal Neck: trachea midline, no thyromegaly Respiratory: Auscultation: + diminished lung sounds and + rales (at base ); no wheezes Cardiovascular: Rate/Rhythm: regular rate and regular rhythm Extremities: + edema (+ 3 bilateral edema; L > r ) Gastrointestinal (Abdomen): Inspection/Auscultation: abdomen normal to inspection and normal bowel sounds; abdomen not distended Percu ssion/Palpation: abdomen soft; abdomen nontender Musculoskeletal: Extremities: + elbow/forearm abnormality (Left arm swelling / erythema and increased warmth. Noted) Neurologic: PERRL, EOMI, accommodation nl, no face palsy, no dysarthria Psychiatric: Orientation: alert Affect: + flat affect Results & Data Vital Signs (Past 12 Hours) Vital Signs Temp Pulse Pulse Resp BP BP Pulse Ox 01/09/19 15:41 36.6 C 64 18 129/69 99 01/09/19 15:34 65 18 98 01/09/19 11:18 36.4 C L 59 L 18 113/77 95 01/09/19 11:04 59 L 18 95 01/09/19 07:13 78 18 99 01/09/19 07:05 63 01/09/19 07:03 36.5 C 58 L 19 137/82 96 (1) Pneumonia Laterality: unspecified laterality Lung location: unspecified part of lung Pneumonia type: due to unspecified organism Qualified Code(s): J18.9 - Pneumonia, unspecified organism
[2019-01-10] MEDS: LEVOTHYROXINE SODIUM 100 MCG TABLET PO SCH (05:58)
[2019-01-10] MEDS: FORMOTEROL 20 MCG/2 ML VIAL NEB SCH ×2 (07:24→20:16)
[2019-01-10] MEDS: BUDESONIDE 0.5 MG/2 ML VIAL (PULMICORT) NEB SCH ×2 (07:24→20:16)
[2019-01-10] MEDS: LEVALBUTEROL HCL 0.63 MG/3 ML NEB NEB SCH ×4 (07:24→20:16)
[2019-01-10] MEDS: AMOXICILLIN/CLAVULANATE 500 MG TAB PO SCH ×2 (08:46→17:34)
[2019-01-10] MEDS: TIOTROPIUM BROMIDE 5 PUFF/90 MCG INH INH SCH (08:47)
[2019-01-10] MEDS: LACTOBACILLUS ACIDOPHILUS (FLORANEX) TAB PO SCH ×4 (08:47→20:40)
[2019-01-10] MEDS: METOPROLOL TARTRATE 25 MG TAB PO SCH ×2 (08:47→20:41)
[2019-01-10] MEDS: FINASTERIDE 5 MG TAB PO SCH (08:48)
[2019-01-10] MEDS: PANTOprazole 40 MG TAB PO SCH ×2 (08:48→20:42)
[2019-01-10] MEDS: TAMSULOSIN HCL 0.4 MG CAP PO SCH (08:48)
[2019-01-10] MEDS: CHOLECALCIFEROL 1,000 UNITS TAB PO SCH (08:49)
[2019-01-10] MEDS: HEPARIN SOD 5,000 UNIT/0.5 ML VIAL SQ SCH ×2 (08:49→20:41)
[2019-01-10] MEDS ORDERED: LEVALBUTEROL 1.25MG/0.5ML NEB NEB STA (14:06)
[2019-01-10 15:12] LABS: Hematocrit (blood only) 36.2 % (42-52); Hemoglobin 12.1 g/dL (14.0-18.0); Mean Corpuscular Hemoglobin 30.9 pg (25-34); Mean Corpuscular Hgb Conc 33.4 g/dL (32-36); Mean Corpuscular Volume 92.3 fL (80-100); Mean Platelet Volume 11.3 fL (7.4-10.4); Platelet Count 231 K/uL (130-400); RDW Coefficient of Variation 14.5 % (11.5-14.5); RDW Standard Deviation 48.4 fL (36.4-46.3); Red Blood Count 3.92 M/uL (4.7-6.1); White Blood Count 11.73 K/uL (4.8-10.8)
[2019-01-10 15:30] LABS: BUN Creatinine Ratio 25.1 (10-20); Calcium 7.4 mg/dl (8.5-10.1); Creatinine Clr Calc Pharmacy 27.3 ml/min; Est GFR (African American) 45.2; Potassium 4.9 mmol/L (3.5-5.1)
--- NOTE | 2019-01-10 17:06 | Hospitalist Progress Note ---
Date of Service January 10, 2019 Assessment & Plan (1) Empyema of left pleural space: per Dr. Delgado notes: (1) Pneumonia: admitted with complicated pneumonia /Empyema on left lung will need 3-4 weeks of treatment CONCERN FOR ASPIRATION MAGNETIC RESONANCE IMAGING COORDINATOR consulted for swallowing eval- no apparent aspiration per bedside swallowing evaluation. diet advanced to moist and minced Tolerating well cont aspiration precaution (2) Pleural effusion: Left pleural effusion/empyema Augmentin course as noted in #1 (3) Chronic respiratory failure with hypoxia, on home O2 therapy: on 2 L o2 chronic - stable (4) COPD, severe stable (5) Chronic diastolic CHF (congestive heart failure): resume usual Lasix 20mg po daily LOOSE BOWEL MOVEMENTS/DIARRHEA - resolved -Stool C. difficile toxin assay negative -Possible secondary to antibiotic: Augmentin noted to have significant GI side effect/ordered Probiotics -Ordered for PRN Imodium (6) Atrial flutter: at present converted to sinus with rate control ( episodes of bradycardia noted HR in low 50's ) Cardiology consulted. Appreciate input,Verapamil D/pamela Continue metoprolol Metoprolol 25 mg BID Not anticoagulated because of possible UGI bleed- reconsider if no ongoing concerns. (7) Cerebrovascular disease: History of ischemic stroke, residual left hemiparesis. Aspirin reduced to 81mg daily (8) CKD (chronic kidney disease), stage III: Acute renal failure and CKD stage III secondary to infection volume dep letion dehydration CKD 3 with baseline creatinine around 1.5-1.8. Crea back to baseline, 1.6 (9) Protein calorie malnutrition: Evaluated by Fertilizer Processing Supervisor. 8 kg / 13% weight loss over last year. Severe clavicular and temporal muscle wasting. Severe buccal fat wasting. Findings consistent with severe protein calorie malnutrition. Diet / supplements as tolerated. CHRONIC SULLIVAN CATHETER: pt has chronic urinary retention due to BPH/on chronic sullivan follows with Urology Dr Adler Sullivan catheter changed yesterday per Urology recommendation will be discharged to SNF with Sullivan catheter , can be changed to leg bag during transport (10) Do not resuscitate status: As noted. (11) DVT prophylaxis: Initially received subcutaneous heparin. Heparin held because of possible upper GI bleed. No further evidence of GI bleeding. Resume SQ heparin. SCDs. (12) Discharge planning issues: significant deconditioning noted . PT / OT ordered -recommends rehab referral made to [facility] tx to SNF tomorrow if bed available Family Medicine follow-up with Dr. Chandra. Subjective ff up for empyema seen resting in bed, patient's visiting at bedside patient states he feels fine denies dyspnea, cough is less, no chest pain denies other symptoms Review of Systems Review of Systems: All systems reviewed & are unremarkable except as noted in HPI & below Physical Exam Physical Exam: General- oriented x 2, not in distress, speaks in sentences with no effort or accessory muscle use Head- atraumatic Eyes- PERRL, EOMI, anicteric ENT- oropharynx clear Neck- supple, no JVD, no adenopathy, no thyromegaly; carotids +2/2, no bruits appreciated Lungs- clear to auscultation bilaterally, no rales/wheezes Heart- normal rate, regular rhythm; no murmur, no gallop, no rub appreciated Abdomen- normal bowel sounds, nondistended, soft, nontender, no masses or hepatosplenomegaly Extremities- mild pretibial edema, no calf tenderness; peripheral pulses intact Neuro- alert, oriented x 2; CN 2-12 grossly intact; motor 5/5 bilaterally;sensation 100% on all extremities; no other gross focal neurologic deficits Skin- warm & dry Results & Data Vital Signs (Past 12 Hours) Vital Signs Temp Pulse Resp BP Pulse Ox 01/10/19 16:21 108/56 L 01/10/19 16:12 36.6 C 59 L 18 75/48 L 98 01/10/19 14:40 60 16 99 01/10/19 11:08 50 L 16 97 01/10/19 07:33 67 16 97 01/10/19 07:29 36.5 C 67 16 100/58 L 96 Laboratory Results Laboratory Results - last 24 hr 01/10/19 01/10/19 14:43 14:43 WBC 11.73 H RBC 3.92 L Hgb 12.1 L Hct 36.2 L MCV 92.3 MCH 30.9 MCHC 33.4 RDW Std Deviation 48.4 H RDW Coeff of Connie 14.5 Plt Count 231 MPV 11.3 H Sodium 132 L Potassium 4.9 Chloride 101 Carbon Dioxide 27 Anion Gap 4.0 BUN 40 H Creatinine 1.61 H Est Cr Clr Drug Dosing 27.3 Est GFR ( Amer) 45.2 Est GFR (Non-Af Amer) 39.0 BUN/Creatinine Ratio 25.1 H Glucose 103 H Calcium 7.4 L
[2019-01-10] MEDS: FUROSEMIDE 20 MG TAB PO SCH (18:05)
[2019-01-11] MEDS: LEVOTHYROXINE SODIUM 100 MCG TABLET PO SCH (05:02)
[2019-01-11] MEDS: LEVALBUTEROL HCL 0.63 MG/3 ML NEB NEB SCH ×4 (06:02→19:54)
[2019-01-11] MEDS: BUDESONIDE 0.5 MG/2 ML VIAL (PULMICORT) NEB SCH ×2 (07:08→19:53)
[2019-01-11] MEDS: FORMOTEROL 20 MCG/2 ML VIAL NEB SCH ×2 (07:08→19:53)
[2019-01-11] MEDS: CHOLECALCIFEROL 1,000 UNITS TAB PO SCH (07:55)
[2019-01-11] MEDS: TAMSULOSIN HCL 0.4 MG CAP PO SCH (07:55)
[2019-01-11] MEDS: PANTOprazole 40 MG TAB PO SCH ×2 (07:55→21:28)
[2019-01-11] MEDS: FINASTERIDE 5 MG TAB PO SCH (07:55)
[2019-01-11] MEDS: METOPROLOL TARTRATE 25 MG TAB PO SCH ×2 (07:56→21:28)
[2019-01-11] MEDS: AMOXICILLIN/CLAVULANATE 500 MG TAB PO SCH (07:56)
[2019-01-11] MEDS: LACTOBACILLUS ACIDOPHILUS (FLORANEX) TAB PO SCH ×4 (07:57→21:28)
[2019-01-11] MEDS: HEPARIN SOD 5,000 UNIT/0.5 ML VIAL SQ SCH ×2 (07:58→21:29)
[2019-01-11] MEDS: TIOTROPIUM BROMIDE 5 PUFF/90 MCG INH INH SCH (08:00)
[2019-01-11] MEDS: ACETAMINOPHEN 325 MG TAB PO PRN (08:01)
[2019-01-11 08:21] LABS: Calcium 7.4 mg/dl (8.5-10.1); Creatinine Clr Calc Pharmacy 27.3 ml/min; Est GFR (African American) 45.2
[2019-01-11] MEDS: FUROSEMIDE 20 MG TAB PO SCH (09:21)
--- NOTE | 2019-01-11 12:57 | Hospitalist Progress Note ---
Date of Service January 11, 2019 Assessment & Plan (1) Empyema of left pleural space: per Dr. Delgado notes: (1) Pneumonia: admitted with complicated pneumonia /Empyema on left lung will need 3-4 weeks total of Augmentin as per discharge instructions CONCERN FOR ASPIRATION MACHINE SETTER consulted for swallowing eval- no apparent aspiration per bedside swallowing evaluation. diet advanced to moist and minced Tolerating well cont aspiration precaution (2) Pleural effusion: Left pleural effusion/empyema Augmentin course as noted in #1 (3) Chronic respiratory failure with hypoxia, on home O2 therapy: on 2 L o2 chronic - stable (4) COPD, severe stable (5) Chronic diastolic CHF (congestive heart failure): resumed usual Lasix 20mg po daily LOOSE BOWEL MOVEMENTS/DIARRHEA - resolved -Stool C. difficile toxin assay negative -Possible secondary to antibiotic: Augmentin noted to have significant GI side effect/ordered Probiotics -Ordered for PRN Imodium (6) Atrial flutter: at present converted to sinus with rate control ( episodes of bradycardia noted HR in low 50's ) Cardiology consulted, Verapamil D/pamela Continue metoprolol Metoprolol 25 mg BID Not anticoagulated because of possible UGI bleed- reconsider if no ongoing concerns. (7) Cerebrovascular disease: History of ischemic stroke, residual left hemiparesis. Aspirin reduced to 81mg daily (8) CKD (chronic kidney disease), stage III: Acute renal failure and CKD stage III secondary to infection volume depletion dehydration CKD 3 with baseline creatinine around 1.5-1.8. Crea back to baseline, 1.6 (9) Protein calorie malnutrition: Evaluated by Food Checker. 8 kg / 13% weight loss over last year. Severe clavicular and temporal muscle wasting. Severe buccal fat wasting. Findings consistent with severe protein calorie malnutrition. Diet / supplements as tolerated. CHRONIC SULLIVAN CATHETER: pt has chronic urinary retention due to BPH/on chronic sullivan follows with Urology Dr Adler Sullivan catheter changed yesterday per Urology recommendation will be discharged to SNF with Sullivan catheter , can be changed to leg bag during transport Do not resuscitate status: As noted. DVT prophylaxis: Initially received subcutaneous heparin. Heparin held because of possible upper GI bleed. No further evidence of GI bleeding. Resume SQ heparin. SCDs. Discharge planning issues: significant deconditioning noted PT / OT ordered -recommends rehab d/c to [facility] Family Medicine follow-up with Dr. Chandra. Subjective ff up for empyema seen sitting up in bed, having lunch comfortable, not in distress states he feels fine overall denies dyspnea, cough no other symptoms states he is ready and would like to be discharged today Review of Systems Review of Systems: All systems reviewed & are unremarkable except as noted in HPI & below Physical Exam Physical Exam: General- oriented x 3, not in distress, speaks in sentences with no effort or accessory muscle use Eyes- anicteric Neck- no JVD Lungs- clear breath sounds bilaterally Heart- normal rate, regular rhythm; no murmurs Abdomen- normal bowel sounds, nondistended, soft, nontender Extremities- mild lower leg edema, no calf tenderness Neuro- alert, oriented x 3; no gross focal neurologic deficits Skin- warm & dry Results & Data Vital Signs (Past 12 Hours) Vital Signs Temp Pulse Pulse Resp BP BP Pulse Ox 01/11/19 10:58 70 16 98 01/11/19 07:50 60 01/11/19 07:41 36.5 C 51 L 70 16 111/59 L 129/61 95 01/11/19 07:10 70 16 95 01/11/19 07:00 36.5 C 66 20 111/59 L 93 01/11/19 06:30 36.4 C L 51 L 18 105/57 L 98 01/11/19 06:02 59 L 20 95 Laboratory Results Laboratory Results - last 24 hr 01/10/19 01/10/19 01/11/19 14:43 14:43 07:29 WBC 11.73 H RBC 3.92 L Hgb 12.1 L Hct 36.2 L MCV 92.3 MCH 30.9 MCHC 33.4 RDW Std Deviation 48.4 H RDW Coeff of Connie 14.5 Plt Count 231 MPV 11.3 H Sodium 132 L 130 L Potassium 4.9 4.0 D Chloride 101 100 Carbon Dioxide 27 25 Anion Gap 4.0 5.0 BUN 40 H 36 H Creatinine 1.61 H 1.61 H Est Cr Clr Drug Dosing 27.3 27.3 Est GFR ( Amer) 45.2 45.2 Est GFR (Non-Af Amer) 39.0 39.0 BUN/Creatinine Ratio 25.1 H 22.0 H Glucose 103 H 106 H Calcium 7.4 L 7.4 L
--- NOTE | 2019-01-11 15:51 | CT Scan Report ---
CT head/brain wo con CT DOSE: 680.34 mGycm HISTORY: Pain. Mental status change. dysarthria, r/o CVA TECHNIQUE: Multiaxial CT images of the head were performed without the use of intravenous contrast. A dose lowering technique was utilized adhering to the principles of ALARA. Comparison: None. Findings: Mucosal thickening and fluid within the left maxillary sinus. No significant acute bony abn ormality. Findings consistent with a large old right middle cerebral arterial infarct. Components of atrophy an d chronic small vessel change are present. There is no evidence for acute intracranial hemorrhage. Impression: 1. 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 2. No acute intracranial abnormality. 3. No evidence for acute intracranial hemorrhage. The above report was generated using voice recognition software. It may contain grammatical, syntax or spelling errors. Electronically signed by: Melo Kyle M.D. 01/11/2019 3:50 PM
[2019-01-11] MEDS ORDERED: LORazepam 0.5 MG TAB PO ONE (18:37)
[2019-01-11] MEDS: ASPIRIN 81 MG ECTAB PO SCH (18:45)
--- NOTE | 2019-01-11 19:38 | Magnetic Resonance Report ---
Brain MRI WITHOUT CONTRAST HISTORY: dysarthria, r/o CVA TECHNIQUE: Multiplanar multisequence MRI of the brain was performed without the use of contrast. COMPARISON STUDY: Head CT 01/11/2019. FINDINGS: No areas of restricted diffusion to suggest acute infarction. The midline structures are in tact. Old large right MCA territory infarct is again noted. White matter T2 hyperintensity with invol ving the majority of the right cerebral hemisphere likely represents gliosis. Loss of the flow void w ithin the right internal carotid artery consistent with occlusion. This is likely chronic. Fluid leve l and mucosal thickening within the left maxillary sinus and partial opacification of the ethmoid air cells. Small fluid level within the left sphenoid sinus. This favors acute or chronic sinusitis. Tra ce fluid within the bilateral mastoid air cells. There is no mass, hematoma, midline shift. Mildly at rophic changes within the brain. Periventricular white matter T2 hyperintensity is nonspecific but fa vors moderate microvascular ischemic change. IMPRESSION: 1. No acute infarct. 2. No acute intracranial hemorrhage. 3. Old large right MCA territory infarct is again noted. 4. Acute on chronic paranasal sinusitis. Electronically signed by: Hayder Arrington M.D. 01/11/2019 7:35 PM
[2019-01-12] MEDS: LEVOTHYROXINE SODIUM 100 MCG TABLET PO SCH (06:21)
[2019-01-12] MEDS: FORMOTEROL 20 MCG/2 ML VIAL NEB SCH ×2 (07:32→19:00)
[2019-01-12] MEDS: BUDESONIDE 0.5 MG/2 ML VIAL (PULMICORT) NEB SCH ×2 (07:32→19:01)
[2019-01-12] MEDS: LEVALBUTEROL HCL 0.63 MG/3 ML NEB NEB SCH ×4 (07:32→19:01)
[2019-01-12] MEDS: LACTOBACILLUS ACIDOPHILUS (FLORANEX) TAB PO SCH ×4 (09:02→20:27)
[2019-01-12] MEDS: TAMSULOSIN HCL 0.4 MG CAP PO SCH (09:02)
[2019-01-12] MEDS: CHOLECALCIFEROL 1,000 UNITS TAB PO SCH (09:03)
[2019-01-12] MEDS: PANTOprazole 40 MG TAB PO SCH ×2 (09:03→20:28)
[2019-01-12] MEDS: FINASTERIDE 5 MG TAB PO SCH (09:03)
[2019-01-12] MEDS: ASPIRIN 81 MG ECTAB PO SCH (09:03)
[2019-01-12] MEDS: METOPROLOL TARTRATE 25 MG TAB PO SCH ×2 (09:03→20:31)
[2019-01-12] MEDS: HEPARIN SOD 5,000 UNIT/0.5 ML VIAL SQ SCH ×2 (09:03→20:28)
[2019-01-12] MEDS: FUROSEMIDE 20 MG TAB PO SCH (09:03)
[2019-01-12] MEDS: AMOXICILLIN/CLAVULANATE 500 MG TAB PO SCH ×2 (09:03→17:36)
[2019-01-12] MEDS: TIOTROPIUM BROMIDE 5 PUFF/90 MCG INH INH SCH (09:04)
--- NOTE | 2019-01-12 11:36 | Communication Note ---
Date of Service: January 12, 2019 I received a consultation on Mr. Jesus this mI discussed the situation with Dr. Wakefield, reviewed the chart, reviewed the current imaging studies which include a CT scan of the head and an MRI of the brain and have made some recommendations by telephone with plans to see the patient tomorrow after an additional diagnostic study specifically a carotid duplex scan will be History of seizures this man had a several hour period of dysarthria that was a new finding despite his history of a large right middle cerebral artery infarction in the remote past secondary to what I assume was a total occlusion of the right internal carotid artery. His symptoms have cleared and is now back to what his family feels is his baseline according to what I can glean from discussion with his attending physician In this setting we need to consider this a transient ischemic event, raise his aspirin back to 162 mg/day from its level of 81 mg/day which was actually lower than his standard dose of 325 mg/day. Does this during his current hospitalization for fear that he might have gastrointestinal bleeding I am going to do the duplex of the carotids simply because his renal function would not support CT angiography which of course would be a better test but would put him at risk for dye nephropathy The only question I have is whether indeed there is a total occlusion of the internal carotids, whether the vertebral arteries are sufficient to maintain collateral flow and whether the contralateral carotid artery is found not progressing to a high-grade stenosis and also contributing to collateral failure. If this were the case he might conceivably be a surgical candidate I will check back With him tomorrow after performance of the duplex and an additional 24 hours of observation following what we assume has been a transient ischemic event likely involving his right hemisphere but unfortunately in the setting of dysarthria, being very difficult to lateralize further and could be one involving the brainstem or one involving the contralateral hemisphere. Farhan Azevedo MD
--- NOTE | 2019-01-12 12:14 | Ultrasound Report ---
BILATERAL CAROTID DOPPLER STUDY HISTORY: Stroke symptoms. Possible transient ischemic attack. COMPARISON: None. TECHNIQUE: Real-time, grayscale, and color Doppler sonography of the carotid arteries was performed. Imaging reviewed in the transverse and longitudinal planes. All measurements were calculated based on NASCET criteria. FINDINGS: Antegrade flow is seen in the bilateral vertebral arteries. The brachial pressures are hemodynamically similar. Complete occlusion of the right ICA which is likely chronic. Moderate calcified plaque within the carlotta ateral carotid bifurcations. No significant stenosis within the right common carotid artery. The peak systolic velocity within the left ICA is 97 cm/s. The left systolic ratio is 1.9. IMPRESSION: 1. 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 2. No significant stenosis within the left carotid arteries. Electronically signed by: Hayder Arrington M.D. 01/12/2019 12:11 PM
[2019-01-12] MEDS ORDERED: ASPIRIN 81 MG ECTAB PO ONE (13:24)
--- NOTE | 2019-01-12 17:50 | Hospitalist Progress Note ---
Date of Service January 12, 2019 Assessment & Plan (1) Empyema of left pleural space: (1) Empyema of left pleural space: per Dr. Delgado notes: (1) Pneumonia: admitted with complicated pneumonia /Empyema on left lung will need 3-4 weeks total of Augmentin as per discharge instructions CONCERN FOR ASPIRATION RECYCLING DIRECTOR consulted for swallowing eval- no apparent aspiration per bedside swallowing evaluation. diet advanced to moist and minced Tolerating well cont aspiration precaution (2) Pleural effusion: Left pleural effusion/empyema Augmentin course as noted in #1 (3) Chronic respiratory failure with hypoxia, on home O2 therapy: on 2 L o2 chronic - stable (4) COPD, severe stable (5) Chronic diastolic CHF (congestive heart failure): resumed usual Lasix 20mg po daily EPISODE OF DYSARTHRIA, possible TIA Resolved today CT head, brain MRI: No acute infarcts Discussed with Dr. Azevedo Carotid ultrasound ordered:1. 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 2. No significant stenosis within the left carotid arteries. --We will increase aspirin 202 mg p.o. daily for possible TIA episode --Avoid low blood pressures LOOSE BOWEL MOVEMENTS/DIARRHEA - resolved -Stool C. difficile toxin assay negative -Possible secondary to antibiotic: Augmentin noted to have significant GI side effect/ordered Probiotics -Ordered for PRN Imodium (6) Atrial flutter: at present converted to sinus with rate control ( episodes of bradycardia noted HR in low 50's ) Cardiology consulted, Verapamil D/pamela Continue metoprolol Metoprolol 25 mg BID Not anticoagulated because of possible UGI bleed- reconsider if no ongoing concerns. (7) Cerebrovascular disease: History of ischemic stroke, residual left hemiparesis. Aspirin increased 162mg p.o. daily (8) CKD (chronic kidney disease), stage III: Acute renal failure and CKD stage III secondary to infection volume depletion dehydration CKD 3 with baseline creatinine around 1.5-1.8. Crea back to baseline, 1.6 (9) Protein calorie malnutrition: Evaluated by [employer]. 8 kg / 13% weight loss over last year. Severe clavicular and temporal muscle wasting. Severe buccal fat wasting. Findings consistent with severe protein calorie malnutrition. Diet / supplements as tolerated. CHRONIC SULLIVAN CATHETER: pt has chronic urinary retention due to BPH/on chronic sullivan follows with Urology Dr Adler Sullivan catheter changed yesterday per Urology recommendation will be discharged to SNF with Sullivan catheter , can be changed to leg bag during transport Do not resuscitate status: As noted. DVT prophylaxis: Initially received subcutaneous heparin. Heparin held because of possible upper GI bleed. No further evidence of GI bleeding. Resume SQ heparin. SCDs. Discharge planning issues: significant deconditioning noted PT / OT ordered -recommends rehab d/c to SNF once cleared by Neurology Family Medicine follow-up with Dr. Chandra. Subjective ff up for empyema, dysarthria Seen sitting up in bed, comfortable, in good spirits States he feels fine overall Patient states that his speech is now back to baseline Denies any other new focal neurologic deficits No other symptoms Review of Systems Review of Systems: All systems reviewed & are unremarkable except as noted in HPI & below Physical Exam Physical Exam: General- oriented x 3, not in distress, speaks in sentences with no effort or accessory muscle use Eyes- anicteric Neck- no JVD Lungs- clear breath sounds bilaterally, no crackles or wheezing Heart- normal rate, regular rhythm; no murmurs Abdomen- normal bowel sounds, nondistended, soft, nontender Extremities-mild pretibial edema, no calf tenderness Neuro- alert, oriented x 3; no dysarthria; no gross focal neurologic deficits Skin- warm & dry Results & Data Vital Signs (Past 12 Hours) Vital Signs Temp Pulse Resp BP Pulse Ox 01/12/19 15:12 81 19 98 01/12/19 14:55 36.9 C 61 18 124/67 96 01/12/19 11:20 77 17 98 01/12/19 07:34 77 16 95 01/12/19 07:00 36.4 C L 63 18 149/66 H 95
[2019-01-13] MEDS: LEVOTHYROXINE SODIUM 100 MCG TABLET PO SCH (05:48)
[2019-01-13] MEDS: LEVALBUTEROL HCL 0.63 MG/3 ML NEB NEB SCH ×3 (07:31→15:13)
[2019-01-13] MEDS: BUDESONIDE 0.5 MG/2 ML VIAL (PULMICORT) NEB SCH (07:32)
[2019-01-13] MEDS: FORMOTEROL 20 MCG/2 ML VIAL NEB SCH (07:32)
[2019-01-13] MEDS ORDERED: ASPIRIN 81 MG ECTAB PO SCH (09:00)
[2019-01-13] MEDS: LACTOBACILLUS ACIDOPHILUS (FLORANEX) TAB PO SCH ×2 (09:15→11:31)
[2019-01-13] MEDS: CHOLECALCIFEROL 1,000 UNITS TAB PO SCH (09:15)
[2019-01-13] MEDS: HEPARIN SOD 5,000 UNIT/0.5 ML VIAL SQ SCH (09:16)
[2019-01-13] MEDS: METOPROLOL TARTRATE 25 MG TAB PO SCH (09:16)
[2019-01-13] MEDS: AMOXICILLIN/CLAVULANATE 500 MG TAB PO SCH (09:16)
[2019-01-13] MEDS: PANTOprazole 40 MG TAB PO SCH (09:16)
[2019-01-13] MEDS: TAMSULOSIN HCL 0.4 MG CAP PO SCH (09:17)
[2019-01-13] MEDS: TIOTROPIUM BROMIDE 5 PUFF/90 MCG INH INH SCH (09:17)
[2019-01-13] MEDS: FINASTERIDE 5 MG TAB PO SCH (09:17)
[2019-01-13] MEDS: FUROSEMIDE 20 MG TAB PO SCH (09:17)
--- NOTE | 2019-01-13 11:10 | Communication Note ---
Date of Service: January 13, 2019 I have seen Mr. 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 He apparently recovered very well from this although has had some left-sided weakness but nothing that has prevented him from functioning relatively well. He recalls the articulatory disturbance of several days ago and she confirms that his speech was changed but everyone agrees it is now back to baseline He is recovering nicely from his empyema and is to be discharged today. Neurologically he is at his old baseline During the hospitalization there was concern about a GI bleed and his chronic aspirin dose of 325 mg was reduced to a single 81 mg tablet. The event in question occurred on this dose of aspirin and without any apparent documented cardiac arrhythmia although apparently he was in transient atrial fibrillation/flutter on admission MRI scan has shown no evidence for a new vascular event involving the brainstem or other hemisphere. The duplex of the carotids and I suggested we done yesterday shows a total occlusion on the right but no significant stenosis of the vertebral arteries or the left internal carotid artery Exam reveals a mild left facial asymmetry perhaps some slight clumsiness of the left hand and a left extensor toe sign with some brisk reflexes on the left. I hear no carotid bruits there are no cardiac murmurs pulse is regular. Neurologically in addition to the mild left hemiparesis he is awake alert oriented in 3 spheres he has no abnormal involuntary movements, reasonably good strength For how long he has been in the hospital, and only mild age-dependent vibratory loss in the distal lower extremities The diagnosis is that of a transient ischemic event historically related to reduction of his antiplatelet medications and my only suggestion would be to double up on the aspirin to 2 of the 81 mg aspirin down from a single 325 mg tablet, to return to the care of his primary care physician, and to be followed up in our neurology department for a one-time visit about a month from now which is the standard post CVA/TIA follow-up protocol. Farhan Azevedo MD
--- NOTE | 2019-01-13 14:49 | Hospitalist Progress Note ---
Date of Service January 13, 2019 Assessment & Plan (1) Empyema of left pleural space: (1) Empyema of left pleural space: per Dr. Delgado notes: (1) Pneumonia: admitted with complicated pneumonia /Empyema on left lung Chest x-ray showed left lower lobe infiltrate and left pleural effusion. 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 Penaloza- [facility] in 2 weeks CONCERN FOR ASPIRATION EDITOR MAGAZINE consulted for swallowing eval- no apparent aspiration per bedside swallowing evaluation. diet advanced to moist and minced Tolerating well cont aspiration precaution (2) Pleural effusion: Left pleural effusion/empyema Augmentin course as noted in #1 (3) Chronic respiratory failure with hypoxia, on home O2 therapy: on 2 L o2 chronic - stable (4) COPD, severe stable (5) Chronic diastolic CHF (congestive heart failure): resumed usual Lasix 20mg po daily (6) EPISODE OF DYSARTHRIA, possible TIA noted 01/11/19 Resolved the next day CT head, brain MRI: No acute infarcts Discussed with Dr. Azevedo Carotid ultrasound: 1. 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 2. No significant stenosis within the left carotid arteries. --Discussed with Neurologist Dr. Azevedo, recommend to increase aspirin to 162 mg p.o. daily for possible TIA episode --Avoid low blood pressures/hypotension --ff up with Neurologist Dr. Azevedo in 1 month LOOSE BOWEL MOVEMENTS/DIARRHEA - resolved -Stool C. difficile toxin assay negative -Possible secondary to antibiotic: Augmentin noted to have significant GI side effect/ordered Probiotics -Ordered for PRN Imodium (7) Atrial flutter: at present converted to sinus with rate control ( episodes of bradycardia noted HR in low 50's ) Cardiology consulted, Verapamil discontinued Continue metoprolol Metoprolol 25 mg BID Not anticoagulated because of possible UGI bleed, general frailty (8) Cerebrovascular disease: History of ischemic stroke, residual left hemiparesis. Aspirin increased 162mg p.o. daily (9) CKD (chronic kidney disease), stage III: Acute renal failure and CKD stage III secondary to infection volume depletion dehydration CKD 3 with baseline creatinine around 1.5-1.8. Crea back to baseline, 1.6 monitor (10) Protein calorie malnutrition: Evaluated by School Counselor. 8 kg / 13% weight loss over last year. Severe clavicular and temporal muscle wasting. Severe buccal fat wasting. Findings consistent with severe protein calorie malnutrition. Diet / supplements as tolerated. (11) CHRONIC SULLIVAN CATHETER: pt has chronic urinary retention due to BPH/on chronic sullivan follows with Urology Dr Adler Sullivan catheter changed per Urology recommendation discharge to SNF with Sullivan catheter , can be changed to leg bag during transport Do not resuscitate status: As noted. DVT prophylaxis: Initially received subcutaneous heparin. Heparin held because of possible upper GI bleed. No further evidence of GI bleeding. Resumed SQ heparin. SCDs. Discharge planning issues: PT / OT ordered -recommends rehab d/c to SNF Family Medicine follow-up with Dr. Chandra. Pulmonary follow up with Dr. Penaloza- [facility] Neurology follow up with Dr. Vernon Lainez Neurologist Subjective ff up for empyema seen resting in bed, comfortable states he feels much better overall speech back to baseline, denies neurologic symptoms/deficits denies shortness of breath, cough, sputum no other symptoms states he is ready for discharge today Review of Systems Review of Systems: All systems reviewed & are unremarkable except as noted in HPI & below Physical Exam Physical Exam: General- oriented x 3, not in distress, speaks in sentences with no effort or accessory muscle use Eyes- anicteric Neck- no JVD Lungs- clear breath sounds , no crackles, no wheezing BL Heart- normal rate, regular rhythm; no murmurs Abdomen- normal bowel sounds, nondistended, soft, nontender Extremities- no pretibial edema, no calf tenderness Neuro- alert, oriented x 3; speech is clear, no gross focal neurologic deficits Skin- warm & dry Results & Data Vital Signs (Past 12 Hours) Vital Signs Temp Pulse Resp BP Pulse Ox 01/13/19 11:15 52 L 18 95 01/13/19 07:34 64 16 98 01/13/19 07:00 36.9 C 69 20 127/60 98
--- NOTE | 2019-01-13 14:59 | Discharge Summary ---
Date of Service January 13, 2019 Admission HPI Per Admitting Provider Mr. Jesus is a 83-year-old male who has significant past medical history of chronic respiratory failure oxygen dependent, severe COPD, chronic diastolic CHF, cor pulmonale, HTN, chronic urinary retention secondary to obstructive uropathy with chronic Sullivan, tobacco abuse, lymphedema, history of CVA with residual left-sided weakness, CKD stage III who presents to [facility] ED secondary to weakness x5 days. is at bedside. For the past 5 days she has noted him to become more weak and over the past 2 days has not even got out of his chair. He has been having increased shortness of breath at rest and poor po intake. noted a cough starting today, wet but not productive. Complains of increased fatigue and LLQ abdominal pain. He denies any f/c/s, dizziness, lightheaded, syncope, chest pain, palpitations, n/v/d. Has chronic sullivan cath. Has been using nebulizer tx 4-5x daily with improvement of sx. Does not use advair regularly. He does not weigh himself daily. Has chronic bilateral lower ext lymphedema, L > R. Was doing lymphedema treatment, but recently stopped due to cost. Currently using elie bandages. feels edema actually improved from prior. PMH and records reviewed in [facility]. Discussed case with ED provider Dr. Marino. In ED patient remained hemodynamically stable and saturating okay on his chronic 2 L O2 via NC. He was afebrile. Lab work revealed leukocytosis 19 point 5K, H&H 12.9 and 37.9, platelet 271, elevated BUN 82, creatinine 2.11, ratio 39.1, glucose 154. Patient's lactate, magnesium, LFTs, troponin WNL. Blood cultures and urinalysis pending. Chest x-ray revealed extensive left mid to basilar consolidation or atelectasis in setting of moderate left pleural effusion. Also noted mild cardiomegaly with no convincing evidence of volume overload and CHF. CT scan of abdomen pelvis ordered secondary to complaints of lower abdominal pain which revealed questionable cystitis, moderate stool burden specifically with stool ball in rectum. In ED patient received 1 L of IVF, 1 g IV Rocephin along with nebulizer treatment. Currently patient feels improved from arrival. Admission Exam Per Admitting Provider Constitutional: Thin, cachectic, elderly male, vitals as above, NAD, sitting up in bed, pleasant, conversing easily Head: Normocephalic, Atraumatic Eyes: PERRL, conjunctivae normal, anicteric sclerae ENMT: external ear and nose normal, oropharynx with dry mucous membranes Neck: trachea midline, no thyromegaly normal visual inspection Respiratory: normal respiratory effort, lungs clear to auscultation with diminished breath sounds at left mid and lower lobe, no wheeze, rales, rhonchi. Normal insp/exp effort, no accessory muscle use. On O2 via NC 2 L Cardiovascular: RRR with occasional ectopy (PVC on TELE), no murmur, bilateral lower extremity lymphedema with Elie bandages. Vessels: no JVD or carotid bruit Chest: normal inspection of chest Abdomen: normal bowel sounds, soft, + suprapubic tenderness, no guarding, rebound, rigidity, no hepatosplenomegaly Musculoskeletal: no cyanosis or clubbing, extremities motor strength 5/5, except LUE 4/5, and retail grocer strength R > L. L foot inverted. Skin: no rashes, warm and dry normal turgor Neurologic: PERRL, EOMI, accommodation nl, no face palsy, no dysarthria CN's II-XI intact bilaterally and moves all extremities Psychiatric: A+Ox3, euthymic affect Lymphatic: no cervical or axillary lymphadenopathy : +sullivan cath in place with yellow urine noted Principal Diagnosis EMPYEMA, ACUTE ON CHRONIC KIDNEY DISEASE, POSSIBLE TRANSIENT ISCHEMIC ATTACK Discharge Exam General- oriented x 3, not in distress, speaks in sentences with no effort or accessory muscle use Eyes- anicteric Neck- no JVD Lungs- clear breath sounds , no crackles, no wheezing BL Heart- normal rate, regular rhythm; no murmurs Abdomen- normal bowel sounds, nondistended, soft, nontender Extremities- no pretibial edema, no calf tenderness Neuro- alert, oriented x 3; speech is clear, no gross focal neurologic deficits Discharge Data Allergies Allergy/AdvReac Type Severity Reaction Status Date / Time adhesive Allergy Mild RASH Verified 12/28/18 15:26 latex Allergy Mild "RASH" Verified 12/28/18 15:26 Consultations 12/28/18 16:28 ED Decision to Admit Stat 12/28/18 18:40 Consult Case Management - Discharge Planning Routine 12/29/18 23:45 Consult Cardiology Routine 12/30/18 08:21 Consult Pulmonology Routine 01/03/19 18:27 Consult Infectious Diseases Routine 01/04/19 11:01 Consult Nutrition Routine 01/11/19 16:11 Consult Neurology Routine Ordered Studies 12/28/18 14:43 CT abd pelvis wo con Stat 12/30/18 13:11 US effusion-chest/mediastinum Routine 12/31/18 08:46 US point of care ultrasound Routine 12/31/18 11:30 US point of care ultrasound Routine 01/06/19 18:23 US venous doppler UE LT Routine 01/11/19 14:24 CT head/brain wo con Stat 01/11/19 16:12 MR brain wo con Routine 01/12/19 10:09 US carotid doppler BI Routine Hospital Course (1) Empyema of left pleural space: (1) Empyema of left pleural space: per Dr. Delgado notes: (1) Pneumonia: admitted with complicated pneumonia /Empyema on left lung Chest x-ray showed left lower lobe infiltrate and left pleural effusion. 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 CONCERN FOR ASPIRATION VULCANIZED FIBER UNIT OPERATOR consulted for swallowing eval- no apparent aspiration per bedside swallowing evaluation. diet advanced to moist and minced Tolerating well cont aspiration precaution (2) Pleural effusion: Left pleural effusion/empyema Augmentin course as noted in #1 (3) Chronic respiratory failure with hypoxia, on home O2 therapy: on 2 L o2 chronic - stable (4) COPD, severe stable (5) Chronic diastolic CHF (congestive heart failure): resumed usual Lasix 20mg po daily (6) EPISODE OF DYSARTHRIA, possible TIA noted 01/11/[address]olved the next day CT head, brain MRI: No acute infarcts Discussed with Dr. Azevedo Carotid ultrasound: 1. 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 2. No significant stenosis within the left carotid arteries. --Discussed with Neurologist Dr. Azevedo, recommend to increase aspirin to 162 mg p.o. daily for possible TIA episode --Avoid low blood pressures/hypotension --ff up with Neurologist Dr. Azevedo in 1 month LOOSE BOWEL MOVEMENTS/DIARRHEA - resolved -Stool C. difficile toxin assay negative -Possible secondary to antibiotic: Augmentin noted to have significant GI side effect/ordered Probiotics -Ordered for PRN Imodium (7) Atrial flutter: at present converted to sinus with rate control ( episodes of bradycardia noted HR in low 50's ) Cardiology consulted, Verapamil discontinued Continue metoprolol Metoprolol 25 mg BID Not anticoagulated because of possible UGI bleed, general frailty (8) Cerebrovascular disease: History of ischemic stroke, residual left hemiparesis. Aspirin increased 162mg p.o. daily (9) CKD (chronic kidney disease), stage III: Acute renal failure and CKD stage III secondary to infection volume depletion dehydration CKD 3 with baseline creatinine around 1.5-1.8. Crea back to baseline, 1.6 monitor (10) Protein calorie malnutrition: Evaluated by Tester/Lift Trucker. 8 kg / 13% weight loss over last year. Severe clavicular and temporal muscle wasting. Severe buccal fat wasting. Findings consistent with severe protein calorie malnutrition. Diet / supplements as tolerated. (11) CHRONIC SULLIVAN CATHETER: pt has chronic urinary retention due to BPH/on chronic sullivan follows with Urology Dr Adler Sullivan catheter changed per Urology recommendation discharge to SNF with Sullivan catheter , can be changed to leg bag during transport Do not resuscitate status: As noted. DVT prophylaxis: Initially received subcutaneous heparin. Heparin held because of possible upper GI bleed. No further evidence of GI bleeding. Resumed SQ heparin. SCDs. Discharge planning issues: PT / OT ordered -recommends rehab d/c to SNF Family Medicine follow-up with Dr. Chandra. Pulmonary follow up with Dr. Penaloza- [facility] Neurology follow up with Dr. Azevedo- [facility] Total Time Total Time Spent Total Time Spent (In Minutes): 45 MINUTES Discharge Plan Discharge Items Patient Disposition: Transfer Snf Fac Reason For Visit: NESTOR/CKD,PNEUMONIA,L PLEURAL EFFUSION,WEAKNESS Discharge Diagnosis: LEFT LOWER LOBE PNEUMOCOCCAL PNEUMONIA/EMPYEMA/ACUTE ON CHRONIC RESPIRATORY FAILURE/CHRONIC URINARY RETENTION WITH INDWELLING SULLIVAN CATHETER ACUTE ON CHRONIC RENAL FAILURE, RESOLVED POSSIBLE TRANSIENT ISCHEMIC ATTACK Activity: As commented below Activity Comment: Continue physical therapy and occupational therapy at rehab Non-emergency contact: Primary Care Provider Call non-emergency contact if: you have any medication questions Follow-up/Referrals: Viet Penaloza MD [Physician] - Farhan Azevedo MD [Physician] - Manny Miranda MD [Primary Care Provider] - Diet: Heart Healthy Diet Texture: Mechanical soft (ground) Addtl Attending Provider Instructions: Follow-up with Regional Psychiatric Director in 2 weeks, Neurologist in 1 month, PCP 1 week after discharge from SNF/Rehab Pending Studies at Discharge: Yes Studies:: Repeat CBC and BMP this week Stand-Alone Forms: My [facility] Skilled Items Patient informed of condition?: Yes DNR: Yes Discharge Level of Care: Skilled Communicable Disease: No Discharge Prognosis: Stable Lines: None Urinary Catheter: Yes (Chronic indwelling Sullivan catheter) Medications and DC Order Prescriptions: New loperamide 2 mg Capsule 2 mg PO Q8 PRN (Reason: diarrhea) 30 Days Qty: 60 RF: 0 pantoprazole 40 mg Tablet,Delayed Release (Dr/Ec) 40 mg PO BID 30 Days Qty: 60 RF: 0 budesonide 0.5 mg/2 mL Suspension For Nebulization 0.5 mg NEB BIDR 30 Days Qty: 30 RF: 0 metoprolol tartrate 25 mg Tablet 25 mg PO BID 30 Days Qty: 60 RF: 0 Spiriva with HandiHaler 18 mcg Capsule, W/Inhalation Device 1 puff inhalation QAM 30 Days Qty: 30 RF: 0 Lactobacillus acidoph-L.bulgar [Floranex] 1 million cell Tablet 4 tab PO QIDM 30 Days Qty: 120 RF: 0 levalbuterol HCl 0.63 mg/3 mL solution for nebulization 0.63 mg inhalation QIDR PRN (Reason: wheeze) 30 Days RF: 0 Perforomist 20 mcg/2 mL Solution For Nebulization 20 mcg NEB BIDR 30 Days Qty: 120 RF: 0 furosemide [Lasix] 20 mg tablet 20 mg PO DAILY Qty: 30 RF: 0 amoxicillin-pot clavulanate 500-125 mg Tablet 1 tab PO BIDM 21 Days Qty: 42 RF: 0 aspirin [Ecotrin Low Strength] 81 mg Tablet,Delayed Release (Dr/Ec) 162 mg PO QAM 30 Days Qty: 60 RF: 2 Continued ipratropium-albuterol 0.5 mg-3 mg(2.5 mg base)/3 mL solution for nebulization 3 ml INHALATION .Q4-5 TIMES DAY RF: 0 prednisone 5 mg Tablet 10 mg PO QAM RF: 0 levothyroxine 100 mcg Tablet 100 mcg PO QAM RF: 0 tamsulosin [Flomax] 0.4 mg Capsule 0.4 mg PO QAM RF: 0 fluticasone propion-salmeterol [Advair Diskus] 500-50 mcg/dose Blister With Device 1 inh INHALATION BID PRN (Reason: Shortness Of Breath Or Wheezing) RF: 0 finasteride 5 mg Tablet 5 mg PO QAM RF: 0 cholecalciferol (vitamin D3) [Vitamin D3] 1,000 unit Tablet 1,000 unit PO QAM RF: 0 Discontinued torsemide 10 mg Tablet 20 mg PO QAM RF: 0 docusate sodium 100 mg Capsule 100 mg PO BID PRN (Reason: Constipation) RF: 0 aspirin 325 mg Tablet 325 mg PO QAM RF: 0 Discharge Orders: Discharge Order (Routine); Ordered 01/13/19 Ordered By: Rahul eBll/Other Patient Handouts: Diabetes Resources, Heart Failure Diet Changes, Disease Chronic Lung Nutrition, A1C Admission Data Admit Date/Time: 12/28/18 17:07 Attending Provider: Rahul Alegre Admit Provider: Yudelka Dickey Primary Care Provider: Manny Miranda Other Providers: Yudelka Dickey ; [place] ; [facility] ; [facility] ; Jean Villagomez ; Nahun Carlos ; David Medina ; Rody Delgado ; Farhan Azevedo Other Interventions: Discharge Summary Assessment (RN) Last Done: 01/11/19 07:41
[2019-01-13 15:14] VITALS: PULSE 70; O2SAT 99
[2019-01-13 15:23] VITALS: BP 124/57; TEMP 98.1
== END 2019-01-13 17:31 | DRG 193 ==
LOC: ED 14:25 → SUATTDRO 17:07 → 2S 17:07 → 2W 01-06 18:14

== ENCOUNTER 2019-02-07 10:22 | Inpatient (IN) ==
[2019-02-07] MEDS ORDERED: ALBUT/IPRATROP 3MG/0.5MG NEB 3 ML VIAL NEB STA ×2 (10:57→11:33)
[2019-02-07 11:12] LABS: Basophils # (auto) 0.02 K/uL (0-0.2); Basophils % (auto) 0.2 %; Eosinophils # (auto) 0.17 K/uL (0-0.5); Eosinophils % (auto) 1.9 %; Hematocrit (blood only) 35.9 % (42-52); Hemoglobin 11.5 g/dL (14.0-18.0); Immature Granulocytes # (auto) 0.08 K/uL (0.00-0.02); Immature Granulocytes % (auto) 0.9 %; Lymphocytes # (auto) 1.52 K/uL (1.2-3.4); Lymphocytes % (auto) 16.9 %; Mean Corpuscular Hemoglobin 30.9 pg (25-34); Mean Corpuscular Volume 96.5 fL (80-100); Monocytes # (auto) 1.13 K/uL (0.11-0.59); Monocytes % (auto) 12.6 %; Neutrophils # (auto) 6.05 K/uL (1.4-6.5); Neutrophils % (auto) 67.5 %; Platelet Count 250 K/uL (130-400); RDW Coefficient of Variation 16.6 % (11.5-14.5); RDW Standard Deviation 58.7 fL (36.4-46.3); Red Blood Count 3.72 M/uL (4.7-6.1); White Blood Count 8.97 K/uL (4.8-10.8)
[2019-02-07 11:21] LABS: Partial Thromboplastin Ratio 1.1; Partial Thromboplastin Time 28.7 Seconds (21.0-31.0); Prothrombin Time 10.3 Seconds (9.0-12.0)
[2019-02-07 11:25] LABS: Alanine Aminotransferase 16 U/L (12-78); Albumin Level 2.8 gm/dl (3.4-5.0); Aspartate Aminotransferase 21 U/L (15-37); BUN Creatinine Ratio 16.9 (10-20); Blood Urea Nitrogen 23 mg/dl (7-18); Calcium 8.6 mg/dl (8.5-10.1); Carbon Dioxide 29 mmol/L (21-32); Chloride 101 mmol/L (98-107); Creatinine Clr Calc Pharmacy 33.4 ml/min; Est GFR (African American) 55.4; Est GFR (Non-African American) 47.8; Glucose 114 mg/dl (70-99); Magnesium 2.1 mg/dl (1.8-2.4); Potassium 4.5 mmol/L (3.5-5.1); Sodium 136 mmol/L (136-145)
[2019-02-07 11:28] LABS: Albumin Globulin Ratio 0.7 (0.9-2); Alkaline Phosphatase 92 U/L (45-117); Bilirubin,Total 0.4 mg/dl (0.2-1); Creatine Kinase MB 4.1 ng/ml (0.5-3.6); Globulin 3.8 gm/dl (2.5-4.0); NT Pro B Type Natriuretic Pept 3221 pg/ml (0-1800); Total Protein 6.6 gm/dl (6.4-8.2); Troponin I 0.018 ng/ml (0-0.045)
--- NOTE | 2019-02-07 11:31 | XRay Report ---
XR chest 1V portable HISTORY: 83 years-old Male Dyspnea acute shortness of breath COMPARISON: Chest radiograph 01/06/2019, chest CT 08/06/2018. TECHNIQUE: AP view of the chest FINDINGS: Emphysema with chronic interstitial coarsening. Cardiomediastinal and hilar silhouettes are unchanged . Hyperinflation. Small pleural effusions with progressive right greater left bibasilar opacities. Pu lmonary vascular congestion with progressive interstitial opacities. No pneumothorax. Degenerative ch anges of the shoulders and spine. IMPRESSION: 1. Pulmonary edema with small pleural effusions. 2. Progressively worsened bibasilar consolidative opacities, right greater than left. 3. Emphysema. ACT 112: Negative or not required by law. The above report was generated using voice recognition software. It may contain grammatical, syntax o r spelling errors. Electronically signed by: Abdon Baron M.D. 02/07/2019 11:30 AM
--- NOTE | 2019-02-07 11:42 | Emergency Department Note ---
Entered by Naun Long acting as a scribe for Nahun Houston DO History of Present Illness General Chief complaint: Shortness of Breath/Dyspnea Time Seen by Provider: 02/07/19 10:30 Source: patient, family and EMS History of Present Illness Provider complaint: Shortness of breath Onset (ago): week(s) 1 Location: chest Severity: similar to prior episodes Maximum Pain Intensity: 0 Relieved By: + none Associated symptoms: + cough The patient is an 83 year old male who presents to the Emergency Room with complaints of worsening shortness of breath that started about a week ago. Per EMS, the patient received a duoneb en route which helped but he then had an episode of incontinence and his oxygen sats dropped. The patient was 82% on 2L which is the amount of supplemental oxygen he uses at baseline for a history of COPD and CHF. Per the , the patient was at [facility] after being seen at the hospital for shortness of breath. The patient was supposed to be discharged this afternoon due to Medicare issues but his condition suddenly worsened. The adds that a week ago when his symptoms first started he had a chest x-ray at the [facility] that showed pneumonia. Per the family, the patient also has increased swelling in his left arm and bilateral lower extremities. The patient denies any current pain. Home Medications Home Medications Medication Instructions Recorded Confirmed Type cholecalciferol (vitamin D3) 1,000 unit PO QAM 11/04/17 02/07/19 History [Vitamin D3] finasteride 5 mg PO QAM 11/04/17 02/07/19 History levothyroxine 100 mcg PO QAM 11/04/17 02/07/19 History tamsulosin [Flomax] 0.4 mg PO QAM 11/04/17 02/07/19 History ipratropium-albuterol 3 ml INHALATION QID PRN 12/28/18 02/07/19 History prednisone 10 mg PO QAM 12/28/18 02/07/19 History Lactobacillus acidoph-L.bulgar 4 tab PO QIDM 30 Days #120 tab 01/10/19 02/07/19 Rx [Floranex] aspirin 81 mg PO QAM 02/07/19 02/07/19 History budesonide 0.5 mg NEB BID 02/07/19 02/07/19 History formoterol fumarate [Perforomist] 20 mcg NEB BID 02/07/19 02/07/19 History furosemide [Lasix] 20 mg PO QAM 02/07/19 02/07/19 History metoprolol tartrate 25 mg PO BID 02/07/19 02/07/19 History pantoprazole 40 mg PO BID 02/07/19 02/07/19 History ropinirole 0.5 mg PO HS 02/07/19 02/07/19 History tiotropium bromide [Spiriva with 1 puff INHALATION QA 02/07/19 02/07/19 History HandiHaler] Allergies Allergy/AdvReac Type Severity Reaction Status Date / Time adhesive Allergy Mild RASH Verified 02/07/19 11:13 latex Allergy Mild "RASH" Verified 02/07/19 11:13 Past Med/Surg History Medical History Bronchitis H/O FREQUENT BRONCHITIS Cerebrovascular disease (Chronic) Chronic diastolic CHF (congestive heart failure) (Chronic) Chronic respiratory failure Following with pulm [facility], most recent documented COPD exacerbation 10/25/17, treated OP with steroids/ABX CKD (chronic kidney disease), stage III (Chronic) FOLLOWS WITH PCP 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 Most recent hospital admission for exacerbation was 07/17-07/19 @ [facility]. Cor pulmonale Do not resuscitate status Hearing deficit HTN (hypertension) (Chronic) Hypothyroidism (Chronic) Indwelling Sullivan catheter present Lymphedema (Chronic) On home oxygen therapy Osteoarthritis (Chronic) Urinary retention (Chronic) [employer] Surgical History History of cataract surgery BILATERAL History of tonsillectomy and adenoidectomy (Chronic) S/P ear surgery (Chronic) Family History Other Hypertension Social History Preferred Language: Chinese Communication Ability: Effective Visual Impairment: No Limitations Fruit Receiver Required: No Beliefs That Will Affect Care: None marital status: Current Living Situation: Spouse Other Information That Helps Us Care for You: No Feels Safe at Home: Yes Safety Concerns: Feels Safe At This Time Smoking Status: Current every day smoker Tobacco Type: cigarettes ; Cigarettes Per Day: 6 ; Second Hand Exposure: Yes ; Hx Alcohol Use: Yes Alcohol type: beer Alcohol Intake Frequency: Rarely Hx Substance Use: No Review of Systems See HPI for pertinent positives & negatives. and A total of 10 systems reviewed and were otherwise negative Physical Exam Vital Signs Vital Signs - 24 hr 02/07/19 10:04 02/07/19 10:20 02/07/19 10:31 Pulse Rate 104 H 96 H Pulse Rate [Apical] Pulse Rate from SpO2 Sensor 95 H Respiratory Rate 26 H 18 Respiratory Effort / Characteristics Blood Pressure 167/106 H Blood Pressure Mean 126 Blood Pressure Position Lying Pulse Oximetry 77 L 91 92 Oxygen Delivery Method Nasal Cannula Oxymask Nasal Cannula Oxygen Flow Rate 3 3 Fraction of Inspired Oxygen Sepsis Recent Fever Within 48 Hours No Sepsis New/Unexplained Change in Mental Status No Sepsis Action Taken by Nursing No Action Required Oxygen Flow Rate - Titration 6 Pulse Oximetry Post Tiitration 02/07/19 10:57 02/07/19 11:00 02/07/19 11:11 Pulse Rate 104 H Pulse Rate [Apical] 98 H Pulse Rate from SpO2 Sensor 101 H Respiratory Rate 23 24 Respiratory Effort / Characteristics Spontaneous Accessory Muscle Use Labored Short of Breath Blood Pressure Blood Pressure Mean Blood Pressure Position Pulse Oximetry 93 95 95 Oxygen Delivery Method Oxymask Oxymask Oxygen Flow Rate 6 6 Fraction of Inspired Oxygen Sepsis Recent Fever Within 48 Hours Sepsis New/Unexplained Change in Mental Status Sepsis Action Taken by Nursing Oxygen Flow Rate - Titration Pulse Oximetry Post Tiitration 02/07/19 11:12 02/07/19 11:30 02/07/19 11:34 Pulse Rate 106 H Pulse Rate [Apical] 108 H 108 H Pulse Rate from SpO2 Sensor 107 H Respiratory Rate 26 H 25 H 26 H Respiratory Effort / Characteristics Spontaneous Accessory Muscle Use Labored Short of Breath Spontaneous Labored Short of Breath Blood Pressure Blood Pressure Mean Blood Pressure Position Pulse Oximetry 97 98 96 Oxygen Delivery Method High Flow Nasal Cannula High Flow Nasal Cannula Oxygen Flow Rate 30 30 Fraction of Inspired Oxygen 50 50 Sepsis Recent Fever Within 48 Hours Sepsis New/Unexplained Change in Mental Status Sepsis Action Taken by Nursing Oxygen Flow Rate - Titration Pulse Oximetry Post Tiitration 02/07/19 12:00 02/07/19 12:30 02/07/19 12:35 Pulse Rate 103 H 96 H 96 H Pulse Rate [Apical] Pulse Rate from SpO2 Sensor 100 H 96 H 95 H Respiratory Rate 22 20 25 H Respiratory Effort / Characteristics Blood Pressure 120/82 Blood Pressure Mean 103 Blood Pressure Position Pulse Oximetry 99 99 99 Oxygen Delivery Method High Flow Nasal Cannula Oxygen Flow Rate 30 Fraction of Inspired Oxygen 50 Sepsis Recent Fever Within 48 Hours Sepsis New/Unexplained Change in Mental Status Sepsis Action Taken by Nursing Oxygen Flow Rate - Titration Pulse Oximetry Post Tiitration GENERAL: Patient is awake and alert. He is very anxious appearing and appears to be having significant difficulty breathing. EYES: The conjunctivae are clear. The pupils are round and reactive. EARS, NOSE, MOUTH AND THROAT: The nose is without any evidence of any deformity. Mucous membranes are dry. NECK: The neck is nontender and supple. RESPIRATORY: Shallow respirations were noted. There were diminished breath sounds noted throughout. Very poor air movement was noted. CARDIOVASCULAR: Regular rate and rhythm noted there no murmurs rubs or gallops normal S1 normal S2. GASTROINTESTINAL: The abdomen is soft. Abdomen is nontender. MUSCULOSKELETAL/EXTREMITIES: There is no evidence of gross deformity full range of motion is noted in the hips and shoulders. SKIN: Pedal edema was noted bilaterally. NEUROLOGIC: Patient is oriented to person place and situation. Course Course 1055: Past medical records reviewed. The patient was evaluated in room B08, and a complete history and physical examination were performed. 1156: I reevaluated the patient and he is still having difficulty breathing. 1302: I updated the patient and his family on test results. We also discussed the treatment plan and they agree. 1315: I discussed the patient's case with Denice MITCHELL who is working under Dr. Aris Gunn. They agreed to accept the patient for further evaluation. Consultations Consultation #1: I discussed the patient's case with Denice MITCHELL who is working under Dr. Aris Gunn. They agreed to accept the patient for further evaluation. Time: 13:15 Administered Medications Discontinued Medications Albuterol (Duoneb) 3 ml NEB NOW STA Stop: 02/07/19 10:58 Last Admin: 02/07/19 11:10 Dose: 3 ml Documented by: [id number] Albuterol (Duoneb) 6 ml NEB NOW STA Stop: 02/07/19 11:34 Last Admin: 02/07/19 11:34 Dose: 6 ml Documented by: [id number] Piperacillin Sod/Tazobactam Sod (Zosyn) 4.5 gm in 120 mls @ 240 mls/hr IV NOW ONE Stop: 02/07/19 13:39 Last Infusion: 02/07/19 14:46 Dose: 0 mls/hr Documented by: [id number] Admin: 02/07/19 13:31 Dose: 240 mls/hr Documented by: [id number] Methylprednisolone (Solumedrol) 125 mg IV NOW STA Stop: 02/07/19 13:11 Last Admin: 02/07/19 13:31 Dose: 125 mg Documented by: [id number] Critical Care Time Critical Care Time: Yes Total Critical Care Time: 60 I have personally spent greater than 60 minutes of critical care time in the direct management of this patient. This includes bedside care, interpretation of diagnostic studies, and testing, discussion with consultants, patient, and family members, and other required patient management activities. This 60 minutes is in excess of all separately billable procedures. Medical Decision Making Differential Diagnosis Differential: Infectious, Reactive Airway Disease, Pneumonia, Pneumothorax, COPD, CHF, ACS, Pulmonary Embolism, MSK, GI, Dissection, amongst other etiologies entertained. Medical Records Attestation: I reviewed the patient's medical records. Home Medications Current Medication List: was personally reviewed by me Laboratory Data Attestation: I reviewed the patient's lab results. Result diagrams: 02/07/19 10:14 02/07/19 10:14 Lab Results 02/07/19 02/07/19 02/07/19 Range/Units 10:14 10:14 10:14 WBC 8.97 (4.8-10.8) K/uL RBC 3.72 L (4.7-6.1) M/uL Hgb 11.5 L (14.0-18.0) g/dL POC Hgb (14.0-18.0) g/dl Hct 35.9 L (42-52) % POC Hct (42-52) % MCV 96.5 (80-100) fL MCH 30.9 (25-34) pg MCHC 32.0 (32-36) g/dL RDW Std Deviation 58.7 H (36.4-46.3) fL RDW Coeff of Connie 16.6 H (11.5-14.5) % Plt Count 250 (130-400) K/uL MPV 10.0 (7.4-10.4) fL Immature Gran % (Auto) 0.9 % Neut % (Auto) 67.5 % Lymph % (Auto) 16.9 % Mineral % (Auto) 12.6 % Eos % (Auto) 1.9 % Baso % (Auto) 0.2 % Immature Gran # (Auto) 0.08 H (0.00-0.02) K/uL Neut # (Auto) 6.05 (1.4-6.5) K/uL Lymph # (Auto) 1.52 (1.2-3.4) K/uL Mineral # (Auto) 1.13 H (0.11-0.59) K/uL Eos # (Auto) 0.17 (0-0.5) K/uL Baso # (Auto) 0.02 (0-0.2) K/uL PT 10.3 (9.0-12.0) Seconds INR 1.0 (0.9-1.1) APTT 28.7 (21.0-31.0) Seconds PTT Ratio 1.1 VBG pH (7.36-7.41) VBG pCO2 (38-50) mmHg VBG pO2 mmHg VBG HCO3 mmol/L VBG O2 Saturation % VBG Base Excess mEq/L Barometric Pressure mm/Hg POC Sodium (135-144) mEq/L Sodium 136 (136-145) mmol/L POC Potassium (3.3-5.0) mEq/L Potassium 4.5 (3.5-5.1) mmol/L POC Chloride (101-112) mEq/L Chloride 101 (98-107) mmol/L Carbon Dioxide 29 (21-32) mmol/L POC Total CO2 (24-31) mEq/l Anion Gap 6.0 (3-11) POC Anion Gap (16-25) mmol/L POC BUN (7-18) mg/dl BUN 23 H (7-18) mg/dl Creatinine 1.36 (0.6-1.4) mg/dl POC Creatinine (0.6-1.3) mg/dl Est Cr Clr Drug Dosing 33.4 ml/min Est GFR ( Amer) 55.4 Est GFR (Non-Af Amer) 47.8 BUN/Creatinine Ratio 16.9 (10-20) Glucose 114 H (70-99) mg/dl POC Glucose (other) (70-99) mg/dl Calcium 8.6 (8.5-10.1) mg/dl POC Ioniz Calcium Alexa (1.12-1.32) mmol/l Magnesium 2.1 (1.8-2.4) mg/dl Total Bilirubin 0.4 (0.2-1) mg/dl AST 21 (15-37) U/L ALT 16 (12-78) U/L Alkaline Phosphatase 92 (45-117) U/L CK-MB (CK-2) 4.1 H (0.5-3.6) ng/ml Troponin I 0.018 (0-0.045) ng/ml NT-Pro-B Natriuret Pep 3221 H (0-1800) pg/ml Total Protein 6.6 (6.4-8.2) gm/dl Albumin 2.8 L (3.4-5.0) gm/dl Globulin 3.8 (2.5-4.0) gm/dl Albumin/Globulin Ratio 0.7 L (0.9-2) Specimen Hemolysis Urine Color Urine Appearance (Clear) Urine pH (4.5-7.5) Ur Specific Jefferson (1.000-1.030) Urine Protein (Negative) Urine Glucose (UA) (Negative) Urine Ketones (Negative) Urine Blood (Negative) Urine Nitrite (Negative) Urine Bilirubin (Negative) Urine Urobilinogen (Negative) Ur Leukocyte Esterase (Negative) Urine WBC (Auto) (0-5) /hpf Urine RBC (Auto) (0-4) /hpf U Hyaline Cast (Auto) (0-5) /lpf U Epithel Cells (Auto) (0-5) /lpf Urine Bacteria (Auto) (Negative) Urine Yeast (None Prsent) Influenza Type A (PCR) (Neg) Influenza Type B (PCR) (Neg) 02/07/19 02/07/19 02/07/19 Range/Units 11:59 12:00 12:05 WBC (4.8-10.8) K/uL RBC (4.7-6.1) M/uL Hgb (14.0-18.0) g/dL POC Hgb 11.9 L (14.0-18.0) g/dl Hct (42-52) % POC Hct 35 L (42-52) % MCV (80-100) fL MCH (25-34) pg MCHC (32-36) g/dL RDW Std Deviation (36.4-46.3) fL RDW Coeff of Connie (11.5-14.5) % Plt Count (130-400) K/uL MPV (7.4-10.4) fL Immature Gran % (Auto) % Neut % (Auto) % Lymph % (Auto) % Mineral % (Auto) % Eos % (Auto) % Baso % (Auto) % Immature Gran # (Auto) (0.00-0.02) K/uL Neut # (Auto) (1.4-6.5) K/uL Lymph # (Auto) (1.2-3.4) K/uL Mineral # (Auto) (0.11-0.59) K/uL Eos # (Auto) (0-0.5) K/uL Baso # (Auto) (0-0.2) K/uL PT (9.0-12.0) Seconds INR (0.9-1.1) APTT (21.0-31.0) Seconds PTT Ratio VBG pH 7.33 L (7.36-7.41) VBG pCO2 60 H (38-50) mmHg VBG pO2 56 mmHg VBG HCO3 31 mmol/L VBG O2 Saturation 87.0 % VBG Base Excess 3.1 mEq/L Barometric Pressure 729.3 mm/Hg POC Sodium 136 (135-144) mEq/L Sodium (136-145) mmol/L POC Potassium 4.4 (3.3-5.0) mEq/L Potassium (3.5-5.1) mmol/L POC Chloride 98 L (101-112) mEq/L Chloride (98-107) mmol/L Carbon Dioxide (21-32) mmol/L POC Total CO2 29 (24-31) mEq/l Anion Gap (3-11) POC Anion Gap 14.0 L (16-25) mmol/L POC BUN 23 H (7-18) mg/dl BUN (7-18) mg/dl Creatinine (0.6-1.4) mg/dl POC Creatinine 1.3 (0.6-1.3) mg/dl Est Cr Clr Drug Dosing ml/min Est GFR ( Amer) Est GFR (Non-Af Amer) BUN/Creatinine Ratio (10-20) Glucose (70-99) mg/dl POC Glucose (other) 133 H (70-99) mg/dl Calcium (8.5-10.1) mg/dl POC Ioniz Calcium Alexa 1.16 (1.12-1.32) mmol/l Magnesium (1.8-2.4) mg/dl Total Bilirubin (0.2-1) mg/dl AST (15-37) U/L ALT (12-78) U/L Alkaline Phosphatase (45-117) U/L CK-MB (CK-2) (0.5-3.6) ng/ml Troponin I (0-0.045) ng/ml NT-Pro-B Natriuret Pep (0-1800) pg/ml Total Protein (6.4-8.2) gm/dl Albumin (3.4-5.0) gm/dl Globulin (2.5-4.0) gm/dl Albumin/Globulin Ratio (0.9-2) Specimen Hemolysis Urine Color Urine Appearance (Clear) Urine pH (4.5-7.5) Ur Specific Jefferson (1.000-1.030) Urine Protein (Negative) Urine Glucose (UA) (Negative) Urine Ketones (Negative) Urine Blood (Negative) Urine Nitrite (Negative) Urine Bilirubin (Negative) Urine Urobilinogen (Negative) Ur Leukocyte Esterase (Negative) Urine WBC (Auto) (0-5) /hpf Urine RBC (Auto) (0-4) /hpf U Hyaline Cast (Auto) (0-5) /lpf U Epithel Cells (Auto) (0-5) /lpf Urine Bacteria (Auto) (Negative) Urine Yeast (None Prsent) Influenza Type A (PCR) Neg for Influ A (Neg) Influenza Type B (PCR) Neg for Influ B (Neg) 02/07/19 Range/Units 12:17 WBC (4.8-10.8) K/uL RBC (4.7-6.1) M/uL Hgb (14.0-18.0) g/dL POC Hgb (14.0-18.0) g/dl Hct (42-52) % POC Hct (42-52) % MCV (80-100) fL MCH (25-34) pg MCHC (32-36) g/dL RDW Std Deviation (36.4-46.3) fL RDW Coeff of Connie (11.5-14.5) % Plt Count (130-400) K/uL MPV (7.4-10.4) fL Immature Gran % (Auto) % Neut % (Auto) % Lymph % (Auto) % Mineral % (Auto) % Eos % (Auto) % Baso % (Auto) % Immature Gran # (Auto) (0.00-0.02) K/uL Neut # (Auto) (1.4-6.5) K/uL Lymph # (Auto) (1.2-3.4) K/uL Mineral # (Auto) (0.11-0.59) K/uL Eos # (Auto) (0-0.5) K/uL Baso # (Auto) (0-0.2) K/uL PT (9.0-12.0) Seconds INR (0.9-1.1) APTT (21.0-31.0) Seconds PTT Ratio VBG pH (7.36-7.41) VBG pCO2 (38-50) mmHg VBG pO2 mmHg VBG HCO3 mmol/L VBG O2 Saturation % VBG Base Excess mEq/L Barometric Pressure mm/Hg POC Sodium (135-144) mEq/L Sodium (136-145) mmol/L POC Potassium (3.3-5.0) mEq/L Potassium (3.5-5.1) mmol/L POC Chloride (101-112) mEq/L Chloride (98-107) mmol/L Carbon Dioxide (21-32) mmol/L POC Total CO2 (24-31) mEq/l Anion Gap (3-11) POC Anion Gap (16-25) mmol/L POC BUN (7-18) mg/dl BUN (7-18) mg/dl Creatinine (0.6-1.4) mg/dl POC Creatinine (0.6-1.3) mg/dl Est Cr Clr Drug Dosing ml/min Est GFR ( Amer) Est GFR (Non-Af Amer) BUN/Creatinine Ratio (10-20) Glucose (70-99) mg/dl POC Glucose (other) (70-99) mg/dl Calcium (8.5-10.1) mg/dl POC Ioniz Calcium Alexa (1.12-1.32) mmol/l Magnesium (1.8-2.4) mg/dl Total Bilirubin (0.2-1) mg/dl AST (15-37) U/L ALT (12-78) U/L Alkaline Phosphatase (45-117) U/L CK-MB (CK-2) (0.5-3.6) ng/ml Troponin I (0-0.045) ng/ml NT-Pro-B Natriuret Pep (0-1800) pg/ml Total Protein (6.4-8.2) gm/dl Albumin (3.4-5.0) gm/dl Globulin (2.5-4.0) gm/dl Albumin/Globulin Ratio (0.9-2) Specimen Hemolysis Urine Color Yellow Urine Appearance Clear (Clear) Urine pH 7.0 (4.5-7.5) Ur Specific Jefferson 1.017 (1.000-1.030) Urine Protein 2+ H (Negative) Urine Glucose (UA) Negative (Negative) Urine Ketones Negative (Negative) Urine Blood 1+ H (Negative) Urine Nitrite Negative (Negative) Urine Bilirubin Negative (Negative) Urine Urobilinogen Negative (Negative) Ur Leukocyte Esterase 2+ H (Negative) Urine WBC (Auto) >30 H (0-5) /hpf Urine RBC (Auto) 0-4 (0-4) /hpf U Hyaline Cast (Auto) 0 (0-5) /lpf U Epithel Cells (Auto) 0-5 (0-5) /lpf Urine Bacteria (Auto) Negative (Negative) Urine Yeast Budding w/ Hyphae A (None Prsent) Influenza Type A (PCR) (Neg) Influenza Type B (PCR) (Neg) Imaging Data Radiologist's Impression: Radiology results as stated below per my review and the radiologist's interpretation: XR chest 1V portable HISTORY: 83 years-old Male Dyspnea acute shortness of breath COMPARISON: Chest radiograph 01/06/2019, chest CT 08/06/2018. TECHNIQUE: AP view of the chest FINDINGS: Emphysema with chronic interstitial coarsening. Cardiomediastinal and hilar silhouettes are unchanged. Hyperinflation. Small pleural effusions with progressive right greater left bibasilar opacities. Pulmonary vascular congestion with progressive interstitial opacities. No pneumothorax. Degenerative changes of the shoulders and spine. IMPRESSION: 1. Pulmonary edema with small pleural effusions. 2. Progressively worsened bibasilar consolidative opacities, right greater than left. 3. Emphysema. ACT 112: Negative or not required by law. The above report was generated using voice recognition software. It may contain grammatical, syntax or spelling errors. Electronically signed by: Abdon Baron M.D. 02/07/2019 11:30 AM ECG Data Attestation: I personally reviewed and interpreted this ECG as follows: Indication: + SOB/dyspnea Rate (beats per minute): 99 Rhythm: + sinus rhythm ECG Intervals/blocks: + First degree AV block ECG ST segments: + Nonspecific ST abnormalities ECG Findings: + Poor R wave progression Comparison ECG Date: from (12/29/18) Change: no significant change Blood Pressure Blood Pressure Findings: Elevated blood pressure Blood Pressure Disposition: further management by hospitalist MDM Narrative The patient is a very unfortunate 83-year-old male who presented to the emergency department for an evaluation of difficulty breathing. The patient was having severe respiratory distress when he arrived. He does have a history of COPD. The patient was also recently diagnosed with lung infection as well as empyema. [facility] in a [facility] but was [facility] the [facility] department from [facility] for worsening breathing problems. The patient was treated with multiple DuoNeb treatments. He was also treated with IV antibiotics and IV steroids. He was placed on Vapotherm. He was reevaluated multiple times. His physical exam slowly improved but he continued to have very severe respiratory distress. I discussed patient's laboratory and radiographic studies with him and his family members. I also discussed this case with the on-call [facility] hospitalist group. They have agreed to evaluate the patient in the emergency department for further management disposition. Impression & Plan Respiratory failure, COPD exacerbation, Hypoxia, Respiratory acidosis Discharge Plan Visit Data Chief Complaint: Shortness of Breath/Dyspnea ED Provider: Nahun Houston Discharge Problem: Respiratory failure, COPD exacerbation, Hypoxia, Respiratory acidosis Patient Disposition: Being Evaluated by Hospitalist Forms Stand Alone Forms: [facility] Prescriptions Prescriptions: No Action ipratropium-albuterol 0.5 mg-3 mg(2.5 mg base)/3 mL solution for nebulization 3 ml INHALATION QID PRN (Reason: Shortness Of Breath Or Wheezing) RF: 0 prednisone 5 mg Tablet 10 mg PO QAM RF: 0 Lactobacillus acidoph-L.bulgar [Floranex] 1 million cell Tablet 4 tab PO QIDM 30 Days Qty: 120 RF: 0 levothyroxine 100 mcg Tablet 100 mcg PO QAM RF: 0 tamsulosin [Flomax] 0.4 mg Capsule 0.4 mg PO QAM RF: 0 finasteride 5 mg Tablet 5 mg PO QAM RF: 0 cholecalciferol (vitamin D3) [Vitamin D3] 1,000 unit Tablet 1,000 unit PO QAM RF: 0 ropinirole 0.5 mg Tablet 0.5 mg PO HS RF: 0 aspirin 81 mg Tablet,Chewable 81 mg PO QAM RF: 0 pantoprazole 40 mg tablet,delayed release (DR/EC) 40 mg PO BID RF: 0 budesonide 0.5 mg/2 mL suspension for nebulization 0.5 mg NEB BID RF: 0 furosemide [Lasix] 20 mg tablet 20 mg PO QAM RF: 0 metoprolol tartrate 25 mg tablet 25 mg PO BID RF: 0 Spiriva with HandiHaler 18 mcg capsule, w/inhalation device 1 puff inhalation QAM RF: 0 Perforomist 20 mcg/2 mL solution for nebulization 20 mcg NEB BID RF: 0 Referrals Referrals: Manny Miranda MD [Primary Care Provider] - Discharge Problem: Respiratory failure Qualifiers: Chronicity: acute on chronic Respiratory failure complication: hypoxia and hypercapnia Qualified Code(s): J96.21 - Acute and chronic respiratory failure with hypoxia The scribe's documentation has been prepared under my direction and personally reviewed by me in its entirety. I confirm that the note above accurately reflects all work, treatment, procedures, and medical decision making performed by me.
[2019-02-07 12:19] LABS: Base Excess VBG 3.1 mEq/L; pH VBG 7.33 (7.36-7.41)
[2019-02-07 12:20] LABS: iSTAT Creatinine 1.3 mg/dl (0.6-1.3); iSTAT Hemoglobin 11.9 g/dl (14.0-18.0); iSTAT Ionized Calcium 1.16 mmol/l (1.12-1.32); iSTAT Potassium 4.4 mEq/L (3.3-5.0)
[2019-02-07 12:41] LABS: Appearance Urine Clear (Clear); Bacteria Urine Automated Negative (Negative); Bilirubin Urine Negative (Negative); Blood Urine 1+ (Negative); Color Urine Yellow; Epithelial Cell Urine Auto 0-5 /lpf (0-5); Glucose Urine UA Negative (Negative); Ketones Urine Negative (Negative); Leukocyte Esterase Urine 2+ (Negative); Nitrite Urine Negative (Negative); Protein Urine 2+ (Negative); RBC Urine Automated 0-4 /hpf (0-4); Specific Gravity Urine 1.017 (1.000-1.030); Urobilinogen Urine Negative (Negative); WBC Urine Automated >30 /hpf (0-5)
[2019-02-07 12:55] LABS: Influenza A virus by PCR Neg for Influ A (Neg); Influenza B virus by PCR Neg for Influ B (Neg)
[2019-02-07] MEDS ORDERED: PIPERACILLIN/TAZOBACTAM 4.5 GM/120 ML BAG IV ONE (13:10)
[2019-02-07] MEDS ORDERED: methylPREDNISolone 125 MG/2 ML VIAL IV STA (13:10)
[2019-02-07] MEDS ORDERED: PIPERACILL/TAZOBAC CONSULT ACTIVE PRN (13:10)
[2019-02-07 13:21] LABS: Cast Urine Automated 0 /lpf (0-5)
[2019-02-07] MEDS ORDERED: FUROSEMIDE 40 MG/4 ML VIAL IV STA (14:49)
--- NOTE | 2019-02-07 14:49 | History & Physical Report ---
Date of Service February 07, 2019 Assessment & Plan (1) Acute and chronic respiratory failure: This is an 83-year-old male with a PMH of chronic respiratory failure on 2 L nasal cannula O2, severe COPD, chronic diastolic heart failure, cor pulmonale, h/o ischemic CVA, lymphedema (L>R), chronic urinary retention with Sullivan in place, CKD III, HTN and other medical problems listed below who presents from [facility] with acute on chronic respiratory failure. -Found to be hypoxic at 77% on 2 L nasal cannula, placed on Vapotherm high flow nasal cannula with improved oxygen saturation to mid 90s -Likely multifactorial COPD, PNA and pulmonary edema. Also concern for aspiration -Continue high flow NC. Repeat VBG pH to monitor acidosis (2) Pneumonia: Recently admitted to our service from December 28-January 13 was diagnosed with empyema of left pleural space s/p pigtail drainage growing Streptococcus intermedius -Was discharged on 3-4 weeks total of Augmentin and instructed to follow up with pulm within 2 weeks but has not yet been seen -Concern for aspiration during previous admission. Evaluated by speech and recommended for moist & minced diet. Has been receiving regular diet with thin liquids at [facility] -Chest CT with focal areas of consolidation within the base of the right lower lobe and left lower lobe. There is also near complete mucoid opacification of the bronchus intermedius and partial opacities of the right lower lobe bronchi, raising the possibility of aspiration pneumonia. Mild interstitial pulmonary edema with small bilateral pleural effusions -Treating empirically with Zosyn. Following cultures -Pulm consult placed (3) COPD, severe: Diffuse wheezing on exam -Continue IV steroids with 40mg IV solumedrol Q8H, devi (4) Dysarthria: Intermittent since last admission- concern for TIA in setting of aspirin being held for GI bleed. 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 There is no hemorrhage, mass effect, or evidence of acute territorial ischemia by CT criteria -Routine neuro consult (5) Chronic diastolic CHF (congestive heart failure): CXR with Pulmonary edema with small pleural effusions. BNP elevated at 3221 -Appears to be slightly volume overloaded on exam -Given 40mg IV Lasix x 1 in ED -Monitor volume status closely (6) HTN (hypertension): Continue lopressor (7) Urinary retention: Has chronic Sullivan catheter in place that is changed monthly -Continue flomax and finasteride (8) Lymphedema: Chronic condition, L>R. No longer receiving treatment due to cost -Recently underwent venous doppler (02/01) and arterial doppler (02/04) of LLE that were reportedly negative -Concern for developing cellulitis on anterior LLE. Receiving empiric abx coverage -Continue to monitor (9) CKD (chronic kidney disease), stage III: At baseline DVT Ppx: SQ heparin Code status: DNR per discussion with patient and family PCP: Ruth Dispo: OBSERVATION due to readmission. Discharge planning ordered. Patient seen in collaboration with Dr. Alegre. Please see addendum. History of Present Illness Chief Complaint: Hypoxia, wheezing Primary Care Provider: Manny Miranda MD This is an 83-year-old male with a PMH of chronic respiratory failure on 2 L nasal cannula O2, severe COPD, chronic diastolic heart failure, cor pulmonale, h/o ischemic CVA, lymphedema (L>R), chronic urinary retention with Sullivan in place, CKD 3, HTN and other medical problems listed below who presents from [facility] with hypoxia. Patient was recently admitted to our service from December 28-January 13 was diagnosed with empyema of left pleural space s/p pigtail drainage growing Streptococcus intermedius. Was discharged on 3-4 weeks total of Augmentin with pulmonary follow-up with Dr. Penaloza in 2 weeks. Patient was not seen in follow-up. During admission, aspirin was held due to concern for GI bleed. Patient later had episode of dysphasia with stroke work-up that was negative. Due to concern for TIA, neurology was consulted and patient's aspirin dose was changed to 162 mg daily. However, patient has only been receiving 81 mg daily of aspirin at [facility]. Patient was also evaluated by speech during admission and placed on minced and moist diet. This morning, patient was noted to be hypoxic on his normal 2L NC oxygen. Also noted to be wheezing. Per discussion with [facility] nursing, no fever or reported chest pain. Was sent to ED for further evaluation. Initially found to be hypoxic at 77% and placed on Vapotherm high flow nasal cannula oxygen with improved oxygen saturation to mid 90s. VBG pH 7.33. BNP elevated at 3221. Chest x-ray with pulmonary edema and small pleural effusions as well as progressively worsened bibasilar opacities right greater than left. Patient given neb treatment, 125 mg IV Solu-Medrol and started empirically on Zosyn. Family still noting intermittently slurred speech. No new weakness (has some residual L sided weakness from previous stroke). Denies lightheadedness, visual changes, chest pain, palpitations, cough, nausea, vomiting, abdominal pain, dysuria, diarrhea or constipation. Allergies Allergy/AdvReac Type Severity Reaction Status Date / Time adhesive Allergy Mild RASH Verified 02/07/19 11:13 latex Allergy Mild "RASH" Verified 02/07/19 11:13 Home Medications Home Medications Medication Instructions Recorded Confirmed Type cholecalciferol (vitamin D3) 1,000 unit PO QAM 11/04/17 02/07/19 History [Vitamin D3] finasteride 5 mg PO QAM 11/04/17 02/07/19 History levothyroxine 100 mcg PO QAM 11/04/17 02/07/19 History tamsulosin [Flomax] 0.4 mg PO QAM 11/04/17 02/07/19 History ipratropium-albuterol 3 ml INHALATION QID PRN 12/28/18 02/07/19 History prednisone 10 mg PO QAM 12/28/18 02/07/19 History Lactobacillus acidoph-L.bulgar 4 tab PO QIDM 30 Days #120 tab 01/10/19 02/07/19 Rx [Floranex] aspirin 81 mg PO QAM 02/07/19 02/07/19 History budesonide 0.5 mg NEB BID 02/07/19 02/07/19 History formoterol fumarate [Perforomist] 20 mcg NEB BID 02/07/19 02/07/19 History furosemide [Lasix] 20 mg PO QAM 02/07/19 02/07/19 History metoprolol tartrate 25 mg PO BID 02/07/19 02/07/19 History pantoprazole 40 mg PO BID 02/07/19 02/07/19 History ropinirole 0.5 mg PO HS 02/07/19 02/07/19 History tiotropium bromide [Spiriva with 1 puff INHALATION QAM 02/07/19 02/07/19 History HandiHaler] Past Med/Surg History Medical History Bronchitis H/O FREQUENT BRONCHITIS Cerebrovascular disease (Chronic) Chronic diastolic CHF (congestive heart failure) (Chronic) Chronic respiratory failure Following with pulm [facility], most recent documented COPD exacerbation 10/25/17, treated OP with steroids/ABX CKD (chronic kidney disease), stage III (Chronic) FOLLOWS WITH PCP 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 Most recent hospital admission for exacerbation was 07/17-07/19 @ [facility]. Cor pulmonale Do not resuscitate status Hearing deficit HTN (hypertension) (Chronic) Hypothyroidism (Chronic) Indwelling Sullivan catheter present Lymphedema (Chronic) On home oxygen therapy Osteoarthritis (Chronic) Urinary retention (Chronic) SULLIVAN CATHETER Surgical History History of cataract surgery BILATERAL History of tonsillectomy and adenoidectomy (Chronic) S/P ear surgery (Chronic) Family History Other Hypertension Social History Preferred Language: [place] Leonean Communication Ability: Effective Visual Impairment: No Limitations Agricultural Agent Required: No Beliefs That Will Affect Care: None marital status: Current Living Situation: Spouse Other Information That Helps Us Care for You: No Feels Safe at Home: Yes Safety Concerns: Feels Safe At This Time Smoking Status: Current every day smoker Tobacco Type: cigarettes ; Cigarettes Per Day: 6 ; Second Hand Exposure: Yes ; Hx Alcohol Use: Yes Alcohol type: beer Alcohol Intake Frequency: Rarely Hx Substance Use: No Review of Systems Review of Systems: At least ten systems reviewed and negative except as noted in the HPI. Physical Exam Physical Exam: General Appearance: WD/WN, vitals as above, NAD, lying in bed, appears chronically ill, conversing easily Head: normocephalic, atraumatic Eyes: normal inspection, PERRL, conjunctivae normal, anicteric sclerae ENT: external ear and nose normal, oropharynx normal Neck: trachea midline, no thyromegaly normal visual inspection Respiratory: bibasilar crackles, diffuse wheezing on exam. Normal insp/exp effort, no accessory muscle use, on high flow NC O2 Cardiovascular: tachycardic, regular rhythm, no murmur appreciated, normal peripheral pulses. Vessels: no JVD or carotid bruit Chest: normal inspection of chest Abdomen/GI: normal bowel sounds, soft, nontender, no hepatosplenomegaly Extremities/Musculoskelatal: L>R BLE edema. L with overlying erythema and warmth. No cyanosis or clubbing, chronic L sided weakness at baseline Neurologic: + Dysarthria, PERRL, EOMI, accommodation nl, no face palsy, CN's II-XI intact bilaterally and moves all extremities Psychiatric: A+Ox3, euthymic affect Skin: no rashes, normal color, warm/dry Results & Data Vital Signs (Past 12 Hours) Vital Signs Pulse Pulse Resp BP Pulse Ox 02/07/19 12:35 96 H 25 H 120/82 99 02/07/19 12:30 96 H 20 99 02/07/19 12:00 103 H 22 99 02/07/19 11:34 108 H 26 H 96 02/07/19 11:30 106 H 25 H 98 02/07/19 11:12 108 H 26 H 97 02/07/19 11:11 98 H 24 95 02/07/19 11:00 104 H 23 95 02/07/19 10:57 93 02/07/19 10:31 96 H 18 92 02/07/19 10:20 104 H 26 H 167/106 H 91 02/07/19 10:04 77 L Laboratory Results Short CBC 02/07/19 Range/Units 10:14 WBC 8.97 (4.8-10.8) K/uL Hgb 11.5 L (14.0-18.0) g/dL Hct 35.9 L (42-52) % Plt Count 250 (130-400) K/uL BMP 02/07/19 10:14 Sodium 136 Potassium 4.5 Chloride 101 Carbon Dioxide 29 BUN 23 H Creatinine 1.36 Glucose 114 H Calcium 8.6 Cardiac Enzymes 02/07/19 Range/Units 10:14 CK-MB (CK-2) 4.1 H (0.5-3.6) ng/ml Troponin I 0.018 (0-0.045) ng/ml Liver Function 02/07/19 Range/Units 10:14 Total Bilirubin 0.4 (0.2-1) mg/dl AST 21 (15-37) U/L ALT 16 (12-78) U/L Alkaline Phosphatase 92 (45-117) U/L Albumin 2.8 L (3.4-5.0) gm/dl Urine 02/07/19 Range/Units 12:17 Urine Color Yellow Urine Appearance Clear (Clear) Urine pH 7.0 (4.5-7.5) Ur Specific [place] 1.017 (1.000-1.030) Urine Protein 2+ H (Negative) Urine Glucose (UA) Negative (Negative) Diagnostic Findings Head CT: IMPRESSION: 1. Senescent change in and remote infarct as above. There is no hemorrhage, mass effect, or evidence of acute territorial ischemia by CT criteria. 2. Findings of pansinusitis as above. CXR: IMPRESSION: 1. Pulmonary edema with small pleural effusions. 2. Progressively worsened bibasilar consolidative opacities, right greater than left. 3. Emphysema. Chest CT: IMPRESSION: 1. Focal areas of consolidation within the base of the right lower lobe and left lower lobe. There is also near complete mucoid opacification of the bronchus intermedius and partial opacities of the right lower lobe bronchi. Therefore, this raises the possibility of aspiration pneumonia. 2. Mild interstitial pulmonary edema with small bilateral pleural effusions. 3. Mild emphysema. 4. Additional findings as described above. ECG Rhythm: sinus rhythm Findings: + PVC Supervising Physician Co-Signing Physician Notes Attending Addendum: care coordinated with KELLNE Escobar please refer to her notes for full details, I agree with her notes patient seen and examined, records reviewed by myself as well on exam, patient seen with family at bedside seen resting in bed, on high flow o2 Sleeping but easily awakened, not in distress States breathing is improving since admission Has occasional cough, nonproductive no other symptoms VS noted and reviewed oriented x 2 , not in distress, speaks in sentences with no effort nor accessory muscle use normal rate, regular rhythm, no murmurs Mild rales at the bases, no wheezing non distended, soft, nontender no bipedal edema, erythema, warmth no neuro deficits WBC 8.9 Hg 9.5 Crea 1.3 ASSESSMENT AND PLAN Acute on chronic hypoxic respiratory failure Likely multifactorial, secondary to bilateral pneumonia, COPD exacerbation, possible volume overload Start Zosyn, nebs, Solu-Medrol Lasix IV 40 mg given Wean off high flow oxygen accordingly Pulmonary consulted other diagnoses and plan of care as per KELLEN Escobar's notes Rahul Alegre MD (1) Pneumonia Laterality: unspecified laterality Lung location: unspecified part of lung Pneumonia type: due to unspecified organism Qualified Code(s): J18.9 - Pneumonia, unspecified organism
--- NOTE | 2019-02-07 15:57 | CT Scan Report ---
CT SCAN OF THE BRAIN WITHOUT IV CONTRAST CLINICAL HISTORY: Slurred speech. COMPARISON STUDY: CT of the brain dated 01/11/2019. TECHNIQUE: Unenhanced axial CT scan of the brain is performed from the vertex to the skull base. A do se lowering technique was utilized adhering to the principles of ALARA. CT DOSE: 762.27 mGy.cm FINDINGS: Brain parenchyma: There are age-related involutional changes noting moderate to advanced subcortical and periventricular microangiopathic change. Right MCA territory encephalomalacia is consistent with a remote infarct. Wallerian degeneration is noted in the right aspect of the jamil. There is no hemor rhage, mass effect, or evidence of acute territorial ischemia by CT criteria. Lee-white matter diffe rentiation is preserved. No extra-axial fluid collection is seen. Ventricles, sulci, cisterns: Prominent secondary to involutional change. Intracranial vasculature: There is atherosclerotic calcification of the cavernous carotid and vertebr al arteries. Calvarium: Unremarkable. Sinuses and mastoids: There is moderate mucosal thickening with air-fluid levels in the maxillary ant ra. There is subtotal opacification of the frontal and ethmoid sinuses. Air-fluid levels are also see n in the sphenoid sinuses. There is a left mastoid effusion. The right mastoid air cells are well pne umatized. Orbits: The bony orbits are grossly intact. There are bilateral ocular lens implants. IMPRESSION: 1. Senescent change in and remote infarct as above. There is no hemorrhage, mass effect, or evidence of acute territorial ischemia by CT criteria. 2. Findings of pansinusitis as above. ACT 112: Negative or not required by law. Electronically signed by: Sohan Morgan M.D. 02/07/2019 3:56 PM
--- NOTE | 2019-02-07 16:24 | CT Scan Report ---
CT chest wo con CT DOSE: HISTORY: Shortness of breath. h/o empyema, pna TECHNIQUE: Multiaxial CT images of the chest were performed without contrast. A dose lowering techni que was utilized adhering to the principles of ALARA. COMPARISON: Chest CT 08/06/2018. FINDINGS: No pneumothorax. There is respiratory motion artifact. Mild emphysema. Mild interlobular se ptal thickening. This suggests mild pulmonary edema. Focal area of consolidation within the right low er lobe anteriorly. Near-complete mucoid opacification of the bronchus intermedius and partial opacif ication of the right lower lobe bronchi. This raises the possibility of aspiration pneumonia. Small b ilateral pleural effusions, right greater than left. Additional areas of consolidation within the rig ht lower lobe medially may represent combination of atelectasis and pneumonia. Focal wedge-shaped con solidation within the base of the left lower lobe anteriorly. Old, healed right-sided rib fractures. Deformity within the right humeral head and glenoid likely due to an old injury. Advanced degenerativ e changes within the bilateral shoulders. Multiple compression deformities within the lower thoracic spine. These are also likely old. No mediastinal or hilar lymphadenopathy on this noncontrast study. Normal caliber thoracic aorta. Limited views of the upper abdomen demonstrate a normal liver and sple en. Stable 1.7 cm left adrenal gland nodule. The heart is normal in size. IMPRESSION: 1. Focal areas of consolidation within the base of the right lower lobe and left lower lobe. There is also near complete mucoid opacification of the bronchus intermedius and partial opacities of the rig ht lower lobe bronchi. Therefore, this raises the possibility of aspiration pneumonia. 2. Mild interstitial pulmonary edema with small bilateral pleural effusions. 3. Mild emphysema. 4. Additional findings as described above. ACT 112: Negative or not required by law. Electronically signed by: Hayder Arrington M.D. 02/07/2019 4:23 PM
[2019-02-07] MEDS ORDERED: ACETAMINOPHEN 325 MG TAB PO PRN (16:36)
[2019-02-07] MEDS ORDERED: POLYETHYLENE (MIRALAX) 17 GM PACK PO PRN (16:36)
[2019-02-07] MEDS ORDERED: LACTOBACILLUS ACIDOPHILUS (FLORANEX) TAB PO SCH (17:00)
[2019-02-07] MEDS: PIPERACILLIN/TAZOBACTAM 3.375 GM in DEXTROSE 5% 100 ML IV SCH (19:03)
[2019-02-07] MEDS: FORMOTEROL 20 MCG/2 ML VIAL NEB SCH (19:55)
[2019-02-07] MEDS: BUDESONIDE 0.5 MG/2 ML VIAL (PULMICORT) NEB SCH (19:55)
[2019-02-07] MEDS: ALBUT/IPRATROP 3MG/0.5MG NEB 3 ML VIAL NEB SCH (19:56)
[2019-02-07] MEDS: methylPREDNISolone 40 MG in SYRINGE 0 ML IV SCH (20:22)
[2019-02-07] MEDS: PANTOprazole 40 MG TAB PO SCH (20:23)
[2019-02-07] MEDS: METOPROLOL TARTRATE 25 MG TAB PO SCH (20:23)
[2019-02-07] MEDS ORDERED: ROPINIROLE HCL 5 MG TABLET PO SCH (21:00)
[2019-02-07] MEDS: HEPARIN SOD 5,000 UNIT/0.5 ML VIAL SQ SCH (21:41)
[2019-02-07] MEDS: ROPINIROLE HCL 0.25 MG TABLET PO SCH (21:42)
[2019-02-08] MEDS: PIPERACILLIN/TAZOBACTAM 3.375 GM in DEXTROSE 5% 100 ML IV SCH ×3 (02:39→18:03)
[2019-02-08] MEDS: methylPREDNISolone 40 MG in SYRINGE 0 ML IV SCH ×2 (04:50→11:28)
[2019-02-08] MEDS: HEPARIN SOD 5,000 UNIT/0.5 ML VIAL SQ SCH ×2 (06:15→21:30)
[2019-02-08] MEDS: LEVOTHYROXINE SODIUM 100 MCG TABLET PO SCH (06:15)
[2019-02-08 06:54] LABS: Hematocrit (blood only) 32.9 % (42-52); Hemoglobin 10.6 g/dL (14.0-18.0); Mean Corpuscular Hemoglobin 30.5 pg (25-34); Mean Corpuscular Hgb Conc 32.2 g/dL (32-36); Mean Corpuscular Volume 94.8 fL (80-100); Mean Platelet Volume 10.1 fL (7.4-10.4); Platelet Count 227 K/uL (130-400); RDW Coefficient of Variation 16.4 % (11.5-14.5); RDW Standard Deviation 56.9 fL (36.4-46.3); Red Blood Count 3.47 M/uL (4.7-6.1); White Blood Count 3.68 K/uL (4.8-10.8)
[2019-02-08 07:17] LABS: BUN Creatinine Ratio 18.9 (10-20); Calcium 8.3 mg/dl (8.5-10.1); Creatinine Clr Calc Pharmacy 25.6 ml/min; Est GFR (African American) 42.9; Potassium 4.1 mmol/L (3.5-5.1)
[2019-02-08] MEDS: ALBUT/IPRATROP 3MG/0.5MG NEB 3 ML VIAL NEB SCH ×4 (07:27→19:33)
[2019-02-08] MEDS: BUDESONIDE 0.5 MG/2 ML VIAL (PULMICORT) NEB SCH ×2 (07:27→19:33)
[2019-02-08] MEDS: FORMOTEROL 20 MCG/2 ML VIAL NEB SCH ×2 (07:27→19:32)
[2019-02-08] MEDS: TIOTROPIUM BROMIDE 5 PUFF/90 MCG INH INH SCH (07:51)
--- NOTE | 2019-02-08 08:15 | Electrocardiogram Report ---
Test Reason : Blood Pressure : / mmHG Vent. Rate : 099 BPM Atrial Rate : 099 BPM P-R Int : 166 ms QRS Dur : 068 ms QT Int : 338 ms P-R-T Axes : 073 048 064 degrees QTc Int : 433 ms Poor data quality, interpretation may be adversely affected Sinus rhythm Low voltage QRS Abnormal ECG When compared with ECG of 29-DEC-2018 23:23, Sinus rhythm has replaced Atrial flutter ST no longer depressed in Inferior leads Confirmed by Logan Rodas ([id number]) on 02/07/2019 5:46:20 PM Referred By: Confirmed By:Kumar Rodas
[2019-02-08] MEDS: METOPROLOL TARTRATE 25 MG TAB PO SCH ×2 (08:34→21:30)
[2019-02-08] MEDS: FINASTERIDE 5 MG TAB PO SCH (08:34)
[2019-02-08] MEDS: ASPIRIN 81 MG ECTAB PO SCH (08:35)
[2019-02-08] MEDS: TAMSULOSIN HCL 0.4 MG CAP PO SCH (08:36)
[2019-02-08] MEDS: CHOLECALCIFEROL 1,000 UNITS 25 MCG TAB PO SCH (08:36)
[2019-02-08] MEDS: PANTOprazole 40 MG TAB PO SCH ×2 (08:37→21:31)
[2019-02-08] MEDS: LACTOBACILLUS ACIDOPHILUS (FLORANEX) TAB PO SCH ×4 (09:00→21:28)
--- NOTE | 2019-02-08 11:41 | Fluoroscopy Report ---
MODIFIED BARIUM SWALLOW CLINICAL HISTORY: R/O ASPIRATION COMPARISON STUDY: None. FLUOROSCOPY TIME: 1.7 minutes. TECHNIQUE: A modified barium swallow was performed in conjunction with Speech Pathology. The patient ingested varying consistencies of barium containing material. Video fluoroscopy was performed. FINDINGS: No aspiration was identified within liquids, nectar thick liquids, pudding or crackers with paste. Laryngeal elevation and epiglottic inversion were normal. Moderate esophageal dysmotility was noted IMPRESSION: 1. Intact swallowing mechanism. No tracheal aspiration. 2. Moderate esophageal dysmotility. 3. Full recommendations by speech pathology to follow. ACT 112: Negative or not required by law. Electronically signed by: Emanuel Rivera M.D. 02/08/2019 11:40 AM
--- NOTE | 2019-02-08 11:50 | Hospitalist Progress Note ---
Date of Service February 08, 2019 Assessment & Plan (1) Acute and chronic respiratory failure: Per admitting provider notes: This is an 83-year-old male with a PMH of chronic respiratory failure on 2 L nasal cannula O2, severe COPD, chronic diastolic heart failure, cor pulmonale, h/o ischemic CVA, lymphedema (L>R), chronic urinary retention with Robledo in place, CKD III, HTN and other medical problems listed below who presents from [facility] with acute on chronic respiratory failure. -Found to be hypoxic at 77% on 2 L nasal cannula, placed on Vapotherm high flow nasal cannula with improved oxygen saturation to mid 90s 02/08/2019 Patient weaned off high flow oxygen, now on 3 L of oxygen by nasal cannula Wheezing has resolved Discussed with the cargo operations agent Etiology of acute respiratory failure most likely secondary to volume overload, possible acute on chronic diastolic heart failure We will continue Lasix IV today at 20 mg 1 dose, usually takes 20 mg p.o. Lasix, most likely will need 40 mg with close monitoring of renal function and potassium Will discontinue Solu-Medrol, Zosyn, pneumonia unlikely at this time Speech therapist also points out aspiration (2) COPD, severe: Continue scheduled nebs, continue usual Pulmicort, Perforomist, Spiriva Discussed with cargo operations agent, recommending palliative care consultation (3) Dysarthria: Primary provider notes: Intermittent since last admission- concern for TIA in setting of aspirin being held for GI bleed. 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 There is no hemorrhage, mass effect, or evidence of acute territorial ischemia by CT criteria 02/08/2019 Dysarthria has resolved Evaluated by neurologist, recommend continuing aspirin at this time No other interventions or medication changes recommended (4) Chronic diastolic CHF (congestive heart failure): Management per #1 (5) HTN (hypertension): Continue lopressor (6) Urinary retention: Has chronic Robledo catheter in place that is changed monthly -Continue flomax and finasteride (7) Lymphedema: Per admitting provider notes: Chronic condition, L>R. No longer receiving treatment due to cost -Recently underwent venous doppler (02/01) and arterial doppler (02/04) of LLE that were reportedly negative -Continue to monitor (8) CKD (chronic kidney disease), stage III: At baseline DVT Ppx: SQ heparin Code status: DNR per discussion with patient and family PCP: Ruth Dispo: manager document control consulted Subjective Follow-up, For acute on chronic hypoxic respiratory failure Seen sitting at the wheelchair, family at the bedside On 3 L of nasal cannula, comfortable, pleasant States he feels improved today compared to yesterday Less active shortness of breath, has chronic sputum production, unchanged Denies chest pain, fevers or chills, nausea, abdominal pain Denies any focal neurologic symptoms, slurred speech has resolved Review of Systems Review of Systems: All systems reviewed & are unremarkable except as noted in HPI & below Physical Exam Physical Exam: General- oriented x 3, not in distress, speaks in sentences with no effort or accessory muscle use Eyes- anicteric Neck- no JVD Lungs-mild rales at the bases, no wheezing Heart- normal rate, regular rhythm; no murmurs Abdomen- normal bowel sounds, nondistended, soft, nontender Extremities- no pretibial edema, no calf tenderness Neuro- alert, oriented x 3; no gross focal neurologic deficits Skin- warm & dry Results & Data Vital Signs (Past 12 Hours) Vital Signs Temp Pulse Pulse Pulse Resp BP Pulse Ox 02/08/19 08:00 82 02/08/19 07:47 76 20 129/63 98 02/08/19 07:28 86 22 97 02/08/19 03:00 36.8 C 71 20 90/58 L 91 02/08/19 00:00 36.9 C 91 H 90 20 117/60 95 Laboratory Results Laboratory Results - last 24 hr 02/08/19 02/08/19 02/08/19 06:22 06:22 09:41 WBC 3.68 L D RBC 3.47 L Hgb 10.6 L Hct 32.9 L MCV 94.8 MCH 30.5 MCHC 32.2 RDW Std Deviation 56.9 H RDW Coeff of Connie 16.4 H Plt Count 227 MPV 10.1 Sodium 137 Potassium 4.1 Chloride 100 Carbon Dioxide 31 Anion Gap 6.0 BUN 32 H Creatinine 1.68 H D Est Cr Clr Drug Dosing 25.6 Est GFR ( Amer) 42.9 Est GFR (Non-Af Amer) 37.0 BUN/Creatinine Ratio 18.9 Glucose 160 H Calcium 8.3 L Procalcitonin Nasal Screen MRSA (PCR) Negative 02/08/19 11:47 WBC RBC Hgb Hct MCV MCH MCHC RDW Std Deviation RDW Coeff of Connie Plt Count MPV Sodium Potassium Chloride Carbon Dioxide Anion Gap BUN Creatinine Est Cr Clr Drug Dosing Est GFR ( Amer) Est GFR (Non-Af Amer) BUN/Creatinine Ratio Glucose Calcium Procalcitonin 0.11 Nasal Screen MRSA (PCR)
[2019-02-08] MEDS ORDERED: FUROSEMIDE 20 MG in SYRINGE 0 ML IV ONE (12:15)
--- NOTE | 2019-02-08 12:35 | Pulmonary Consultation ---
Date of Consultation February 08, 2019 Assessment & Plan (1) Acute and chronic respiratory failure: This is an 83-year-old gentleman with numerous chronic debilitating issues including decubitus ulcers, diastolic heart failure, severe COPD, chronic hypoxemic respiratory failure, CKD and hypoalbuminemia due to all of the above who is now presenting again in respiratory failure. I had a long discussion with the family and the hospitalist in the room present. We discussed goals of care and focusing on comfort as opposed to aggressive measures. The family reiterated that he is a DO NOT RESUSCITATE and would prefer only conservative measures should further issues arise. I am recommending palliative care consultation and focusing on comfort and palliation of symptoms at this time. He does have bilateral effusions. The effusion on the left was tapped in January and demonstrated evidence of an empyema. He is not febrile and not overly fatigued and thus I am not inclined to do a thoracentesis at this time. He does have a chronic right-sided effusion that is likely a sequelae of heart failure, CKD and hypoalbuminemic state. At this point I am not inclined to do a thoracentesis unless there is infectious symptoms or evidence of increased pleural effusion. Recommend cautious diuresis as his creatinine is going up. He did have a very elevated proBNP. However, on clinical exam he does appear fairly euvolemic if not a bit on the drier and grinder tender side. I have ordered for procalcitonin. He is currently on Zosyn. I would recommend discontinuing the steroids at this point as he does not sound bronchospastic. And the initial wheezing that was heard may have been wheezing related to pulmonary edema. I will continue to follow from the periphery. I am available if needed. Please do not hesitate to call with questions. Respiratory failure complication: hypoxia Qualified Code(s): J96.21 - Acute and chronic respiratory failure with hypoxia (2) Acute diastolic heart failure: (3) Chronic indwelling Sullivan catheter: (4) Bilateral pleural effusion: (5) Moderate protein-energy malnutrition: (6) Decubitus ulcer of buttock, stage 2: Laterality: unspecified laterality Qualified Code(s): L89.302 - Pressure ulcer of unspecified buttock, stage 2 History of Present Illness Reason for Consultation: Hypoxemia Attending Physician: Rahul Alegre MD History of Present Illness This is an 83-year-old male with a past medical history of chronic respiratory failure on 2 L of oxygen continuously, COPD, chronic diastolic heart failure, secondary pulmonary retention, CKD stage III and a recent empyema who presents to the hospital due to increasing dyspnea. Patient's family is available at bedside. Patient noted that yesterday morning he felt more short of breath and was found to be 77% on 2 L of oxygen. He lives at [facility] since being discharged from the hospital earlier last month for an empyema. He denies any chest pain currently. He denies any fevers, chills or night sweats. He is saturating at 94% on 3 L of nasal cannula currently. Per the family he still continues to smoke periodically. He has a very long smoking history and has smoked since childhood. He served in the [employer] previously as well. During this admission he underwent a CT of his chest which demonstrated bilateral pleural effusions (right greater than left). He has also increased interstitial markings consistent with pulmonary edema. There is also question of some mucus plugging in the right bronchus intermedius. He underwent a video fluoroscopy due to concerns of aspiration which was unremarkable. He is currently on steroids and broad-spectrum antibiotics. His pro BNP was elevated to 3221. He was given 40 mg of IV Lasix yesterday. Today he notes that he feels a bit better. The family tells me that he has been in the hospital approximately 3 times in the last year related to breathing issues. He does walk around at home with a Rollator. His walking is very limited due to weakness and dyspnea. He is chronically on oxygen. He is currently at [facility] undergoing rehab therapy. Allergies Allergy/AdvReac Type Severity Reaction Status Date / Time adhesive Allergy Mild RASH Verified 02/07/19 11:13 latex Allergy Mild "RASH" Verified 02/07/19 11:13 Home Medications Home Medications Medication Instructions Recorded Confirmed Type cholecalciferol (vitamin D3) 1,000 unit PO QAM 11/04/17 02/07/19 History [Vitamin D3] finasteride 5 mg PO QAM 11/04/17 02/07/19 History levothyroxine 100 mcg PO QAM 11/04/17 02/07/19 History tamsulosin [Flomax] 0.4 mg PO QAM 11/04/17 02/07/19 History ipratropium-albuterol 3 ml INHALATION QID PRN 12/28/18 02/07/19 History prednisone 10 mg PO QAM 12/28/18 02/07/19 History Lactobacillus acidoph-L.bulgar 4 tab PO QIDM 30 Days #120 tab 01/10/19 02/07/19 Rx [Floranex] aspirin 81 mg PO QAM 02/07/19 02/07/19 History budesonide 0.5 mg NEB BID 02/07/19 02/07/19 History formoterol fumarate [Perforomist] 20 mcg NEB BID 02/07/19 02/07/19 History furosemide [Lasix] 20 mg PO QAM 02/07/19 02/07/19 History metoprolol tartrate 25 mg PO BID 02/07/19 02/07/19 History pantoprazole 40 mg PO BID 02/07/19 02/07/19 History ropinirole 0.5 mg PO HS 02/07/19 02/07/19 History tiotropium bromide [Spiriva with 1 puff INHALATION QAM 02/07/19 02/07/19 History HandiHaler] Patient History Medical History Bronchitis H/O FREQUENT BRONCHITIS Cerebrovascular disease (Chronic) Chronic diastolic CHF (congestive heart failure) (Chronic) Chronic respiratory failure Following with pulm [facility], most recent documented COPD exacerbation 10/25/17, treated OP with steroids/ABX CKD (chronic kidney disease), stage III (Chronic) FOLLOWS WITH PCP 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 Most recent hospital admission for exacerbation was 07/17-07/[address] [facility]. Cor pulmonale Do not resuscitate status Hearing deficit HTN (hypertension) (Chronic) Hypothyroidism (Chronic) Indwelling Sullivan catheter present Lymphedema (Chronic) On home oxygen therapy Osteoarthritis (Chronic) Urinary retention (Chronic) SULLIVAN CATHETER Surgical History History of cataract surgery BILATERAL History of tonsillectomy and adenoidectomy (Chronic) S/P ear surgery (Chronic) Family History Other Hypertension Social History Preferred Language: Cypriot Communication Ability: Effective Visual Impairment: No Limitations Online Advertising Analyst Required: No Beliefs That Will Affect Care: None marital status: Current Living Situation: Spouse Other Information That Helps Us Care for You: No Feels Safe at Home: Yes Safety Concerns: Feels Safe At This Time Smoking Status: Current every day smoker Tobacco Type: cigarettes ; Cigarettes Per Day: 6 ; Second Hand Exposure: Yes ; Hx Alcohol Use: Yes Alcohol type: beer Alcohol Intake Frequency: Rarely Hx Substance Use: No Review of Systems Review of Systems: All systems reviewed & are unremarkable except as noted in HPI & below Physical Exam Constitutional: Elderly and frail-appearing male sitting in a wheelchair. He is surrounded by his family. He does not appear to be in any distress. Eyes: PERRL, conjunctivae normal, anicteric sclerae ENMT: Ears: + hearing impairment Mouth: no oropharynx abnormality Neck: normal visual inspection Respiratory: Mild crackles bilaterally in the lower lobes. Cardiovascular: Difficult to auscultate heart sounds as they sound quite distant. Irregular rhythm. Gastrointestinal (Abdomen): normal bowel sounds, soft, nontender, no hepatosplenomegaly Musculoskeletal: No clubbing or cyanosis. Diffusely weak extremities. Skin: no rashes, warm and dry Neurologic: No focal deficits Psychiatric: A+Ox3, euthymic affect Results & Data Vital Signs (Past 12 Hours) Vital Signs Temp Pulse Pulse Pulse Resp BP Pulse Ox 02/08/19 08:00 82 02/08/19 07:47 76 20 129/63 98 02/08/19 07:28 86 22 97 02/08/19 03:00 98.2 F 71 20 90/58 L 91 PG Care Time/CCT Total # of Minutes Spent Total Time Spent with Patient: Total time spent is greater than 50% in coordination of care (as documented) at patient's floor/unit and/or counseling patient:
[2019-02-08] MEDS ORDERED: FUROSEMIDE 20 MG in SYRINGE 0 ML IV SCH (13:15)
--- NOTE | 2019-02-08 13:49 | Neurology Consultation ---
Date of Consultation February 08, 2019 Assessment & Plan (1) Dysarthria: 1. increase aspirin from 81 mg to 162 mg 2. sporadic events of dysarthria of speech- may increase with sickness or fatigue 3. no further work up needed at this time 4. will sign off for now will be available if needed (2) Acute and chronic respiratory failure: Supervising Physician Co-Signing Physician Notes Patient was seen and examined. Family at bedside. Family noted daily intermittent dysarthria. 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 He was admitted for COPD exacerbation / pneumonia. On examine he appears chronically ill and thin appearing. Voice is raspy, although clear. Comprehension is intact. Subtle left facial droop. Tongue midline. No tongue atrophy or fasciculations. Multiple bruises on arms. No obvious FDI atrophy. I do NOT believe this patient intermittent dysarthria is secondary to TIA or stroke. Likely related to his chronic COPD or possible decompensation from prior Right MCA infarct. Recently admitted with negative MRI brain for similar symptoms. Recommend to continue daily ASA for secondary stroke prevention. Please call with any further questions or concerns. History of Present Illness Reason for Consultation: dysphasia Requesting Physician: Rahul Alegre MD Attending Physician: Rahul Alegre MD History of Present Illness Cristhian is a 83 year old male with PMH- chronic respiratory failure on 2 L nasal cannula O2, severe COPD, chronic diastolic heart failure, cor pulmonale, h/o ischemic CVA, lymphedema (L>R), chronic urinary retention with Sullivan in place, CKD 3, HTN. He presented from [facility] with hypoxia to [facility] ED. He was admitted on 12/28-01/13/2019 for empyema of left pleural space s/p pigtail drainage growing Streptococcus intermedius. He was discharged on Augmentin with pulmonary follow-up with Dr. Penaloza in 2 weeks but did was not seen. During that admission he had an had episode of dysphasia with stroke work-up that was negative. But at that time it was recommended his aspirin should be increase from 81 mg to 162 mg daily but it was never increased. He is on a minced and moist diet. At [facility] he was hypoxic on his normal 2L [place] oxygen, wheezing,In the ED he was hypoxic at 77% and placed on Vapotherm high flow nasal cannula oxygen with improved oxygen saturation to mid 90s. Family states he contines to have intermittent slurred speech. he does have some L sided weakness from previous stroke. Denies CP, abdominal pain, difficulty swallowing, new bowel or bladder symptoms, N, V, vision changes, +SOB, periodic dysarthria. Allergies Allergy/AdvReac Type Severity Reaction Status Date / Time adhesive Allergy Mild RASH Verified 02/07/19 11:13 latex Allergy Mild "RASH" Verified 02/07/19 11:13 Home Medications Home Medications Medication Instructions Recorded Confirmed Type cholecalciferol (vitamin D3) 1,000 unit PO QAM 11/04/17 02/07/19 History [Vitamin D3] finasteride 5 mg PO QAM 11/04/17 02/07/19 History levothyroxine 100 mcg PO QAM 11/04/17 02/07/19 History tamsulosin [Flomax] 0.4 mg PO QAM 11/04/17 02/07/19 History ipratropium-albuterol 3 ml INHALATION QID PRN 12/28/18 02/07/19 History prednisone 10 mg PO QAM 12/28/18 02/07/19 History Lactobacillus acidoph-L.bulgar 4 tab PO QIDM 30 Days #120 tab 01/10/19 02/07/19 Rx [Floranex] aspirin 81 mg PO QAM 02/07/19 02/07/19 History budesonide 0.5 mg NEB BID 02/07/19 02/07/19 History formoterol fumarate [Perforomist] 20 mcg NEB BID 02/07/19 02/07/19 History furosemide [Lasix] 20 mg PO QAM 02/07/19 02/07/19 History metoprolol tartrate 25 mg PO BID 02/07/19 02/07/19 History pantoprazole 40 mg PO BID 02/07/19 02/07/19 History ropinirole 0.5 mg PO HS 02/07/19 02/07/19 History tiotropium bromide [Spiriva with 1 puff INHALATION QAM 02/07/19 02/07/19 History HandiHaler] Patient History Medical History (Updated 02/08/19 @ 13:48 by Rosanne Milton PA-C) Acute diastolic heart failure Bilateral pleural effusion Bronchitis H/O FREQUENT BRONCHITIS Cerebrovascular disease (Chronic) Chronic diastolic CHF (congestive heart failure) (Chronic) Chronic respiratory failure Following with pulm [facility], most recent documented COPD exacerbation 10/25/17, treated OP with steroids/ABX CKD (chronic kidney disease), stage III (Chronic) FOLLOWS WITH PCP 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 Most recent hospital admission for exacerbation was 07/17-07/19 @ [facility]. Cor pulmonale Do not resuscitate status Hearing deficit HTN (hypertension) (Chronic) Hypothyroidism (Chronic) Indwelling Sullivan catheter present Lymphedema (Chronic) Moderate protein-energy malnutrition On home oxygen therapy Osteoarthritis (Chronic) TIA (transient ischemic attack) Urinary retention (Chronic) SULLIVAN CATHETER Surgical History History of cataract surgery BILATERAL History of tonsillectomy and adenoidectomy (Chronic) S/P ear surgery (Chronic) Family History Other Hypertension Social History Preferred Language: Citizen Of [place] Communication Ability: Effective Visual Impairment: No Limitations Junior Project Coordinator Required: No Beliefs That Will Affect Care: None marital status: Current Living Situation: Spouse Other Information That Helps Us Care for You: No Feels Safe at Home: Yes Safety Concerns: Feels Safe At This Time Smoking Status: Current every day smoker Tobacco Type: cigarettes ; Cigarettes Per Day: 6 ; Second Hand Exposure: Yes ; Hx Alcohol Use: Yes Alcohol type: beer Alcohol Intake Frequency: Rarely Hx Substance Use: No Physical Exam Physical Exam: Physical Exam: Constitutional: appearance very thin frail Ears, Nose, Mouth and Throat: mucous membranes moist, no injection and skin normal, eyes normal Cardiovascular: normal S-1 and S-2 and regular rate and rhythm Respiratory: course breath sound, wheezing Musculoskeletal: no peripheral edema and good distal pulses Skin: no stigmata of neurocutaneous disease noted and normal and intact Eyes: extraocular muscles intact (EOMI) and pupils equal, round and reactive to light (PERRL) NEUROLOGIC EXAMINATION: Mental status: Alert and interactive Oriented [facility], 2019, can say no ifs ands buts Oriented to person Speech slight slurring of words Cranial Nerves slight flattening nasolabial fold left Reflexes: Deep tendon reflexes were symmetrical and graded 2/5. down going toes Sensory: to light or cool touch Coordination: finger to nose Gait/Stance: Posture sitting in wheelchair with legs crossed Motor: Negative for pronator drift of out stretched arms with eyes closed. Strength: biceps triceps hand electrotyper 5/5 bilaterally, hip flex R-5/5 L4+/5 Results & Data Vital Signs (Past 12 Hours) Vital Signs Temp Pulse Pulse Pulse Resp BP Pulse Ox 02/08/19 12:00 36.8 C 87 18 128/73 94 02/08/19 08:00 82 02/08/19 07:47 76 20 129/63 98 02/08/19 07:28 86 22 97 02/08/19 03:00 36.8 C 71 20 90/58 L 91 Laboratory Results Abnormal lab results 02/08/19 02/08/19 Range/Units 06:22 06:22 WBC 3.68 L D (4.8-10.8) K/uL RBC 3.47 L (4.7-6.1) M/uL Hgb 10.6 L (14.0-18.0) g/dL Hct 32.9 L (42-52) % RDW Std Deviation 56.9 H (36.4-46.3) fL RDW Coeff of Connie 16.4 H (11.5-14.5) % BUN 32 H (7-18) mg/dl Creatinine 1.68 H D (0.6-1.4) mg/dl Glucose 160 H (70-99) mg/dl Calcium 8.3 L (8.5-10.1) mg/dl Diagnostic Findings swallowing study-Intact swallowing mechanism. No tracheal aspiration. Moderate esophageal dysmotility. CT head- Senescent change in and remote infarct as above. There is no hemorrhage, mass effect, or evidence of acute territorial ischemia by CT criteria. Findings of pansinusitis as above. CT chest-Focal areas of consolidation within the base of the right lower lobe and left lower lobe. There is also near complete mucoid opacification of the bronchus intermedius and partial opacities of the right lower lobe bronchi. Therefore, this raises the possibility of aspiration pneumonia. Mild interstitial pulmonary edema with small bilateral pleural effusions. Mild emphysema. CXR- ulmonary edema with small pleural effusions. Progressively worsened bibasilar consolidative opacities, right greater than left. Emphysema. (1) Acute and chronic respiratory failure Respiratory failure complication: hypoxia Qualified Code(s): J96.21 - Acute and chronic respiratory failure with hypoxia
[2019-02-08] MEDS: ROPINIROLE HCL 0.25 MG TABLET PO SCH (21:31)
[2019-02-09] MEDS: LEVOTHYROXINE SODIUM 100 MCG TABLET PO SCH (06:30)
[2019-02-09 06:35] LABS: Hematocrit (blood only) 32.6 % (42-52); Hemoglobin 10.7 g/dL (14.0-18.0); Mean Corpuscular Hemoglobin 30.8 pg (25-34); Mean Corpuscular Hgb Conc 32.8 g/dL (32-36); Mean Corpuscular Volume 93.9 fL (80-100); Mean Platelet Volume 9.6 fL (7.4-10.4); Platelet Count 236 K/uL (130-400); RDW Coefficient of Variation 16.2 % (11.5-14.5); RDW Standard Deviation 56.2 fL (36.4-46.3); Red Blood Count 3.47 M/uL (4.7-6.1); White Blood Count 8.35 K/uL (4.8-10.8)
[2019-02-09 07:09] LABS: BUN Creatinine Ratio 23.8 (10-20); Calcium 8.2 mg/dl (8.5-10.1); Creatinine Clr Calc Pharmacy 23.4 ml/min; Est GFR (African American) 38.7; Est GFR (Non-African American) 33.4; Potassium 3.7 mmol/L (3.5-5.1)
[2019-02-09] MEDS: FORMOTEROL 20 MCG/2 ML VIAL NEB SCH ×2 (07:25→19:04)
[2019-02-09] MEDS: BUDESONIDE 0.5 MG/2 ML VIAL (PULMICORT) NEB SCH ×2 (07:26→19:04)
[2019-02-09] MEDS: ALBUT/IPRATROP 3MG/0.5MG NEB 3 ML VIAL NEB SCH ×4 (07:26→19:04)
[2019-02-09] MEDS: LACTOBACILLUS ACIDOPHILUS (FLORANEX) TAB PO SCH ×4 (09:16→21:42)
[2019-02-09] MEDS: HEPARIN SOD 5,000 UNIT/0.5 ML VIAL SQ SCH ×2 (09:17→21:44)
[2019-02-09] MEDS: PANTOprazole 40 MG TAB PO SCH ×2 (09:17→21:42)
[2019-02-09] MEDS: ASPIRIN 81 MG ECTAB PO SCH (09:17)
[2019-02-09] MEDS: TAMSULOSIN HCL 0.4 MG CAP PO SCH (09:17)
[2019-02-09] MEDS: METOPROLOL TARTRATE 25 MG TAB PO SCH ×2 (09:18→21:40)
[2019-02-09] MEDS: TIOTROPIUM BROMIDE 5 PUFF/90 MCG INH INH SCH (09:18)
[2019-02-09] MEDS: FINASTERIDE 5 MG TAB PO SCH (09:18)
[2019-02-09] MEDS: CHOLECALCIFEROL 1,000 UNITS 25 MCG TAB PO SCH (09:20)
[2019-02-09] MEDS ORDERED: FUROSEMIDE 40 MG in SYRINGE 0 ML IV ONE (13:00)
--- NOTE | 2019-02-09 17:31 | Hospitalist Progress Note ---
Date of Service February 09, 2019 Assessment & Plan (1) Acute and chronic respiratory failure: Per admitting provider notes: This is an 83-year-old male with a PMH of chronic respiratory failure on 2 L nasal cannula O2, severe COPD, chronic diastolic heart failure, cor pulmonale, h/o ischemic CVA, lymphedema (L>R), chronic urinary retention with Robledo in place, CKD III, HTN and other medical problems listed below who presents from [facility] with acute on chronic respiratory failure. -Found to be hypoxic at 77% on 2 L nasal cannula, placed on Vapotherm high flow nasal cannula with improved oxygen saturation to mid 90s 02/08/2019 Patient weaned off high flow oxygen, now on 3 L of oxygen by nasal cannula Wheezing has resolved Discussed with the ice cream freezer helper Etiology of acute respiratory failure most likely secondary to volume overload, possible acute on chronic diastolic heart failure We will continue Lasix IV today at 20 mg 1 dose, usually takes 20 mg p.o. Lasix, most likely will need 40 mg with close monitoring of renal function and potassium Will discontinue Solu-Medrol, Zosyn, pneumonia unlikely at this time Speech therapist also points out aspiration 02/09/2019 Positive crackles again today Lasix 40 mg IV ordered, monitor creatinine closely Continue nebs (2) COPD, severe: Continue scheduled nebs, continue usual Pulmicort, Perforomist, Spiriva Discussed with ice cream freezer helper, recommending palliative care consultation, pallia tive care consulted (3) Dysarthria: Primary provider notes: Intermittent since last admission- concern for TIA in setting of aspirin being held for GI bleed. 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 There is no hemorrhage, mass effect, or evidence of acute territorial ischemia by CT criteria 02/08/2019 Dysarthria has resolved Evaluated by neurologist, recommend continuing aspirin at this time No other interventions or medication changes recommended (4) Chronic diastolic CHF (congestive heart failure): Management per #1 (5) HTN (hypertension): Continue lopressor (6) Urinary retention: Has chronic Robledo catheter in place that is changed monthly -Continue flomax and finasteride (7) Lymphedema: Per admitting provider notes: Chronic condition, L>R. No longer receiving treatment due to cost -Recently underwent venous doppler (02/01) and arterial doppler (02/04) of LLE that were reportedly negative Possible cellulitis of the left lower leg: Start cephalexin (8) CKD (chronic kidney disease), stage III: Baseline creatinine 1.6-1.8 Monitor on Lasix DVT Ppx: SQ heparin Code status: DNR per discussion with patient and family PCP: [place] Dispo: hourly shift manager consulted Subjective Follow-up for acute on chronic respiratory failure, pleural effusion Seen sitting up in bed, not in distress, 2 L of nasal cannula States he feels some shortness of breath today No increased cough or sputum No Chest pain Review of Systems Review of Systems: All systems reviewed & are unremarkable except as noted in HPI & below Physical Exam Physical Exam: General- oriented x 3, not in distress, speaks in sentences with no effort or accessory muscle use Eyes- anicteric Neck- no JVD Lungs-rales bilaterally, no wheezing, Heart- normal rate, regular rhythm; no murmurs Abdomen- normal bowel sounds, nondistended, soft, nontender Extremities-positive bipedal edema, positive erythema, warmth on the left lower leg, no calf tenderness Neuro- alert, oriented x 3; no gross focal neurologic deficits Skin- warm & dry Results & Data Vital Signs (Past 12 Hours) Vital Signs Temp Pulse Pulse Resp BP Pulse Ox 02/09/19 15:28 104 H 20 95 02/09/19 15:27 36.5 C 74 18 123/68 96 02/09/19 12:18 36.4 C L 79 20 149/63 H 95 02/09/19 10:46 71 18 95 02/09/19 08:00 78 02/09/19 07:28 75 20 96 02/09/19 07:00 36.4 C L 76 26 H 154/73 H 96 Laboratory Results Laboratory Results - last 24 hr 02/09/19 02/09/19 06:03 06:03 WBC 8.35 RBC 3.47 L Hgb 10.7 L Hct 32.6 L MCV 93.9 MCH 30.8 MCHC 32.8 RDW Std Deviation 56.2 H RDW Coeff of Connie 16.2 H Plt Count 236 MPV 9.6 Sodium 135 L Potassium 3.7 Chloride 96 L Carbon Dioxide 32 Anion Gap 7.0 BUN 44 H Creatinine 1.83 H Est Cr Clr Drug Dosing 23.4 Est GFR ( Amer) 38.7 Est GFR (Non-Af Amer) 33.4 BUN/Creatinine Ratio 23.8 H Glucose 98 Calcium 8.2 L (1) Acute and chronic respiratory failure Respiratory failure complication: hypoxia Qualified Code(s): J96.21 - Acute a nd chronic respiratory failure with hypoxia
[2019-02-09] MEDS ORDERED: cephALEXin 500 MG CAP PO SCH (21:00)
[2019-02-09] MEDS: cephALEXin 250 MG CAP PO SCH (21:39)
[2019-02-09] MEDS: ROPINIROLE HCL 0.25 MG TABLET PO SCH (21:42)
[2019-02-10] MEDS: cephALEXin 250 MG CAP PO SCH ×3 (03:27→17:34)
[2019-02-10] MEDS: LEVOTHYROXINE SODIUM 100 MCG TABLET PO SCH (05:25)
[2019-02-10] MEDS: FORMOTEROL 20 MCG/2 ML VIAL NEB SCH ×2 (06:02→18:39)
[2019-02-10] MEDS: ALBUT/IPRATROP 3MG/0.5MG NEB 3 ML VIAL NEB SCH ×4 (06:02→18:39)
[2019-02-10] MEDS: BUDESONIDE 0.5 MG/2 ML VIAL (PULMICORT) NEB SCH ×2 (06:02→18:39)
[2019-02-10] MEDS: LACTOBACILLUS ACIDOPHILUS (FLORANEX) TAB PO SCH ×4 (09:06→20:07)
[2019-02-10] MEDS: FINASTERIDE 5 MG TAB PO SCH (09:07)
[2019-02-10] MEDS: CHOLECALCIFEROL 1,000 UNITS 25 MCG TAB PO SCH (09:07)
[2019-02-10] MEDS: TAMSULOSIN HCL 0.4 MG CAP PO SCH (09:07)
[2019-02-10] MEDS: ASPIRIN 81 MG ECTAB PO SCH (09:08)
[2019-02-10] MEDS: HEPARIN SOD 5,000 UNIT/0.5 ML VIAL SQ SCH ×2 (09:08→20:07)
[2019-02-10] MEDS: TIOTROPIUM BROMIDE 5 PUFF/90 MCG INH INH SCH (09:08)
[2019-02-10] MEDS: METOPROLOL TARTRATE 25 MG TAB PO SCH ×2 (09:08→20:06)
[2019-02-10] MEDS: PANTOprazole 40 MG TAB PO SCH ×2 (09:08→20:06)
[2019-02-10 09:35] LABS: BUN Creatinine Ratio 21.3 (10-20); Calcium 8.4 mg/dl (8.5-10.1); Creatinine Clr Calc Pharmacy 28.4 ml/min; Est GFR (African American) 48.8; Est GFR (Non-African American) 42.1
--- NOTE | 2019-02-10 11:29 | XRay Report ---
XR chest 1V portable CLINICAL HISTORY: Congestive heart failure. COMPARISON STUDY: Chest radiograph and chest CT February 07, 2019. FINDINGS: No pneumothorax. Small to moderate right and small left pleural effusions persist. Cardiome diastinal silhouette is stable. Mild pulmonary edema has slightly improved. IMPRESSION: 1. Persistent, but slightly improved, pulmonary edema. 2. No significant change in small to moderate right and small left pleural effusions with associated bibasilar opacities. ACT 112: Negative or not required by law. Electronically signed by: Emanuel Rivera M.D. 02/10/2019 11:27 AM
[2019-02-10] MEDS ORDERED: FUROSEMIDE 40 MG in SYRINGE 0 ML IV ONE (11:30)
[2019-02-10] MEDS ORDERED: FUROSEMIDE 20 MG in SYRINGE 0 ML IV ONE (18:00)
--- NOTE | 2019-02-10 19:01 | Hospitalist Progress Note ---
Date of Service February 10, 2019 Assessment & Plan (1) Acute and chronic respiratory failure: Per admitting provider notes: This is an 83-year-old male with a PMH of chronic respiratory failure on 2 L nasal cannula O2, severe COPD, chronic diastolic heart failure, cor pulmonale, h/o ischemic CVA, lymphedema (L>R), chronic urinary retention with Robledo in place, CKD III, HTN and other medical problems listed below who presents from [facility] with acute on chronic respiratory failure. -Found to be hypoxic at 77% on 2 L nasal cannula, placed on Vapotherm high flow nasal cannula with improved oxygen saturation to mid 90s 02/08/2019 Patient weaned off high flow oxygen, now on 3 L of oxygen by nasal cannula Wheezing has resolved Discussed with the ostrich farm worker Etiology of acute respiratory failure most likely secondary to volume overload, possible acute on chronic diastolic heart failure We will continue Lasix IV today at 20 mg 1 dose, usually takes 20 mg p.o. Lasix, most likely will need 40 mg with close monitoring of renal function and potassium Will discontinue Solu-Medrol, Zosyn, pneumonia unlikely at this time Speech therapist also points out aspiration 02/09/2019 Positive crackles again today Lasix 40 mg IV ordered, monitor creatinine closely Continue nebs 02/10/2019 Creatinine stable, still has wheezing, repeat chest x-ray showing persistent pleural effusion pulmonary edema Lasix 40 mg IV in a.m., 20 mg IV at p.m. Monitor creatinine We will monitor closely and treat unit (2) COPD, severe: Continue scheduled nebs, continue usual Pulmicort, Perforomist, Spiriva Discussed with ostrich farm worker, recommending palliative care consultation, palliative care consulted (3) Dysarthria: Primary provider notes: Intermittent since last admission- concern for TIA in setting of aspirin being held for GI bleed. 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 There is no hemorrhage, mass effect, or evidence of acute territorial ischemia by CT criteria Dysarthria has resolved Evaluated by neurologist, recommend continuing aspirin at this time No other interventions or medication changes recommended (4) Chronic diastolic CHF (congestive heart failure): Management per #1 (5) HTN (hypertension): Continue lopressor (6) Urinary retention: Has chronic Robledo catheter in place that is changed monthly -Continue flomax and finasteride (7) Lymphedema: Possible left lower leg cellulitis Per admitting provider notes: Chronic condition, L>R. No longer receiving treatment due to cost -Recently underwent venous doppler (02/01) and arterial doppler (02/04) of LLE that were reportedly negative Possible cellulitis of the left lower leg: Cephalexin started Improving, continue (8) CKD (chronic kidney disease), stage III: Baseline creatinine 1.6-1.8 Monitor on Lasix DVT Ppx: SQ heparin Code status: DNR per discussion with patient and family PCP: Ruth Dispo: school lunch manager consulted Subjective Follow-up for acute on chronic respiratory failure Seen resting in bed, comfortable, states breathing is improved compared to yesterday No chest pain, no change with cough and sputum production No leg pain No other symptoms Review of Systems Review of Systems: All systems reviewed & are unremarkable except as noted in HPI & below Physical Exam Physical Exam: General- oriented x 3, not in distress, speaks in sentences with no effort or accessory muscle use on nasal cannula Eyes- anicteric Neck- no JVD Lungs-mild wheezing crackles bilaterally Heart- normal rate, regular rhythm; no murmurs Abdomen- normal bowel sounds, nondistended, soft, nontender Extremities- no pretibial edema, no calf tenderness Left lower leg: Less edema, less erythema less warmth Neuro- alert, oriented x 3; no gross focal neurologic deficits Skin- warm & dry Results & Data Vital Signs (Past 12 Hours) Vital Signs Temp Pulse Pulse Resp BP Pulse Ox 02/10/19 18:41 78 16 94 02/10/19 14:14 74 18 96 02/10/19 11:39 36.9 C 73 24 164/86 H 93 02/10/19 11:12 79 19 95 02/10/19 08:00 74 02/10/19 07:00 36.8 C 89 24 168/86 H 95 Laboratory Results Laboratory Results - last 24 hr 02/10/19 08:56 Sodium 137 Potassium 4.0 Chloride 98 Carbon Dioxide 35 H Anion Gap 3.0 BUN 32 H Creatinine 1.51 H D Est Cr Clr Drug Dosing 28.4 Est GFR ( Amer) 48.8 Est GFR (Non-Af Amer) 42.1 BUN/Creatinine Ratio 21.3 H Glucose 98 Calcium 8.4 L (1) Acute and chronic respiratory failure Respiratory failure complication: hypoxia Qualified Code(s): J96.21 - Acute and chronic respiratory failure with hypoxia
[2019-02-10] MEDS: ROPINIROLE HCL 0.25 MG TABLET PO SCH (20:06)
[2019-02-11] MEDS: cephALEXin 250 MG CAP PO SCH ×3 (01:52→17:20)
[2019-02-11] MEDS: LEVOTHYROXINE SODIUM 100 MCG TABLET PO SCH (05:16)
[2019-02-11 07:05] LABS: Hematocrit (blood only) 38.7 % (42-52); Hemoglobin 12.5 g/dL (14.0-18.0); Mean Corpuscular Hemoglobin 30.8 pg (25-34); Mean Corpuscular Hgb Conc 32.3 g/dL (32-36); Mean Corpuscular Volume 95.3 fL (80-100); Mean Platelet Volume 9.5 fL (7.4-10.4); Platelet Count 230 K/uL (130-400); RDW Coefficient of Variation 15.8 % (11.5-14.5); Red Blood Count 4.06 M/uL (4.7-6.1); White Blood Count 7.27 K/uL (4.8-10.8)
[2019-02-11] MEDS: FORMOTEROL 20 MCG/2 ML VIAL NEB SCH ×2 (07:08→19:10)
[2019-02-11] MEDS: BUDESONIDE 0.5 MG/2 ML VIAL (PULMICORT) NEB SCH ×2 (07:08→19:10)
[2019-02-11] MEDS: ALBUT/IPRATROP 3MG/0.5MG NEB 3 ML VIAL NEB SCH ×4 (07:30→19:07)
[2019-02-11] MEDS: TAMSULOSIN HCL 0.4 MG CAP PO SCH (09:44)
[2019-02-11] MEDS: ASPIRIN 81 MG ECTAB PO SCH (09:44)
[2019-02-11] MEDS: LACTOBACILLUS ACIDOPHILUS (FLORANEX) TAB PO SCH ×4 (09:45→20:11)
[2019-02-11] MEDS: CHOLECALCIFEROL 1,000 UNITS 25 MCG TAB PO SCH (09:46)
[2019-02-11] MEDS: PANTOprazole 40 MG TAB PO SCH ×2 (09:46→20:10)
[2019-02-11] MEDS: METOPROLOL TARTRATE 25 MG TAB PO SCH ×2 (09:46→20:10)
[2019-02-11] MEDS: TIOTROPIUM BROMIDE 5 PUFF/90 MCG INH INH SCH (09:46)
[2019-02-11] MEDS: HEPARIN SOD 5,000 UNIT/0.5 ML VIAL SQ SCH ×2 (09:46→20:11)
[2019-02-11] MEDS: FINASTERIDE 5 MG TAB PO SCH (09:47)
--- NOTE | 2019-02-11 10:14 | Palliative Care Consultation ---
Date of Consultation February 11, 2019 Assessment & Plan (1) Goals of care, counseling/discussion: This is an 83-year-old elderly frail male who presented to the [facility] from [facility] with increased SOB and dysarthia. He was diagnosed with a COPD exacerbation and possible aspiration pneumonia. He has had a recent hospitalization from December 28 - January 13 and treated for empyema in his lung do with a 3-4 week course of antibiotics. He was supposed to return to his home on January 31, but the transition did not occur, for unknown reason. Additional PMH includes: COPD O2 dependent, chronic diastolic congestive heart failure, cor pulmonale, ischemic CVA, LLE lymphedema, urinary retention with chronic indwelling Sullivan, CKD III, and HTN. This admission has been treated with steroids, nebulizers and antibiotics and initially was placed on Hi-flow O2, but has since been weaned to a nasal canula. 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 An MRI was negative and it was suggested to restart his low dose Aspirin for anticoagulation. Palliative Care was consulted to discuss goals of care. -I met with the patient in room 241-2. No family at bedside. -Patient initially was resting, but woke easily. He was AAO x 4 and able to follow commands and speak in complete sentences; however, became winded with audible wheezing and crackles almost immediately and for the duration of our conversation. -The patient denied pain or discomfort and stated that he felt like his breat ava was back to 'normal'. -When I asked him about his appetite, he stated that it 'goes up and down', but doesn't feel hungry often. -We talked a little bit about his previous hospital stay and his time at [facility] and he stated that he was ready to go home from there. We talked about what that meant to him and he just said "I don't want to come back here". -We briefly discussed his code status and confirmed him to be DNR/DNI should he breathing worsen, he would not want any heroic measures taken. -When I asked him about feeding tubes, etc should he continue to not have an appetite he said "I don't want any of that" -I spoke, with the patients permission with his daughter Keiko on the phone . She stated that Hospice has been brought up on his previous admission and they are very willing to hear more about home hospice, but, of course, this would need to be discussed with the patients , as well who should be coming in to the hospital today. -Based on my overall assessment, this patient absolutely would qualify for hospice should the family decide to pursue this route, as it appears home with hospice may be their ultimate goal, I am just unsure what the home dynamic is regarding the patients being primary caregiver vs additional supplemental care needs. -Nursing aware to contact Palliative Care when the patients arrives to discuss goals of care, POLST form etc. (2) Acute and chronic respiratory failure: Respiratory failure complication: hypoxia Qualified Code(s): J96.21 - Acute and chronic respiratory failure with hypoxia (3) Chronic diastolic CHF (congestive heart failure): (4) Decubitus ulcer of buttock, stage 2: Laterality: unspecified laterality Qualified Code(s): L89.302 - Pressure ulcer of unspecified buttock, stage 2 (5) Pleural effusion: (6) Moderate protein-energy malnutrition: Supervising Physician Co-Signing Physician Notes Chart reviewed, collaborated with STEPHEN Ferrera Patient seen and examined-patient's had arrived at bedside along with patient's brother and [id number]. Patient's daughter, Hamida, asked to be in on the visit by phone. Patient's breathing has markedly improved with aggressive diuresis-patient and family hope patient can return to [facility] for further rehab prior to going home with home health. Did discuss transitioning from home health to hospice. Patient is currently active with [facility]. Patient would like to avoid further hospitalizations-discussed with family the importance of daily weights and calling their PCP for Lasix dosing adjustment. Did discuss what hospice could provide at home-further details will need to be discussed with hospice agency. PE: Patient awake and alert, no acute distress. Patient on O2 at 2 L nasal cannula HEENT: EOMI, hearing within normal limits Respirations: Unlabored, no rales on exam CV: Regular rate, lower extremity edema markedly improved. Abdomen: Soft, nontender Agree with above note, assessment and plan as per STEPHEN Ferrera-we will see if patient is accepted back at [facility] for further rehab, if not patient is plan to go home with home health and transition to hospice care. History of Present Illness Reason for Consultation: Goals of care Requesting Physician: Dr. Alegre Attending Physician: Rahul Alegre MD History of Present Illness This is an 83-year-old elderly frail male who presented to the [facility] from [facility] with increased SOB and dysarthia. He was diagnosed with a COPD exacerbation and possible aspiration pneumonia. He has had a recent hospitalization from December 28 - January 13 and treated for empyema in his lung do with a 3-4 week course of antibiotics. He was supposed to return to his home on January 31, but the transition did not occur, for unknown reason. Additional PMH includes: COPD O2 dependent, chronic diastolic congestive heart failure, cor pulmonale, ischemic CVA, LLE lymphedema, urinary retention with chronic indwelling Sullivan, CKD III, and HTN. This admission has been treated with steroids, nebulizers and antibiotics and initially was placed on Hi-flow O2, but has since been weaned to a nasal canula. 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 An MRI was negative and it was suggested to restart his low dose Aspirin for anticoagulation. Palliative Care was consulted to discuss goals of care. Please see A/P for further details. Thank you kindly for involving the palliative care team with this patient. We will follow. Allergies Allergy/AdvReac Type Severity Reaction Status Date / Time adhesive Allergy Mild RASH Verified 02/07/19 11:13 latex Allergy Mild "RASH" Verified 02/07/19 11:13 Home Medications Home Medications Medication Instructions Recorded Confirmed Type cholecalciferol (vitamin D3) 1,000 unit PO QAM 11/04/17 02/07/19 History [Vitamin D3] finasteride 5 mg PO QAM 11/04/17 02/07/19 History levothyroxine 100 mcg PO QAM 11/04/17 02/07/19 History tamsulosin [Flomax] 0.4 mg PO QAM 11/04/17 02/07/19 History ipratropium-albuterol 3 ml INHALATION QID PRN 12/28/18 02/07/19 History prednisone 10 mg PO QAM 12/28/18 02/07/19 History Lactobacillus acidoph-L.bulgar 4 tab PO QIDM 30 Days #120 tab 01/10/19 02/07/19 Rx [Floranex] aspirin 81 mg PO QAM 02/07/19 02/07/19 History budesonide 0.5 mg NEB BID 02/07/19 02/07/19 History formoterol fumarate [Perforomist] 20 mcg NEB BID 02/07/19 02/07/19 History furosemide [Lasix] 20 mg PO QAM 02/07/19 02/07/19 History metoprolol tartrate 25 mg PO BID 02/07/19 02/07/19 History pantoprazole 40 mg PO BID 02/07/19 02/07/19 History ropinirole 0.5 mg PO HS 02/07/19 02/07/19 History tiotropium bromide [Spiriva with 1 puff INHALATION QAM 02/07/19 02/07/19 History HandiHaler] Patient History Medical History Acute diastolic heart failure Bilateral pleural effusion Bronchitis H/O FREQUENT BRONCHITIS Cerebrovascular disease (Chronic) Chronic diastolic CHF (congestive heart failure) (Chronic) Chronic respiratory failure Following with pulm [facility], most recent documented COPD exacerbation 10/25/17, treated OP with steroids/ABX CKD (chronic kidney disease), stage III (Chronic) FOLLOWS WITH PCP 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 Most recent hospital admission for exacerbation was 07/17-07/19 @ [facility]. Cor pulmonale Do not resuscitate status Goals of care, counseling/discussion Hearing deficit HTN (hypertension) (Chronic) Hypothyroidism (Chronic) Indwelling Sullivan catheter present Lymphedema (Chronic) Moderate protein-energy malnutrition On home oxygen therapy Osteoarthritis (Chronic) TIA (transient ischemic attack) Urinary retention (Chronic) SULLIVAN CATHETER Surgical History History of cataract surgery BILATERAL History of tonsillectomy and adenoidectomy (Chronic) S/P ear surgery (Chronic) Family History Other Hypertension Social History Preferred Language: Gabonese Communication Ability: Effective Visual Impairment: No Limitations Product Support Rep Required: No Beliefs That Will Affect Care: None marital status: Current Living Situation: Spouse Other Information That Helps Us Care for You: No Feels Safe at Home: Yes Safety Concerns: Feels Safe At This Time Smoking Status: Current every day smoker Tobacco Type: cigarettes ; Cigarettes Per Day: 6 ; Second Hand Exposure: Yes ; Hx Alcohol Use: Yes Alcohol type: beer Alcohol Intake Frequency: Rarely Hx Substance Use: No Review of Systems Review of Systems: General: Pt denies pain HEENT: Denies GOFF, dizziness CV: Pt denies chest pain, palpitations Resp: Pt denies SOB, + cough GI: Pt denies abdominal pain, tenderness Physical Exam Constitutional: + acute distress, + ill appearing, + thin, + cachectic, + frail appearing and cooperative ENMT: external ear and nose normal, oropharynx normal Respiratory: + respiratory distress and + uses accessory muscles Auscultati on: + crackles (inspiratory and expiratory ) and + wheezes (expiratory ) Cardiovascular: Rate/Rhythm: regular rate Gastrointestinal (Abdomen): Inspection/Auscultation: + abdomen distended and normal bowel sounds Skin: + ecchymosis two abdominal laproscopic sites with gauze Psychiatric: A+Ox3, euthymic affect Genitourinary: chronic indwelling sullivan catheter. dark cloudy urine output Lymphatic: + lymphedema (left leg) Results & Data Vital Signs (Past 12 Hours) Vital Signs Temp Pulse Pulse Pulse Resp BP Pulse Ox 02/11/19 07:57 36.5 C 66 22 166/75 H 96 02/11/19 07:08 107 H 22 97 02/11/19 03:15 36.5 C 80 21 157/77 H 95 02/10/19 23:33 79 02/10/19 23:30 36.7 C 79 20 152/77 H 96 PG Care Time/CCT Total # of Minutes Spent Total Time Spent with Patient: Total time spent is greater than 50% in coordination of care (as documented) at patient's floor/unit and/or counseling patient: 70 Prolonged Care Time Prolonged Care Time: Yes Total Prolonged Care Time: 30 Time Spent Midlevel Total time spent 70 mintutes with > 50% of that time spent assessing the patient, discussing goals of care with the patient and daughter on the phone. Attending Spent 30 minutes in addition to the 70 minutes spent by LONG CHAIN DYEING MACHINE OPERATOR for a total of 100 minutes with greater than 50% of the time spent at bedside discussing goals of care. Critical Care Time Prolonged Care Time Prolonged Care Time: Yes Total Prolonged Care Time: 30 100
[2019-02-11] MEDS ORDERED: predniSONE 20 MG TAB PO STA (10:21)
--- NOTE | 2019-02-11 10:22 | Hospitalist Progress Note ---
Date of Service delayed entry date of service noted below February 11, 2019 Assessment & Plan (1) Acute and chronic respiratory failure: Per admitting provider notes: This is an 83-year-old male with a PMH of chronic respiratory failure on 2 L nasal cannula O2, severe COPD, chronic diastolic heart failure, cor pulmonale, h/o ischemic CVA, lymphedema (L>R), chronic urinary retention with Robledo in place, CKD III, HTN and other medical problems listed below who presents from [facility] with acute on chronic respiratory failure. -Found to be hypoxic at 77% on 2 L nasal cannula, placed on Vapotherm high flow nasal cannula with improved oxygen saturation to mid 90s Patient weaned off high flow oxygen, now on 2-3 L of oxygen by nasal cannula (baseline) Discussed with the rn physician office Etiology of acute respiratory failure most likely secondary to volume overload, possible acute on chronic diastolic heart failure Discontinued Solu-Medrol, Zosyn, pneumonia unlikely at this time Speech therapist also ruled out aspiration given Lasix IV, increased to 40mg in AM, 20mg in PM crea stable today, patient has wheezing but seems to be on the dry side hold off on Lasix IV, Prednisone 40mg one dose given may need to resume PO Lasix tomorrow, will need to be increased from 40mg daily to BID Palliative Care consulted, plan to transition to Hospice Care upon return to [facility] (2) COPD, severe: Continue scheduled nebs, continue usual Pulmicort, Perforomist, Spiriva Discussed with rn physician office, recommending palliative care consultation, palliative care consulted (3) Dysarthria: Primary provider notes: Intermittent since last admission- concern for TIA in setting of aspirin being held for GI bleed. 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 There is no hemorrhage, mass effect, or evidence of acute territorial ischemia by CT criteria Dysarthria has resolved Evaluated by neurologist, recommend continuing aspirin at this time No other interventions or medication changes recommended (4) Chronic diastolic CHF (congestive heart failure): Management per #1 (5) HTN (hypertension): Continue lopressor (6) Urinary retention: Has chronic Robledo catheter in place that is changed monthly -Continue flomax and finasteride (7) Lymphedema: Possible left lower leg cellulitis Per admitting provider notes: Chronic condition, L>R. No longer receiving treatment due to cost -Recently underwent venous doppler (02/01) and arterial doppler (02/04) of LLE that were reportedly negative Possible cellulitis of the left lower leg: Cephalexin started Improving, continue (8) CKD (chronic kidney disease), stage III: Baseline creatinine 1.6-1.8 stable while on IV Lasix Monitor on Lasix DVT Ppx: SQ heparin Code status: DNR per discussion with patient and family PCP: Ruth Dispo: repair manager consulted Subjective ff up for acute on chronic respiratory failure, pulmonary edema seen sitting up in bed, comfortable, in good spirits at baseline 2 L NC states he rested well last night breathing is "ok" denies changes with cough, sputum no leg pain no other symptoms Review of Systems Review of Systems: All systems reviewed & are unremarkable except as noted in HPI & below Physical Exam Physical Exam: General- oriented x 3, not in distress, speaks in sentences with no effort or accessory muscle use Eyes- anicteric Neck- no JVD Lungs- (+) mild wheeze BL no crackles Heart- normal rate, regular rhythm; no murmurs Abdomen- normal bowel sounds, nondistended, soft, nontender Extremities- lower leg edema- resolved, no calf tenderness left lower leg- erythema and warmth resolving Neuro- alert, oriented x 3; no gross focal neurologic deficits Skin- warm & dry Results & Data Vital Signs (Past 12 Hours) Vital Signs Temp Pulse Pulse Pulse Resp BP Pulse Ox 02/11/19 07:57 36.5 C 66 22 166/75 H 96 02/11/19 07:08 107 H 22 97 02/11/19 03:15 36.5 C 80 21 157/77 H 95 02/10/19 23:33 79 02/10/19 23:30 36.7 C 79 20 152/77 H 96 (1) Acute and chronic respiratory failure Respiratory failure complication: hypoxia Qualified Code(s): J96.21 - Acute and chronic respiratory failure with hypoxia
[2019-02-11 10:51] LABS: BUN Creatinine Ratio 17.2 (10-20); Calcium 8.6 mg/dl (8.5-10.1); Creatinine Clr Calc Pharmacy 29.9 ml/min; Est GFR (African American) 52.1; Potassium 3.6 mmol/L (3.5-5.1)
[2019-02-11] MEDS: ROPINIROLE HCL 0.25 MG TABLET PO SCH (20:10)
[2019-02-12] MEDS: LEVOTHYROXINE SODIUM 100 MCG TABLET PO SCH (04:56)
[2019-02-12] MEDS: cephALEXin 250 MG CAP PO SCH ×3 (04:56→18:51)
[2019-02-12] MEDS: BUDESONIDE 0.5 MG/2 ML VIAL (PULMICORT) NEB SCH ×2 (07:32→19:02)
[2019-02-12] MEDS: FORMOTEROL 20 MCG/2 ML VIAL NEB SCH ×2 (07:32→19:02)
[2019-02-12] MEDS: ALBUT/IPRATROP 3MG/0.5MG NEB 3 ML VIAL NEB SCH (07:38)
[2019-02-12] MEDS ORDERED: ACETAMINOPHEN 325 MG TAB PO PRN (07:55)
[2019-02-12] MEDS ORDERED: ALBUT/IPRATROP 3MG/0.5MG NEB 3 ML VIAL NEB PRN (07:56)
[2019-02-12] MEDS: FINASTERIDE 5 MG TAB PO SCH (08:30)
[2019-02-12] MEDS: LACTOBACILLUS ACIDOPHILUS (FLORANEX) TAB PO SCH ×4 (08:31→21:14)
[2019-02-12] MEDS: METOPROLOL TARTRATE 25 MG TAB PO SCH ×2 (08:32→21:14)
[2019-02-12] MEDS: CHOLECALCIFEROL 1,000 UNITS 25 MCG TAB PO SCH (08:32)
[2019-02-12] MEDS: ASPIRIN 81 MG ECTAB PO SCH (08:32)
[2019-02-12] MEDS: HEPARIN SOD 5,000 UNIT/0.5 ML VIAL SQ SCH ×2 (08:33→21:13)
[2019-02-12] MEDS: TAMSULOSIN HCL 0.4 MG CAP PO SCH (08:33)
[2019-02-12] MEDS: TIOTROPIUM BROMIDE 5 PUFF/90 MCG INH INH SCH (08:33)
[2019-02-12] MEDS: PANTOprazole 40 MG TAB PO SCH ×2 (08:34→21:13)
[2019-02-12 08:38] LABS: Albumin Globulin Ratio 0.7 (0.9-2); Albumin Level 2.8 gm/dl (3.4-5.0); BUN Creatinine Ratio 19.8 (10-20); Bilirubin,Total 0.7 mg/dl (0.2-1); Creatinine Clr Calc Pharmacy 34.1 ml/min; Est GFR (African American) 61.3; Est GFR (Non-African American) 52.9; Globulin 3.8 gm/dl (2.5-4.0); Magnesium 2.3 mg/dl (1.8-2.4); Phosphorus 2.4 mg/dl (2.5-4.9); Potassium 4.4 mmol/L (3.5-5.1); Total Protein 6.6 gm/dl (6.4-8.2)
[2019-02-12] MEDS ORDERED: SODIUM PHOSPHATE 3 MMOL/1 ML INFUSION IV STA (08:56)
--- NOTE | 2019-02-12 09:03 | XRay Report ---
XR chest 1V portable CLINICAL HISTORY: follow up lung infiltrates COMPARISON STUDY: February 10, 2019 FINDINGS: The cardiac and mediastinal contours remain stable. There is radiographic evidence of emphy sema. There are small pleural effusions. There is improving aeration of the lung bases.[There is no c urrent evidence of overt failure. IMPRESSION: 1. Emphysema 2. No evidence of overt failure 3. Small effusions with improving aeration of the lung bases ACT 112: Negative or not required by law. Electronically signed by: Alfonso Michel M.D. 02/12/2019 9:01 AM
[2019-02-12] MEDS ORDERED: FUROSEMIDE 20 MG TAB PO ONE (09:15)
[2019-02-12] MEDS ORDERED: SODIUM PHOSPHATE 15 MMOL in SODIUM CHLORIDE 0.9% 250 ML IV ONE (09:15)
--- NOTE | 2019-02-12 15:34 | Palliative Care Progress Note ---
Date of Service February 12, 2019 Assessment & Plan (1) Goals of care, counseling/discussion: This is an 83-y0 male who presented to the [facility] from [facility] with increased SOB and dysarthia. He was diagnosed with a COPD exacerbation and possible aspiration pneumonia. He has had a recent hospitalization from December 28 - January 13 and treated for empyema in his lung do with a 3-4 week course of antibiotics. He was supposed to return to his home on January 31, but the transition did not occur, for unknown reason. Additional PMH includes: COPD O2 dependent, chronic diastolic congestive heart failure, cor pulmonale, ischemic CVA, LLE lymphedema, urinary retention with chronic indwelling [place], CKD III, and HTN. This admission has been treated with steroids, nebulizers and antibiotics and initially was placed on Hi-flow O2, but has since been weaned to a nasal canula. 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 An MRI was negative and it was suggested to restart his low dose Aspirin for anticoagulation. Palliative Care was consulted to discuss goals of care. -I met with the patient in room 241-2. No family at bedside initially, did arrive at end of visit.. -Patient awake and alert, reading the newspaper. He was AAO, mild shortness of breath with conversation. -The patient denied pain or discomfort and stated that he felt like his breathing has markedly improved. - CODE STATUS is DNR/DNI should he breathing worsen, he would not want any heroic measures taken. -Patient's prior conversation regarding feeding tubes, etc should he continue to not have an appetite he said "I don't want any of that" -Spoke with -hope for patient to be able to return to [facility] for skilled admission to improve his strength and ambulation in order to decrease caregiver burden at home. If patient is unable to return to [facility]-plan would be to go home under hospice care. -Left message for case management-they are awaiting a call back from [facility] -Will continue to follow and assist patient and family with medical decision making. (2) Acute and chronic respiratory failure: (3) Chronic diastolic CHF (congestive heart failure): (4) Decubitus ulcer of buttock, stage 2: (5) Pleural effusion: (6) Moderate protein-energy malnutrition: Subjective Patient seen and examined, no family at bedside. Did meet with at end of visit outside of the room. Patient awake alert, appears comfortable, mildly increased respiratory rate. Patient reports his breathing is markedly improved as well as his lower extremity edema. Patient would like to return home, however is amenable to returning to [facility] to regain strength and improve ambulation to decrease caregiver burden when he returns home. Review of Systems Review of Systems: Patient denies fever, chills, chest pain, increased shortness of breath, or abdominal pain Physical Exam Physical Exam: PE: Awake and alert, no acute distress. HEENT: EOMI, hearing within normal limits Respiratory: Increased respiratory rate, able to state approximately half a sentence between breaths. Lungs without rhonchi, diminished breath sounds bilaterally CV: Regular rate, decreased lower extremity edema Abdomen: Soft, nontender Neuro: Alert, oriented to person and place. Able to participate in conversation. Results & Data Vital Signs (Past 12 Hours) Vital Signs Temp Pulse Resp BP BP Pulse Ox 02/12/19 11:34 98.4 F 77 22 128/62 95 02/12/19 10:16 71 20 94 02/12/19 08:00 97.9 F 71 20 165/83 H 94 02/12/19 07:35 70 20 98 02/12/19 03:36 97.9 F 73 20 164/82 H 94 PG Care Time/CCT Total # of Minutes Spent Total Time Spent with Patient: Total time spent is greater than 50% in coordination of care (as documented) at patient's floor/unit and/or counseling patient: Time Spent Attending Total time spent 35 minutes with greater than 50% of the time spent at bedside assessing patient's current condition and discussing goals of care with both patient and . (1) Acute and chronic respiratory failure Respiratory failure complication: hypoxia Qualified Code(s): J96.21 - Acute and chronic respiratory failure with hypoxia (2) Decubitus ulcer of buttock, stage 2 Laterality: unspecified laterality Qualified Code(s): L89.302 - Pressure ulcer of unspecified buttock, stage 2
--- NOTE | 2019-02-12 18:04 | Hospitalist Progress Note ---
Date of Service February 12, 2019 Assessment & Plan (1) Acute and chronic respiratory failure: Acute diastolic heart failure -This is an 83-year-old male with a PMH of chronic respiratory failure on 2 L nasal cannula O2, severe COPD, chronic diastolic heart failure, cor pulmonale, h/o ischemic CVA, lymphedema (L>R), chronic urinary retention with Evans in place, CKD III, HTN and other medical problems listed below who presents from [facility] with acute on chronic respiratory failure; Found to be hypoxic at 77% on 2 L nasal cannula, placed on Vapotherm high flow nasal cannula with improved oxygen saturation to mid 90s -During this admission he underwent a CT of his chest which demonstrated bilateral pleural effusions (right greater than left). He has also increased interstitial markings consistent with pulmonary edema. There is also question of some mucus plugging in the right bronchus intermedius. He underwent a video fluoroscopy due to concerns of aspiration which was unremarkable -Patient has been able to transition to base line nasal cannula oxygen after trial of solumedrol and Zosyn antibiotic (however no evidence of pneumonia to support this as cause of initial respiratory distress) -respiratory issues likely from COPD exacerbation with volume overload from suspected acute on chronic diastolic heart failure -patient's breathing also improved with IV Lasix; will de-escalate to Lasix 20 mg daily for now -Palliative Care consulted and when patient is accepted to [facility] then there are plans to transition to hospice care (2) COPD, severe: -Continue scheduled nebs, continue usual Pulmicort, Perforomist, Spiriva -management as above (3) Lymphedema: chronic lymphedema suspected cellulitis of lower extremity -Chronic condition, L>R. No longer receiving treatment due to cost -Recently underwent venous doppler (02/01) and arterial doppler (02/04) of LLE that were reportedly negative -Possible cellulitis of the left lower leg. Cephalexin started on 02/09/2019, continue for antibiotic for now (4) Dysarthria: -Dysarthria has resolved -Evaluated by neurologist, recommend continuing aspirin at this time -No other interventions or medication changes recommended -He underwent a video fluoroscopy due to concerns of aspiration which was unremarkable on this admission (5) HTN (hypertension): Continue lopressor (6) Urinary retention: chronic urinary reteion with chronic indwelling evans -Has chronic Evans catheter in place that is changed monthly -Continue flomax and finasteride (7) CKD (chronic kidney disease), stage III: -Baseline creatinine 1.6 to 1.8 -monitor renal function DVT Ppx: SQ heparin Code status: DNR/DNI PCP: Ruth [phone] Subjective Patient reports that his breathing is at baseline. on nasal cannula oxygen. denies chest pain or palpitations. no headache. no dizziness. no nausea. no vomiting Review of Systems Review of Systems: All systems reviewed & are unremarkable except as noted in HPI & below Physical Exam Constitutional: comfortable Eyes: PERRL, conjunctivae normal, anicteric sclerae EOM intact bilaterally ENMT: external ear and nose normal, oropharynx normal Neck: normal visual inspection Respiratory: normal respiratory effort Cardiovascular: Rate/Rhythm: + bradycardic Gastrointestinal (Abdomen): normal bowel sounds, soft, nontender, no hepatosplenomegaly Musculoskeletal: Head/Neck/Chest: normocephalic and head atraumatic Neurologic: PERRL, EOMI, accommodation nl, no face palsy, no dysarthria CN's II-XI intact bilaterally Psychiatric: A+Ox3, euthymic affect Results & Data Vital Signs (Past 12 Hours) Vital Signs Temp Pulse Resp BP BP Pulse Ox 02/12/19 16:26 36.8 C 58 L 18 128/67 97 02/12/19 11:34 36.9 C 77 22 128/62 95 02/12/19 10:16 71 20 94 02/12/19 08:00 36.6 C 71 20 165/83 H 94 02/12/19 07:35 70 20 98 (1) Acute and chronic respiratory failure Respiratory failure complication: hypoxia Qualified Code(s): J96.21 - Acute and chronic respiratory failure with hypoxia
[2019-02-12] MEDS: ROPINIROLE HCL 0.25 MG TABLET PO SCH (21:14)
[2019-02-13] MEDS: cephALEXin 250 MG CAP PO SCH ×2 (02:15→09:20)
[2019-02-13] MEDS: LEVOTHYROXINE SODIUM 100 MCG TABLET PO SCH (06:03)
[2019-02-13] MEDS: FORMOTEROL 20 MCG/2 ML VIAL NEB SCH (07:25)
[2019-02-13] MEDS: BUDESONIDE 0.5 MG/2 ML VIAL (PULMICORT) NEB SCH (07:27)
[2019-02-13 07:59] LABS: Eosinophils # (auto) 0.08 K/uL (0-0.5); Eosinophils % (auto) 1.1 %; Hematocrit (blood only) 36.8 % (42-52); Immature Granulocytes # (auto) 0.06 K/uL (0.00-0.02); Immature Granulocytes % (auto) 0.8 %; Lymphocytes # (auto) 1.34 K/uL (1.2-3.4); Lymphocytes % (auto) 17.8 %; Mean Corpuscular Hemoglobin 30.7 pg (25-34); Mean Corpuscular Hgb Conc 32.6 g/dL (32-36); Mean Corpuscular Volume 94.1 fL (80-100); Mean Platelet Volume 10.2 fL (7.4-10.4); Monocytes # (auto) 0.55 K/uL (0.11-0.59); Monocytes % (auto) 7.3 %; Platelet Count 239 K/uL (130-400); RDW Coefficient of Variation 15.8 % (11.5-14.5); RDW Standard Deviation 54.1 fL (36.4-46.3); Red Blood Count 3.91 M/uL (4.7-6.1); White Blood Count 7.53 K/uL (4.8-10.8)
[2019-02-13 08:22] LABS: Albumin Level 2.6 gm/dl (3.4-5.0); BUN Creatinine Ratio 22.3 (10-20); Calcium 8.3 mg/dl (8.5-10.1); Creatinine Clr Calc Pharmacy 30.7 ml/min; Est GFR (African American) 54.9; Est GFR (Non-African American) 47.4; Magnesium 2.2 mg/dl (1.8-2.4); Potassium 3.9 mmol/L (3.5-5.1)
[2019-02-13 08:25] LABS: Albumin Globulin Ratio 0.8 (0.9-2); Bilirubin,Total 0.4 mg/dl (0.2-1); Globulin 3.4 gm/dl (2.5-4.0); Phosphorus 2.7 mg/dl (2.5-4.9)
[2019-02-13] MEDS ORDERED: FUROSEMIDE 20 MG TAB PO SCH (09:00)
[2019-02-13] MEDS: METOPROLOL TARTRATE 25 MG TAB PO SCH (09:20)
[2019-02-13] MEDS: PANTOprazole 40 MG TAB PO SCH (09:21)
[2019-02-13] MEDS: TIOTROPIUM BROMIDE 5 PUFF/90 MCG INH INH SCH (09:21)
[2019-02-13] MEDS: LACTOBACILLUS ACIDOPHILUS (FLORANEX) TAB PO SCH (09:21)
[2019-02-13] MEDS: ASPIRIN 81 MG ECTAB PO SCH (09:21)
[2019-02-13] MEDS: CHOLECALCIFEROL 1,000 UNITS 25 MCG TAB PO SCH (09:22)
[2019-02-13] MEDS: FINASTERIDE 5 MG TAB PO SCH (09:22)
[2019-02-13] MEDS: TAMSULOSIN HCL 0.4 MG CAP PO SCH (09:22)
[2019-02-13] MEDS: HEPARIN SOD 5,000 UNIT/0.5 ML VIAL SQ SCH (09:24)
--- NOTE | 2019-02-13 10:25 | Hospitalist Progress Note ---
Date of Service February 13, 2019 Assessment & Plan (1) Acute and chronic respiratory failure: Acute and chronic respiratory failure from Acute diastolic heart failure causing acute pulmonary edema, -This is an 83-year-old male with a PMH of chronic respiratory failure on 2 L nasal cannula O2, severe COPD, chronic diastolic heart failure, cor pulmonale, h/o ischemic CVA, lymphedema (L>R), chronic urinary retention with Evans in place, CKD III, HTN and other medical problems listed below who presents from [facility] with acute on chronic respiratory failure; Found to be hypoxic at 77% on 2 L nasal cannula, placed on Vapotherm high flow nasal cannula with improved oxygen saturation to mid 90s -During this admission he underwent a CT of his chest which demonstrated bilateral pleural effusions (right greater than left). He has also increased interstitial markings consistent with pulmonary edema. There is also question of some mucus plugging in the right bronchus intermedius. He underwent a video fluoroscopy due to concerns of aspiration which was unremarkable -Patient has been able to transition to base line nasal cannula oxygen after trial of solumedrol and Zosyn antibiotic (however no evidence of pneumonia to support this as cause of initial respiratory distress) -respiratory issues likely from COPD exacerbation with volume overload from suspected acute on chronic diastolic heart failure -patient's breathing also improved with IV Lasix; will de-escalate to Lasix 20 mg daily for now -Palliative Care consulted and when patient is accepted to [facility] then there are plans to transition to hospice care -02/13/2019: Discharge to [facility] with plans for transition to hospice Patient should follow up with primary care doctor 1 week after hospital discharge CHF Discharge Instructions Call your Primary Care doctor if any of the following symptoms or problems start or get worse: * Shortness of breath or difficulty breathing * Wake up at night short of breath * Chest pain * Cough * Swelling of your hands, feet, or legs * More fatigued or tired with your normal activity * Palpitations - sudden fast heart beats WEIGHT * Weigh yourself every morning after using the bathroom. * Use the same scale. * Wear the same amount of clothing. * Write your weight down on a chart. * Call your Primary Care doctor if you gain more than 2-3 pounds in 1-2 days. MEDICATIONS * Use this discharge instruction sheet for medication instructions. * Take your medications at the time your doctor ordered. * Do not skip a dose of your medicines. * If you miss a dose of medicine, take it as soon as possible, but DO NOT DOUBLE A DOSE. * Read your medicine information when you get home. * Know all of the side effects of your medicine. If in doubt, ask your pharmacist * Call your Primary Care doctor's office if you have any side effects. * Be sure all of your doctors know what medicine and herbs you take (including cold, flu, and herbal medicine). Take the following with you to your follow-up doctor appointments: * Weight Chart * Medication List * List of questions Do not drink excessive alcohol, beer or wine. (2) COPD, severe: COPD exacerbation -breathing improved with nebulizers during hospital stay -continue usual Pulmicort, Perforomist, Spiriva -management as above (3) Lymphedema: chronic lymphedema suspected cellulitis of lower extremity -Chronic condition, L>R. No longer receiving treatment due to cost -Recently underwent venous doppler (02/01) and arterial doppler (02/04) of LLE that were reportedly negative -Possible cellulitis of the left lower leg. Cephalexin started on 02/09/2019, continue for antibiotic for now -Paper prescriptions made for Possible cellulitis of the left lower leg. Cephalexin started on 02/09/2019, continue for antibiotic for 3 more days (4) Dysarthria: -Dysarthria has resolved -Evaluated by neurologist, recommend continuing aspirin at this time -No other interventions or medication changes recommended -He underwent a video fluoroscopy due to concerns of aspiration which was unremarkable on this admission -Paper prescriptions made for aspirin 162 mg daily for treatment of previous dysarthria to lower stroke risk (5) HTN (hypertension): Continue lopressor (6) Urinary retention: chronic urinary reteion with chronic indwelling evans -Has chronic Evans catheter in place that is changed monthly -Continue flomax and finasteride (7) CKD (chronic kidney disease), stage III: -Baseline creatinine -upcoming nephrology appointment 05/27/2019 2:10 PM Provider Analia Coats MD Department Nephrology [facility] DVT Ppx: SQ heparin while in the hospital Code status: DNR/DNI PCP: Ruth [phone] Discharge Diagnosis Acute and chronic respiratory failure from Acute diastolic heart failure causing acute pulmonary edema, chronic lymphedema and suspected cellulitis of lower extremity, Dysarthria (has resolved), HTN (hypertension), CKD (chronic kidney disease) stage III, chronic urinary retention with chronic indwelling evans Subjective leg edema and concerns for cellulitis generally resolved; patient breathing comfortably on nasal cannula. no acute shortness of breath. no chest pain. no palpitations. no dizziness. no lightheadedness Review of Systems Review of Systems: All systems reviewed & are unremarkable except as noted in HPI & below Physical Exam Constitutional: comfortable Eyes: PERRL, conjunctivae normal, anicteric sclerae EOM intact bilaterally ENMT: external ear and nose normal, oropharynx normal Neck: normal visual inspection Respiratory: normal respiratory effort Cardiovascular: Rate/Rhythm: + bradycardic Gastrointestinal (Abdomen): normal bowel sounds, soft, nontender, no hepatosplenomegaly Musculoskeletal: Head/Neck/Chest: normocephalic and head atraumatic Skin: no rashes, warm and dry (leg edema and concerns for cellulitis generally resolved) Neurologic: PERRL, EOMI, accommodation nl, no face palsy, no dysarthria CN's II-XI intact bilaterally Psychiatric: A+Ox3, euthymic affect Results & Data Vital Signs (Past 12 Hours) Vital Signs Temp Pulse Resp BP BP Pulse Ox 02/13/19 07:49 36.6 C 62 18 157/76 H 99 02/13/19 07:27 63 16 97 02/12/19 23:38 36.5 C 97 H 20 141/73 H 92 (1) Acute and chronic respiratory failure Respiratory failure complication: hypoxia Qualified Code(s): J96.21 - Acute and chronic respiratory failure with hypoxia
--- NOTE | 2019-02-13 10:30 | Discharge Summary ---
Date of Service February 13, 2019 Admission HPI Per Admitting Provider This is an 83-year-old male with a PMH of chronic respiratory failure on 2 L nasal cannula O2, severe COPD, chronic diastolic heart failure, cor pulmonale, h/o ischemic CVA, lymphedema (L>R), chronic urinary retention with Evans in place, CKD 3, HTN and other medical problems listed below who presents from [facility] with hypoxia. Patient was recently admitted to our service from December 28-January 13 was diagnosed with empyema of left pleural space s/p pigtail drainage growing Streptococcus intermedius. Was discharged on 3-4 weeks total of Augmentin with pulmonary follow-up with Dr. Penaloza in 2 weeks. Patient was not seen in follow-up. During admission, aspirin was held due to concern for GI bleed. Patient later had episode of dysphasia with stroke work-up that was negative. Due to concern for TIA, neurology was consulted and patient's aspirin dose was changed to 162 mg daily. However, patient has only been receiving 81 mg daily of aspirin at [facility]. Patient was also evaluated by speech during admission and placed on minced and moist diet. This morning, patient was noted to be hypoxic on his normal 2L NC oxygen. Also noted to be wheezing. Per discussion with [facility] nursing, no fever or reported chest pain. Was sent to ED for further evaluation. Initially found to be hypoxic at 77% and placed on Vapotherm high flow nasal cannula oxygen with improved oxygen saturation to mid 90s. VBG pH 7.33. BNP elevated at 3221. Chest x-ray with pulmonary edema and small pleural effusions as well as progressively worsened bibasilar opacities right greater than left. Patient given neb treatment, 125 mg IV Solu-Medrol and started empirically on Zosyn. Family still noting intermittently slurred speech. No new weakness (has some residual L sided weakness from previous stroke). Denies lightheadedness, visual changes, chest pain, palpitations, cough, nausea, vomiting, abdominal pain, dysuria, diarrhea or constipation. Admission Exam Per Admitting Provider General Appearance: WD/WN, vitals as above, NAD, lying in bed, appears chronically ill, conversing easily Head: normocephalic, atraumatic Eyes: normal inspection, PERRL, conjunctivae normal, anicteric sclerae ENT: external ear and nose normal, oropharynx normal Neck: trachea midline, no thyromegaly normal visual inspection Respiratory: bibasilar crackles, diffuse wheezing on exam. Normal insp/exp effort, no accessory muscle use, on high flow NC O2 Cardiovascular: tachycardic, regular rhythm, no murmur appreciated, normal peripheral pulses. Vessels: no JVD or carotid bruit Chest: normal inspection of chest Abdomen/GI: normal bowel sounds, soft, nontender, no hepatosplenomegaly Extremities/Musculoskelatal: L>R BLE edema. L with overlying erythema and warmth. No cyanosis or clubbing, chronic L sided weakness at baseline Neurologic: + Dysarthria, PERRL, EOMI, accommodation nl, no face palsy, CN's II-XI intact bilaterally and moves all extremities Psychiatric: A+Ox3, euthymic affect Skin: no rashes, normal color, warm/dry Principal Diagnosis Acute and chronic respiratory failure from Acute diastolic heart failure causing acute pulmonary edema, chronic lymphedema and suspected cellulitis of lower extremity, Dysarthria (has resolved), HTN (hypertension), CKD (chronic kidney disease) stage III, chronic urinary retention with chronic indwelling evans Discharge Exam Constitutional comfortable Eyes PERRL, conjunctivae normal, anicteric sclerae EOM intact bilaterally ENMT external ear and nose normal, oropharynx normal Neck normal visual inspection Respiratory normal respiratory effort Cardiovascular Rate/Rhythm: + bradycardic Gastrointestinal (Abdomen) normal bowel sounds, soft, nontender, no hepatosplenomegaly Musculoskeletal Head/Neck/Chest: normocephalic and head atraumatic Skin no rashes, warm and dry (leg edema and concerns for cellulitis generally resolved) Neurologic PERRL, EOMI, accommodation nl, no face palsy, no dysarthria CN's II-XI intact bilaterally Psychiatric A+Ox3, euthymic affect Discharge Data Allergies Allergy/AdvReac Type Severity Reaction Status Date / Time adhesive Allergy Mild RASH Verified 02/07/19 11:13 latex Allergy Mild "RASH" Verified 02/07/19 11:13 Consultations 02/07/19 13:10 ED Decision to Admit Stat 02/07/19 14:51 Consult Pulmonology Routine 02/07/19 16:36 Consult Case Management - Discharge Planning Routine 02/07/19 17:45 Consult Neurology Routine 01/03/20 11:49 Consult Palliative Care Routine Ordered Studies 02/07/19 14:48 CT chest wo con Routine CT head/brain wo con Urgent 02/08/19 10:45 FL video swallow Routine Hospital Course (1) Acute and chronic respiratory failure: Acute and chronic respiratory failure from Acute diastolic heart failure causing acute pulmonary edema, -This is an 83-year-old male with a PMH of chronic respiratory failure on 2 L nasal cannula O2, severe COPD, chronic diastolic heart failure, cor pulmonale, h/o ischemic CVA, lymphedema (L>R), chronic urinary retention with Evans in place, CKD III, HTN and other medical problems listed below who presents from [facility] with acute on chronic respiratory failure; Found to be hypoxic at 77% on 2 L nasal cannula, placed on Vapotherm high flow nasal cannula with improved oxygen saturation to mid 90s -During this admission he underwent a CT of his chest which demonstrated bilateral pleural effusions (right greater than left). He has also increased interstitial markings consistent with pulmonary edema. There is also question of some mucus plugging in the right bronchus intermedius. He underwent a video fluoroscopy due to concerns of aspiration which was unremarkable -Patient has been able to transition to base line nasal cannula oxygen after trial of solumedrol and Zosyn antibiotic (however no evidence of pneumonia to support this as cause of initial respiratory distress) -respiratory issues likely from COPD exacerbation with volume overload from suspected acute on chronic diastolic heart failure -patient's breathing also improved with IV Lasix; will de-escalate to Lasix 20 mg daily for now -Palliative Care consulted and when patient is accepted to [facility] then there are plans to transition to hospice care -02/13/2019: Discharge to [facility] with plans for transition to hospice Patient should follow up with primary care doctor 1 week after hospital discharge CHF Discharge Instructions Call your Primary Care doctor if any of the following symptoms or problems start or get worse: * Shortness of breath or difficulty breathing * Wake up at night short of breath * Chest pain * Cough * Swelling of your hands, feet, or legs * More fatigued or tired with your normal activity * Palpitations - sudden fast heart beats WEIGHT * Weigh yourself every morning after using the bathroom. * Use the same scale. * Wear the same amount of clothing. * Write your weight down on a chart. * Call your Primary Care doctor if you gain more than 2-3 pounds in 1-2 days. MEDICATIONS * Use this discharge instruction sheet for medication instructions. * Take your medications at the time your doctor ordered. * Do not skip a dose of your medicines. * If you miss a dose of medicine, take it as soon as possible, but DO NOT DOUBLE A DOSE. * Read your medicine information when you get home. * Know all of the side effects of your medicine. If in doubt, ask your pharmacist * Call your Primary Care doctor's office if you have any side effects. * Be sure all of your doctors know what medicine and herbs you take (including cold, flu, and herbal medicine). Take the following with you to your follow-up doctor appointments: * Weight Chart * Medication List * List of questions Do not drink excessive alcohol, beer or wine. (2) COPD, severe: COPD exacerbation -breathing improved with nebulizers during hospital stay -continue usual Pulmicort, Perforomist, Spiriva -management as above (3) Lymphedema: chronic lymphedema suspected cellulitis of lower extremity -Chronic condition, L>R. No longer receiving treatment due to cost -Recently underwent venous doppler (02/01) and arterial doppler (02/04) of LLE that were reportedly negative -Possible cellulitis of the left lower leg. Cephalexin started on 02/09/2019, continue for antibiotic for now -Paper prescriptions made for Possible cellulitis of the left lower leg. Cephalexin started on 02/09/2019, continue for antibiotic for 3 more days (4) Dysarthria: -Dysarthria has resolved -Evaluated by neurologist, recommend continuing aspirin at this time -No other interventions or medication changes recommended -He underwent a video fluoroscopy due to concerns of aspiration which was unremarkable on this admission -Paper prescriptions made for aspirin 162 mg daily for treatment of previous dysarthria to lower stroke risk (5) HTN (hypertension): Continue lopressor (6) Urinary retention: chronic urinary reteion with chronic indwelling evans -Has chronic Evans catheter in place that is changed monthly -Continue flomax and finasteride (7) CKD (chronic kidney disease), stage III: -Baseline creatinine -upcoming nephrology appointment 05/27/2019 2:10 PM Provider Analia Coats MD Department Nephrology [facility] DVT Ppx: SQ heparin while in the hospital Code status: DNR/DNI PCP: Ruth [phone] Discharge Diagnosis Acute and chronic respiratory failure from Acute diastolic heart failure causing acute pulmonary edema, chronic lymphedema and suspected cellulitis of lower extremity, Dysarthria (has resolved), HTN (hypertension), CKD (chronic kidney disease) stage III, chronic urinary retention with chronic indwelling evans Total Time Total Time Spent Total Time Spent (In Minutes): 40 minutes Total Time Includes: Examination of the Patient, Discharge Planning, Medication Reconciliation and Communication With Other Providers Discharge Plan Discharge Items Patient Disposition: Transfer [facility] Reason For Visit: ACUTE ON CHRONIC RESP FAILURE Discharge Diagnosis: Acute and chronic respiratory failure from Acute diastolic heart failure causing acute pulmonary edema, chronic lymphedema and suspected cellulitis of lower extremity, Dysarthria (has resolved), HTN (hypertension), CKD (chronic kidney disease) stage III, chronic urinary retention with chronic indwelling evans Condition on Discharge: Good Activity: Per Instructions section Non-emergency contact: Primary Care Provider Call non-emergency contact if: you have any medication questions Follow-up/Referrals: Manny Miranda MD [Primary Care Provider] - Diet: Heart Healthy Fluids: 1500ml (6 cups) Addtl Attending Provider Instructions: Discharge to [facility] with plans for transition to hospice Paper prescriptions made for aspirin 162 mg daily for treatment of previous dysarthria to lower stroke risk Paper prescriptions made for Possible cellulitis of the left lower leg. Cephalexin started on 02/09/2019, continue for antibiotic for 3 more days Patient should follow up with primary care doctor 1 week after hospital discharge upcoming nephrology appointment 05/27/2019 2:10 PM Provider Analia Coats MD Department Nephrology [facility] Addtl Rodent Exterminator Provider Instructions: CHF Discharge Instructions Call your Primary Care doctor if any of the following symptoms or problems start or get worse: * Shortness of breath or difficulty breathing * Wake up at night short of breath * Chest pain * Cough * Swelling of your hands, feet, or legs * More fatigued or tired with your normal activity * Palpitations - sudden fast heart beats WEIGHT * Weigh yourself every morning after using the bathroom. * Use the same scale. * Wear the same amount of clothing. * Write your weight down on a chart. * Call your Primary Care doctor if you gain more than 2-3 pounds in 1-2 days. MEDICATIONS * Use this discharge instruction sheet for medication instructions. * Take your medications at the time your doctor ordered. * Do not skip a dose of your medicines. * If you miss a dose of medicine, take it as soon as possible, but DO NOT DOUBLE A DOSE. * Read your medicine information when you get home. * Know all of the side effects of your medicine. If in doubt, ask your pharmacist * Call your Primary Care doctor's office if you have any side effects. * Be sure all of your doctors know what medicine and herbs you take (including cold, flu, and herbal medicine). Take the following with you to your follow-up doctor appointments: * Weight Chart * Medication List * List of questions Do not drink excessive alcohol, beer or wine. Pending Studies at Discharge: No Stand-Alone Forms: My [facility] myQaa Skilled Items Patient informed of condition?: Yes DNR: Yes Discharge Level of Care: Skilled Communicable Disease: No Discharge Prognosis: Stable Lines: None Urinary Catheter: No Medications and DC Order Prescriptions: New aspirin [Ecotrin Low Strength] 81 mg Tablet,Delayed Release (Dr/Ec) 162 mg PO QAM 30 Days Qty: 60 RF: 0 cephalexin 250 mg Capsule 250 mg PO Q8H 3 Days Qty: 9 RF: 0 Continued ipratropium-albuterol 0.5 mg-3 mg(2.5 mg base)/3 mL solution for nebulization 3 ml INHALATION QID PRN (Reason: Shortness Of Breath Or Wheezing) RF: 0 Lactobacillus acidoph-L.bulgar [Floranex] 1 million cell Tablet 4 tab PO QIDM 30 Days Qty: 120 RF: 0 levothyroxine 100 mcg Tablet 100 mcg PO QAM RF: 0 tamsulosin [Flomax] 0.4 mg Capsule 0.4 mg PO QAM RF: 0 finasteride 5 mg Tablet 5 mg PO QAM RF: 0 cholecalciferol (vitamin D3) [Vitamin D3] 1,000 unit Tablet 1,000 unit PO QAM RF: 0 ropinirole 0.5 mg Tablet 0.5 mg PO HS RF: 0 aspirin 81 mg Tablet,Chewable 81 mg PO QAM RF: 0 pantoprazole 40 mg tablet,delayed release (DR/EC) 40 mg PO BID RF: 0 budesonide 0.5 mg/2 mL suspension for nebulization 0.5 mg NEB BID RF: 0 furosemide [Lasix] 20 mg tablet 20 mg PO QAM RF: 0 metoprolol tartrate 25 mg tablet 25 mg PO BID RF: 0 Spiriva with HandiHaler 18 mcg capsule, w/inhalation device 1 puff inhalation QAM RF: 0 Perforomist 20 mcg/2 mL solution for nebulization 20 mcg NEB BID RF: 0 Discontinued prednisone 5 mg Tablet 10 mg PO QAM RF: 0 Discharge Orders: Discharge Order (Routine); Ordered 02/13/19 Ordered By: David Estrella Admission Data Admit Date/Time: 02/08/19 18:51 Attending Provider: David Estrella Admit Provider: Rahul Alegre Primary Care Provider: Manny Miranda Other Providers: Sascha Hurst ; Abelardo Cornell ; Neo Méndez ; Maritza Michel
--- NOTE | 2019-05-03 14:28 | Coding Query ---
CODING QUERY To promote full compliance with coding requirements relating to patient care, provider participation is requested in all cases of hub borer uncertainty. Please assist us with the question(s) below: Coding Question(s): Please document the principal dx for coding purposes. Principal Diagnosis: "that condition established after study, to be chiefly responsible for occasioning the admission of the patient to the hospital for care." Discharge summary states Acute and chronic respiratory failure from Acute diastolic heart failure causing acute pulmonary edema Physician's Response(s): this is the main discharge diagnosis Thank you Destiny Russell Principal Diagnosis: "that condition established after study, to be chiefly responsible for occasioning the admission of the patient to the hospital for care." Co-Existing Principal Diagnosis: "when two or more diagnoses equally meet the criteria for principal diagnosis as determined by the circumstances of admission, diagnostic work up, and/or therapy provided, and the Alphabetic Index, Tabular List, or another coding guideline does not provide sequencing direction, any one of the diagnoses may be sequenced first." "When the physician has documented what appears to be a current diagnosis in the body of the record, but has not included the diagnosis in the final diagnostic statement, the physician should be asked whether the diagnosis should be added." (Source Coding [facility] 2 QTR90. p3-4) OLIVIA
== END 2019-02-13 12:21 | DRG 291 ==
LOC: ED 10:22 → 2S 10:22 → SUATTDRO 02-08 18:51 → 2W 02-12 18:12